=== PATIENT | female | born 1965 | race Caucasian/White ===

== ENCOUNTER → 2016-04-28 | Outpatient (CLI) | payer BC ==
[2015-07-21 08:40] VITALS: BP 159/71
[~2016-04-28] MED LIST: ALBU2.5V5 NEB; AMLO10TA2 PO; FLEC100T PO; FLUT1DIS5 IH; FURO80TA3 PO; GABA-586 PO; HYDR-2680 PO; HYDR50TA6 PO; LOVA20TA2 PO; METF500T9 PO; METO50TA4 PO; PANT40TA5 PO; POTA20TA12 PO; RIVA10TA PO
--- NOTE | 2016-04-28 13:35 | CARD ---
APPROVED REPORT EXAM: Two-dimensional and M-mode echocardiogram with Doppler and color Doppler. Other Information Quality : Technically Limited Rhythm : NSRTechnically limited study due to body habitus. INDICATION Arrhythmia 2D DIMENSIONS RVDd2.9 (2.9-3.5cm)Left Atrium(2D)3.5 (1.6-4.0cm) IVSd1.1 (0.7-1.1cm)Aortic Root(2D)2.6 (2.0-3.7cm) LVDd5.1 (3.9-5.9cm)LVOT Diameter2.3 (1.8-2.4cm) PWd1.1 (0.7-1.1cm)LVDs3.1 (2.5-4.0cm) FS (%) 28.9 %SV86.7 ml LVEF(%)58.9 (>50%) Aortic Valve AoV Peak Gianni.137.9cm/sAoV VTI33.9cm AO Peak GR.7.6mmHgLVOT Peak Gianni.117.9cm/s AO Mean GR.5mmHgAVA (VMAX)3.44cm2 ORLIN (VTI)3.70cm2 Mitral Valve MV E Vlhrcjfu83.7cm/sMV E Peak Gr.4mmHg MV DECEL [id number] A Jldripor16.5cm/s MV E Mean Gr.2mmHgMV [id number] E/A Ratio1.0MV A [id number] MVA (PHT)4.03cm2 Pulmonary Vein S1 Viwawnie27.4cm/sD2 Hkyhmznh51.5cm/s PVa [id number] LEFT VENTRICLE The left ventricle is normal size. There is normal left ventricular wall thickness. Left ventricle sy stolic function is normal. The Ejection Fraction is 55-60%. There is normal LV segmental wall motion. The left ventricular diastolic function and filling is normal for age. RIGHT VENTRICLE The right ventricle is normal size. The right ventricular systolic function is normal. ATRIA The left atrium size is normal. The right atrium size is normal. The interatrial septum is intact wit h no evidence for an atrial septal defect or patent foramen ovale as noted on 2-D or Doppler imaging. AORTIC VALVE The aortic valve is not well visualized. Doppler and Color Flow revealed no significant aortic regurg itation. There is no significant aortic valvular stenosis. MITRAL VALVE Mitral annular calcification is mild. There is no mitral valve stenosis. Doppler and Color Flow revea led no mitral valve regurgitation noted. TRICUSPID VALVE The tricuspid valve is normal in structure and function. Doppler and Color Flow revealed no tricuspid valve regurgitation noted. Unable to estimate PA pressure. There is no tricuspid valve stenosis. PULMONIC VALVE The pulmonic valve is not well visualized. Doppler and Color Flow revealed no pulmonic valvular regur gitation. There is no pulmonic valvular stenosis. GREAT VESSELS The aortic root is normal in size. Normal pulmonary venous flow (Doppler). The IVC is normal in size and collapses >50% with inspiration. PERICARDIAL EFFUSION There is no evidence of significant pericardial effusion. Critical Notification Critical Value: No <Conclusion> Technically very difficult study. Valves not well visualized. Left ventricle systolic function is normal. The Ejection Fraction is 55-60%. There is normal LV segmental wall motion. There is no evidence of significant pericardial effusion.
== END | disposition home or self-care (01) ==
LOC: ECHO 09:39
PROVIDERS: ATTEND Internal Medicine Cardiovascular Disease
DX: I47.2 Ventricular tachycardia (principal); I49.9 Cardiac arrhythmia, unspecified
CPT/HCPCS: 93306

== ENCOUNTER → 2016-10-07 | Outpatient (CLI) | payer BC ==
[2015-07-21 08:40] VITALS: BP 159/71
[~2016-10-07] MED LIST changes: +ASPI-482 PO; +CETI10TA22 PO; +IPRA4AER IH; +LISI-334 PO; +TRAM50TA PO
--- NOTE | 2016-10-07 22:41 | PAIN ---
DATE OF SERVICE: 10/07/2016 INITIAL CONSULTATION FOR PAIN CLINIC CHIEF COMPLAINT: Low back and left lower extremity pain. HISTORY OF PRESENT ILLNESS: This is a 51-year-old female who presents with history of pain in the low back and left leg for many years, approximately 12 years plus. The patient reports it is much worse over the past 6 months or so with pain in low back radiating to the left lower extremity, mostly in the posterior and lateral thigh, posterior calf, some in the lateral anterior calf as well. Occasionally, some pain on the right side, mostly on the left. The patient reports it is constant, sharp with tingling, numbness, burning and cramping. The patient reports it is not a result of any specific injury or action that she is aware of, but it was there present when she woke up from hysterectomy in 2004 and the pain has been there ever since. The patient reports she has tried epidural injections in 2004, which helped significantly. Also, has some chiropractic treatment, which is currently doing, which is helping only of small amounts. The patient reports it awakens her from sleep at least 4 times at night. She feels that it causes increased urinary frequency, but not affect her bowel control, but does affect her ability to walk significantly. She is using a walker and a cane to ambulate. The patient reports no loss of motor function with significant fatigability with activity, worse with standing, walking, changing positions, getting up and down from sitting to standing and vice versa. Once she is standing, walking is somewhat better, but she is having significant difficulty placing weight on her right leg and is using a walker most times and has one with her today. PAST MEDICAL HISTORY: Significant for type 2 diabetes, shortness of breath, obesity, COPD, using home oxygen 2 liters at night, history of hypertension, irregular heart rhythm with pacemaker placed, dizziness, arthritis. PREVIOUS SURGERIES: Include hysterectomy in 2004, pacemaker placement in 2015, strabismus correction at age 12, left hand finger surgery in 2013. CURRENT MEDICATIONS: Include albuterol inhaler, Xarelto, Advair inhaler, metformin, potassium, pantoprazole, lovastatin, daily baby aspirin, tramadol, lisinopril, Zyrtec, metoprolol, furosemide, gabapentin, lisinopril. ALLERGIES: THE PATIENT IS ALLERGIC TO BACTRIM AND IODINE. FAMILY HISTORY: Significant for no major medical problems or conditions that she is aware of. SOCIAL HISTORY: The patient does not smoke, does not drink alcohol, is , lives with her spouse and lives locally in [place]. REVIEW OF SYSTEMS: The patient's review of systems is positive for those items mentioned in history of present illness. All systems reviewed and otherwise negative and is complete, full and well documented on the patient's chart. PHYSICAL EXAMINATION: VITAL SIGNS: The patient's blood pressure is 186/104, pulse 65, respirations 26, temperature is 98.3 degrees Fahrenheit, height is 5 feet inches, weighs 434 pounds. GENERAL: The patient is awake, alert, oriented, appropriate, very pleasant demeanor. HEENT: Shows normocephalic, atraumatic. Extraocular movements are intact and symmetrical. Oral cavity shows mucous membranes are moist and pink. Dentition is intact. NECK: Shows anterior throat supple without palpable lymphadenopathy noted. CHEST: Shows normal with inspection. Breath sounds clear to auscultation bilaterally but distant. The patient is mildly tachypneic with respiratory rate of 24-26. ABDOMEN: The patient's abdomen is obese, soft, nontender, nondistended. No palpable organomegaly, no rebound or guarding demonstrated. BACK: The patient's back shows spine grossly midline. Slight exaggeration of thoracic kyphosis and mild flattening of lumbar lordotic curvature. The patient's lumbar paraspinous muscle shows symmetrical with tenderness with palpation bilaterally diffusely without specific trigger points or radiation, but shows good rotation motion both laterally as well as extension and flexion without significant pain reported. No tenderness over the sacrum or sacroiliac regions. Lower extremities showed deep tendon reflexes at 1+ in the patellar and tendo calcaneus tendons are equal. Motor exam is approximately 4 on scale of 5 and equal and symmetrical with dorsiflexion, extension, quadriceps and hamstring flexion bilaterally. Peripheral pulses are 1+ posterior tibial and dorsalis pedis pulses. No peripheral edema is noted. The patient is able to stand with difficulty, needs help of her walker to get up out of her chair, has a shuffling gait, does not appear to favor the right or left lower extremity significantly, but is shuffling and very slow deliberate gait, again using a walker to ambulate. IMPRESSION: 1. This is a 51-year-old female with long history of low back and right lower extremity pain approximately 12 years or so, worse over the past few months. 2. Morbid obesity. 3. Arthritis. 4. Hypertension. 5. Type 2 diabetes. 6. Pacemaker. PLAN: Options were discussed with the patient including conservative medical management, physical therapy, interventional techniques. She would like to pursue interventional techniques. She good luck with these in 2004. We discussed getting half of Xarelto first, however, we will contact her contracts intern to get clearance for this. If this is deemed safe and appropriate, to clear this, we will have her hold the Xarelto for 3 days prior to returning and plan on lumbar epidural steroid injection at that time. Also discussed her blood pressure, pressure reports is not usually as high as was today, but I encouraged her strongly to follow up with her primary care physician regarding this as well. The patient will return to clinic and will plan on lumbar epidural steroid injection if cleared for holding her Xarelto by her contracts intern as mentioned. MARI JORDAN MD DR: NATALIE/jolene JOB#: [id number] / [id number]
== END | disposition home or self-care (01) ==
LOC: PNCL 08:25
PROVIDERS: ATTEND Anesthesiology
DX: M79.661 Pain in right lower leg (principal); I10 Essential (primary) hypertension; E11.9 Type 2 diabetes mellitus without complications; E66.01 Morbid (severe) obesity due to excess calories; M13.88 Other specified arthritis, other site
CPT/HCPCS: 99214

== ENCOUNTER → 2016-10-14 | Outpatient (CLI) | payer BC ==
[2015-07-21 08:40] VITALS: BP 159/71
[~2016-10-14] MED LIST changes: +IOHEXOL 180 MG/ML 10 ML VIAL. ONE; +methylPREDNISolone ACETATE 40 MG/ML VIAL. ONE; +methylPREDNISolone ACETATE 80 MG/ML VIAL. ONE
--- NOTE | 2016-10-14 17:52 | PAIN ---
DATE OF SERVICE: 10/14/2016 PROGRESS NOTE FOR PAIN CLINIC DIAGNOSES: Lumbar radiculopathy with lumbar degenerative disk disease. HISTORY OF PRESENT ILLNESS: The patient is a 51-year-old female who returns for followup status post previous initial evaluation and clearance from her adult parole officer to hold her Xarelto. She has been off of this for 4 days now, after clearance was obtained, reports still significant pain in the low back and left lower extremity greater than right, but present bilaterally with numbness and weakness in the left lower extremity as well. The patient reports is having some difficulty is standing on her walking and she is having some difficulty with balance in this region as well. She is also using a walker to ambulate. The patient reports the pain is sharp, tingling, burning, constant and severe, rates at 10 on a scale of 10 at least and it is worse. The patient reports it awakens her from sleep frequently. She is now sleeping 1-2 hours at times the most as it is becoming more and more painful and noticeable. The patient reports no new motor or sensory deficits; however, no new bowel or bladder incontinence, would like to proceed today. PHYSICAL EXAMINATION: VITAL SIGNS: Shows blood pressure 143/93, pulse 78, respirations are 24, temperature is 97.8 degrees Fahrenheit., weight is 431 pounds. GENERAL: The patient is awake, alert, oriented, appropriate, very pleasant demeanor. HEENT: Head is normocephalic, atraumatic. Extraocular movements are intact and symmetrical. Oral cavity shows mucous membranes moist and pink. Dentition is intact. NECK: Shows anterior throat supple without palpable lymphadenopathy noted. Swallow reflex is symmetrical. CHEST: Shows normal on inspection. Breath sounds are distant, but clear to auscultation bilaterally. BACK: The patient's back shows spine grossly in midline. Moderate tenderness with palpation throughout the lumbar paraspinous musculature superiorly, medially and inferiorly without radiation. EXTREMITIES: Lower extremities showed deep tendon reflexes 1+ in the patellar tendons. Motor exam is approximately 4 on a scale of 5, but equal, shows good dorsiflexion and extension bilaterally. Options were discussed with the patient. At this time, the patient's old chart was reviewed as her current medication regimen updated. Current review of systems updated today as well. We will proceed with a lumbar epidural steroid injection. She has been off her Xarelto now for 4 days. Risks were discussed including but not limited to bleeding, infection, possibility of epidural hematoma, subsequent neurological compromise, dural puncture, headaches, spinal cord and/or nerve damage, side effects of steroid medications and poor results regarding pain. She pain control. The patient understands and wishes to proceed. The patient will return to clinic in approximately 2 weeks for follow up. She was counseled as on return appointment, activity level and side effects to be aware of. DIAGNOSIS: Lumbar radiculopathy with lumbar degenerative disk disease. PROCEDURE: Lumbar epidural steroid injection in translaminar approach at the L4-L5 level using C-arm fluoroscopic guidance under sterile prep and drape using local anesthetic. MEDICATION INJECTED: A total 120 mg Depo-Medrol plus 10 mL of preservative-free normal saline and 2 mL Isovue contrast. CONDITION AT DISCHARGE: Stable. The patient tolerated procedure well, had no complications. MARI JORDAN MD DR: NATALIE/jolene JOB#: [id number] / [id number]
== END | disposition home or self-care (01) ==
LOC: PNCL 11:13
PROVIDERS: ATTEND Anesthesiology
DX: M51.16 Intervertebral disc disorders with radiculopathy, lumbar region (principal); E78.00 Pure hypercholesterolemia, unspecified; I48.91 Unspecified atrial fibrillation; I10 Essential (primary) hypertension; J44.9 Chronic obstructive pulmonary disease, unspecified; E11.9 Type 2 diabetes mellitus without complications; Z90.710 Acquired absence of both cervix and uterus; Z86.39 Personal history of other endocrine, nutritional and metabolic disease; Z88.2 Allergy status to sulfonamides; Z88.8 Allergy status to other drugs, medicaments and biological substances
CPT/HCPCS: 62323; J1030; J1040

== ENCOUNTER → 2016-10-25 | Outpatient (CLI) | payer BC ==
[2015-07-21 08:40] VITALS: BP 159/71
[~2016-10-25] MED LIST changes: -IOHEXOL 180 MG/ML 10 ML VIAL. ONE; -methylPREDNISolone ACETATE 40 MG/ML VIAL. ONE; -methylPREDNISolone ACETATE 80 MG/ML VIAL. ONE
--- NOTE | 2016-10-25 09:52 | RAD ---
Exam performed: CT maxillofacial. Indication: Chronic sinus disease. Date of service: 10/25/16,Comparison: CT head without contrast from 01/27/15 Technique: Contiguous acquisitions are obtained through the maxillofacial structures without IV contrast. Coronal reformatted images are obtained and reviewed. Findings: There is mucoperiosteal thickening/mucous retention cyst in the right maxillary sinus. There is normal aeration of both frontal, ethmoid, left maxillary and sphenoid sinuses. No air-fluid level, mucoperiosteal thickening or mucus retention cyst is identified. The bony orbital margins and the intraocular contents are bilaterally symmetric and unremarkable. Both ostiomeatal complexes are preserved. The visualized portion of the brain is normal. Impression: 1. Chronic right maxillary sinus disease noted. PQRS Compliance Statement: One or more of the following individualized dose reduction techniques were utilized for this examination: 1. Automated exposure control 2. Adjustment of the mA and/or kV according to patient size 3. Use of iterative reconstruction technique
== END | disposition home or self-care (01) ==
LOC: CT 09:13
PROVIDERS: ATTEND Otolaryngology Otolaryngology/Facial Plastic Surgery
DX: J32.0 Chronic maxillary sinusitis (principal); J34.1 Cyst and mucocele of nose and nasal sinus
CPT/HCPCS: 70486

== ENCOUNTER → 2016-11-04 | Outpatient (CLI) | payer BC ==
[2015-07-21 08:40] VITALS: BP 159/71
[~2016-11-04] MED LIST changes: +IOHEXOL 180 MG/ML 10 ML VIAL. ONE; +methylPREDNISolone ACETATE 40 MG/ML VIAL. ONE; +methylPREDNISolone ACETATE 80 MG/ML VIAL. ONE
--- NOTE | 2016-11-04 10:59 | PN ---
DATE: 11/04/2016 PROGRESS NOTE FOR PAIN CLINIC DIAGNOSIS: Lumbar radiculopathy with lumbar degenerative disk disease. HISTORY OF PRESENT ILLNESS: The patient is a 51-year-old female who returns for followup, status post lumbar epidural steroid injection x 1. The patient reports about 60% improvement overall, but the pain is returning now in the low back, right lower extremity as it was previously. The patient reports it returned fairly quickly as a 9 on a scale of 10 at its worst and at its least. The patient reports no new motor or sensory deficits, still significant pain, tingling, cramping, burning and becoming unbearable in the low back, across the low back, mostly in the right side, posterior gluteus, posterior thigh, lateral thigh, anterior thigh, medial lower leg to the mid thigh, and ankle on the right side. The patient reports no new motor or sensory deficits, no bowel or bladder incontinence. It wakes her from sleep sporadically, but not every night. PHYSICAL EXAMINATION: VITAL SIGNS: The patient's blood pressure 178/89, pulse is 80, respirations 20, temperature 97.6 degrees Fahrenheit, height is 5 feet 8 inches, weight is 440 pounds. GENERAL: The patient is awake, alert, oriented, appropriate, very pleasant demeanor. HEENT: Shows normocephalic, atraumatic. Extraocular movements are intact and symmetrical. Oral cavity, mucous membranes are moist and pink. Dentition is intact. NECK: Shows anterior throat supple without palpable lymphadenopathy noted. Swallow reflex is symmetrical. CHEST: Shows normal on inspection. Breath sounds clear to auscultation bilaterally. HEART: Shows S1 and S2 clear. ABDOMEN: Obese, soft, nontender, nondistended. BACK: Shows spine grossly midline. Lumbar paraspinous muscle shows symmetrical on inspection with palpation and shows some moderate tenderness bilaterally, but without significant radiation. EXTREMITIES: The patient's lower extremities show deep tendon reflexes 1+ in the patellar tendons. Motor exam is strong with approximately 4 on a scale of 5 with dorsiflexion, extension, quadriceps and hamstrings, but equal and symmetrical. Options were discussed with the patient. The patient's old chart was reviewed as her current medication regimen updated. Current review of systems updated today as well. We will proceed with a second in the series of lumbar epidural steroid injection with fluoroscopic guidance. Risks were again discussed including, but not limited to bleeding, infection, possibility of epidural hematoma, subsequent neurologic compromise, dural puncture, headaches, spinal cord and/or nerve damage, side effects of steroid medication and poor results regarding pain control. The patient understands and wishes to proceed. The patient will return to clinic in approximately 2 weeks for followup, was counseled on return appointment, activity level and side effects to be aware of. DIAGNOSIS: Lumbar radiculopathy with lumbar degenerative disk disease. PROCEDURE: Lumbar epidural steroid injection in translaminar approach at the L4-L5 level using C-arm fluoroscopic guidance under sterile prep and drape using local anesthetic. Medication injected a total of 120 mg of Depo-Medrol plus 10 mL of preservative-free normal saline and 2 mL of Isovue for contrast. CONDITION AT DISCHARGE: Stable. The patient tolerated procedure well, had no complications. MARI JORDAN MD DR: NATALIE/jolene JOB#: [id number] / [id number]
== END | disposition home or self-care (01) ==
LOC: PNCL 09:04
PROVIDERS: ATTEND Anesthesiology
DX: M51.16 Intervertebral disc disorders with radiculopathy, lumbar region (principal); E78.00 Pure hypercholesterolemia, unspecified; I48.91 Unspecified atrial fibrillation; I10 Essential (primary) hypertension; J44.9 Chronic obstructive pulmonary disease, unspecified; E11.9 Type 2 diabetes mellitus without complications; Z90.710 Acquired absence of both cervix and uterus; Z86.39 Personal history of other endocrine, nutritional and metabolic disease; Z91.041 Radiographic dye allergy status; Z88.2 Allergy status to sulfonamides
CPT/HCPCS: 62323; J1030; J1040

== ENCOUNTER 2016-11-16 09:11 | Emergency (ER) | payer BC ==
[~2016-11-16] VITALS: Ht 172.7 cm; Wt 196.4 kg
[~2016-11-16 09:11] MED LIST changes: -IOHEXOL 180 MG/ML 10 ML VIAL. ONE; -methylPREDNISolone ACETATE 40 MG/ML VIAL. ONE; -methylPREDNISolone ACETATE 80 MG/ML VIAL. ONE
[2016-11-16] MEDS ORDERED: KETOROLAC 60 MG/2 ML INJ. IM ONE (09:30)
[2016-11-16] MEDS ORDERED: diazePAM 5 MG TABLET PO ONE (09:30)
[2016-11-16] MEDS ORDERED: MORPHINE SULFATE 10 MG/ML VIAL. IM ONE (09:30)
--- NOTE | 2016-11-16 09:33 | PHYS DOC ---
Past Medical History Past Medical History: A-Fib, COPD, Diabetes-Type II, Hypertension Past Surgical History: Hysterectomy, Pacemaker, Other Additional Past Surgical Histo: HAND SURG,SHOULDER, EYE SURG Alcohol Use: None Drug Use: None Adult General Chief Complaint Chief Complaint: LOWER EXT PAIN [facility] HPI Patient is a 51 year old female with history of COPD, smoking, hypertension, diabetes type 2, overweight, sciatic pain, who presents today with moderate left low back pain radiating to the left lower extremity that has been going on for 6 weeks. Patient denies any trauma. Patient states she has been following up with the pain clinic and has been receiving steroid injections to her lumbar spine. She states she called the pain clinic today and they requested her to come to the ED. Patient denies any trauma. Denies any loss of bowel/bladder function. Denies any numbness or tingling to bilateral lower extremities. Review of Systems Review of Systems Constitutional: Denies fever or chills [] Respiratory: Denies cough or shortness of breath [] Cardiovascular: No additional information not addressed in HPI [] GI: Denies abdominal pain, nausea, vomiting, bloody stools or diarrhea [] : Denies dysuria or hematuria [] Musculoskeletal: Left low back pain radiating to the left lower extremity Integument: Denies rash or skin lesions [] Neurologic: Denies headache, focal weakness or sensory changes [] Current Medications Current Medications Current Medications Medications (Trade) Dose Ordered Sig/[facility] Start Time Stop Time Status Last Admin Dose Admin Diazepam (Valium) 5 mg 1X ONCE 11/16/16 09:30 11/16/16 09:33 DC 11/16/16 09:44 5 MG Ketorolac Tromethamine (Toradol Im) 60 mg 1X ONCE 11/16/16 09:30 11/16/16 09:33 DC 11/16/16 09:44 60 MG Morphine Sulfate 5 mg 1X ONCE 11/16/16 09:30 11/16/16 09:33 DC 11/16/16 09:45 5 MG Allergies Allergies Allergies Coded Allergies Type Severity Reaction Last Updated Verified sulfamethoxazole Allergy Intermediate 10/07/16 Yes trimethoprim Allergy Intermediate 10/07/16 Yes iodine Adverse Reaction Unknown 10/07/16 Yes Physical Exam Physical Exam Constitutional: Well developed, well nourished, no acute distress, non-toxic appearance. [] HENT: Normocephalic, atraumatic, bilateral external ears normal, oropharynx moist, no oral exudates, nose normal. [] Neck: Normal range of motion, no tenderness, supple, no stridor. [] Cardiovascular:Heart rate regular rhythm, no murmur [] Lungs & Thorax: Bilateral breath sounds clear to auscultation, oxygen on, patient uses it at home. Abdomen: Bowel sounds normal, soft, no tenderness, no masses, no pulsatile masses. [] Skin: Warm, dry, no erythema, no rash. [] Back: Overweight patient. Moderate tenderness on the left SI joint, midline lumbar spine not accessible for exam due to patient's weight, no CVA tenderness. Positive left leg straight raises Extremities: No tenderness, no cyanosis, no clubbing, ROM intact, no edema. [] Neurologic: Alert and oriented X 3, normal motor function, normal sensory function, no focal deficits noted. [] Psychologic: Affect normal, judgement normal, mood normal. [] Current Patient Data Vital Signs Vital Signs Date Time Temp Pulse Resp B/P (MAP) Pulse Ox O2 Delivery O2 Flow Rate FiO2 11/16/16 10:14 20 98 Nasal Cannula 2.0 11/16/16 09:53 74 150/71 (97) 11/16/16 09:32 97.7 97.7 EKG EKG [] Radiology/Procedures Radiology/Procedures [] Course & Med Decision Making Course & Med Decision Making Pertinent Labs and Imaging studies reviewed. (See chart for details) This is a 51-year-old female patient with history of sciatic pain who presents today with left low back pain radiating to the left lower extremity for 6 weeks. Patient denies any trauma. Denies any cauda equina syndrome symptoms. Patient's symptoms are consistent with sciatic pain. She was given pain medicine in the ED with very good relief. She was discharged with cyclobenzaprine and [place] 10 tablets. She was instructed to follow-up with the pain clinic doctor in the next 7 days. She was provided return precautions and discharged in stable condition. Dragon Disclaimer Dragon Disclaimer This electronic medical record was generated, in whole or in part, using a voice recognition dictation system. Departure Departure Impression: Primary Impression: Left sciatic nerve pain Disposition: HOME, SELF-CARE Condition: STABLE Referrals: VIJAY PAIZ (PCP) Follow-up with your doctor as well as the pain clinic doctor in the next 7 days Patient Instructions: Sciatica, [id number] Additional Instructions: You were seen with left sciatic pain. Please apply heat to the lower lumbar spine, please follow-up with the pain clinic doctor or your primary care doctor as soon as possible. Please return to the emergency room at any point symptoms worsen. Scripts Hydrocodone/Apap 5-325 (NORCO 5-325 TABLET) 1 Each Tablet 1-2 TAB PO Q4-6HRS, #10 TAB Prov: DELMY SAEED APRN 11/16/16 Cyclobenzaprine Hcl (CYCLOBENZAPRINE HCL) 10 Mg Tablet 1 TAB PO TID, #30 TAB Prov: DELMY SAEED APRN 11/16/16 DELMY SAEED APRN Nov 16, 2016 09:33
[2016-11-16 09:53] VITALS: BP 150/71
[2016-11-16] MEDS ORDERED: CYCL10TA2 PO (10:26)
[2016-11-16] MEDS ORDERED: HYDR-971 PO (10:26)
== END 2016-11-16 10:38 | disposition home or self-care (01) ==
LOC: ER 09:11
DX: M54.42 Lumbago with sciatica, left side (principal); I48.91 Unspecified atrial fibrillation; J44.9 Chronic obstructive pulmonary disease, unspecified; E11.9 Type 2 diabetes mellitus without complications; I10 Essential (primary) hypertension; F17.200 Nicotine dependence, unspecified, uncomplicated; Z95.0 Presence of cardiac pacemaker; Z90.710 Acquired absence of both cervix and uterus; Z88.2 Allergy status to sulfonamides; Z88.1 Allergy status to other antibiotic agents; Z88.8 Allergy status to other drugs, medicaments and biological substances
CPT/HCPCS: 96372; 99284; J1885; J2270

== ENCOUNTER 2016-11-17 20:44 | Inpatient (IN) | payer BC ==
[~2016-11-17] VITALS: Ht 172.7 cm; Wt 200.1 kg
[~2016-11-17 20:44] MED LIST changes: +CYCL10TA2 PO; +HYDR-971 PO
[2016-11-17 21:54] LABS: BILIRUBIN,URINE NEGATIVE (NEG); GLUCOSE,URINE NEGATIVE (NEG); NITRITE,URINE POSITIVE (NEG); PH,URINE 5.5; PROTEIN,URINE 30 mg/dL (NEG-TRACE); UROBILINOGEN,URINE 0.2 mg/dL (0.2 mg/dL)
[2016-11-17 22:00] LABS: BACTERIA,URINE MANY /HPF (0-FEW); SQUAMOUS EPITHELIAL CELL,UR FEW /LPF
[2016-11-17 22:13] LABS: BASO # 0.1 x10^3/uL (0.0-0.2); BASO % 1 % (0-3); EOS % 1 % (0-3); HEMATOCRIT 42.6 % (36.0-47.0); HEMOGLOBIN 13.5 g/dL (12.0-15.5); LYMPH # 2.4 x10^3/uL (1.0-4.8); LYMPH % 23 % (24-48); MEAN CORPUSCULAR HEMOGLOBIN 25 pg (25-35); MEAN CORPUSCULAR HGB CONC 32 g/dL (31-37); MEAN CORPUSCULAR VOLUME 79 fL (79-100); MONO % 4 % (0-9); NEUT % 71 % (31-73); PLATELET COUNT 310 x10^3/uL (140-400); RED BLOOD COUNT 5.41 x10^6/uL (3.50-5.40); RED CELL DISTRIBUTION WIDTH 19.3 % (11.5-14.5); WHITE BLOOD COUNT 10.4 x10^3/uL (4.0-11.0)
[2016-11-17] MEDS ORDERED: ONDANSETRON PF 4 MG/2 ML VIAL. IV ONE (22:15)
[2016-11-17] MEDS ORDERED: IV NORMAL SALINE 1000ML BAG 1,000 ML IV SCH (22:15)
[2016-11-17] MEDS: HYDROmorphone 2 MG/ML VIAL IV/SQ PRN (22:18)
[2016-11-17 22:24] LABS: CALCIUM 9.5 mg/dL (8.5-10.1); CREATININE 0.8 mg/dL (0.6-1.0); GFR 75.9; POTASSIUM 4.4 mmol/L (3.5-5.1)
[2016-11-17 22:32] LABS: ALBUMIN 3.3 g/dL (3.4-5.0); ALBUMIN/GLOBULIN RATIO 0.8 (1.0-1.7); TOTAL BILIRUBIN 0.6 mg/dL (0.2-1.0); TOTAL PROTEIN 7.5 g/dL (6.4-8.2)
--- NOTE | 2016-11-17 23:09 | RAD ---
CT Abdomen and Pelvis without contrast History: Severe hip and leg pain, back pain, urinary tract infection Technique: Noncontrast CT imaging was performed of the abdomen and pelvis. Multiplanar images are reviewed. Exposure: One or more of the following individualized dose reduction techniques were utilized for this examination: 1. Automated exposure control 2. Adjustment of the mA and/or kV according to patient size 3. Use of iterative reconstruction technique. Comparison: None Findings: Exam is limited due to beam attenuation by the soft tissues.Accurate evaluation of abdominal visceral organs is limited without intravenous contrast. There is no obvious focal abnormality of the pancreas or liver. There are splenic granulomas. Gallbladder is present without obvious intraluminal abnormality by CT. There is no significant adrenal nodularity. There is no significant abnormality of the limited visualized lung bases. No renal or ureteral calculi are identified. There is no significant hydronephrosis of either kidney. Accurate evaluation of bowel is limited without oral contrast. There is no significant bowel dilatation, free air, free fluid. Impression: 1. Exam is limited due to beam attenuation by the soft tissues. There is no significant hydronephrosis, no convincing urolithiasis identified. Electronically signed by: Stuart Lawler MD (11/17/2016 11:05 PM) [facility]
[2016-11-17] MEDS ORDERED: DEXTROSE 50% 25 GM / 50ML DISP.SYRIN. IV PRN (23:30)
[2016-11-17] MEDS ORDERED: ACETAMINOPHEN 325 MG TABLET. PO PRN (23:30)
[2016-11-18] MEDS: HYDROmorphone 2 MG/ML VIAL IV/SQ PRN (00:09)
[2016-11-18 01:30] VITALS: BP 176/64
[2016-11-18] MEDS: ONDANSETRON PF 4 MG/2 ML VIAL. IV PRN ×2 (01:50→10:51)
[2016-11-18] MEDS: MORPHINE SULFATE 4 MG/ML DISP.SYRIN. IV PRN ×7 (01:51→21:13)
--- NOTE | 2016-11-18 02:27 | ED.ADGEN ---
Past Medical History Past Medical History: A-Fib, Arthritis, COPD, Diabetes-Type II, Hypertension Past Surgical History: Hysterectomy, Pacemaker, Other Additional Past Surgical Histo: HAND SURG,SHOULDER, EYE SURG Alcohol Use: None Drug Use: None Adult General Chief Complaint Chief Complaint: LOWER BACK PAIN OR INJURY HPI HPI Patient is a 51 year old woman, history of atrial fibrillation, hypertension, morbid obesity, type 2 diabetes mellitus, chronic back pain for which she follows with the pain management clinic, who presents to the emergency department with a complaint of pain in her lower back radiating down her left leg. Patient states that symptoms are similar to previous episodes of severe sciatica, states that she last had an epidural injection about a week and a half ago but it was unsuccessful. She she woke today with pain, denies any discrete injuries. Does complain of some urinary frequency, no urgency or dysuria. No hematuria. No discharge or drainage from the vagina. No abdominal pain. No fevers or chills, describes the pain as Ksenia, sharp and shooting, radiating from the lower back down the left leg in an electric fashion, worse with any motion, states she cannot bear weight on the left side secondary to pain. Denies any moises weakness. No change in bowel or bladder habits. Patient was seen in the emergency department this morning for the same complaint, that time she received analgesic, was feeling better 1 home. States that she when she awoke from taking a nap she was feeling worse again. Review of Systems Review of Systems Constitutional: Denies fever or chills. [] Eyes: Denies change in visual acuity. [] HENT: Denies nasal congestion or sore throat. [] Respiratory: Denies cough or shortness of breath. [] Cardiovascular: Denies chest pain or edema. [] GI: Denies abdominal pain, nausea, vomiting, bloody stools or diarrhea. [] : Denies dysuria. [] Musculoskeletal: Denies joint pain. [Complaining of low back pain, radiating into the left lower extremity.] Integument: Denies rash. [] Neurologic: Denies headache, focal weakness or sensory changes. [] Endocrine: Denies polyuria or polydipsia. [] Lymphatic: Denies swollen glands. [] Psychiatric: Denies depression or anxiety. [] Current Medications Current Medications Current Medications Medications (Trade) Dose Ordered Sig/Misty Start Time Stop Time Status Last Admin Dose Admin Hydromorphone HCl (Dilaudid) 0.5 mg PRN Q15MIN PRN 11/17/16 22:15 11/18/16 22:14 11/18/16 00:09 0.5 MG Ondansetron HCl (Zofran) 4 mg 1X ONCE 11/17/16 22:15 11/17/16 22:16 DC 11/17/16 22:18 4 MG Sodium Chloride 1,000 ml @ 1,000 mls/hr Q1H 11/17/16 22:15 11/17/16 23:14 DC 11/17/16 22:17 1,000 MLS/HR Allergies Allergies Allergies Coded Allergies Type Severity Reaction Last Updated Verified sulfamethoxazole Allergy Intermediate 10/07/16 Yes trimethoprim Allergy Intermediate 10/07/16 Yes iodine Adverse Reaction Unknown 10/07/16 Yes Physical Exam Physical Exam Constitutional: Well developed, morbidly obese, no acute distress, non-toxic appearance. [Patient with nasal cannula in place which she wears chronically.] HENT: Normocephalic, atraumatic, bilateral external ears normal, oropharynx moist, no oral exudates, nose normal. [] Eyes: PERRLA, EOMI, conjunctiva normal, no discharge. [] Neck: Normal range of motion, no tenderness, supple, no stridor. [] Cardiovascular:Heart rate regular rhythm, no murmur, S1, S2, rubs or gallops [] Lungs & Thorax: Bilateral breath sounds clear to auscultation, no wheezing, rhonchi, rales. [] Abdomen: Bowel sounds normal, soft, obese, no rebound, rigidity, no guarding, no tenderness, no masses, no pulsatile masses. [] Skin: Warm, dry, no erythema, no rash. [] Back: Patient with tenderness palpation midline and left-sided paraspinal lumbar spine, no step-offs or deformities, tenderness in the piriformis region with spasm. Extremities: No tenderness, no cyanosis, no clubbing, ROM intact, no edema. [] Neurologic: Alert and oriented X 3, normal motor function, normal sensory function, no focal deficits noted. [] Psychologic: Affect normal, judgement normal, mood normal. [] Current Patient Data Vital Signs Vital Signs Date Time Temp Pulse Resp B/P (MAP) Pulse Ox O2 Delivery O2 Flow Rate FiO2 11/17/16 22:32 76 18 160/71 (100) 96 Nasal Cannula 2.0 11/17/16 21:05 98.2 98.2 Lab Values Laboratory Tests Test 11/17/16 21:10 11/17/16 21:46 White Blood Count 10.4 x10^3/uL (4.0-11.0) Red Blood Count 5.41 x10^6/uL (3.50-5.40) H Hemoglobin 13.5 g/dL (12.0-15.5) Hematocrit 42.6 % (36.0-47.0) Mean Corpuscular Volume 79 fL (79-100) Mean Corpuscular Hemoglobin 25 pg (25-35) Mean Corpuscular Hemoglobin Concent 32 g/dL (31-37) Red Cell Distribution Width 19.3 % (11.5-14.5) H Platelet Count 310 x10^3/uL (140-400) Neutrophils (%) (Auto) 71 % (31-73) Lymphocytes (%) (Auto) 23 % (24-48) L Monocytes (%) (Auto) 4 % (0-9) Eosinophils (%) (Auto) 1 % (0-3) Basophils (%) (Auto) 1 % (0-3) Neutrophils # (Auto) 7.4 x10^3uL (1.8-7.7) Lymphocytes # (Auto) 2.4 x10^3/uL (1.0-4.8) Monocytes # (Auto) 0.4 x10^3/uL (0.0-1.1) Eosinophils # (Auto) 0.1 x10^3/uL (0.0-0.7) Basophils # (Auto) 0.1 x10^3/uL (0.0-0.2) Sodium Level 141 mmol/L (136-145) Potassium Level 4.4 mmol/L (3.5-5.1) Chloride Level 102 mmol/L (98-107) Carbon Dioxide Level 32 mmol/L (21-32) Anion Gap 7 (6-14) Blood Urea Nitrogen 19 mg/dL (7-20) Creatinine 0.8 mg/dL (0.6-1.0) Estimated GFR (Cockcroft-Gault) 75.9 BUN/Creatinine Ratio 24 (6-20) H Glucose Level 119 mg/dL (70-99) H Calcium Level 9.5 mg/dL (8.5-10.1) Total Bilirubin 0.6 mg/dL (0.2-1.0) Aspartate Amino Transferase (AST) 29 U/L (15-37) Alanine Aminotransferase (ALT) 20 U/L (14-59) Alkaline Phosphatase 104 U/L (46-116) Total Protein 7.5 g/dL (6.4-8.2) Albumin 3.3 g/dL (3.4-5.0) L Albumin/Globulin Ratio 0.8 (1.0-1.7) L Urine Collection Type U cath Urine Color Chiara Urine Clarity Turbid Urine pH 5.5 Urine Specific [place] 1.025 Urine Protein 30 mg/dL (NEG-TRACE) Urine Glucose (UA) Negative mg/dL (NEG) Urine Ketones (Stick) Negative mg/dL (NEG) Urine Blood Large (NEG) Urine Nitrite Positive (NEG) Urine Bilirubin Negative (NEG) Urine Urobilinogen Dipstick 0.2 mg/dL (0.2 mg/dL) Urine Leukocyte Esterase Large (NEG) Urine RBC 6-10 /HPF (0-2) Urine WBC 11-20 /HPF (0-4) Urine Squamous Epithelial Cells Few /LPF Urine Bacteria Many /HPF (0-FEW) Urine Mucus Mod /LPF Laboratory Tests 11/17/16 21:10 Laboratory Tests 11/17/16 21:10 EKG EKG Not indicated.[] Radiology/Procedures Radiology/Procedures [][facility] [address] [place], [place] [id number] IMAGING REPORT Signed PATIENT: VIJAY SYKES ACCOUNT: [id number] : 1965 LOCATION: ER AGE: 51 SEX: F EXAM STATUS: REG ER ORD. PHYSICIAN: TIMMY VILLAREAL DO REASON: back pain/UTI PROCEDURE: CT ABDOMEN PELVIS WO CONTRAST CT Abdomen and Pelvis without contrast History: Severe hip and leg pain, back pain, urinary tract infection Technique: Noncontrast CT imaging was performed of the abdomen and pelvis. Multiplanar images are reviewed. Exposure: One or more of the following individualized dose reduction techniques were utilized for this examination: 1. Automated exposure control 2. Adjustment of the mA and/or kV according to patient size 3. Use of iterative reconstruction technique. Comparison: None Findings: Exam is limited due to beam attenuation by the soft tissues.Accurate evaluation of abdominal visceral organs is limited without intravenous contrast. There is no obvious focal abnormality of the pancreas or liver. There are splenic granulomas. Gallbladder is present without obvious intraluminal abnormality by CT. There is no significant adrenal nodularity. There is no significant abnormality of the limited visualized lung bases. No renal or ureteral calculi are identified. There is no significant hydronephrosis of either kidney. Accurate evaluation of bowel is limited without oral contrast. There is no significant bowel dilatation, free air, free fluid. Impression: 1. Exam is limited due to beam attenuation by the soft tissues. There is no significant hydronephrosis, no convincing urolithiasis identified. Electronically signed by: Nadia Terry MD (11/17/2016 11:05 PM) [facility] DICTATED and SIGNED BY: NADIA TERRY MD DATE: 11/17/16 2259 CC: VIJAY PAIZ; TIMMY VILLAREAL DO ~ Course & Med Decision Making Course & Med Decision Making Pertinent Labs and Imaging studies reviewed. (See chart for details) Patient with a normal neurologic examination, complaining of severe pain consistent with sciatica. Also noted to have a nitrate positive urinary tract infection, along with some flank tenderness, therefore CT of abdomen and pelvis ordered to assess for potential renal calculi as exacerbating factor, and to evaluate for possible pyelonephritis. Patient's laboratory studies were otherwise unremarkable, patient received fentanyl, Valium in the ED, with some improvement of her symptoms. She is still unable to weight-bear safely, therefore will admit to the hospital for pain and symptom management, along with treatment of urinary tract infection, patient is agreeable this plan. Findings as above were discussed with Dr. Devine of internal medicine, patient accepted to his service as a full admission to the medical telemetry floor for monitoring, due to patient's oxygen requirements, obesity, and medication administration for symptom management, consultation placed for pain management. Dragon Disclaimer Dragon Disclaimer This electronic medical record was generated, in whole or in part, using a voice recognition dictation system. Departure Impression: Primary Impression: Left sciatic nerve pain Additional Impressions: Urinary tract infection Intractable pain Disposition: 09 ADMITTED INPATIENT Admitting Physician: Patricia Devine Condition: IMPROVED Problem Qualifiers TIMMY VILLARELA DO Nov 18, 2016 02:27
[2016-11-18] MEDS ORDERED: INFLUENZA VAX SCREEN BY RX. MC ONE (02:30)
[2016-11-18] MEDS ORDERED: ALBUTEROL SULFATE 2.5 MG/3 ML NEBU. NEB PRN (03:00)
[2016-11-18] MEDS ORDERED: traMADol 50 MG TABLET PO PRN (03:00)
[2016-11-18] MEDS: HYDROcodone/APAP 5/325MG 1 TAB TABLET PO PRN ×5 (03:45→22:35)
[2016-11-18 06:02] LABS: CALCIUM 8.8 mg/dL (8.5-10.1); CREATININE 0.8 mg/dL (0.6-1.0); GFR 75.9; POTASSIUM 3.6 mmol/L (3.5-5.1)
[2016-11-18 07:00] VITALS: BP 154/72
[2016-11-18] MEDS: BUDESONIDE 0.5 MG/2 ML NEBU. NEB SCH ×2 (07:47→19:53)
[2016-11-18] MEDS: IPRATRPIUM/ALBUTEROL 0.5/2.5MG 3 ML NEBU. NEB SCH ×4 (07:47→19:53)
[2016-11-18] MEDS: INSULIN ASPART 300 UNITS/3 ML INSULN.PEN SQ SCH ×3 (07:53→17:00)
[2016-11-18] MEDS: PANTOPRAZOLE 40 MG TABLET.DR. PO SCH (07:59)
[2016-11-18] MEDS: metFORMIN XR 500 MG TAB.ER.24H PO SCH (07:59)
[2016-11-18] MEDS ORDERED: CYCLOBENZAPRINE 10 MG TABLET. PO SCH (09:00)
[2016-11-18] MEDS ORDERED: NON FORMULARY ITEM (Ipratropium/Albuterol Sulfate (Combivent Respimat Inhal) 2 INH) IH SCH (09:00)
[2016-11-18] MEDS ORDERED: FLU VACC QS2017-18 (36MOS+)/PF 0.5 ML SYRINGE. VAX IM ONE (09:00)
[2016-11-18] MEDS ORDERED: NON FORMULARY ITEM (Fluticasone/Salmeterol (Advair 500-50 Diskus) 1 INH) IH SCH (09:00)
--- NOTE | 2016-11-18 09:27 | PDOC1 ---
History and Physical Date of Admission Date of Admission DATE: 11/18/16 TIME: 09:20 Source Source: Chart review, Patient History of Present Illness History of Present Illness Ms. Duenas is a 51 year old woman, acute worsening of back pain for the past few days. blood pressure was up a few days ago when she had f/u with Dr. 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, and has been active previously until recent back pain Past Medical History Past Medical History history of atrial fibrillation, hypertension, morbid obesity, type 2 diabetes mellitus, chronic back pain Cardiovascular: AFIB, HTN, Syncope, Hyperlipidemia Pulmonary: COPD GI: No pertinent hx Musculoskeletal: Osteoarthritis Endocrine: Diabetes Past Surgical History Past Surgical History: Hysterectomy, Other Family History Family History: No Significant, Family History Unknown Social History Smoke: No ALCOHOL: none Drugs: None Current Problem List Problem List Problems Medical Problems: (1) Intractable pain Status: Acute (2) Left sciatic nerve pain Status: Acute (3) Urinary tract infection Status: Acute Problems: Current Medications Current Medications Current Medications Hydromorphone HCl (Dilaudid) 0.5 mg PRN Q15MIN PRN IV/SQ PAIN GREATER THAN 3/ 10 Last administered on 11/18/16 00:09; Start 11/17/16 at 22:15; Stop 11/18/16 at 22:14 Sodium Chloride 1,000 ml @ 1,000 mls/hr Q1H IV Last administered on 11/17/16 22:17; Start 11/17/16 at 22:15; Stop 11/17/16 at 23:14; Status DC Ondansetron HCl (Zofran) 4 mg 1X ONCE IV Last administered on 11/17/16 22:18 ; Start 11/17/16 at 22:15; Stop 11/17/16 at 22:16; Status DC Ceftriaxone Sodium 1 gm/ Sodium Chloride 50 ml @ 100 mls/hr Q24H IV Last administered on 11/17/16 23:30; Start 11/17/16 at 23:30 Ondansetron HCl (Zofran) 4 mg PRN Q8HRS PRN IV NAUSEA/VOMITING Last administered on 11/18/16 01:50; Start 11/17/16 at 23:30; Stop 11/18/16 at 23:29 Morphine Sulfate 4 mg PRN Q2HR PRN IV PAIN Last administered on 11/18/16 07:58 ; Start 11/17/16 at 23:30; Stop 11/18/16 at 23:29 Acetaminophen (Tylenol) 650 mg PRN Q4HRS PRN PO FEVER Last administered on 11/18 01:53; Start 11/17/16 at 23:30; Stop 11/18/16 at 23:29 Insulin Aspart (NovoLOG) 0-5 UNITS TIDWMEALS SQ ; Start 11/18/16 at 08:00 Dextrose (Dextrose 50%-Water Syringe) 12.5 gm PRN Q15MIN PRN IV SEE COMMENTS; Start 11/17/16 at 23:30 Diazepam (Valium) 5 mg 1X ONCE IV Last administered on 11/18/16 00:08; Start 11/18/16 at 00:00; Stop 11/18/16 at 00:01; Status DC Ceftriaxone Sodium 50 ml @ As Directed STK-MED ONCE IV ; Start 11/18/16 at 00:06 ; Stop 11/18/16 at 00:07; Status DC Info (Do NOT chart on this placeholder) 1 each 1X ONCE MC ; Start 11/18/16 at 02:30; Stop 11/18/16 at 02:31; Status UNV Albuterol Sulfate (Ventolin Neb Soln) 2.5 mg PRN Q2HRS PRN NEB SHORTNESS OF BREATH; Start 11/18/16 at 03:00 Aspirin (Ecotrin) 81 mg DAILY PO ; Start 11/18/16 at 09:00 Cetirizine HCl (ZyrTEC) 10 mg DAILY PO ; Start 11/18/16 at 09:00 Cyclobenzaprine HCl (Flexeril) 10 mg TID PO ; Start 11/18/16 at 09:00 Furosemide (Lasix) 80 mg DAILY PO ; Start 11/18/16 at 09:00 Lisinopril (Prinivil) 20 mg DAILY PO ; Start 11/18/16 at 09:00 Metformin HCl (Glucophage Xr) 500 mg DAILYWBKFT PO Last administered on 07:59; Start 11/18/16 at 08:00 Metoprolol Succinate (Toprol Xl) 50 mg QHS PO ; Start 11/18/16 at 21:00 Pantoprazole Sodium (Protonix) 40 mg DAILYAC PO Last administered on 11/18/16 07:59; Start 11/18/16 at 07:30 Potassium Chloride (Klor-Con) 20 meq DAILY PO ; Start 11/18/16 at 09:00 Rivaroxaban (Xarelto) 20 mg QHS PO ; Start 11/18/16 at 21:00 Tramadol HCl (Ultram) 50 mg PRN Q6HRS PRN PO PAIN; Start 11/18/16 at 03:00 Non-Formulary Medication 1 inh BID IH ; Start 11/18/16 at 09:00; Status UNV Gabapentin (Neurontin) 300 mg BID PO ; Start 11/18/16 at 09:00 Non-Formulary Medication 2 inh QID IH ; Start 11/18/16 at 09:00; Status UNV Atorvastatin Calcium (Lipitor) 5 mg QHS PO ; Start 11/18/16 at 21:00 Acetaminophen/ Hydrocodone Bitart (Lortab 5/325) 1-2 tabs PRN Q4HRS PRN PO PAIN Last administered on 11/18/16 07:59; Start 11/18/16 at 03:00 Influenza Virus Vaccine Quadrival (Fluarix Quad 2457-0982 Syringe) 0.5 ml ONCE ONCE VAX IM Last administered on 11/18/16 03:49; Start 11/18/16 at 09:00; Stop 11/18/16 at 09:01; Status DC Albuterol/ Ipratropium (Duoneb) 3 ml RTQID NEB Last administered on 11/18/16 07:47; Start 11/18/16 at 08:00 Budesonide (Pulmicort) 0.5 mg RTBID NEB Last administered on 11/18/16 07:47; Start 11/18/16 at 08:00 Active Scripts Active [place] 5-325 Tablet (Acetaminophen/Hydrocodone Bitart) 1 Each Tablet 1-2 Tab PO Q4-6HRS Cyclobenzaprine Hcl 10 Mg Tablet 1 Tab PO TID Reported Combivent Respimat Inhal (Ipratropium/Albuterol Sulfate) 4 Gm Aer.w.adap 2 Inh IH QID Zyrtec (Cetirizine Hcl) 10 Mg Tablet 1 Tab PO DAILY Lisinopril 20 Mg Tablet 1 Tab PO DAILY Tramadol Hcl 50 Mg Tablet 50 Mg PO Q6H PRN Aspir 81 (Aspirin) 81 Mg Tablet.dr 1 Tab PO DAILY Albuterol Sulfate Neb Soln (Albuterol Sulfate) 2.5 Mg/3 Ml Vial.neb 2.5 Mg NEB PRN Q2HRS PRN Xarelto (Rivaroxaban) 10 Mg Tablet 20 Mg PO QHS Advair 500-50 Diskus (Fluticasone/Salmeterol) 1 Each Disk.w.dev 1 Inh IH BID Metformin Hcl Er (Metformin Hcl) 500 Mg Tab.er.24h 500 Mg PO DAILYWBKFT Potassium Chloride 20 Meq Tab.er.prt 20 Meq PO DAILY Lovastatin 20 Mg Tablet 20 PO QHS Pantoprazole Sodium 40 Mg Tablet.dr 40 Mg PO DAILYAC Toprol Xl (Metoprolol Succinate) 50 Mg Tab.er.24h 50 Mg PO QHS Gabapentin 300 Mg Capsule 300 Mg PO BID Furosemide 80 Mg Tablet 80 Mg PO DAILY Allergies Allergies: Coded Allergies: sulfamethoxazole (Verified Allergy, Intermediate, 10/07/16) trimethoprim (Verified Allergy, Intermediate, 10/07/16) iodine (Verified Adverse Reaction, Unknown, 10/07/16) ROS General: No: Chills, Night Sweats, Fatigue, Malaise, Appetite, Other PSYCHOLOGICAL ROS: YES: Sleep disturbances, No: Anxiety, Behavioral Disorder, Concentration difficultie, Decreased libido , Depression, Disorientation, Hallucinations, Hostility, Irritablity, Memory difficulties, Mood Swings, Obsessive thoughts, Other Eyes: No Blurry vision, No Decreased vision, No Double vision, No Dry eyes, No Excessive tearing, No Eye Pain, No Itchy Eyes, No Loss of vision, No Photophobia , No Scotomata, No Uses contacts, No Uses glasses, No Other HEENT: No: Heacaches, Visual Changes, Hearing change, Nasal congestion, Nasal discharge, Oral lesions, Sinus pain, Sore Throat, Epistaxis, Sneezing, Snoring, Tinnitus, Vertigo, Vocal changes, Other Respiratory: No: Cough, Hemoptysis, Orthopnea, Pleuritic Pain, Shortness of breath, SOB with excertion, Sputum Changes, Stridor, Tachypnea, Wheezing, Other Cardiovascular: No Chest Pain, No Palpitations, No Orthopnea, No Paroxysmal Noc. Dyspnea, No Edema, No Lt Headedness, No Other Gastrointestinal: No Nausea, No Vomiting, No Abdominal Pain, No Diarrhea, No Constipation, No Melena, No Hematochezia, No Other Genitourinary: No Dysuria, No Frequency, No Incontinence, No Hematuria, No Retention, No Discharge, No Urgency, No Pain, No Flank Pain, No Other, No , No , No , No , No , No , No Musculoskeletal: Yes Gait Disturbance, Yes Joint Pain, Yes Joint Stiffness, Yes Pain In:, No Joint Swelling, No Muscular Weakness, No Other Neurological: Yes Gait Disturbance, No Behavorial Changes, No Bowel/Bladder ControlChng, No Confusion, No Dizziness, No Headaches, No Impaired Coord/balance, No Memory Loss, No Numbness/ Tingling, No Seizures, No Speech Problems, No Tremors, No Visual Changes, No Weakness, No Other Skin: No Dry Skin, No Eczema, No Hair Changes, No Lumps, No Mole Changes, No Mottling, No Nail Changes, No Pruritus, No Rash, No Skin Lesion Changes, No Other, No Acne Physical Exam General: Alert, Cooperative, No acute distress HEENT: EOMI, Mucous membr. moist/pink Lungs: Normal air movement Heart: no murmurs Abdomen: Normal bowel sounds, Soft (very obese) Rectal Exam: not examined Extremities: No clubbing, No cyanosis, No edema Skin: No significant lesion Neuro: Normal speech, Normal tone, Sensation intact Psych/Mental Status: Mood NL Vitals Vitals Vital Signs Date Time Temp Pulse Resp B/P (MAP) Pulse Ox O2 Delivery O2 Flow Rate FiO2 11/18/16 07:59 Nasal Cannula 4.0 11/18/16 07:55 100 11/18/16 04:58 20 11/18/16 01:30 97.9 72 176/64 (101) 97.9 Labs Labs Laboratory Tests Test 11/17/16 21:10 11/17/16 21:46 11/18/16 04:35 11/18/16 07:48 White Blood Count 10.4 x10^3/uL (4.0-11.0) Red Blood Count 5.41 x10^6/uL (3.50-5.40) Hemoglobin 13.5 g/dL (12.0-15.5) Hematocrit 42.6 % (36.0-47.0) Mean Corpuscular Volume 79 fL (79-100) Mean Corpuscular Hemoglobin 25 pg (25-35) Mean Corpuscular Hemoglobin Concent 32 g/dL (31-37) Red Cell Distribution Width 19.3 % (11.5-14.5) Platelet Count 310 x10^3/uL (140-400) Neutrophils (%) (Auto) 71 % (31-73) Lymphocytes (%) (Auto) 23 % (24-48) Monocytes (%) (Auto) 4 % (0-9) Eosinophils (%) (Auto) 1 % (0-3) Basophils (%) (Auto) 1 % (0-3) Neutrophils # (Auto) 7.4 x10^3uL (1.8-7.7) Lymphocytes # (Auto) 2.4 x10^3/uL (1.0-4.8) Monocytes # (Auto) 0.4 x10^3/uL (0.0-1.1) Eosinophils # (Auto) 0.1 x10^3/uL (0.0-0.7) Basophils # (Auto) 0.1 x10^3/uL (0.0-0.2) Sodium Level 141 mmol/L (136-145) 144 mmol/L (136-145) Potassium Level 4.4 mmol/L (3.5-5.1) 3.6 mmol/L (3.5-5.1) Chloride Level 102 mmol/L (98-107) 105 mmol/L (98-107) Carbon Dioxide Level 32 mmol/L (21-32) 33 mmol/L (21-32) Anion Gap 7 (6-14) 6 (6-14) Blood Urea Nitrogen 19 mg/dL (7-20) 16 mg/dL (7-20) Creatinine 0.8 mg/dL (0.6-1.0) 0.8 mg/dL (0.6-1.0) Estimated GFR (Cockcroft-Gault) 75.9 75.9 BUN/Creatinine Ratio 24 (6-20) Glucose Level 119 mg/dL (70-99) 102 mg/dL (70-99) Calcium Level 9.5 mg/dL (8.5-10.1) 8.8 mg/dL (8.5-10.1) Total Bilirubin 0.6 mg/dL (0.2-1.0) Aspartate Amino Transf (AST/SGOT) 29 U/L (15-37) Alanine Aminotransferase (ALT/SGPT) 20 U/L (14-59) Alkaline Phosphatase 104 U/L (46-116) Total Protein 7.5 g/dL (6.4-8.2) Albumin 3.3 g/dL (3.4-5.0) Albumin/Globulin Ratio 0.8 (1.0-1.7) Urine Collection Type U cath Urine Color [place] Urine Clarity Turbid Urine pH 5.5 Urine Specific [place] 1.025 Urine Protein 30 mg/dL (NEG-TRACE) Urine Glucose (UA) Negative mg/dL (NEG) Urine Ketones (Stick) Negative mg/dL (NEG) Urine Blood Large (NEG) Urine Nitrite Positive (NEG) Urine Bilirubin Negative (NEG) Urine Urobilinogen Dipstick 0.2 mg/dL (0.2 mg/dL) Urine Leukocyte Esterase Large (NEG) Urine RBC 6-10 /HPF (0-2) Urine WBC 11-20 /HPF (0-4) Urine Squamous Epithelial Cells Few /LPF Urine Bacteria Many /HPF (0-FEW) Urine Mucus Mod /LPF Glucose (Fingerstick) 93 mg/dL (70-99) Laboratory Tests Test 11/17/16 21:10 11/17/16 21:46 11/18/16 04:35 11/18/16 07:48 White Blood Count 10.4 x10^3/uL (4.0-11.0) Red Blood Count 5.41 x10^6/uL (3.50-5.40) Hemoglobin 13.5 g/dL (12.0-15.5) Hematocrit 42.6 % (36.0-47.0) Mean Corpuscular Volume 79 fL (79-100) Mean Corpuscular Hemoglobin 25 pg (25-35) Mean Corpuscular Hemoglobin Concent 32 g/dL (31-37) Red Cell Distribution Width 19.3 % (11.5-14.5) Platelet Count 310 x10^3/uL (140-400) Neutrophils (%) (Auto) 71 % (31-73) Lymphocytes (%) (Auto) 23 % (24-48) Monocytes (%) (Auto) 4 % (0-9) Eosinophils (%) (Auto) 1 % (0-3) Basophils (%) (Auto) 1 % (0-3) Neutrophils # (Auto) 7.4 x10^3uL (1.8-7.7) Lymphocytes # (Auto) 2.4 x10^3/uL (1.0-4.8) Monocytes # (Auto) 0.4 x10^3/uL (0.0-1.1) Eosinophils # (Auto) 0.1 x10^3/uL (0.0-0.7) Basophils # (Auto) 0.1 x10^3/uL (0.0-0.2) Sodium Level 141 mmol/L (136-145) 144 mmol/L (136-145) Potassium Level 4.4 mmol/L (3.5-5.1) 3.6 mmol/L (3.5-5.1) Chloride Level 102 mmol/L (98-107) 105 mmol/L (98-107) Carbon Dioxide Level 32 mmol/L (21-32) 33 mmol/L (21-32) Anion Gap 7 (6-14) 6 (6-14) Blood Urea Nitrogen 19 mg/dL (7-20) 16 mg/dL (7-20) Creatinine 0.8 mg/dL (0.6-1.0) 0.8 mg/dL (0.6-1.0) Estimated GFR (Cockcroft-Gault) 75.9 75.9 BUN/Creatinine Ratio 24 (6-20) Glucose Level 119 mg/dL (70-99) 102 mg/dL (70-99) Calcium Level 9.5 mg/dL (8.5-10.1) 8.8 mg/dL (8.5-10.1) Total Bilirubin 0.6 mg/dL (0.2-1.0) Aspartate Amino Transf (AST/SGOT) 29 U/L (15-37) Alanine Aminotransferase (ALT/SGPT) 20 U/L (14-59) Alkaline Phosphatase 104 U/L (46-116) Total Protein 7.5 g/dL (6.4-8.2) Albumin 3.3 g/dL (3.4-5.0) Albumin/Globulin Ratio 0.8 (1.0-1.7) Urine Collection Type U cath Urine Color [place] Urine Clarity Turbid Urine pH 5.5 Urine Specific [place] 1.025 Urine Protein 30 mg/dL (NEG-TRACE) Urine Glucose (UA) Negative mg/dL (NEG) Urine Ketones (Stick) Negative mg/dL (NEG) Urine Blood Large (NEG) Urine Nitrite Positive (NEG) Urine Bilirubin Negative (NEG) Urine Urobilinogen Dipstick 0.2 mg/dL (0.2 mg/dL) Urine Leukocyte Esterase Large (NEG) Urine RBC 6-10 /HPF (0-2) Urine WBC 11-20 /HPF (0-4) Urine Squamous Epithelial Cells Few /LPF Urine Bacteria Many /HPF (0-FEW) Urine Mucus Mod /LPF Glucose (Fingerstick) 93 mg/dL (70-99) VTE Prophylaxis Ordered VTE Prophylaxis Devices: Yes VTE Pharmacological Prophylaxi: No Assessment/Plan Assessment/Plan back pain, acute on chronic with sciatica and radicular symptoms, consult physiatry, Pain management clinic, s/p prior epidurals, she reports prior benefit to systemic stress-dose steroids morbid obesity, BMI 56 Dm2, htn, COPD, atrial fib admit, unable to walk, pain > 10 if trying to stand DERIK BRAVO MD Nov 18, 2016 09:27
[2016-11-18] MEDS ORDERED: methylPREDNISolone 4 MG TABLET. PO SCH (10:00)
[2016-11-18] MEDS ORDERED: BUPIVACAINE MPF 0.25% 10 ML VIAL. IJ ONE (10:15)
[2016-11-18] MEDS ORDERED: methylPREDNISolone ACETATE 40 MG/ML VIAL. IM ONE ×2 (10:15)
[2016-11-18] MEDS: methylPREDNISolone 4 MG TABLET. PO SCH ×4 (10:49→22:05)
[2016-11-18] MEDS: LIDOCAINE (700MG/PATCH) PATCH. TD SCH (10:49)
[2016-11-18] MEDS: GABAPENTIN 300 MG CAPSULE. PO SCH ×2 (10:54→22:06)
[2016-11-18] MEDS: POTASSIUM CHLORIDE 20 MEQ TABLET.ER. PO SCH (10:55)
[2016-11-18] MEDS: LISINOPRIL 20 MG TABLET PO SCH (10:55)
[2016-11-18] MEDS: CETIRIZINE HCL 10 MG TABLET. PO SCH (10:55)
[2016-11-18] MEDS: CYCLOBENZAPRINE 10 MG TABLET. PO PRN ×2 (10:55→22:05)
[2016-11-18] MEDS: FUROSEMIDE 80 MG TABLET. PO SCH (10:55)
[2016-11-18] MEDS: ASPIRIN ENTERIC COATED 81 MG TABLET.DR. PO SCH (10:56)
[2016-11-18 11:00] VITALS: BP 134/62
--- NOTE | 2016-11-18 12:21 | PDOC ---
CARDIO Progress Notes Date and Time Date of Service 11/18/2016 Time of Evaluation 1200 Subjective Subjective: No Chest Pain, No shortness of breath, No Palpitations, No Dizziness, Other (still has low back pain) Vitals Vitals Vital Signs Date Time Temp Pulse Resp B/P (MAP) Pulse Ox O2 Delivery O2 Flow Rate FiO2 11/18/16 11:35 96 Nasal Cannula 2.0 11/18/16 10:55 76 154/72 11/18/16 07:00 97.6 18 97.6 Weight Weight [ ] Laboratory Labs Laboratory Tests Test 11/17/16 21:10 11/17/16 21:46 11/18/16 04:35 11/18/16 07:48 White Blood Count 10.4 x10^3/uL (4.0-11.0) Red Blood Count 5.41 x10^6/uL (3.50-5.40) Hemoglobin 13.5 g/dL (12.0-15.5) Hematocrit 42.6 % (36.0-47.0) Mean Corpuscular Volume 79 fL (79-100) Mean Corpuscular Hemoglobin 25 pg (25-35) Mean Corpuscular Hemoglobin Concent 32 g/dL (31-37) Red Cell Distribution Width 19.3 % (11.5-14.5) Platelet Count 310 x10^3/uL (140-400) Neutrophils (%) (Auto) 71 % (31-73) Lymphocytes (%) (Auto) 23 % (24-48) Monocytes (%) (Auto) 4 % (0-9) Eosinophils (%) (Auto) 1 % (0-3) Basophils (%) (Auto) 1 % (0-3) Neutrophils # (Auto) 7.4 x10^3uL (1.8-7.7) Lymphocytes # (Auto) 2.4 x10^3/uL (1.0-4.8) Monocytes # (Auto) 0.4 x10^3/uL (0.0-1.1) Eosinophils # (Auto) 0.1 x10^3/uL (0.0-0.7) Basophils # (Auto) 0.1 x10^3/uL (0.0-0.2) Sodium Level 141 mmol/L (136-145) 144 mmol/L (136-145) Potassium Level 4.4 mmol/L (3.5-5.1) 3.6 mmol/L (3.5-5.1) Chloride Level 102 mmol/L (98-107) 105 mmol/L (98-107) Carbon Dioxide Level 32 mmol/L (21-32) 33 mmol/L (21-32) Anion Gap 7 (6-14) 6 (6-14) Blood Urea Nitrogen 19 mg/dL (7-20) 16 mg/dL (7-20) Creatinine 0.8 mg/dL (0.6-1.0) 0.8 mg/dL (0.6-1.0) Estimated GFR (Cockcroft-Gault) 75.9 75.9 BUN/Creatinine Ratio 24 (6-20) Glucose Level 119 mg/dL (70-99) 102 mg/dL (70-99) Calcium Level 9.5 mg/dL (8.5-10.1) 8.8 mg/dL (8.5-10.1) Total Bilirubin 0.6 mg/dL (0.2-1.0) Aspartate Amino Transf (AST/SGOT) 29 U/L (15-37) Alanine Aminotransferase (ALT/SGPT) 20 U/L (14-59) Alkaline Phosphatase 104 U/L (46-116) Total Protein 7.5 g/dL (6.4-8.2) Albumin 3.3 g/dL (3.4-5.0) Albumin/Globulin Ratio 0.8 (1.0-1.7) Urine Collection Type U cath Urine Color Chiara Urine Clarity Turbid Urine pH 5.5 Urine Specific [place] 1.025 Urine Protein 30 mg/dL (NEG-TRACE) Urine Glucose (UA) Negative mg/dL (NEG) Urine Ketones (Stick) Negative mg/dL (NEG) Urine Blood Large (NEG) Urine Nitrite Positive (NEG) Urine Bilirubin Negative (NEG) Urine Urobilinogen Dipstick 0.2 mg/dL (0.2 mg/dL) Urine Leukocyte Esterase Large (NEG) Urine RBC 6-10 /HPF (0-2) Urine WBC 11-20 /HPF (0-4) Urine Squamous Epithelial Cells Few /LPF Urine Bacteria Many /HPF (0-FEW) Urine Mucus Mod /LPF Glucose (Fingerstick) 93 mg/dL (70-99) Physical Exam HEENT: Neck Supple W Full Motion Chest: Symmetric LUNGS: Clear to Auscultation Heart: S1S2, RRR (SR), no murmurs Abdomen: Soft N/T, Other (obese) Extremities: No Calf Tenderness Neurology: alert, oriented, follow commands Assessment Assessment Reason for cardiology consult: HTN, AFIB Requesting MD: N[place] HPI: This is a pleasant 51 yo female admitted for complains of lower back pain. She has had epidural shot recently in the pain clinic but this has not gotten better and has been radiating to her left leg which is worse with weight bearing and positional changes. This has been intermittent and has not any significant relief. Upon admission she was noted with high BP but at the same time she was also having back pain. She is known for PAFIB with tachy-raiza syndrome prompting past placement of PPM. Her recent TTE was normal as noted below. She was recently seen in our office on 11/15/2016 in which, cardiac ball, she is doing well, and again it is her lower back that has been bothering her. He is CP free, no SOA, no palpitations. She has been compliant with her cardiac meds. Pls see the cardiology office note in chart for further details. <Conclusion>TTE Technically very difficult study. Valves not well visualized. Left ventricle systolic function is normal. The Ejection Fraction is 55-60%. There is normal LV segmental wall motion. There is no evidence of significant pericardial effusion. DATE: 04/28/16 1335 Assessments 1. Lumbar stenosis/radiculopathy/intractable pain 2. PAFIB: Presently SR 3. Hx of SSS/tachy-raiza syndrome: S/P PPM in situ (Biotronik). Recently checked with normal functioning device with 7% AFIB burden 4. Morbid obesity: BMI 56 5. DM2/HLP 6. KYRA/mild pulmonary HTN: with CPAP use 7. Accelerated HTN: mainly due to back pain 8. UTI: No uretero-renal calculi noted. Per PCP Recommendations 1. May hold xarelto if there is any possible plans of surgery or lumbar injections and resume once OK with consultants. Continue daily ASA otherwise. 2. Continue with secondary prevention. Toprol/lisinopril/statin.. EKG. 3. Supportive care at this time. Continue pain management and neurosurgery eval. SOULEYMANE LEES APRN Nov 18, 2016 12:21
[2016-11-18] MEDS: NYSTATIN TOPICAL POWDER 15GM BOTTLE. TP SCH ×2 (12:32→22:39)
--- NOTE | 2016-11-18 14:02 | EKG ---
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
[2016-11-18] MEDS ORDERED: HYDROcodone/APAP 5/325MG 1 TAB TABLET PO PRN (14:45)
[2016-11-18 15:00] VITALS: BP 137/56
[2016-11-18 19:00] VITALS: BP 139/61
[2016-11-18] MEDS ORDERED: RIVAROXABAN 10 MG TABLET. PO SCH (21:00)
[2016-11-18] MEDS: ATORVASTATIN CALCIUM 10 MG TABLET. PO SCH (22:06)
[2016-11-18] MEDS: METOPROLOL SUCC 24HR ER 50 MG TAB.ER.24H. PO SCH (22:06)
[2016-11-18 23:00] VITALS: BP 143/59
--- NOTE | 2016-11-19 | CONS ---
DATE OF CONSULTATION: 11/18/2016 I saw her at the request of Dr. Devine on 11/18/2016. LOCATION: She is in room 528. ATTENDING PHYSICIAN: Dr. Devine. HISTORY OF PRESENT ILLNESS: This is a 51-year-old female with severe back pain for the last few days with mobility and self-care limitations. The patient had 2 lumbar epidural steroid injections without any lasting help. The patient denies any specific new injury. She admits for the last 2-3 days she is having some urinary incontinence and increased back pain with radiation to his left lower extremity with associated numbness. The patient with known atrial fibrillation, hypertension, morbid obesity, type 2 diabetes mellitus, chronic back pain, atrial fibrillation, hypertension, syncope and hyperlipidemia, chronic obstructive pulmonary disease, osteoarthritis, status post hysterectomy. She lives with her family. PHYSICAL EXAMINATION: Today revealed a middle-aged female. She is in significant pain with any movement of her lower back. She had tenderness to palpation over lumbar paraspinal muscles extending over to sacroiliac joint area and trochanteric bursa mainly on the left side. Straight leg raising test is negative bilaterally. She had 4+/5 grade muscle strength overall with relatively increased weakness in left foot dorsiflexor muscles. She had decreased touch and pinprick sensation over left L5 and to some extent over left S1 dermatome area. Deep tendon reflexes are 2+ at the knees, absent at both ankles and she had significant pain on movement of her lower back. She had pain free range of motion of her hip and knee joints. I have not tested her transfers or ambulation skills at this time. ASSESSMENT: A middle-aged female with chronic lower back pain with recent exacerbation and left L5 radiculopathy and urinary incontinence and stool incontinence for the last 2-3 days. The patient had gone through the epidural steroid injections in the past without much help in the last few weeks, also with known atrial fibrillation, hypertension, obesity, diabetes mellitus with peripheral neuropathy, chronic obstructive pulmonary disease and degenerative joint disease of her knees. RECOMMENDATIONS: To start her on Medrol Dosepak, to ask neurosurgical consult and also ask Dr. Zavala to see her for consideration of lumbar epidural steroid injections. If she does not plan to do any injections, I am planning to proceed with injecting her left trochanteric bursa and left sacroiliac joint area to help ease her pain tomorrow or the next few days. Dr. Devine, I appreciate asking me to participate in the care of this interesting patient. I will be glad to follow her with you as needed for her rehabilitation. BUSHRA DALLAS MD DR: ALEXANDRA/jolene JOB#: [id number] / [id number]
[2016-11-19 03:00] VITALS: BP 147/76
[2016-11-19] MEDS: MORPHINE SULFATE 4 MG/ML DISP.SYRIN. IV PRN ×3 (04:14→08:41)
[2016-11-19] MEDS: HYDROcodone/APAP 5/325MG 1 TAB TABLET PO PRN ×3 (06:07→20:56)
[2016-11-19 07:00] VITALS: BP 108/55
[2016-11-19] MEDS: BUDESONIDE 0.5 MG/2 ML NEBU. NEB SCH ×2 (07:21→18:17)
[2016-11-19] MEDS: IPRATRPIUM/ALBUTEROL 0.5/2.5MG 3 ML NEBU. NEB SCH ×4 (07:21→18:17)
[2016-11-19] MEDS: INSULIN ASPART 300 UNITS/3 ML INSULN.PEN SQ SCH ×3 (08:00→16:59)
[2016-11-19] MEDS: PANTOPRAZOLE 40 MG TABLET.DR. PO SCH (08:38)
[2016-11-19] MEDS: CETIRIZINE HCL 10 MG TABLET. PO SCH (08:38)
[2016-11-19] MEDS: GABAPENTIN 300 MG CAPSULE. PO SCH ×2 (08:38→20:55)
[2016-11-19] MEDS: ASPIRIN ENTERIC COATED 81 MG TABLET.DR. PO SCH (08:38)
[2016-11-19] MEDS: metFORMIN XR 500 MG TAB.ER.24H PO SCH (08:38)
[2016-11-19] MEDS: methylPREDNISolone 4 MG TABLET. PO SCH ×3 (08:38→17:00)
[2016-11-19] MEDS: POTASSIUM CHLORIDE 20 MEQ TABLET.ER. PO SCH (08:38)
[2016-11-19] MEDS: LISINOPRIL 20 MG TABLET PO SCH (08:39)
[2016-11-19] MEDS: LIDOCAINE (700MG/PATCH) PATCH. TD SCH (08:41)
[2016-11-19] MEDS: ONDANSETRON PF 4 MG/2 ML VIAL. IV PRN ×2 (08:57→17:14)
[2016-11-19] MEDS: FUROSEMIDE 80 MG TABLET. PO SCH (09:47)
[2016-11-19] MEDS: NYSTATIN TOPICAL POWDER 15GM BOTTLE. TP SCH ×2 (09:49→20:54)
[2016-11-19 10:50] VITALS: BP 104/72
--- NOTE | 2016-11-19 12:07 | PDOC ---
Provider Note Provider Note Patient seen and examined back pain, left lumbar radiculopathy morbid obesity, afib,COPD, DM,HTN reposts incontinence because she is unable to reach BR in time strength normal in BLE no imaging scheduled for I Monday Will order lumbar CT to gain some insight Poor surgical candidate full consult to follow MAU LOVE MD Nov 19, 2016 12:06
[2016-11-19] MEDS ORDERED: POLYETHYLENE GLYCOL 3350 17 GM PACKET. PO ONE (12:15)
[2016-11-19] MEDS ORDERED: ZOLPIDEM 5 MG TABLET. PO PRN (12:15)
--- NOTE | 2016-11-19 12:16 | PDOC ---
PROGRESS NOTES Chief Complaint Chief Complaint back pain, acute on chronic with sciatica and radicular symptoms, being seen by physiatry, Neuro surg, Pain management clinic s/p prior epidurals, she reports prior benefit to systemic stress-dose steroids morbid obesity, BMI 56 Dm2, htn, COPD, atrial fib History of Present Illness History of Present Illness discussed with Dr. Rowe, pain would prob benefit from surg, but her size limits his ability to intervene. BMI 67, Dr. Avelar reviewed with me, he will try to inject today, cont PRN pain meds and steroids pt as able Vitals Vitals Vital Signs Date Time Temp Pulse Resp B/P (MAP) Pulse Ox O2 Delivery O2 Flow Rate FiO2 11/19/16 11:25 Nasal Cannula 2.0 11/19/16 10:50 97.9 61 18 104/72 (83) 94 97.9 Physical Exam General: Alert, Cooperative, No acute distress Lungs: Clear Abdomen: Normal bowel sounds, Soft (very obese) Extremities: No clubbing, No cyanosis, No edema Skin: No significant lesion Labs LABS Laboratory Tests Test 11/18/16 16:35 11/18/16 21:26 11/19/16 07:47 11/19/16 11:18 Glucose (Fingerstick) 136 mg/dL (70-99) 149 mg/dL (70-99) 106 mg/dL (70-99) 140 mg/dL (70-99) Assessment and Plan Assessmemt and Plan Problems Medical Problems: (1) Intractable pain Status: Acute (2) Left sciatic nerve pain Status: Acute (3) Urinary tract infection Status: Acute Problems: Comment Review of Relevant I have reviewed the following items shakir (where applicable) has been applied. Labs Laboratory Tests Test 11/17/16 21:10 11/17/16 21:46 11/18/16 04:35 11/18/16 07:48 White Blood Count 10.4 x10^3/uL (4.0-11.0) Red Blood Count 5.41 x10^6/uL (3.50-5.40) Hemoglobin 13.5 g/dL (12.0-15.5) Hematocrit 42.6 % (36.0-47.0) Mean Corpuscular Volume 79 fL (79-100) Mean Corpuscular Hemoglobin 25 pg (25-35) Mean Corpuscular Hemoglobin Concent 32 g/dL (31-37) Red Cell Distribution Width 19.3 % (11.5-14.5) Platelet Count 310 x10^3/uL (140-400) Neutrophils (%) (Auto) 71 % (31-73) Lymphocytes (%) (Auto) 23 % (24-48) Monocytes (%) (Auto) 4 % (0-9) Eosinophils (%) (Auto) 1 % (0-3) Basophils (%) (Auto) 1 % (0-3) Neutrophils # (Auto) 7.4 x10^3uL (1.8-7.7) Lymphocytes # (Auto) 2.4 x10^3/uL (1.0-4.8) Monocytes # (Auto) 0.4 x10^3/uL (0.0-1.1) Eosinophils # (Auto) 0.1 x10^3/uL (0.0-0.7) Basophils # (Auto) 0.1 x10^3/uL (0.0-0.2) Sodium Level 141 mmol/L (136-145) 144 mmol/L (136-145) Potassium Level 4.4 mmol/L (3.5-5.1) 3.6 mmol/L (3.5-5.1) Chloride Level 102 mmol/L (98-107) 105 mmol/L (98-107) Carbon Dioxide Level 32 mmol/L (21-32) 33 mmol/L (21-32) Anion Gap 7 (6-14) 6 (6-14) Blood Urea Nitrogen 19 mg/dL (7-20) 16 mg/dL (7-20) Creatinine 0.8 mg/dL (0.6-1.0) 0.8 mg/dL (0.6-1.0) Estimated GFR (Cockcroft-Gault) 75.9 75.9 BUN/Creatinine Ratio 24 (6-20) Glucose Level 119 mg/dL (70-99) 102 mg/dL (70-99) Calcium Level 9.5 mg/dL (8.5-10.1) 8.8 mg/dL (8.5-10.1) Total Bilirubin 0.6 mg/dL (0.2-1.0) Aspartate Amino Transf (AST/SGOT) 29 U/L (15-37) Alanine Aminotransferase (ALT/SGPT) 20 U/L (14-59) Alkaline Phosphatase 104 U/L (46-116) Total Protein 7.5 g/dL (6.4-8.2) Albumin 3.3 g/dL (3.4-5.0) Albumin/Globulin Ratio 0.8 (1.0-1.7) Urine Collection Type U cath Urine Color Chiara Urine Clarity Turbid Urine pH 5.5 Urine Specific [place] 1.025 Urine Protein 30 mg/dL (NEG-TRACE) Urine Glucose (UA) Negative mg/dL (NEG) Urine Ketones (Stick) Negative mg/dL (NEG) Urine Blood Large (NEG) Urine Nitrite Positive (NEG) Urine Bilirubin Negative (NEG) Urine Urobilinogen Dipstick 0.2 mg/dL (0.2 mg/dL) Urine Leukocyte Esterase Large (NEG) Urine RBC 6-10 /HPF (0-2) Urine WBC 11-20 /HPF (0-4) Urine Squamous Epithelial Cells Few /LPF Urine Bacteria Many /HPF (0-FEW) Urine Mucus Mod /LPF Glucose (Fingerstick) 93 mg/dL (70-99) Test 11/18/16 11:55 11/18/16 16:35 11/18/16 21:26 11/19/16 07:47 Glucose (Fingerstick) 97 mg/dL (70-99) 136 mg/dL (70-99) 149 mg/dL (70-99) 106 mg/dL (70-99) Test 11/19/16 11:18 Glucose (Fingerstick) 140 mg/dL (70-99) Laboratory Tests Test 11/18/16 16:35 11/18/16 21:26 11/19/16 07:47 11/19/16 11:18 Glucose (Fingerstick) 136 mg/dL (70-99) 149 mg/dL (70-99) 106 mg/dL (70-99) 140 mg/dL (70-99) Medications Current Medications Hydromorphone HCl (Dilaudid) 0.5 mg PRN Q15MIN PRN IV/SQ PAIN GREATER THAN 3/ 10 Last administered on 11/18/16t 00:09; Start 11/17/16 at 22:15; Stop 11/18/16 at 22:14; Status DC Sodium Chloride 1,000 ml @ 1,000 mls/hr Q1H IV Last administered on 11/17/16 22:17; Start 11/17/16 at 22:15; Stop 11/17/16 at 23:14; Status DC Ondansetron HCl (Zofran) 4 mg 1X ONCE IV Last administered on 11/17/16 22:18 ; Start 11/17/16 at 22:15; Stop 11/17/16 at 22:16; Status DC Ceftriaxone Sodium 1 gm/ Sodium Chloride 50 ml @ 100 mls/hr Q24H IV Last administered on 11/18/16 22:37; Start 11/17/16 at 23:30 Ondansetron HCl (Zofran) 4 mg PRN Q8HRS PRN IV NAUSEA/VOMITING Last administered on 11/18/16 10:51; Start 11/17/16 at 23:30; Stop 11/18/16 at 23:29 ; Status DC Morphine Sulfate 4 mg PRN Q2HR PRN IV PAIN Last administered on 11/19/16 08:41 ; Start 11/17/16 at 23:30; Stop 11/19/16 at 23:30 Acetaminophen (Tylenol) 650 mg PRN Q4HRS PRN PO FEVER Last administered on 11/18 01:53; Start 11/17/16 at 23:30; Stop 11/18/16 at 23:29; Status DC Insulin Aspart (NovoLOG) 0-5 UNITS TIDWMEALS SQ ; Start 11/18/16 at 08:00 Dextrose (Dextrose 50%-Water Syringe) 12.5 gm PRN Q15MIN PRN IV SEE COMMENTS; Start 11/17/16 at 23:30 Diazepam (Valium) 5 mg 1X ONCE IV Last administered on 11/18/16 00:08; Start 11/18/16 at 00:00; Stop 11/18/16 at 00:01; Status DC Ceftriaxone Sodium 50 ml @ As Directed STK-MED ONCE IV ; Start 11/18/16 at 00:06 ; Stop 11/18/16 at 00:07; Status DC Info (Do NOT chart on this placeholder) 1 each 1X ONCE MC ; Start 11/18/16 at 02:30; Stop 11/18/16 at 02:31; Status UNV Albuterol Sulfate (Ventolin Neb Soln) 2.5 mg PRN Q2HRS PRN NEB SHORTNESS OF BREATH; Start 11/18/16 at 03:00 Aspirin (Ecotrin) 81 mg DAILY PO Last administered on 11/19/16 08:38; Start at 09:00 Cetirizine HCl (ZyrTEC) 10 mg DAILY PO Last administered on 11/19/16 08:38; Start 11/18/16 at 09:00 Cyclobenzaprine HCl (Flexeril) 10 mg TID PO ; Start 11/18/16 at 09:00; Stop at 09:38; Status DC Furosemide (Lasix) 80 mg DAILY PO Last administered on 11/19/16 09:47; Start 11/18/16 at 09:00 Lisinopril (Prinivil) 20 mg DAILY PO Last administered on 11/19/16 08:39; Start 11/18/16 at 09:00 Metformin HCl (Glucophage Xr) 500 mg DAILYWBKFT PO Last administered on 08:38; Start 11/18/16 at 08:00 Metoprolol Succinate (Toprol Xl) 50 mg QHS PO Last administered on 11/18/16 22 :06; Start 11/18/16 at 21:00 Pantoprazole Sodium (Protonix) 40 mg DAILYAC PO Last administered on 11/19/16 08:38; Start 11/18/16 at 07:30 Potassium Chloride (Klor-Con) 20 meq DAILY PO Last administered on 11/19/16 08 :38; Start 11/18/16 at 09:00 Rivaroxaban (Xarelto) 20 mg QHS PO ; Start 11/18/16 at 21:00; Stop 11/18/16 at 21:00; Status DC Tramadol HCl (Ultram) 50 mg PRN Q6HRS PRN PO PAIN; Start 11/18/16 at 03:00; Status Cancel Non-Formulary Medication 1 inh BID IH ; Start 11/18/16 at 09:00; Status UNV Gabapentin (Neurontin) 300 mg BID PO Last administered on 11/19/16 08:38; Start 11/18/16 at 09:00 Non-Formulary Medication 2 inh QID IH ; Start 11/18/16 at 09:00; Status UNV Atorvastatin Calcium (Lipitor) 5 mg QHS PO Last administered on 11/18/16 22:06 ; Start 11/18/16 at 21:00 Acetaminophen/ Hydrocodone Bitart (Lortab 5/325) 1-2 tabs PRN Q4HRS PRN PO PAIN Last administered on 11/18/16 12:32; Start 11/18/16 at 03:00; Stop at 14:43; Status DC Influenza Virus Vaccine Quadrival (Fluarix Quad [id number] Syringe) 0.5 ml ONCE ONCE VAX IM Last administered on 11/18/16 03:49; Start 11/18/16 at 09:00; Stop 11/18/16 at 09:01; Status DC Albuterol/ Ipratropium (Duoneb) 3 ml RTQID NEB Last administered on 11/19/16 11:24; Start 11/18/16 at 08:00 Budesonide (Pulmicort) 0.5 mg RTBID NEB Last administered on 11/19/16 07:21; Start 11/18/16 at 08:00 Cyclobenzaprine HCl (Flexeril) 10 mg PRN Q6HRS PRN PO MUSCLE SPASMS Last administered on 11/18/16 22:05; Start 11/18/16 at 09:30 Methylprednisolone (Medrol) 4 mg BID PO ; Start 11/18/16 at 10:00; Status Cancel Lidocaine (Lidoderm) 2 patch DAILY TD Last administered on 11/19/16 08:41; Start 11/18/16 at 11:00 Methylprednisolone Acetate (DEPO-Medrol 40MG VIAL) 40 mg 1X ONCE IM ; Start at 10:15; Stop 11/18/16 at 10:19; Status DC Methylprednisolone Acetate (DEPO-Medrol 40MG VIAL) 40 mg 1X ONCE IM ; Start at 10:15; Stop 11/18/16 at 10:19; Status DC Bupivacaine HCl (Sensorcaine-Mpf 0.25%) 10 ml 1X ONCE IJ ; Start 11/18/16 at 10 :15; Stop 11/18/16 at 10:19; Status DC Methylprednisolone (Medrol) 8 mg BID PO Last administered on 11/18/16 22:05; Start 11/18/16 at 11:00; Stop 11/18/16 at 21:01; Status DC Methylprednisolone (Medrol) 4 mg BIDPCLD PO Last administered on 11/18/16 17: 14; Start 11/18/16 at 12:30; Stop 11/18/16 at 17:31; Status DC Methylprednisolone (Medrol) 4 mg TIDPC PO Last administered on 11/19/16 08:38 ; Start 11/19/16 at 08:30; Stop 11/19/16 at 17:31 Methylprednisolone (Medrol) 8 mg QHS PO ; Start 11/19/16 at 21:00; Stop at 21:01 Methylprednisolone (Medrol) 4 mg QIDAFTMEAL PO ; Start 11/20/16 at 09:00; Stop 11/20/16 at 21:01 Methylprednisolone (Medrol) 4 mg TID PO ; Start 11/21/16 at 09:00; Stop at 21:01 Methylprednisolone (Medrol) 4 mg BID PO ; Start 11/22/16 at 09:00; Stop at 21:01 Methylprednisolone (Medrol) 4 mg DAILY PO ; Start 11/23/16 at 09:00; Stop at 09:01 Nystatin (Nystop) 1 molly BID TP Last administered on 11/19/16 09:49; Start at 11:30 Rivaroxaban (Xarelto) 20 mg QHS PO ; Start 11/21/16 at 21:00; Stop 11/21/16 at 21:00; Status DC Acetaminophen/ Hydrocodone Bitart (Lortab 5/325) 1 tab PRN Q4HRS PRN PO PAIN; Start 11/18/16 at 14:45 Acetaminophen/ Hydrocodone Bitart (Lortab 5/325) 2 tab PRN Q4HRS PRN PO PAIN Last administered on 11/19/16 06:07; Start 11/18/16 at 14:43 Ondansetron HCl (Zofran) 4 mg PRN Q6HRS PRN IV NAUSEA/VOMITING Last administered on 11/19/16 08:57; Start 11/19/16 at 08:45 Fentanyl Citrate (Fentanyl 2ml Vial) 75 mcg PRN Q4HRS PRN IV pain; Start at 09:15 Docusate Sodium (Colace) 100 mg DAILY PO ; Start 11/19/16 at 12:15 Polyethylene Glycol (miraLAX PACKET) 17 gm 1X ONCE PO ; Start 11/19/16 at 12:15 ; Stop 11/19/16 at 12:16 Zolpidem Tartrate (Ambien) 5 mg PRN QHS PRN PO INSOMNIA; Start 11/19/16 at 12: 15 Active Scripts Active [place] 5-325 Tablet (Acetaminophen/Hydrocodone Bitart) 1 Each Tablet 1-2 Tab PO Q4-6HRS Cyclobenzaprine Hcl 10 Mg Tablet 1 Tab PO TID Reported Combivent Respimat Inhal (Ipratropium/Albuterol Sulfate) 4 Gm Aer.w.adap 2 Inh IH QID Zyrtec (Cetirizine Hcl) 10 Mg Tablet 1 Tab PO DAILY Lisinopril 20 Mg Tablet 1 Tab PO DAILY Tramadol Hcl 50 Mg Tablet 50 Mg PO Q6H PRN Aspir 81 (Aspirin) 81 Mg Tablet.dr 1 Tab PO DAILY Albuterol Sulfate Neb Soln (Albuterol Sulfate) 2.5 Mg/3 Ml Vial.neb 2.5 Mg NEB PRN Q2HRS PRN Xarelto (Rivaroxaban) 10 Mg Tablet 20 Mg PO QHS Advair 500-50 Diskus (Fluticasone/Salmeterol) 1 Each Disk.w.dev 1 Inh IH BID Metformin Hcl Er (Metformin Hcl) 500 Mg Tab.er.24h 500 Mg PO DAILYWBKFT Potassium Chloride 20 Meq Tab.er.prt 20 Meq PO DAILY Lovastatin 20 Mg Tablet 20 PO QHS Pantoprazole Sodium 40 Mg Tablet.dr 40 Mg PO DAILYAC Toprol Xl (Metoprolol Succinate) 50 Mg Tab.er.24h 50 Mg PO QHS Gabapentin 300 Mg Capsule 300 Mg PO BID Furosemide 80 Mg Tablet 80 Mg PO DAILY Vitals/I & O Vital Sign - Last 24 Hours 11/18/16 11/18/16 11/18/16 11/18/16 12:32 13:38 13:38 15:00 Temp 97.7 97.7 Pulse 66 Resp 16 B/P (MAP) 137/56 (83) Pulse Ox 96 O2 Delivery Nasal Cannula Nasal Cannula Nasal Cannula Nasal Cannula O2 Flow Rate 2.0 2.0 2.0 3.0 11/18/16 11/18/16 11/18/16 11/18/16 15:48 18:43 18:43 18:46 Pulse Ox 96 O2 Delivery Nasal Cannula Nasal Cannula Nasal Cannula O2 Flow Rate 2.0 2.0 2.0 11/18/16 11/18/16 11/18/16 11/18/16 19:00 19:54 19:55 20:00 Temp 98.5 98.5 Pulse 71 Resp 20 B/P (MAP) 139/61 (87) Pulse Ox 94 94 94 O2 Delivery Nasal Cannula Nasal Cannula Nasal Cannula Nasal Cannula O2 Flow Rate 3.0 2.0 2.0 2.0 11/18/16 11/18/16 11/18/16 11/18/16 21:13 22:06 22:35 23:00 Temp 97.7 97.7 Pulse 71 81 Resp 22 22 20 B/P (MAP) 139/61 143/59 (87) Pulse Ox 95 O2 Delivery Nasal Cannula Nasal Cannula Nasal Cannula O2 Flow Rate 2.0 2.0 3.0 11/18/16 11/19/16 11/19/16 11/19/16 23:56 01:49 03:00 04:14 Temp 97.7 97.7 Pulse 67 Resp 20 18 B/P (MAP) 147/76 (99) Pulse Ox 93 O2 Delivery BiPAP/CPAP BiPAP/CPAP Nasal Cannula BiPAP/CPAP O2 Flow Rate 3.0 11/19/16 11/19/16 11/19/16 11/19/16 06:06 06:07 07:00 07:07 Temp 98.0 98.0 Pulse 95 Resp 22 22 18 22 B/P (MAP) 108/55 (72) Pulse Ox 96 O2 Delivery Nasal Cannula Nasal Cannula Nasal Cannula Nasal Cannula O2 Flow Rate 2.0 2.0 3.0 2.0 11/19/16 11/19/16 11/19/16 11/19/16 07:21 08:00 08:39 08:41 Pulse 95 Resp 18 B/P (MAP) 108/55 Pulse Ox 96 O2 Delivery Nasal Cannula Nasal Cannula Nasal Cannula O2 Flow Rate 2.0 2.0 2.0 11/19/16 11/19/16 11/19/16 09:48 10:50 11:25 Temp 97.9 97.9 Pulse 61 Resp 20 18 B/P (MAP) 104/72 (83) Pulse Ox 94 O2 Delivery Nasal Cannula Nasal Cannula Nasal Cannula O2 Flow Rate 2.0 3.0 2.0 DERIK BRAVO MD Nov 19, 2016 12:16
[2016-11-19] MEDS: DOCUSATE SODIUM 100 MG CAPSULE. PO SCH (12:19)
[2016-11-19] MEDS: fentaNYL PF VIAL 100 MCG/2 ML VIAL IV PRN ×2 (12:20→18:31)
--- NOTE | 2016-11-19 13:22 | PDOC ---
PROGRESS NOTES Subjective Subjective She admits continued low back pain and numbness left lower extremity. Objective Objective Vital Signs Date Time Temp Pulse Resp B/P (MAP) Pulse Ox O2 Delivery O2 Flow Rate FiO2 11/19/16 12:20 20 Nasal Cannula 2.0 11/19/16 10:50 97.9 61 104/72 (83) 94 97.9 Physical Exam Physical Exam She had tenderness to palpation over left lumbar paraspinal and gluteal muscles, sacroiliac joints and left trochanteric bursa and painfully limited ROM of lumbar spine. Assessment Assessment Problems Medical Problems: (1) Intractable pain Status: Acute (2) Left sciatic nerve pain Status: Acute (3) Urinary tract infection Status: Acute Plan Plan of Care I have tried to inject her left sacroiliac joint with spinal needle but not successful as I could not reach her sacroiliac joint area.To continue present medicines and await evaluation. Comment Review of Relevant I have reviewed the following items shakir (where applicable) has been applied. Labs Laboratory Tests Test 11/17/16 21:10 11/17/16 21:46 11/18/16 04:35 11/18/16 07:48 White Blood Count 10.4 x10^3/uL (4.0-11.0) Red Blood Count 5.41 x10^6/uL (3.50-5.40) Hemoglobin 13.5 g/dL (12.0-15.5) Hematocrit 42.6 % (36.0-47.0) Mean Corpuscular Volume 79 fL (79-100) Mean Corpuscular Hemoglobin 25 pg (25-35) Mean Corpuscular Hemoglobin Concent 32 g/dL (31-37) Red Cell Distribution Width 19.3 % (11.5-14.5) Platelet Count 310 x10^3/uL (140-400) Neutrophils (%) (Auto) 71 % (31-73) Lymphocytes (%) (Auto) 23 % (24-48) Monocytes (%) (Auto) 4 % (0-9) Eosinophils (%) (Auto) 1 % (0-3) Basophils (%) (Auto) 1 % (0-3) Neutrophils # (Auto) 7.4 x10^3uL (1.8-7.7) Lymphocytes # (Auto) 2.4 x10^3/uL (1.0-4.8) Monocytes # (Auto) 0.4 x10^3/uL (0.0-1.1) Eosinophils # (Auto) 0.1 x10^3/uL (0.0-0.7) Basophils # (Auto) 0.1 x10^3/uL (0.0-0.2) Sodium Level 141 mmol/L (136-145) 144 mmol/L (136-145) Potassium Level 4.4 mmol/L (3.5-5.1) 3.6 mmol/L (3.5-5.1) Chloride Level 102 mmol/L (98-107) 105 mmol/L (98-107) Carbon Dioxide Level 32 mmol/L (21-32) 33 mmol/L (21-32) Anion Gap 7 (6-14) 6 (6-14) Blood Urea Nitrogen 19 mg/dL (7-20) 16 mg/dL (7-20) Creatinine 0.8 mg/dL (0.6-1.0) 0.8 mg/dL (0.6-1.0) Estimated GFR (Cockcroft-Gault) 75.9 75.9 BUN/Creatinine Ratio 24 (6-20) Glucose Level 119 mg/dL (70-99) 102 mg/dL (70-99) Calcium Level 9.5 mg/dL (8.5-10.1) 8.8 mg/dL (8.5-10.1) Total Bilirubin 0.6 mg/dL (0.2-1.0) Aspartate Amino Transf (AST/SGOT) 29 U/L (15-37) Alanine Aminotransferase (ALT/SGPT) 20 U/L (14-59) Alkaline Phosphatase 104 U/L (46-116) Total Protein 7.5 g/dL (6.4-8.2) Albumin 3.3 g/dL (3.4-5.0) Albumin/Globulin Ratio 0.8 (1.0-1.7) Urine Collection Type U cath Urine Color [place] Urine Clarity Turbid Urine pH 5.5 Urine Specific [place] 1.025 Urine Protein 30 mg/dL (NEG-TRACE) Urine Glucose (UA) Negative mg/dL (NEG) Urine Ketones (Stick) Negative mg/dL (NEG) Urine Blood Large (NEG) Urine Nitrite Positive (NEG) Urine Bilirubin Negative (NEG) Urine Urobilinogen Dipstick 0.2 mg/dL (0.2 mg/dL) Urine Leukocyte Esterase Large (NEG) Urine RBC 6-10 /HPF (0-2) Urine WBC 11-20 /HPF (0-4) Urine Squamous Epithelial Cells Few /LPF Urine Bacteria Many /HPF (0-FEW) Urine Mucus Mod /LPF Glucose (Fingerstick) 93 mg/dL (70-99) Test 11/18/16 11:55 11/18/16 16:35 11/18/16 21:26 11/19/16 07:47 Glucose (Fingerstick) 97 mg/dL (70-99) 136 mg/dL (70-99) 149 mg/dL (70-99) 106 mg/dL (70-99) Test 11/19/16 11:18 Glucose (Fingerstick) 140 mg/dL (70-99) Laboratory Tests Test 11/18/16 16:35 11/18/16 21:26 11/19/16 07:47 11/19/16 11:18 Glucose (Fingerstick) 136 mg/dL (70-99) 149 mg/dL (70-99) 106 mg/dL (70-99) 140 mg/dL (70-99) Microbiology 11/17/16 Urine Culture - Preliminary, Resulted 11/17/16 Urine Culture Result 1 (ROBBY) - Preliminary, Resulted 11/17/16 Urine Culture Result 2 (ROBBY) - Preliminary, Resulted Medications Current Medications Hydromorphone HCl (Dilaudid) 0.5 mg PRN Q15MIN PRN IV/SQ PAIN GREATER THAN 3/ 10 Last administered on 11/18/16 00:09; Start 11/17/16 at 22:15; Stop 11/18/16 at 22:14; Status DC Sodium Chloride 1,000 ml @ 1,000 mls/hr Q1H IV Last administered on 11/17/16 22:17; Start 11/17/16 at 22:15; Stop 11/17/16 at 23:14; Status DC Ondansetron HCl (Zofran) 4 mg 1X ONCE IV Last administered on 11/17/16 22:18 ; Start 11/17/16 at 22:15; Stop 11/17/16 at 22:16; Status DC Ceftriaxone Sodium 1 gm/ Sodium Chloride 50 ml @ 100 mls/hr Q24H IV Last administered on 11/18/16 22:37; Start 11/17/16 at 23:30 Ondansetron HCl (Zofran) 4 mg PRN Q8HRS PRN IV NAUSEA/VOMITING Last administered on 11/18/16 10:51; Start 11/17/16 at 23:30; Stop 11/18/16 at 23:29 ; Status DC Morphine Sulfate 4 mg PRN Q2HR PRN IV PAIN Last administered on 11/19/16 08:41 ; Start 11/17/16 at 23:30; Stop 11/19/16 at 23:30 Acetaminophen (Tylenol) 650 mg PRN Q4HRS PRN PO FEVER Last administered on 11/18 01:53; Start 11/17/16 at 23:30; Stop 11/18/16 at 23:29; Status DC Insulin Aspart (NovoLOG) 0-5 UNITS TIDWMEALS SQ ; Start 11/18/16 at 08:00 Dextrose (Dextrose 50%-Water Syringe) 12.5 gm PRN Q15MIN PRN IV SEE COMMENTS; Start 11/17/16 at 23:30 Diazepam (Valium) 5 mg 1X ONCE IV Last administered on 11/18/16 00:08; Start 11/18/16 at 00:00; Stop 11/18/16 at 00:01; Status DC Ceftriaxone Sodium 50 ml @ As Directed STK-MED ONCE IV ; Start 11/18/16 at 00:06 ; Stop 11/18/16 at 00:07; Status DC Info (Do NOT chart on this placeholder) 1 each 1X ONCE MC ; Start 11/18/16 at 02:30; Stop 11/18/16 at 02:31; Status UNV Albuterol Sulfate (Ventolin Neb Soln) 2.5 mg PRN Q2HRS PRN NEB SHORTNESS OF BREATH; Start 11/18/16 at 03:00 Aspirin (Ecotrin) 81 mg DAILY PO Last administered on 11/19/16 08:38; Start at 09:00 Cetirizine HCl (ZyrTEC) 10 mg DAILY PO Last administered on 11/19/16 08:38; Start 11/18/16 at 09:00 Cyclobenzaprine HCl (Flexeril) 10 mg TID PO ; Start 11/18/16 at 09:00; Stop at 09:38; Status DC Furosemide (Lasix) 80 mg DAILY PO Last administered on 11/19/16 09:47; Start 11/18/16 at 09:00 Lisinopril (Prinivil) 20 mg DAILY PO Last administered on 11/19/16 08:39; Start 11/18/16 at 09:00 Metformin HCl (Glucophage Xr) 500 mg DAILYWBKFT PO Last administered on 08:38; Start 11/18/16 at 08:00 Metoprolol Succinate (Toprol Xl) 50 mg QHS PO Last administered on 11/18/16 22 :06; Start 11/18/16 at 21:00 Pantoprazole Sodium (Protonix) 40 mg DAILYAC PO Last administered on 11/19/16 08:38; Start 11/18/16 at 07:30 Potassium Chloride (Klor-Con) 20 meq DAILY PO Last administered on 11/19/16 08 :38; Start 11/18/16 at 09:00 Rivaroxaban (Xarelto) 20 mg QHS PO ; Start 11/18/16 at 21:00; Stop 11/18/16 at 21:00; Status DC Tramadol HCl (Ultram) 50 mg PRN Q6HRS PRN PO PAIN; Start 11/18/16 at 03:00; Status Cancel Non-Formulary Medication 1 inh BID IH ; Start 11/18/16 at 09:00; Status UNV Gabapentin (Neurontin) 300 mg BID PO Last administered on 11/19/16 08:38; Start 11/18/16 at 09:00 Non-Formulary Medication 2 inh QID IH ; Start 11/18/16 at 09:00; Status UNV Atorvastatin Calcium (Lipitor) 5 mg QHS PO Last administered on 11/18/16 22:06 ; Start 11/18/16 at 21:00 Acetaminophen/ Hydrocodone Bitart (Lortab 5/325) 1-2 tabs PRN Q4HRS PRN PO PAIN Last administered on 11/18/16 12:32; Start 11/18/16 at 03:00; Stop at 14:43; Status DC Influenza Virus Vaccine Quadrival (Fluarix Quad [id number] Syringe) 0.5 ml ONCE ONCE VAX IM Last administered on 11/18/16 03:49; Start 11/18/16 at 09:00; Stop 11/18/16 at 09:01; Status DC Albuterol/ Ipratropium (Duoneb) 3 ml RTQID NEB Last administered on 11/19/16 11:24; Start 11/18/16 at 08:00 Budesonide (Pulmicort) 0.5 mg RTBID NEB Last administered on 11/19/16 07:21; Start 11/18/16 at 08:00 Cyclobenzaprine HCl (Flexeril) 10 mg PRN Q6HRS PRN PO MUSCLE SPASMS Last administered on 11/18/16 22:05; Start 11/18/16 at 09:30 Methylprednisolone (Medrol) 4 mg BID PO ; Start 11/18/16 at 10:00; Status Cancel Lidocaine (Lidoderm) 2 patch DAILY TD Last administered on 11/19/16 08:41; Start 11/18/16 at 11:00 Methylprednisolone Acetate (DEPO-Medrol 40MG VIAL) 40 mg 1X ONCE IM ; Start at 10:15; Stop 11/18/16 at 10:19; Status DC Methylprednisolone Acetate (DEPO-Medrol 40MG VIAL) 40 mg 1X ONCE IM ; Start at 10:15; Stop 11/18/16 at 10:19; Status DC Bupivacaine HCl (Sensorcaine-Mpf 0.25%) 10 ml 1X ONCE IJ ; Start 11/18/16 at 10 :15; Stop 11/18/16 at 10:19; Status DC Methylprednisolone (Medrol) 8 mg BID PO Last administered on 11/18/16 22:05; Start 11/18/16 at 11:00; Stop 11/18/16 at 21:01; Status DC Methylprednisolone (Medrol) 4 mg BIDPCLD PO Last administered on 11/18/16 17: 14; Start 11/18/16 at 12:30; Stop 11/18/16 at 17:31; Status DC Methylprednisolone (Medrol) 4 mg TIDPC PO Last administered on 11/19/16 12:19 ; Start 11/19/16 at 08:30; Stop 11/19/16 at 17:31 Methylprednisolone (Medrol) 8 mg QHS PO ; Start 11/19/16 at 21:00; Stop at 21:01 Methylprednisolone (Medrol) 4 mg QIDAFTMEAL PO ; Start 11/20/16 at 09:00; Stop 11/20/16 at 21:01 Methylprednisolone (Medrol) 4 mg TID PO ; Start 11/21/16 at 09:00; Stop at 21:01 Methylprednisolone (Medrol) 4 mg BID PO ; Start 11/22/16 at 09:00; Stop at 21:01 Methylprednisolone (Medrol) 4 mg DAILY PO ; Start 11/23/16 at 09:00; Stop at 09:01 Nystatin (Nystop) 1 molly BID TP Last administered on 11/19/16 09:49; Start at 11:30 Rivaroxaban (Xarelto) 20 mg QHS PO ; Start 11/21/16 at 21:00; Stop 11/21/16 at 21:00; Status DC Acetaminophen/ Hydrocodone Bitart (Lortab 5/325) 1 tab PRN Q4HRS PRN PO PAIN; Start 11/18/16 at 14:45 Acetaminophen/ Hydrocodone Bitart (Lortab 5/325) 2 tab PRN Q4HRS PRN PO PAIN Last administered on 11/19/16 06:07; Start 11/18/16 at 14:43 Ondansetron HCl (Zofran) 4 mg PRN Q6HRS PRN IV NAUSEA/VOMITING Last administered on 11/19/16 08:57; Start 11/19/16 at 08:45 Fentanyl Citrate (Fentanyl 2ml Vial) 75 mcg PRN Q4HRS PRN IV pain Last administered on 11/19/16 12:20; Start 11/19/16 at 09:15 Docusate Sodium (Colace) 100 mg DAILY PO Last administered on 11/19/16 12:19; Start 11/19/16 at 12:15 Polyethylene Glycol (miraLAX PACKET) 17 gm 1X ONCE PO Last administered on 12:19; Start 11/19/16 at 12:15; Stop 11/19/16 at 12:16; Status DC Zolpidem Tartrate (Ambien) 5 mg PRN QHS PRN PO INSOMNIA; Start 11/19/16 at 12: 15 Active Scripts Active [place] 5-325 Tablet (Acetaminophen/Hydrocodone Bitart) 1 Each Tablet 1-2 Tab PO Q4-6HRS Cyclobenzaprine Hcl 10 Mg Tablet 1 Tab PO TID Reported Combivent Respimat Inhal (Ipratropium/Albuterol Sulfate) 4 Gm Aer.w.adap 2 Inh IH QID Zyrtec (Cetirizine Hcl) 10 Mg Tablet 1 Tab PO DAILY Lisinopril 20 Mg Tablet 1 Tab PO DAILY Tramadol Hcl 50 Mg Tablet 50 Mg PO Q6H PRN Aspir 81 (Aspirin) 81 Mg Tablet.dr 1 Tab PO DAILY Albuterol Sulfate Neb Soln (Albuterol Sulfate) 2.5 Mg/3 Ml Vial.neb 2.5 Mg NEB PRN Q2HRS PRN Xarelto (Rivaroxaban) 10 Mg Tablet 20 Mg PO QHS Advair 500-50 Diskus (Fluticasone/Salmeterol) 1 Each Disk.w.dev 1 Inh IH BID Metformin Hcl Er (Metformin Hcl) 500 Mg Tab.er.24h 500 Mg PO DAILYWBKFT Potassium Chloride 20 Meq Tab.er.prt 20 Meq PO DAILY Lovastatin 20 Mg Tablet 20 PO QHS Pantoprazole Sodium 40 Mg Tablet.dr 40 Mg PO DAILYAC Toprol Xl (Metoprolol Succinate) 50 Mg Tab.er.24h 50 Mg PO QHS Gabapentin 300 Mg Capsule 300 Mg PO BID Furosemide 80 Mg Tablet 80 Mg PO DAILY Vitals/I & O Vital Sign - Last 24 Hours 11/18/16 11/18/16 11/18/16 11/18/16 13:38 13:38 15:00 15:48 Temp 97.7 97.7 Pulse 66 Resp 16 B/P (MAP) 137/56 (83) Pulse Ox 96 O2 Delivery Nasal Cannula Nasal Cannula Nasal Cannula Nasal Cannula O2 Flow Rate 2.0 2.0 3.0 2.0 11/18/16 11/18/16 11/18/16 11/18/16 18:43 18:43 18:46 19:00 Temp 98.5 98.5 Pulse 71 Resp 20 B/P (MAP) 139/61 (87) Pulse Ox 96 94 O2 Delivery Nasal Cannula Nasal Cannula Nasal Cannula O2 Flow Rate 2.0 2.0 3.0 11/18/16 11/18/16 11/18/16 11/18/16 19:54 19:55 20:00 21:13 Resp 22 Pulse Ox 94 94 O2 Delivery Nasal Cannula Nasal Cannula Nasal Cannula Nasal Cannula O2 Flow Rate 2.0 2.0 2.0 2.0 11/18/16 11/18/16 11/18/16 11/18/16 22:06 22:35 23:00 23:56 Temp 97.7 97.7 Pulse 71 81 Resp 22 20 B/P (MAP) 139/61 143/59 (87) Pulse Ox 95 O2 Delivery Nasal Cannula Nasal Cannula BiPAP/CPAP O2 Flow Rate 2.0 3.0 11/19/16 11/19/16 11/19/16 11/19/16 01:49 03:00 04:14 06:06 Temp 97.7 97.7 Pulse 67 Resp 20 18 22 B/P (MAP) 147/76 (99) Pulse Ox 93 O2 Delivery BiPAP/CPAP Nasal Cannula BiPAP/CPAP Nasal Cannula O2 Flow Rate 3.0 2.0 11/19/16 11/19/16 11/19/16 11/19/16 06:07 07:00 07:07 07:21 Temp 98.0 98.0 Pulse 95 Resp 22 B/P (MAP) 108/55 (72) Pulse Ox 96 96 O2 Delivery Nasal Cannula Nasal Cannula Nasal Cannula Nasal Cannula O2 Flow Rate 2.0 3.0 2.0 2.0 11/19/16 11/19/16 11/19/16 11/19/16 08:00 08:39 08:41 09:48 Pulse 95 Resp 18 20 B/P (MAP) 108/55 O2 Delivery Nasal Cannula Nasal Cannula Nasal Cannula O2 Flow Rate 2.0 2.0 2.0 11/19/16 11/19/16 11/19/16 10:50 11:25 12:20 Temp 97.9 97.9 Pulse 61 Resp 18 20 B/P (MAP) 104/72 (83) Pulse Ox 94 O2 Delivery Nasal Cannula Nasal Cannula Nasal Cannula O2 Flow Rate 3.0 2.0 2.0 BUSHRA DALLAS MD Nov 19, 2016 13:22
[2016-11-19 15:00] VITALS: BP 115/58
--- NOTE | 2016-11-19 17:03 | CONS ---
DATE OF CONSULTATION: 11/19/2016 DATE OF SERVICE: 11/19/2016 CHIEF COMPLAINT: Back and left leg pain. HISTORY OF PRESENT ILLNESS: The patient is a pleasant 51-year-old woman who has a long history of problems with back pain. Recently she noted an exacerbation of her back pain along with pain which radiated into her left leg. She has received two lumbar epidural steroid injections without significant help. The pain became more severe and she also reported that she was having trouble reaching the bathroom in time to empty her bladder because of severe pain. Because of her increased pain, she was admitted for further evaluation and treatment. The pain, she says, radiates into her buttocks and posterior thigh. She notices numbness of the entire left foot. She says that she does not notice significant weakness in her left leg. She does have problems with atrial fibrillation, hypertension and morbid obesity. She also has type 2 diabetes mellitus as well as COPD. PAST MEDICAL HISTORY: As above. PAST SURGICAL HISTORY: Hysterectomy. PERSONAL HISTORY: She is . She does not smoke. She does not take alcohol. MEDICATIONS: Reviewed on the MRAD, she is on Xarelto. ALLERGIES: She reports ALLERGIES TO SULFAMETHOXAZOLE, TRIMETHOPRIM AND IODINE. REVIEW OF SYSTEMS: Twelve points was reviewed. The most pertinent finding is her BMI, which is 56. She reported to me that her weight was proximally 450 pounds. PHYSICAL EXAMINATION: GENERAL: She is supine in bed in mild distress because of back and left leg pain. She was alert and conversant. NEUROLOGIC: On motor examination, I felt that her strength was 5/5 in upper and lower extremities bilaterally. On sensory examination, there was decrease in light touch involving the plantar and dorsal surfaces of her left foot. She was areflexic. Straight leg raising on the right side was negative. Straight leg raise on the left side was associated with marked pain in her left buttock and posterior thigh, which was relieved by the Lasegue maneuver. Examination of lumbar spine, there is diffuse tenderness across the lower lumbar spine in the midline and adjacent paraspinal regions bilaterally. IMAGING: There were no films for review. ASSESSMENT AND PLAN: The patient has a left lumbar radiculopathy, which is significant. She has very significant medical problems, which make her a very poor surgical candidate. I did discuss all of this with her. She is scheduled to receive an epidural steroid injection on Monday. I have asked that a lumbar CT scan be performed to help us further evaluate her lumbar spine. Because of her pacemaker, she is unable to have an MRI scan. I appreciate you asking us to see her. MAU LOVE MD DR: APARNA/[email or web address] JOB#: [id number] / [id number] NANY
[2016-11-19 19:00] VITALS: BP 120/48
[2016-11-19] MEDS: METOPROLOL SUCC 24HR ER 50 MG TAB.ER.24H. PO SCH (20:55)
[2016-11-19] MEDS: ATORVASTATIN CALCIUM 10 MG TABLET. PO SCH (20:56)
[2016-11-19] MEDS ORDERED: methylPREDNISolone 4 MG TABLET. PO SCH (21:00)
[2016-11-19 23:00] VITALS: BP 122/56
[2016-11-20 03:00] VITALS: BP 129/62
[2016-11-20] MEDS: HYDROcodone/APAP 5/325MG 1 TAB TABLET PO PRN ×3 (03:38→20:48)
[2016-11-20] MEDS: CYCLOBENZAPRINE 10 MG TABLET. PO PRN ×3 (03:38→18:11)
[2016-11-20 07:00] VITALS: BP 139/73
[2016-11-20] MEDS: IPRATRPIUM/ALBUTEROL 0.5/2.5MG 3 ML NEBU. NEB SCH ×4 (07:24→19:47)
[2016-11-20] MEDS: BUDESONIDE 0.5 MG/2 ML NEBU. NEB SCH ×2 (07:24→19:47)
[2016-11-20] MEDS: INSULIN ASPART 300 UNITS/3 ML INSULN.PEN SQ SCH ×3 (08:00→17:00)
[2016-11-20] MEDS: POTASSIUM CHLORIDE 20 MEQ TABLET.ER. PO SCH (08:47)
[2016-11-20] MEDS: metFORMIN XR 500 MG TAB.ER.24H PO SCH (08:48)
[2016-11-20] MEDS: PANTOPRAZOLE 40 MG TABLET.DR. PO SCH (08:48)
[2016-11-20] MEDS: GABAPENTIN 300 MG CAPSULE. PO SCH ×2 (08:48→20:47)
[2016-11-20] MEDS: ASPIRIN ENTERIC COATED 81 MG TABLET.DR. PO SCH (08:48)
[2016-11-20] MEDS: DOCUSATE SODIUM 100 MG CAPSULE. PO SCH (08:48)
[2016-11-20] MEDS: CETIRIZINE HCL 10 MG TABLET. PO SCH (08:48)
[2016-11-20] MEDS: LISINOPRIL 20 MG TABLET PO SCH (08:48)
[2016-11-20] MEDS: FUROSEMIDE 80 MG TABLET. PO SCH (08:48)
[2016-11-20] MEDS: LIDOCAINE (700MG/PATCH) PATCH. TD SCH (08:49)
[2016-11-20] MEDS: methylPREDNISolone 4 MG TABLET. PO SCH ×4 (08:55→20:48)
[2016-11-20] MEDS: MORPHINE IR 15 MG TABLET PO PRN ×3 (08:55→18:11)
[2016-11-20] MEDS: NYSTATIN TOPICAL POWDER 15GM BOTTLE. TP SCH ×2 (09:00→20:50)
[2016-11-20 11:00] VITALS: BP 119/62
--- NOTE | 2016-11-20 11:13 | PDOC ---
PROGRESS NOTES Chief Complaint Chief Complaint back pain, acute on chronic with sciatica and radicular symptoms, being seen by physiatry, Neuro surg, Pain management clinic s/p prior epidurals, Dr. Zavala plans procedure in AM morbid obesity, BMI 56 Dm2, htn, COPD, atrial fib History of Present Illness History of Present Illness Dr. Avelar reviewed with me, he was unable to inject 11/19 pt req. to have IV morphine avail, cont PO as able, cont PRN pain meds and steroids she did sit with assist, severe pain , stabbing pain when sitting upright, better when tilted to the side Vitals Vitals Vital Signs Date Time Temp Pulse Resp B/P (MAP) Pulse Ox O2 Delivery O2 Flow Rate FiO2 11/20/16 08:55 22 Nasal Cannula 2.0 11/20/16 08:48 66 139/73 11/20/16 07:24 98 11/20/16 07:00 97.9 97.9 Physical Exam General: Alert, Cooperative, No acute distress Lungs: Clear Abdomen: Normal bowel sounds, Soft (very obese) Extremities: No clubbing, No cyanosis, No edema Skin: No significant lesion Labs LABS Laboratory Tests Test 11/19/16 11:18 11/19/16 16:18 11/19/16 20:22 11/20/16 07:28 Glucose (Fingerstick) 140 mg/dL (70-99) 123 mg/dL (70-99) 141 mg/dL (70-99) 123 mg/dL (70-99) Test 11/20/16 10:22 Glucose (Fingerstick) 148 mg/dL (70-99) Assessment and Plan Assessmemt and Plan Problems Medical Problems: (1) Intractable pain Status: Acute (2) Left sciatic nerve pain Status: Acute (3) Urinary tract infection Status: Acute Problems: Comment Review of Relevant I have reviewed the following items shakir (where applicable) has been applied. Labs Laboratory Tests Test 11/18/16 11:55 11/18/16 16:35 11/18/16 21:26 11/19/16 07:47 Glucose (Fingerstick) 97 mg/dL (70-99) 136 mg/dL (70-99) 149 mg/dL (70-99) 106 mg/dL (70-99) Test 11/19/16 11:18 11/19/16 16:18 11/19/16 20:22 11/20/16 07:28 Glucose (Fingerstick) 140 mg/dL (70-99) 123 mg/dL (70-99) 141 mg/dL (70-99) 123 mg/dL (70-99) Test 11/20/16 10:22 Glucose (Fingerstick) 148 mg/dL (70-99) Laboratory Tests Test 11/19/16 11:18 11/19/16 16:18 11/19/16 20:22 11/20/16 07:28 Glucose (Fingerstick) 140 mg/dL (70-99) 123 mg/dL (70-99) 141 mg/dL (70-99) 123 mg/dL (70-99) Test 11/20/16 10:22 Glucose (Fingerstick) 148 mg/dL (70-99) Microbiology 11/17/16 Urine Culture - Final, Complete 11/17/16 Urine Culture Result 1 (ROBBY) - Final, Complete 11/17/16 Urine Culture Result 2 (ROBBY) - Final, Complete 11/17/16 Antimicrobic Susceptibility - Final, Complete Medications Current Medications Hydromorphone HCl (Dilaudid) 0.5 mg PRN Q15MIN PRN IV/SQ PAIN GREATER THAN 3/ 10 Last administered on 11/18/16 00:09; Start 11/17/16 at 22:15; Stop 11/18/16 at 22:14; Status DC Sodium Chloride 1,000 ml @ 1,000 mls/hr Q1H IV Last administered on 11/17/16 22:17; Start 11/17/16 at 22:15; Stop 11/17/16 at 23:14; Status DC Ondansetron HCl (Zofran) 4 mg 1X ONCE IV Last administered on 11/17/16 22:18 ; Start 11/17/16 at 22:15; Stop 11/17/16 at 22:16; Status DC Ceftriaxone Sodium 1 gm/ Sodium Chloride 50 ml @ 100 mls/hr Q24H IV Last administered on 11/19/16 23:39; Start 11/17/16 at 23:30 Ondansetron HCl (Zofran) 4 mg PRN Q8HRS PRN IV NAUSEA/VOMITING Last administered on 9/22/17at 10:51; Start 11/17/16 at 23:30; Stop 11/18/16 at 23:29 ; Status DC Morphine Sulfate 4 mg PRN Q2HR PRN IV PAIN Last administered on 11/19/16 08:41 ; Start 11/17/16 at 23:30; Stop 11/19/16 at 23:30; Status DC Acetaminophen (Tylenol) 650 mg PRN Q4HRS PRN PO FEVER Last administered on 11/18 01:53; Start 11/17/16 at 23:30; Stop 11/18/16 at 23:29; Status DC Insulin Aspart (NovoLOG) 0-5 UNITS TIDWMEALS SQ ; Start 11/18/16 at 08:00 Dextrose (Dextrose 50%-Water Syringe) 12.5 gm PRN Q15MIN PRN IV SEE COMMENTS; Start 11/17/16 at 23:30 Diazepam (Valium) 5 mg 1X ONCE IV Last administered on 11/18/16 00:08; Start 11/18/16 at 00:00; Stop 11/18/16 at 00:01; Status DC Ceftriaxone Sodium 50 ml @ As Directed STK-MED ONCE IV ; Start 11/18/16 at 00:06 ; Stop 11/18/16 at 00:07; Status DC Info (Do NOT chart on this placeholder) 1 each 1X ONCE MC ; Start 11/18/16 at 02:30; Stop 11/18/16 at 02:31; Status UNV Albuterol Sulfate (Ventolin Neb Soln) 2.5 mg PRN Q2HRS PRN NEB SHORTNESS OF BREATH; Start 11/18/16 at 03:00 Aspirin (Ecotrin) 81 mg DAILY PO Last administered on 11/20/16 08:48; Start at 09:00 Cetirizine HCl (ZyrTEC) 10 mg DAILY PO Last administered on 11/20/16 08:48; Start 11/18/16 at 09:00 Cyclobenzaprine HCl (Flexeril) 10 mg TID PO ; Start 11/18/16 at 09:00; Stop at 09:38; Status DC Furosemide (Lasix) 80 mg DAILY PO Last administered on 11/20/16 08:48; Start 11/18/16 at 09:00 Lisinopril (Prinivil) 20 mg DAILY PO Last administered on 11/20/16 08:48; Start 11/18/16 at 09:00 Metformin HCl (Glucophage Xr) 500 mg DAILYWBKFT PO Last administered on 08:48; Start 11/18/16 at 08:00 Metoprolol Succinate (Toprol Xl) 50 mg QHS PO Last administered on 11/19/16 20 :55; Start 11/18/16 at 21:00 Pantoprazole Sodium (Protonix) 40 mg DAILYAC PO Last administered on 11/20/16 08:48; Start 11/18/16 at 07:30 Potassium Chloride (Klor-Con) 20 meq DAILY PO Last administered on 11/20/16 08 :47; Start 11/18/16 at 09:00 Rivaroxaban (Xarelto) 20 mg QHS PO ; Start 11/18/16 at 21:00; Stop 11/18/16 at 21:00; Status DC Tramadol HCl (Ultram) 50 mg PRN Q6HRS PRN PO PAIN; Start 11/18/16 at 03:00; Status Cancel Non-Formulary Medication 1 inh BID IH ; Start 11/18/16 at 09:00; Status UNV Gabapentin (Neurontin) 300 mg BID PO Last administered on 11/20/16 08:48; Start 11/18/16 at 09:00 Non-Formulary Medication 2 inh QID IH ; Start 11/18/16 at 09:00; Status UNV Atorvastatin Calcium (Lipitor) 5 mg QHS PO Last administered on 11/19/16 20:56 ; Start 11/18/16 at 21:00 Acetaminophen/ Hydrocodone Bitart (Lortab 5/325) 1-2 tabs PRN Q4HRS PRN PO PAIN Last administered on 11/18/16 12:32; Start 11/18/16 at 03:00; Stop at 14:43; Status DC Influenza Virus Vaccine Quadrival (Fluarix Quad 2523-9541 Syringe) 0.5 ml ONCE ONCE VAX IM Last administered on 11/18/16 03:49; Start 11/18/16 at 09:00; Stop 11/18/16 at 09:01; Status DC Albuterol/ Ipratropium (Duoneb) 3 ml RTQID NEB Last administered on 11/20/16 07:24; Start 11/18/16 at 08:00 Budesonide (Pulmicort) 0.5 mg RTBID NEB Last administered on 11/20/16 07:24; Start 11/18/16 at 08:00 Cyclobenzaprine HCl (Flexeril) 10 mg PRN Q6HRS PRN PO MUSCLE SPASMS Last administered on 11/20/16 03:38; Start 11/18/16 at 09:30 Methylprednisolone (Medrol) 4 mg BID PO ; Start 11/18/16 at 10:00; Status Cancel Lidocaine (Lidoderm) 2 patch DAILY TD Last administered on 11/20/16 08:49; Start 11/18/16 at 11:00 Methylprednisolone Acetate (DEPO-Medrol 40MG VIAL) 40 mg 1X ONCE IM ; Start at 10:15; Stop 11/18/16 at 10:19; Status DC Methylprednisolone Acetate (DEPO-Medrol 40MG VIAL) 40 mg 1X ONCE IM ; Start at 10:15; Stop 11/18/16 at 10:19; Status DC Bupivacaine HCl (Sensorcaine-Mpf 0.25%) 10 ml 1X ONCE IJ ; Start 11/18/16 at 10 :15; Stop 11/18/16 at 10:19; Status DC Methylprednisolone (Medrol) 8 mg BID PO Last administered on 11/18/16 22:05; Start 11/18/16 at 11:00; Stop 11/18/16 at 21:01; Status DC Methylprednisolone (Medrol) 4 mg BIDPCLD PO Last administered on 11/18/16 17: 14; Start 11/18/16 at 12:30; Stop 11/18/16 at 17:31; Status DC Methylprednisolone (Medrol) 4 mg TIDPC PO Last administered on 11/19/16 17:00 ; Start 11/19/16 at 08:30; Stop 11/19/16 at 17:31; Status DC Methylprednisolone (Medrol) 8 mg QHS PO Last administered on 11/19/16 20:55; Start 11/19/16 at 21:00; Stop 11/19/16 at 21:01; Status DC Methylprednisolone (Medrol) 4 mg QIDAFTMEAL PO Last administered on 11/20/16 08:55; Start 11/20/16 at 09:00; Stop 11/20/16 at 21:01 Methylprednisolone (Medrol) 4 mg TID PO ; Start 11/21/16 at 09:00; Stop at 21:01 Methylprednisolone (Medrol) 4 mg BID PO ; Start 11/22/16 at 09:00; Stop at 21:01 Methylprednisolone (Medrol) 4 mg DAILY PO ; Start 11/23/16 at 09:00; Stop at 09:01 Nystatin (Nystop) 1 molly BID TP Last administered on 11/19/16 20:54; Start at 11:30 Rivaroxaban (Xarelto) 20 mg QHS PO ; Start 11/21/16 at 21:00; Stop 11/21/16 at 21:00; Status DC Acetaminophen/ Hydrocodone Bitart (Lortab 5/325) 1 tab PRN Q4HRS PRN PO PAIN; Start 11/18/16 at 14:45 Acetaminophen/ Hydrocodone Bitart (Lortab 5/325) 2 tab PRN Q4HRS PRN PO PAIN Last administered on 11/20/16 08:47; Start 11/18/16 at 14:43 Ondansetron HCl (Zofran) 4 mg PRN Q6HRS PRN IV NAUSEA/VOMITING Last administered on 11/19/16 17:14; Start 11/19/16 at 08:45 Fentanyl Citrate (Fentanyl 2ml Vial) 75 mcg PRN Q4HRS PRN IV pain Last administered on 11/19/16 18:31; Start 11/19/16 at 09:15 Docusate Sodium (Colace) 100 mg DAILY PO Last administered on 11/20/16 08:48; Start 11/19/16 at 12:15 Polyethylene Glycol (miraLAX PACKET) 17 gm 1X ONCE PO Last administered on 12:19; Start 11/19/16 at 12:15; Stop 11/19/16 at 12:16; Status DC Zolpidem Tartrate (Ambien) 5 mg PRN QHS PRN PO INSOMNIA; Start 11/19/16 at 12: 15 Morphine Sulfate 4 mg PRN Q2HR PRN IV PAIN; Start 11/20/16 at 08:45 Morphine Sulfate (Morphine Ir) 15 mg PRN Q4HRS PRN PO PAIN Last administered on 11/20/16t 08:55; Start 11/20/16 at 08:45 Active Scripts Active [place] 5-325 Tablet (Acetaminophen/Hydrocodone Bitart) 1 Each Tablet 1-2 Tab PO Q4-6HRS Cyclobenzaprine Hcl 10 Mg Tablet 1 Tab PO TID Reported Combivent Respimat Inhal (Ipratropium/Albuterol Sulfate) 4 Gm Aer.w.adap 2 Inh IH QID Zyrtec (Cetirizine Hcl) 10 Mg Tablet 1 Tab PO DAILY Lisinopril 20 Mg Tablet 1 Tab PO DAILY Tramadol Hcl 50 Mg Tablet 50 Mg PO Q6H PRN Aspir 81 (Aspirin) 81 Mg Tablet.dr 1 Tab PO DAILY Albuterol Sulfate Neb Soln (Albuterol Sulfate) 2.5 Mg/3 Ml Vial.neb 2.5 Mg NEB PRN Q2HRS PRN Xarelto (Rivaroxaban) 10 Mg Tablet 20 Mg PO QHS Advair 500-50 Diskus (Fluticasone/Salmeterol) 1 Each Disk.w.dev 1 Inh IH BID Metformin Hcl Er (Metformin Hcl) 500 Mg Tab.er.24h 500 Mg PO DAILYWBKFT Potassium Chloride 20 Meq Tab.er.prt 20 Meq PO DAILY Lovastatin 20 Mg Tablet 20 PO QHS Pantoprazole Sodium 40 Mg Tablet.dr 40 Mg PO DAILYAC Toprol Xl (Metoprolol Succinate) 50 Mg Tab.er.24h 50 Mg PO QHS Gabapentin 300 Mg Capsule 300 Mg PO BID Furosemide 80 Mg Tablet 80 Mg PO DAILY Vitals/I & O Vital Sign - Last 24 Hours 11/19/16 11/19/16 11/19/16 11/19/16 11:25 12:20 15:00 15:09 Temp 97.6 97.6 Pulse 76 Resp 20 18 B/P (MAP) 115/58 (77) Pulse Ox 96 O2 Delivery Nasal Cannula Nasal Cannula Nasal Cannula Nasal Cannula O2 Flow Rate 2.0 2.0 3.0 2.0 11/19/16 11/19/16 11/19/16 11/19/16 17:00 18:17 18:31 19:00 Temp 97.8 97.8 Pulse 74 Resp 24 19 B/P (MAP) 120/48 (72) Pulse Ox 96 94 92 O2 Delivery Nasal Cannula Nasal Cannula Nasal Cannula Nasal Cannula O2 Flow Rate 2.0 2.0 2.0 3.0 11/19/16 11/19/16 11/19/16 11/19/16 19:01 20:11 20:55 20:56 Pulse 74 B/P (MAP) 120/48 Pulse Ox 94 94 O2 Delivery Nasal Cannula Nasal Cannula Nasal Cannula O2 Flow Rate 2.0 2.0 2.0 11/19/16 11/19/16 11/20/16 11/20/16 22:10 23:00 00:05 02:16 Temp 97.6 97.6 Pulse 68 Resp 20 B/P (MAP) 122/56 (78) Pulse Ox 94 O2 Delivery BiPAP/CPAP Nasal Cannula BiPAP/CPAP BiPAP/CPAP O2 Flow Rate 3.0 11/20/16 11/20/16 11/20/16 11/20/16 03:00 03:38 04:38 07:00 Temp 97.9 97.9 Pulse 59 66 Resp 21 20 B/P (MAP) 129/62 (84) 139/73 (95) Pulse Ox 93 94 94 98 O2 Delivery Nasal Cannula Nasal Cannula Nasal Cannula Nasal Cannula O2 Flow Rate 3.0 3.0 3.0 3.0 11/20/16 11/20/16 11/20/16 11/20/16 07:24 08:00 08:47 08:48 Pulse 66 Resp 22 B/P (MAP) 139/73 Pulse Ox 98 O2 Delivery Nasal Cannula Nasal Cannula Nasal Cannula O2 Flow Rate 2.0 2.0 2.0 11/20/16 08:55 Resp 22 O2 Delivery Nasal Cannula O2 Flow Rate 2.0 Intake and Output 11/20/16 11/20/16 11/21/16 15:00 23:00 07:00 Intake Total 300 ml Balance 300 ml DERIK BRAVO MD Nov 20, 2016 11:12
[2016-11-20] MEDS: MORPHINE SULFATE 4 MG/ML DISP.SYRIN. IV PRN ×2 (12:09→16:50)
[2016-11-20 15:03] VITALS: BP 119/68
[2016-11-20 19:00] VITALS: BP 118/68
[2016-11-20] MEDS: METOPROLOL SUCC 24HR ER 50 MG TAB.ER.24H. PO SCH (20:47)
[2016-11-20] MEDS: ATORVASTATIN CALCIUM 10 MG TABLET. PO SCH (20:48)
[2016-11-20 23:00] VITALS: BP 104/64
[2016-11-21] MEDS: MORPHINE IR 15 MG TABLET PO PRN ×2 (00:47→11:06)
[2016-11-21 03:00] VITALS: BP 121/55
[2016-11-21 07:00] VITALS: BP 126/69
[2016-11-21] MEDS: IPRATRPIUM/ALBUTEROL 0.5/2.5MG 3 ML NEBU. NEB SCH ×4 (07:26→20:14)
[2016-11-21] MEDS: BUDESONIDE 0.5 MG/2 ML NEBU. NEB SCH ×2 (07:26→20:14)
[2016-11-21] MEDS: INSULIN ASPART 300 UNITS/3 ML INSULN.PEN SQ SCH ×3 (08:00→16:59)
[2016-11-21] MEDS: GABAPENTIN 300 MG CAPSULE. PO SCH ×2 (08:28→20:43)
[2016-11-21] MEDS: CYCLOBENZAPRINE 10 MG TABLET. PO PRN ×3 (08:28→23:02)
[2016-11-21] MEDS: PANTOPRAZOLE 40 MG TABLET.DR. PO SCH (08:28)
[2016-11-21] MEDS: metFORMIN XR 500 MG TAB.ER.24H PO SCH (08:28)
[2016-11-21] MEDS: methylPREDNISolone 4 MG TABLET. PO SCH ×3 (08:28→20:43)
[2016-11-21] MEDS: POTASSIUM CHLORIDE 20 MEQ TABLET.ER. PO SCH (08:28)
[2016-11-21] MEDS: ASPIRIN ENTERIC COATED 81 MG TABLET.DR. PO SCH (08:29)
[2016-11-21] MEDS: DOCUSATE SODIUM 100 MG CAPSULE. PO SCH (08:29)
[2016-11-21] MEDS: CETIRIZINE HCL 10 MG TABLET. PO SCH (08:29)
[2016-11-21] MEDS: LISINOPRIL 20 MG TABLET PO SCH (08:30)
[2016-11-21] MEDS: FUROSEMIDE 80 MG TABLET. PO SCH (08:30)
[2016-11-21] MEDS: LIDOCAINE (700MG/PATCH) PATCH. TD SCH (08:31)
[2016-11-21] MEDS: MORPHINE SULFATE 4 MG/ML DISP.SYRIN. IV PRN (08:31)
[2016-11-21] MEDS: NYSTATIN TOPICAL POWDER 15GM BOTTLE. TP SCH ×2 (08:32→20:44)
--- NOTE | 2016-11-21 09:55 | PDOC ---
PROGRESS NOTES Subjective Subjective She continues with low back pain with radiation to left lower extremity and numbness left lower extremity. Objective Objective Vital Signs Date Time Temp Pulse Resp B/P (MAP) Pulse Ox O2 Delivery O2 Flow Rate FiO2 11/21/16 08:31 22 Nasal Cannula 2.0 11/21/16 08:30 80 129/69 11/21/16 07:27 99 11/21/16 07:00 98.0 98.0 Intake and Output 11/22/16 07:00 Intake Total 300 ml Balance 300 ml Intake Oral 300 ml Physical Exam Physical Exam She is alert and continues with painfully limited lumbar spine ROM with tenderness to palpation over lumbar paraspinal muscles,sacroiliac joints and trochanteric bursa and decreased sensory perception over left L5,S1 dermatomes. Assessment Assessment Problems Medical Problems: (1) Intractable pain Status: Acute (2) Left sciatic nerve pain Status: Acute (3) Urinary tract infection Status: Acute Plan Plan of Care Agree with plans for trial of lumbar ESIs and home with home health or short term in patient rehab when medically stable. Comment Review of Relevant I have reviewed the following items shakir (where applicable) has been applied. Labs Laboratory Tests Test 11/19/16 11:18 11/19/16 16:18 11/19/16 20:22 11/20/16 07:28 Glucose (Fingerstick) 140 mg/dL (70-99) 123 mg/dL (70-99) 141 mg/dL (70-99) 123 mg/dL (70-99) Test 11/20/16 10:22 11/20/16 16:43 11/20/16 21:11 11/21/16 07:07 Glucose (Fingerstick) 148 mg/dL (70-99) 107 mg/dL (70-99) 124 mg/dL (70-99) 118 mg/dL (70-99) Laboratory Tests Test 11/20/16 10:22 11/20/16 16:43 11/20/16 21:11 11/21/16 07:07 Glucose (Fingerstick) 148 mg/dL (70-99) 107 mg/dL (70-99) 124 mg/dL (70-99) 118 mg/dL (70-99) Microbiology 11/17/16 Urine Culture - Final, Complete 11/17/16 Urine Culture Result 1 (ROBBY) - Final, Complete 11/17/16 Urine Culture Result 2 (ROBBY) - Final, Complete 11/17/16 Antimicrobic Susceptibility - Final, Complete Medications Current Medications Hydromorphone HCl (Dilaudid) 0.5 mg PRN Q15MIN PRN IV/SQ PAIN GREATER THAN 3/ 10 Last administered on 11/18/16 00:09; Start 11/17/16 at 22:15; Stop 11/18/16 at 22:14; Status DC Sodium Chloride 1,000 ml @ 1,000 mls/hr Q1H IV Last administered on 11/17/16 22:17; Start 11/17/16 at 22:15; Stop 11/17/16 at 23:14; Status DC Ondansetron HCl (Zofran) 4 mg 1X ONCE IV Last administered on 11/17/16 22:18 ; Start 11/17/16 at 22:15; Stop 11/17/16 at 22:16; Status DC Ceftriaxone Sodium 1 gm/ Sodium Chloride 50 ml @ 100 mls/hr Q24H IV Last administered on 11/20/16 23:48; Start 11/17/16 at 23:30 Ondansetron HCl (Zofran) 4 mg PRN Q8HRS PRN IV NAUSEA/VOMITING Last administered on 11/18/16 10:51; Start 11/17/16 at 23:30; Stop 11/18/16 at 23:29 ; Status DC Morphine Sulfate 4 mg PRN Q2HR PRN IV PAIN Last administered on 11/19/16 08:41 ; Start 11/17/16 at 23:30; Stop 11/19/16 at 23:30; Status DC Acetaminophen (Tylenol) 650 mg PRN Q4HRS PRN PO FEVER Last administered on 11/18 01:53; Start 11/17/16 at 23:30; Stop 11/18/16 at 23:29; Status DC Insulin Aspart (NovoLOG) 0-5 UNITS TIDWMEALS SQ ; Start 11/18/16 at 08:00 Dextrose (Dextrose 50%-Water Syringe) 12.5 gm PRN Q15MIN PRN IV SEE COMMENTS; Start 11/17/16 at 23:30 Diazepam (Valium) 5 mg 1X ONCE IV Last administered on 11/18/16 00:08; Start 11/18/16 at 00:00; Stop 11/18/16 at 00:01; Status DC Ceftriaxone Sodium 50 ml @ As Directed STK-MED ONCE IV ; Start 11/18/16 at 00:06 ; Stop 11/18/16 at 00:07; Status DC Info (Do NOT chart on this placeholder) 1 each 1X ONCE MC ; Start 11/18/16 at 02:30; Stop 11/18/16 at 02:31; Status UNV Albuterol Sulfate (Ventolin Neb Soln) 2.5 mg PRN Q2HRS PRN NEB SHORTNESS OF BREATH; Start 11/18/16 at 03:00 Aspirin (Ecotrin) 81 mg DAILY PO Last administered on 11/21/16 08:29; Start at 09:00 Cetirizine HCl (ZyrTEC) 10 mg DAILY PO Last administered on 11/21/16 08:29; Start 11/18/16 at 09:00 Cyclobenzaprine HCl (Flexeril) 10 mg TID PO ; Start 11/18/16 at 09:00; Stop at 09:38; Status DC Furosemide (Lasix) 80 mg DAILY PO Last administered on 11/21/16 08:30; Start 11/18/16 at 09:00 Lisinopril (Prinivil) 20 mg DAILY PO Last administered on 11/21/16 08:30; Start 11/18/16 at 09:00 Metformin HCl (Glucophage Xr) 500 mg DAILYWBKFT PO Last administered on 08:28; Start 11/18/16 at 08:00 Metoprolol Succinate (Toprol Xl) 50 mg QHS PO Last administered on 11/20/16 20 :47; Start 11/18/16 at 21:00 Pantoprazole Sodium (Protonix) 40 mg DAILYAC PO Last administered on 11/21/16 08:28; Start 11/18/16 at 07:30 Potassium Chloride (Klor-Con) 20 meq DAILY PO Last administered on 11/21/16 08 :28; Start 11/18/16 at 09:00 Rivaroxaban (Xarelto) 20 mg QHS PO ; Start 11/18/16 at 21:00; Stop 11/18/16 at 21:00; Status DC Tramadol HCl (Ultram) 50 mg PRN Q6HRS PRN PO PAIN; Start 11/18/16 at 03:00; Status Cancel Non-Formulary Medication 1 inh BID IH ; Start 11/18/16 at 09:00; Status UNV Gabapentin (Neurontin) 300 mg BID PO Last administered on 11/21/16 08:28; Start 11/18/16 at 09:00 Non-Formulary Medication 2 inh QID IH ; Start 11/18/16 at 09:00; Status UNV Atorvastatin Calcium (Lipitor) 5 mg QHS PO Last administered on 11/20/16 20:48 ; Start 11/18/16 at 21:00 Acetaminophen/ Hydrocodone Bitart (Lortab 5/325) 1-2 tabs PRN Q4HRS PRN PO PAIN Last administered on 11/18/16 12:32; Start 11/18/16 at 03:00; Stop at 14:43; Status DC Influenza Virus Vaccine Quadrival (Fluarix Quad [id number] Syringe) 0.5 ml ONCE ONCE VAX IM Last administered on 11/18/16 03:49; Start 11/18/16 at 09:00; Stop 11/18/16 at 09:01; Status DC Albuterol/ Ipratropium (Duoneb) 3 ml RTQID NEB Last administered on 11/21/16 07:26; Start 11/18/16 at 08:00 Budesonide (Pulmicort) 0.5 mg RTBID NEB Last administered on 11/21/16 07:26; Start 11/18/16 at 08:00 Cyclobenzaprine HCl (Flexeril) 10 mg PRN Q6HRS PRN PO MUSCLE SPASMS Last administered on 11/21/16 08:28; Start 11/18/16 at 09:30 Methylprednisolone (Medrol) 4 mg BID PO ; Start 11/18/16 at 10:00; Status Cancel Lidocaine (Lidoderm) 2 patch DAILY TD Last administered on 11/21/16 08:31; Start 11/18/16 at 11:00 Methylprednisolone Acetate (DEPO-Medrol 40MG VIAL) 40 mg 1X ONCE IM ; Start at 10:15; Stop 11/18/16 at 10:19; Status DC Methylprednisolone Acetate (DEPO-Medrol 40MG VIAL) 40 mg 1X ONCE IM ; Start at 10:15; Stop 11/18/16 at 10:19; Status DC Bupivacaine HCl (Sensorcaine-Mpf 0.25%) 10 ml 1X ONCE IJ ; Start 11/18/16 at 10 :15; Stop 11/18/16 at 10:19; Status DC Methylprednisolone (Medrol) 8 mg BID PO Last administered on 11/18/16 22:05; Start 11/18/16 at 11:00; Stop 11/18/16 at 21:01; Status DC Methylprednisolone (Medrol) 4 mg BIDPCLD PO Last administered on 11/18/16 17: 14; Start 11/18/16 at 12:30; Stop 11/18/16 at 17:31; Status DC Methylprednisolone (Medrol) 4 mg TIDPC PO Last administered on 11/19/16 17:00 ; Start 11/19/16 at 08:30; Stop 11/19/16 at 17:31; Status DC Methylprednisolone (Medrol) 8 mg QHS PO Last administered on 11/19/16 20:55; Start 11/19/16 at 21:00; Stop 11/19/16 at 21:01; Status DC Methylprednisolone (Medrol) 4 mg QIDAFTMEAL PO Last administered on 11/20/16 20:48; Start 11/20/16 at 09:00; Stop 11/20/16 at 21:01; Status DC Methylprednisolone (Medrol) 4 mg TID PO Last administered on 11/21/16 08:28; Start 11/21/16 at 09:00; Stop 11/21/16 at 21:01 Methylprednisolone (Medrol) 4 mg BID PO ; Start 11/22/16 at 09:00; Stop at 21:01 Methylprednisolone (Medrol) 4 mg DAILY PO ; Start 11/23/16 at 09:00; Stop at 09:01 Nystatin (Nystop) 1 molly BID TP Last administered on 11/21/16 08:32; Start at 11:30 Rivaroxaban (Xarelto) 20 mg QHS PO ; Start 11/21/16 at 21:00; Stop 11/21/16 at 21:00; Status DC Acetaminophen/ Hydrocodone Bitart (Lortab 5/325) 1 tab PRN Q4HRS PRN PO PAIN; Start 11/18/16 at 14:45 Acetaminophen/ Hydrocodone Bitart (Lortab 5/325) 2 tab PRN Q4HRS PRN PO PAIN Last administered on 11/20/16 20:48; Start 11/18/16 at 14:43 Ondansetron HCl (Zofran) 4 mg PRN Q6HRS PRN IV NAUSEA/VOMITING Last administered on 11/19/16 17:14; Start 11/19/16 at 08:45 Fentanyl Citrate (Fentanyl 2ml Vial) 75 mcg PRN Q4HRS PRN IV pain Last administered on 11/19/16 18:31; Start 11/19/16 at 09:15 Docusate Sodium (Colace) 100 mg DAILY PO Last administered on 11/21/16 08:29; Start 11/19/16 at 12:15 Polyethylene Glycol (miraLAX PACKET) 17 gm 1X ONCE PO Last administered on 12:19; Start 11/19/16 at 12:15; Stop 11/19/16 at 12:16; Status DC Zolpidem Tartrate (Ambien) 5 mg PRN QHS PRN PO INSOMNIA; Start 11/19/16 at 12: 15 Morphine Sulfate 4 mg PRN Q2HR PRN IV PAIN Last administered on 11/21/16 08:31 ; Start 11/20/16 at 08:45 Morphine Sulfate (Morphine Ir) 15 mg PRN Q4HRS PRN PO PAIN Last administered on 11/21/16 00:47; Start 11/20/16 at 08:45 Active Scripts Active [place] 5-325 Tablet (Acetaminophen/Hydrocodone Bitart) 1 Each Tablet 1-2 Tab PO Q4-6HRS Cyclobenzaprine Hcl 10 Mg Tablet 1 Tab PO TID Reported Combivent Respimat Inhal (Ipratropium/Albuterol Sulfate) 4 Gm Aer.w.adap 2 Inh IH QID Zyrtec (Cetirizine Hcl) 10 Mg Tablet 1 Tab PO DAILY Lisinopril 20 Mg Tablet 1 Tab PO DAILY Tramadol Hcl 50 Mg Tablet 50 Mg PO Q6H PRN Aspir 81 (Aspirin) 81 Mg Tablet.dr 1 Tab PO DAILY Albuterol Sulfate Neb Soln (Albuterol Sulfate) 2.5 Mg/3 Ml Vial.neb 2.5 Mg NEB PRN Q2HRS PRN Xarelto (Rivaroxaban) 10 Mg Tablet 20 Mg PO QHS Advair 500-50 Diskus (Fluticasone/Salmeterol) 1 Each Disk.w.dev 1 Inh IH BID Metformin Hcl Er (Metformin Hcl) 500 Mg Tab.er.24h 500 Mg PO DAILYWBKFT Potassium Chloride 20 Meq Tab.er.prt 20 Meq PO DAILY Lovastatin 20 Mg Tablet 20 PO QHS Pantoprazole Sodium 40 Mg Tablet.dr 40 Mg PO DAILYAC Toprol Xl (Metoprolol Succinate) 50 Mg Tab.er.24h 50 Mg PO QHS Gabapentin 300 Mg Capsule 300 Mg PO BID Furosemide 80 Mg Tablet 80 Mg PO DAILY Vitals/I & O Vital Sign - Last 24 Hours 11/20/16 11/20/16 11/20/16 11/20/16 09:55 11:00 11:29 12:09 Temp 97.9 97.9 Pulse 81 Resp 24 B/P (MAP) 119/62 (81) Pulse Ox 96 O2 Delivery Nasal Cannula Nasal Cannula Nasal Cannula O2 Flow Rate 3.0 2.0 2.0 11/20/16 11/20/16 11/20/16 11/20/16 14:02 15:02 15:03 15:16 Temp 97.8 97.8 Pulse 80 Resp 20 B/P (MAP) 119/68 (85) Pulse Ox 95 O2 Delivery Nasal Cannula Nasal Cannula Nasal Cannula O2 Flow Rate 2.0 3.0 2.0 11/20/16 11/20/16 11/20/16 11/20/16 16:50 18:10 18:11 19:00 Temp 97.4 97.4 Pulse 79 Resp 19 B/P (MAP) 118/68 (85) Pulse Ox 94 O2 Delivery Nasal Cannula Nasal Cannula Nasal Cannula Nasal Cannula O2 Flow Rate 2.0 2.0 2.0 3.0 11/20/16 11/20/16 11/20/16 11/20/16 19:47 19:49 20:01 20:47 Pulse 80 B/P (MAP) 119/68 Pulse Ox 98 98 O2 Delivery Nasal Cannula Nasal Cannula Nasal Cannula O2 Flow Rate 2.0 2.0 2.0 11/20/16 11/20/16 11/20/16 11/20/16 20:48 21:48 22:22 23:00 Temp 97.9 97.9 Pulse 80 Resp 18 B/P (MAP) 104/64 (77) Pulse Ox 98 98 96 O2 Delivery Nasal Cannula Nasal Cannula BiPAP/CPAP Nasal Cannula O2 Flow Rate 2.0 2.0 3.0 11/21/16 11/21/16 11/21/16 11/21/16 00:10 00:47 01:47 03:00 Temp 97.8 97.8 Pulse 75 Resp 18 B/P (MAP) 121/55 (77) Pulse Ox 96 96 99 O2 Delivery BiPAP/CPAP Nasal Cannula Nasal Cannula Nasal Cannula O2 Flow Rate 3.0 3.0 3.0 11/21/16 11/21/16 11/21/16 11/21/16 03:35 04:55 07:00 07:27 Temp 98.0 98.0 Pulse 80 Resp 20 B/P (MAP) 126/69 (88) Pulse Ox 94 99 O2 Delivery BiPAP/CPAP BiPAP/CPAP Nasal Cannula Nasal Cannula O2 Flow Rate 3.0 2.0 11/21/16 11/21/16 08:30 08:31 Pulse 80 Resp 22 B/P (MAP) 129/69 O2 Delivery Nasal Cannula O2 Flow Rate 2.0 Intake and Output 11/21/16 11/21/16 11/22/16 15:00 23:00 07:00 Intake Total 300 ml Balance 300 ml BUSHRA DALLAS MD Nov 21, 2016 09:55
[2016-11-21] MEDS ORDERED: IOHEXOL 180 MG/ML 10 ML VIAL. ONE (09:56)
[2016-11-21] MEDS ORDERED: methylPREDNISolone ACETATE 40 MG/ML VIAL. ONE (09:56)
[2016-11-21] MEDS ORDERED: methylPREDNISolone ACETATE 80 MG/ML VIAL. ONE (09:56)
[2016-11-21 11:00] VITALS: BP 128/75
--- NOTE | 2016-11-21 11:53 | PDOC ---
PROGRESS NOTES Chief Complaint Chief Complaint back pain, acute on chronic with sciatica ASSESSMENT AND PLAN: 1. Lumbar radiculopathy: s/p steroid injection under fluoroscopy guidance this AM. not improved (yet). appreciate Dr Rowe's input: poor surg candidate. hx of prior injections in Pain Clinic. cont steroids, narcotics ( PO and IV available) 2. Morbid obesity: Nutrition consult 3. UTI: E.coli x2 sp; empiric ceftriax appropriate per sensitivity panel. has received 4 doses; stop. rpt UA in 1 week 4. DM2: well controlled don current regimen 5. HTN: well controlled on home regimen 6. Afib: currently NSR. 7. COPD: no acute issues. nebs PRN Vitals Vitals Vital Signs Date Time Temp Pulse Resp B/P (MAP) Pulse Ox O2 Delivery O2 Flow Rate FiO2 11/21/16 11:34 Nasal Cannula 2.0 11/21/16 11:06 24 11/21/16 11:00 98.0 79 128/75 (92) 95 98.0 Physical Exam General: Alert, Cooperative, No acute distress Heart: Regular rate Lungs: Clear Abdomen: Normal bowel sounds, Soft (very obese) Extremities: No clubbing, No cyanosis, No edema Skin: No significant lesion Labs LABS Laboratory Tests Test 11/20/16 16:43 11/20/16 21:11 11/21/16 07:07 11/21/16 10:53 Glucose (Fingerstick) 107 mg/dL (70-99) 124 mg/dL (70-99) 118 mg/dL (70-99) 118 mg/dL (70-99) JED SIFUENTES MD Nov 21, 2016 11:53
[2016-11-21] MEDS: HYDROcodone/APAP 5/325MG 1 TAB TABLET PO PRN ×3 (12:24→20:14)
[2016-11-21] MEDS: ONDANSETRON PF 4 MG/2 ML VIAL. IV PRN (12:24)
--- NOTE | 2016-11-21 13:39 | RAD ---
EXAM: CT lumbar spine without contrast. HISTORY: Lumbar radiculopathy. TECHNIQUE: CT of the lumbar spine was performed without intravenous contrast. COMPARISON: 11/17/2016. FINDINGS: There is gas within the epidural space extending anterior the right paraspinal soft tissues at L4 and L5. A small amount of contrast is also noted in the epidural space on the right. Correlate for recent injection. There are limitations in visualization from habitus. No fractures are identified in alignment is maintained. Degenerative disc disease is [id number] at L5-S1 and mild from L3 through L5. Sacroiliac osteoarthritis is mild. At L1-2, there is no clear stenosis. At L2-3, a small posterior disc bulge is suspected. There is at least mild facet and ligamentum flavum hypertrophy. Foraminal stenosis is mild right. At L3-4, facet and ligamentum flavum hypertrophy is moderate on the right greater than left. There is a small to moderate posterior disc-osteophyte complex. Foraminal stenosis is mild to moderate on the right. At L4-5, there is a small moderate posterior disc-osteophyte complex. Facet and ligamentum flavum hypertrophy is mild to moderate on the right greater than left. Foraminal stenosis is moderate on the right. At L5-S1, there is a moderate posterior disc-osteophyte complex. Foraminal stenosis is moderate to severe on the right and moderate on the left. IMPRESSION: 1. Limitations from habitus and technical factors lower sensitivity. 2. Changes consistent with recent epidural injection. Correlate with procedure history. 3. Foraminal stenosis is moderate to severe on the right and moderate on the left at L5-S1. It is mild to moderate more superiorly as detailed above. 4. Degenerative disc disease is moderate at L5-S1 and mild from L3 through L5. 5. MRI could more accurately characterize stenosis if there is persistent concern. One or more of the following individualized dose reduction techniques were utilized for this examination: 1. Automated exposure control. 2. Adjustment of the mA and/or kV according to patient size. 3. Use of iterative reconstruction technique.
--- NOTE | 2016-11-21 14:10 | PAIN ---
DATE OF SERVICE: 11/21/2016 DATE OF SERVICE: 11/21/2016 DIAGNOSES: Lumbar radiculopathy with lumbar degenerative disk disease. HISTORY OF PRESENT ILLNESS: The patient is a 51-year-old female who returns as in patient with significant pain in the low back and left lower extremity foot, where she cannot bear weight on her left leg almost whatsoever. The patient reports that became much worse on about 11/16 without any new injury or accident, but reports she cannot bear the pain, was sent to the Emergency Department, was initially admitted with a full workup as noted. The patient has been seen with Physical Medicine Rehabilitation as well as Neurosurgery and had significant pain ranging in the low back and left lower extremity in a radicular fashion as she had previously. The patient did well after last injection, which was 11/04/2016 with about 75% improvement, but the pain returned. The first injection with about 60% improvement, again with pain returning over several weeks following the injection. The patient reports no new motor or sensory deficits, but has had one incident of urinary incontinence and is now with a Aleman catheter secondary to that incident yesterday. The patient reports no other changes. She is rating her pain as a 10 on a scale of 10, low back, left lower extremity. It is stabbing, shooting, aching, burning, constant and severe pain. The patient reports it is a 10 on a scale of 10 at its worst and is a 5 at its least, is an average of about 8 on a scale of 10 since admission. PHYSICAL EXAMINATION: VITAL SIGNS: Today, the patient's blood pressure 124/74, pulse 73, respirations 18, temperature 97.4 degrees Fahrenheit, height is 5 feet 8 inches, weight is 440 pounds. GENERAL: The patient is awake, alert, oriented, appropriate, very pleasant demeanor. HEENT: Head shows normocephalic, atraumatic. Extraocular movements are intact and symmetrical. Oral cavity shows mucous membranes moist and pink. Dentition is intact. NECK: Shows anterior throat supple without palpable lymphadenopathy noted. Swallow reflex is symmetrical. CHEST: Shows normal on inspection. Breath sounds clear to auscultation bilaterally. HEART: Shows S1 and S2 clear. ABDOMEN: Obese, soft, nontender, nondistended. No palpable organomegaly is noted. Pannus is remarkable as well. BACK: Shows spine grossly midline, slight exaggeration of thoracic kyphosis and mild flattening of lumbar lordotic curvature. Lumbar paraspinous musculature shows symmetrical tenderness with palpation bilaterally in the middle and lower distribution of paraspinous muscles diffusely without radiation. EXTREMITIES: Lower extremities showed deep tendon reflexes 1+ in the patellar tendons. Motor exam is approximately 2-3 on a scale 5 on the left. Dorsiflexion, extension, quadriceps and hamstring flexion is 1-2 on a scale of 5, right side is 4/5. Options were discussed with the patient and the patient's old chart was reviewed as her current medication regimen updated. Current review of systems updated today as well. We will proceed with the third lumbar epidural steroid injection today with fluoroscopic guidance. Risks were again discussed including, but not limited to bleeding, infection, possibility of epidural hematoma, subsequent neurologic compromise, dural puncture, headaches, spinal cord and/or nerve damage, side effects of steroid medication and poor results regarding pain control. The patient understands and wishes to proceed. The patient will return to clinic in approximately 2 weeks or as necessary. Recommend significant physical therapy involving water and pool therapy only, as this may be the only modality that the patient will be able to perform any of the physical therapy activities, it is in the water secondary to her size and weight. The patient agrees with this, understands and would like to proceed with water therapy. Once the patient is discharged, highly recommend the water therapy be instituted as soon as possible. The patient will follow up with her PMR and Neurosurgery as directed. DIAGNOSIS: Lumbar radiculopathy with lumbar degenerative disease. PROCEDURES: Lumbar epidural steroid injection in translaminar approach L4-L5 level using C-arm fluoroscopic guidance under sterile prep and drape using local anesthetic. MEDICATION INJECTED: A total of 120 mg Depo-Medrol plus 10 mL preservative-free normal saline and 2 mL of Isovue for contrast. CONDITION AT DISCHARGE: Stable. The patient tolerated procedure well, had no complications. The patient was discharged back to her room #528 on, awaiting catheter removal and discharge. MARI JORDAN MD DR: NATALIE/jolene JOB#: [id number] / [id number]
[2016-11-21 14:48] VITALS: BP 126/72
[2016-11-21 19:00] VITALS: BP 120/57
[2016-11-21] MEDS: ATORVASTATIN CALCIUM 10 MG TABLET. PO SCH (20:43)
[2016-11-21] MEDS: METOPROLOL SUCC 24HR ER 50 MG TAB.ER.24H. PO SCH (20:44)
[2016-11-21] MEDS ORDERED: RIVAROXABAN 10 MG TABLET. PO SCH (21:00)
[2016-11-21 23:00] VITALS: BP 115/56
[2016-11-22 03:16] VITALS: BP 143/57
[2016-11-22 07:00] VITALS: BP 103/67
[2016-11-22] MEDS: BUDESONIDE 0.5 MG/2 ML NEBU. NEB SCH ×2 (07:45→19:59)
[2016-11-22] MEDS: IPRATRPIUM/ALBUTEROL 0.5/2.5MG 3 ML NEBU. NEB SCH ×4 (07:45→19:59)
[2016-11-22] MEDS: INSULIN ASPART 300 UNITS/3 ML INSULN.PEN SQ SCH ×3 (08:28→16:12)
[2016-11-22] MEDS: metFORMIN XR 500 MG TAB.ER.24H PO SCH (09:00)
[2016-11-22] MEDS: PANTOPRAZOLE 40 MG TABLET.DR. PO SCH (09:00)
[2016-11-22] MEDS: DOCUSATE SODIUM 100 MG CAPSULE. PO SCH (09:00)
[2016-11-22] MEDS: ASPIRIN ENTERIC COATED 81 MG TABLET.DR. PO SCH (09:01)
[2016-11-22] MEDS: POTASSIUM CHLORIDE 20 MEQ TABLET.ER. PO SCH (09:01)
[2016-11-22] MEDS: FUROSEMIDE 80 MG TABLET. PO SCH (09:01)
[2016-11-22] MEDS: LISINOPRIL 20 MG TABLET PO SCH (09:02)
[2016-11-22] MEDS: methylPREDNISolone 4 MG TABLET. PO SCH ×2 (09:02→20:31)
[2016-11-22] MEDS: CETIRIZINE HCL 10 MG TABLET. PO SCH (09:03)
[2016-11-22] MEDS: LIDOCAINE (700MG/PATCH) PATCH. TD SCH (09:04)
[2016-11-22] MEDS: NYSTATIN TOPICAL POWDER 15GM BOTTLE. TP SCH ×2 (09:04→20:37)
[2016-11-22] MEDS: CYCLOBENZAPRINE 10 MG TABLET. PO PRN ×2 (09:05→20:30)
[2016-11-22] MEDS: HYDROcodone/APAP 5/325MG 1 TAB TABLET PO PRN ×2 (09:06→13:30)
[2016-11-22] MEDS: MORPHINE SULFATE 4 MG/ML DISP.SYRIN. IV PRN ×4 (09:55→22:41)
[2016-11-22] MEDS: GABAPENTIN 300 MG CAPSULE. PO SCH ×2 (09:58→20:31)
[2016-11-22] MEDS: MORPHINE ER 30 MG TABLET.ER PO SCH ×2 (09:58→20:32)
[2016-11-22 11:00] VITALS: BP 103/49
[2016-11-22] MEDS ORDERED: MAGNESIUM CITRATE 296 ML SOLUTION. PO ONE (11:00)
[2016-11-22] MEDS ORDERED: BISACODYL 10 MG SUPP.RECT. PR PRN (14:00)
--- NOTE | 2016-11-22 14:03 | PDOC ---
PROGRESS NOTES Subjective Subjective She admits continued low back pain with left lower extremity numbness and constipation and not much help yet from lumbar KE. Objective Objective Vital Signs Date Time Temp Pulse Resp B/P (MAP) Pulse Ox O2 Delivery O2 Flow Rate FiO2 11/22/16 13:30 20 95 Nasal Cannula 2.0 11/22/16 11:00 97.7 69 103/49 (67) 97.7 Intake and Output 11/23/16 07:00 Intake Total 300 ml Balance 300 ml Intake Oral 300 ml Physical Exam Physical Exam She is in pain while on commode and continues with tenderness to palpation over lumbar area and decreased sensory perception over left L5,S1 dermatomes. Assessment Assessment Problems Medical Problems: (1) Intractable pain Status: Acute (2) Left sciatic nerve pain Status: Acute (3) Urinary tract infection Status: Acute Plan Plan of Care To try her with mscontin for better pain control and she prefers to go home rather than going to rehab unit. Comment Review of Relevant I have reviewed the following items shakir (where applicable) has been applied. Labs Laboratory Tests Test 11/20/16 16:43 11/20/16 21:11 11/21/16 07:07 11/21/16 10:53 Glucose (Fingerstick) 107 mg/dL (70-99) 124 mg/dL (70-99) 118 mg/dL (70-99) 118 mg/dL (70-99) Test 11/21/16 20:29 11/22/16 07:23 11/22/16 10:58 Glucose (Fingerstick) 153 mg/dL (70-99) 130 mg/dL (70-99) 145 mg/dL (70-99) Laboratory Tests Test 11/21/16 20:29 11/22/16 07:23 11/22/16 10:58 Glucose (Fingerstick) 153 mg/dL (70-99) 130 mg/dL (70-99) 145 mg/dL (70-99) Microbiology 11/17/16 Urine Culture - Final, Complete 11/17/16 Urine Culture Result 1 (ROBBY) - Final, Complete 11/17/16 Urine Culture Result 2 (ROBBY) - Final, Complete 11/17/16 Antimicrobic Susceptibility - Final, Complete Medications Current Medications Hydromorphone HCl (Dilaudid) 0.5 mg PRN Q15MIN PRN IV/SQ PAIN GREATER THAN 3/ 10 Last administered on 11/18/16 00:09; Start 11/17/16 at 22:15; Stop 11/18/16 at 22:14; Status DC Sodium Chloride 1,000 ml @ 1,000 mls/hr Q1H IV Last administered on 11/17/16 22:17; Start 11/17/16 at 22:15; Stop 11/17/16 at 23:14; Status DC Ondansetron HCl (Zofran) 4 mg 1X ONCE IV Last administered on 11/17/16 22:18 ; Start 11/17/16 at 22:15; Stop 11/17/16 at 22:16; Status DC Ceftriaxone Sodium 1 gm/ Sodium Chloride 50 ml @ 100 mls/hr Q24H IV Last administered on 11/20/16 23:48; Start 11/17/16 at 23:30; Stop 11/21/16 at 15:52 ; Status DC Ondansetron HCl (Zofran) 4 mg PRN Q8HRS PRN IV NAUSEA/VOMITING Last administered on 11/18/16 10:51; Start 11/17/16 at 23:30; Stop 11/18/16 at 23:29 ; Status DC Morphine Sulfate 4 mg PRN Q2HR PRN IV PAIN Last administered on 11/19/16 08:41 ; Start 11/17/16 at 23:30; Stop 11/19/16 at 23:30; Status DC Acetaminophen (Tylenol) 650 mg PRN Q4HRS PRN PO FEVER Last administered on 11/18 01:53; Start 11/17/16 at 23:30; Stop 11/18/16 at 23:29; Status DC Insulin Aspart (NovoLOG) 0-5 UNITS TIDWMEALS SQ ; Start 11/18/16 at 08:00 Dextrose (Dextrose 50%-Water Syringe) 12.5 gm PRN Q15MIN PRN IV SEE COMMENTS; Start 11/17/16 at 23:30 Diazepam (Valium) 5 mg 1X ONCE IV Last administered on 11/18/16 00:08; Start 11/18/16 at 00:00; Stop 11/18/16 at 00:01; Status DC Ceftriaxone Sodium 50 ml @ As Directed STK-MED ONCE IV ; Start 11/18/16 at 00:06 ; Stop 11/18/16 at 00:07; Status DC Info (Do NOT chart on this placeholder) 1 each 1X ONCE MC ; Start 11/18/16 at 02:30; Stop 11/18/16 at 02:31; Status UNV Albuterol Sulfate (Ventolin Neb Soln) 2.5 mg PRN Q2HRS PRN NEB SHORTNESS OF BREATH; Start 11/18/16 at 03:00 Aspirin (Ecotrin) 81 mg DAILY PO Last administered on 11/22/16 09:01; Start at 09:00 Cetirizine HCl (ZyrTEC) 10 mg DAILY PO Last administered on 11/22/16 09:03; Start 11/18/16 at 09:00 Cyclobenzaprine HCl (Flexeril) 10 mg TID PO ; Start 11/18/16 at 09:00; Stop at 09:38; Status DC Furosemide (Lasix) 80 mg DAILY PO Last administered on 11/22/16 09:01; Start 11/18/16 at 09:00 Lisinopril (Prinivil) 20 mg DAILY PO Last administered on 11/22/16 09:02; Start 11/18/16 at 09:00 Metformin HCl (Glucophage Xr) 500 mg DAILYWBKFT PO Last administered on 09:00; Start 11/18/16 at 08:00 Metoprolol Succinate (Toprol Xl) 50 mg QHS PO Last administered on 11/21/16 20 :44; Start 11/18/16 at 21:00 Pantoprazole Sodium (Protonix) 40 mg DAILYAC PO Last administered on 11/22/16 09:00; Start 11/18/16 at 07:30 Potassium Chloride (Klor-Con) 20 meq DAILY PO Last administered on 11/22/16 09 :01; Start 11/18/16 at 09:00 Rivaroxaban (Xarelto) 20 mg QHS PO ; Start 11/18/16 at 21:00; Stop 11/18/16 at 21:00; Status DC Tramadol HCl (Ultram) 50 mg PRN Q6HRS PRN PO PAIN; Start 11/18/16 at 03:00; Status Cancel Non-Formulary Medication 1 inh BID IH ; Start 11/18/16 at 09:00; Status UNV Gabapentin (Neurontin) 300 mg BID PO Last administered on 11/22/16 09:58; Start 11/18/16 at 09:00 Non-Formulary Medication 2 inh QID IH ; Start 11/18/16 at 09:00; Status UNV Atorvastatin Calcium (Lipitor) 5 mg QHS PO Last administered on 11/21/16 20:43 ; Start 11/18/16 at 21:00 Acetaminophen/ Hydrocodone Bitart (Lortab 5/325) 1-2 tabs PRN Q4HRS PRN PO PAIN Last administered on 11/18/16 12:32; Start 11/18/16 at 03:00; Stop at 14:43; Status DC Influenza Virus Vaccine Quadrival (Fluarix Quad 6076-2604 Syringe) 0.5 ml ONCE ONCE VAX IM Last administered on 11/18/16 03:49; Start 11/18/16 at 09:00; Stop 11/18/16 at 09:01; Status DC Albuterol/ Ipratropium (Duoneb) 3 ml RTQID NEB Last administered on 11/22/16 11:14; Start 11/18/16 at 08:00 Budesonide (Pulmicort) 0.5 mg RTBID NEB Last administered on 11/22/16 07:45; Start 11/18/16 at 08:00 Cyclobenzaprine HCl (Flexeril) 10 mg PRN Q6HRS PRN PO MUSCLE SPASMS Last administered on 11/22/16 09:05; Start 11/18/16 at 09:30 Methylprednisolone (Medrol) 4 mg BID PO ; Start 11/18/16 at 10:00; Status Cancel Lidocaine (Lidoderm) 2 patch DAILY TD Last administered on 11/22/16 09:04; Start 11/18/16 at 11:00 Methylprednisolone Acetate (DEPO-Medrol 40MG VIAL) 40 mg 1X ONCE IM ; Start at 10:15; Stop 11/18/16 at 10:19; Status DC Methylprednisolone Acetate (DEPO-Medrol 40MG VIAL) 40 mg 1X ONCE IM ; Start at 10:15; Stop 11/18/16 at 10:19; Status DC Bupivacaine HCl (Sensorcaine-Mpf 0.25%) 10 ml 1X ONCE IJ ; Start 11/18/16 at 10 :15; Stop 11/18/16 at 10:19; Status DC Methylprednisolone (Medrol) 8 mg BID PO Last administered on 11/18/16 22:05; Start 11/18/16 at 11:00; Stop 11/18/16 at 21:01; Status DC Methylprednisolone (Medrol) 4 mg BIDPCLD PO Last administered on 11/18/16 17: 14; Start 11/18/16 at 12:30; Stop 11/18/16 at 17:31; Status DC Methylprednisolone (Medrol) 4 mg TIDPC PO Last administered on 11/19/16 17:00 ; Start 11/19/16 at 08:30; Stop 11/19/16 at 17:31; Status DC Methylprednisolone (Medrol) 8 mg QHS PO Last administered on 11/19/16 20:55; Start 11/19/16 at 21:00; Stop 11/19/16 at 21:01; Status DC Methylprednisolone (Medrol) 4 mg QIDAFTMEAL PO Last administered on 11/20/16 20:48; Start 11/20/16 at 09:00; Stop 11/20/16 at 21:01; Status DC Methylprednisolone (Medrol) 4 mg TID PO Last administered on 11/21/16 20:43; Start 11/21/16 at 09:00; Stop 11/21/16 at 21:01; Status DC Methylprednisolone (Medrol) 4 mg BID PO Last administered on 11/22/16 09:02; Start 11/22/16 at 09:00; Stop 11/22/16 at 21:01 Methylprednisolone (Medrol) 4 mg DAILY PO ; Start 11/23/16 at 09:00; Stop at 09:01 Nystatin (Nystop) 1 molly BID TP Last administered on 11/22/16 09:04; Start at 11:30 Rivaroxaban (Xarelto) 20 mg QHS PO ; Start 11/21/16 at 21:00; Stop 11/21/16 at 21:00; Status DC Acetaminophen/ Hydrocodone Bitart (Lortab 5/325) 1 tab PRN Q4HRS PRN PO PAIN; Start 11/18/16 at 14:45 Acetaminophen/ Hydrocodone Bitart (Lortab 5/325) 2 tab PRN Q4HRS PRN PO PAIN Last administered on 11/22/16 13:30; Start 11/18/16 at 14:43 Ondansetron HCl (Zofran) 4 mg PRN Q6HRS PRN IV NAUSEA/VOMITING Last administered on 11/21/16 12:24; Start 11/19/16 at 08:45 Fentanyl Citrate (Fentanyl 2ml Vial) 75 mcg PRN Q4HRS PRN IV pain Last administered on 11/19/16 18:31; Start 11/19/16 at 09:15 Docusate Sodium (Colace) 100 mg DAILY PO Last administered on 11/22/16 09:00; Start 11/19/16 at 12:15 Polyethylene Glycol (miraLAX PACKET) 17 gm 1X ONCE PO Last administered on 12:19; Start 11/19/16 at 12:15; Stop 11/19/16 at 12:16; Status DC Zolpidem Tartrate (Ambien) 5 mg PRN QHS PRN PO INSOMNIA; Start 11/19/16 at 12: 15 Morphine Sulfate 4 mg PRN Q2HR PRN IV PAIN Last administered on 11/22/16 12:30 ; Start 11/20/16 at 08:45 Morphine Sulfate (Morphine Ir) 15 mg PRN Q4HRS PRN PO PAIN Last administered on 11/21/16 11:06; Start 11/20/16 at 08:45 Methylprednisolone Acetate (DEPO-Medrol 40MG VIAL) 40 mg STK-MED ONCE .ROUTE ; Start 11/21/16 at 09:56; Stop 11/21/16 at 09:57; Status DC Methylprednisolone Acetate (DEPO-Medrol 80MG VIAL) 80 mg STK-MED ONCE .ROUTE ; Start 11/21/16 at 09:56; Stop 11/21/16 at 09:57; Status DC Iohexol (Omnipaque 180 Mg/ml) 10 ml STK-MED ONCE .ROUTE ; Start 11/21/16 at 09: 56; Stop 11/21/16 at 09:57; Status DC Morphine Sulfate (Ms Contin) 30 mg BID PO Last administered on 11/22/16 09:58 ; Start 11/22/16 at 09:45 Magnesium Citrate (Citroma) 296 ml 1X ONCE PO Last administered on 11/22/16 10:51; Start 11/22/16 at 11:00; Stop 11/22/16 at 11:01; Status DC Bisacodyl (Dulcolax Tab) 10 mg DAILY PO ; Start 11/22/16 at 14:30 Bisacodyl (Dulcolax Supp) 10 mg PRN DAILY PRN NM CONSTIPATION; Start 11/22/16 at 14:00 Active Scripts Active [place] 5-325 Tablet (Acetaminophen/Hydrocodone Bitart) 1 Each Tablet 1-2 Tab PO Q4-6HRS Cyclobenzaprine Hcl 10 Mg Tablet 1 Tab PO TID Reported Combivent Respimat Inhal (Ipratropium/Albuterol Sulfate) 4 Gm Aer.w.adap 2 Inh IH QID Zyrtec (Cetirizine Hcl) 10 Mg Tablet 1 Tab PO DAILY Lisinopril 20 Mg Tablet 1 Tab PO DAILY Tramadol Hcl 50 Mg Tablet 50 Mg PO Q6H PRN Aspir 81 (Aspirin) 81 Mg Tablet.dr 1 Tab PO DAILY Albuterol Sulfate Neb Soln (Albuterol Sulfate) 2.5 Mg/3 Ml Vial.neb 2.5 Mg NEB PRN Q2HRS PRN Xarelto (Rivaroxaban) 10 Mg Tablet 20 Mg PO QHS Advair 500-50 Diskus (Fluticasone/Salmeterol) 1 Each Disk.w.dev 1 Inh IH BID Metformin Hcl Er (Metformin Hcl) 500 Mg Tab.er.24h 500 Mg PO DAILYWBKFT Potassium Chloride 20 Meq Tab.er.prt 20 Meq PO DAILY Lovastatin 20 Mg Tablet 20 PO QHS Pantoprazole Sodium 40 Mg Tablet. 40 Mg PO DAILYAC Toprol Xl (Metoprolol Succinate) 50 Mg Tab.er.24h 50 Mg PO QHS Gabapentin 300 Mg Capsule 300 Mg PO BID Furosemide 80 Mg Tablet 80 Mg PO DAILY Vitals/I & O Vital Sign - Last 24 Hours 11/21/16 11/21/16 11/21/16 11/21/16 14:48 15:32 16:26 19:00 Temp 97.9 97.4 97.9 97.4 Pulse 80 77 Resp 20 22 20 B/P (MAP) 126/72 (90) 120/57 (78) Pulse Ox 95 96 O2 Delivery Nasal Cannula Nasal Cannula Nasal Cannula Nasal Cannula O2 Flow Rate 3.0 2.0 2.0 11/21/16 11/21/16 11/21/16 11/21/16 19:29 20:14 20:16 20:19 Resp 18 Pulse Ox 96 97 97 O2 Delivery Nasal Cannula Nasal Cannula Nasal Cannula Nasal Cannula O2 Flow Rate 2.0 2.0 2.0 2.0 11/21/16 11/21/16 11/21/16 11/21/16 20:44 21:14 22:40 23:00 Temp 98.2 98.2 Pulse 77 68 Resp 18 20 B/P (MAP) 120/57 115/56 (75) Pulse Ox 98 O2 Delivery BiPAP/CPAP BiPAP/CPAP 11/22/16 11/22/16 11/22/16 11/22/16 00:15 03:07 03:16 07:00 Temp 99.2 97.6 99.2 97.6 Pulse 79 80 Resp 20 20 B/P (MAP) 143/57 (85) 103/67 (79) Pulse Ox 92 96 O2 Delivery BiPAP/CPAP BiPAP/CPAP BiPAP/CPAP BiPAP/CPAP 11/22/16 11/22/16 11/22/16 11/22/16 07:47 09:02 09:06 09:55 Pulse 80 Resp 20 20 B/P (MAP) 103/67 Pulse Ox 94 94 94 O2 Delivery Nasal Cannula Nasal Cannula Nasal Cannula O2 Flow Rate 2.0 2.0 2.0 11/22/16 11/22/16 11/22/16 11/22/16 09:58 10:06 11:00 11:16 Temp 97.7 97.7 Pulse 69 Resp 20 18 B/P (MAP) 103/49 (67) Pulse Ox 94 94 95 O2 Delivery Nasal Cannula Nasal Cannula BiPAP/CPAP Nasal Cannula O2 Flow Rate 2.0 2.0 2.0 11/22/16 11/22/16 11/22/16 12:30 13:00 13:30 Resp 20 20 20 Pulse Ox 95 95 95 O2 Delivery Nasal Cannula Nasal Cannula Nasal Cannula O2 Flow Rate 2.0 2.0 2.0 Intake and Output 11/22/16 11/22/16 11/23/16 15:00 23:00 07:00 Intake Total 300 ml Balance 300 ml BUSHRA DALLAS MD Nov 22, 2016 14:03
[2016-11-22 15:00] VITALS: BP 128/62
--- NOTE | 2016-11-22 16:16 | PDOC ---
PROGRESS NOTES Chief Complaint Chief Complaint back pain, acute on chronic with sciatica ASSESSMENT AND PLAN: 1. Lumbar radiculopathy: s/p steroid injection under fluoroscopy guidance . not improved (yet). poor surg candidate for discectomy. hx of prior injections in Pain Clinic. cont steroids, narcotics. d/w pt goal of pain control; titrate meds as needed 2. Morbid obesity: Nutrition consult 3. UTI: E.coli x2 sp; empiric ceftriax appropriate per sensitivity panel. has received 4 doses; stop. rpt UA in 1 week. D/C Aleman in AM 4. DM2: well controlled on current regimen 5. HTN: well controlled on home regimen 6. Afib: currently NSR. 7. COPD: no acute issues. nebs PRN 8. Dispo: to acute rehab with water therapy if pt agreeable History of Present Illness History of Present Illness pain worse thia AM compared to yesterday. not able to ambulate Vitals Vitals Vital Signs Date Time Temp Pulse Resp B/P (MAP) Pulse Ox O2 Delivery O2 Flow Rate FiO2 11/22/16 15:47 Nasal Cannula 2.0 11/22/16 14:30 20 95 11/22/16 11:00 97.7 69 103/49 (67) 97.7 Physical Exam General: Alert, Cooperative, No acute distress Heart: Regular rate Lungs: Clear Abdomen: Normal bowel sounds, Soft (very obese) Extremities: No clubbing, No cyanosis, No edema Skin: No significant lesion Labs LABS Laboratory Tests Test 11/21/16 20:29 11/22/16 07:23 11/22/16 10:58 11/22/16 16:02 Glucose (Fingerstick) 153 mg/dL (70-99) 130 mg/dL (70-99) 145 mg/dL (70-99) 149 mg/dL (70-99) JED SIFUENTES MD Nov 22, 2016 16:16
[2016-11-22] MEDS: ONDANSETRON PF 4 MG/2 ML VIAL. IV PRN (17:18)
[2016-11-22] MEDS: BISACODYL 5 MG TABLET.DR. PO SCH (17:21)
[2016-11-22 19:00] VITALS: BP 140/51
[2016-11-22] MEDS: ATORVASTATIN CALCIUM 10 MG TABLET. PO SCH (20:31)
[2016-11-22] MEDS: METOPROLOL SUCC 24HR ER 50 MG TAB.ER.24H. PO SCH (20:31)
[2016-11-22 23:00] VITALS: BP 110/47
[2016-11-23 03:00] VITALS: BP 134/60
[2016-11-23] MEDS: CYCLOBENZAPRINE 10 MG TABLET. PO PRN (03:13)
[2016-11-23] MEDS: HYDROcodone/APAP 5/325MG 1 TAB TABLET PO PRN ×2 (03:14→17:01)
[2016-11-23] MEDS: MORPHINE SULFATE 4 MG/ML DISP.SYRIN. IV PRN ×3 (05:20→16:58)
[2016-11-23 07:00] VITALS: BP 115/54
[2016-11-23] MEDS: BUDESONIDE 0.5 MG/2 ML NEBU. NEB SCH ×2 (07:05→19:11)
[2016-11-23] MEDS: IPRATRPIUM/ALBUTEROL 0.5/2.5MG 3 ML NEBU. NEB SCH ×4 (07:06→19:11)
[2016-11-23] MEDS: PANTOPRAZOLE 40 MG TABLET.DR. PO SCH (07:30)
[2016-11-23] MEDS: INSULIN ASPART 300 UNITS/3 ML INSULN.PEN SQ SCH ×3 (07:56→17:00)
[2016-11-23] MEDS: ONDANSETRON PF 4 MG/2 ML VIAL. IV PRN (08:16)
[2016-11-23] MEDS: ASPIRIN ENTERIC COATED 81 MG TABLET.DR. PO SCH (08:16)
[2016-11-23] MEDS: metFORMIN XR 500 MG TAB.ER.24H PO SCH (08:19)
[2016-11-23] MEDS: GABAPENTIN 300 MG CAPSULE. PO SCH ×2 (08:19→21:09)
[2016-11-23] MEDS: LISINOPRIL 20 MG TABLET PO SCH (08:20)
[2016-11-23] MEDS: FUROSEMIDE 80 MG TABLET. PO SCH (08:20)
[2016-11-23] MEDS: CETIRIZINE HCL 10 MG TABLET. PO SCH (08:20)
[2016-11-23] MEDS: MORPHINE ER 30 MG TABLET.ER PO SCH ×2 (08:21→21:09)
[2016-11-23] MEDS: POTASSIUM CHLORIDE 20 MEQ TABLET.ER. PO SCH (08:21)
[2016-11-23] MEDS: DOCUSATE SODIUM 100 MG CAPSULE. PO SCH (08:21)
[2016-11-23] MEDS: BISACODYL 5 MG TABLET.DR. PO SCH (08:24)
[2016-11-23] MEDS: NYSTATIN TOPICAL POWDER 15GM BOTTLE. TP SCH ×2 (08:28→21:21)
[2016-11-23] MEDS: LIDOCAINE (700MG/PATCH) PATCH. TD SCH (09:00)
[2016-11-23] MEDS ORDERED: methylPREDNISolone 4 MG TABLET. PO SCH (09:00)
[2016-11-23 11:00] VITALS: BP 143/68
--- NOTE | 2016-11-23 12:36 | PDOC ---
PROGRESS NOTES Chief Complaint Chief Complaint back pain, acute on chronic with sciatica 1. Lumbar radiculopathy: s/p steroid injection under fluoroscopy guidance . not improved (yet). poor surg candidate for discectomy. hx of prior injections in [facility]. cont steroids, narcotics. d/w pt goal of pain control; titrate meds as needed 2. Morbid obesity: BMI 67 3. UTI: E.coli x2 sp; empiric ceftriax 4. DM2: well controlled on current regimen 5. HTN: well controlled on home regimen 6. Afib: currently NSR. 7. COPD: no acute issues. nebs PRN 8. Dispo: to acute rehab with water therapy if pt agreeable History of Present Illness History of Present Illness 3 person assist to chair would benefit from acute rehab, she would prefer not per SW, [facility] rehab would be good she would like another surgical opinion Dr. Avelar, she asked for a back brace. Vitals Vitals Vital Signs Date Time Temp Pulse Resp B/P (MAP) Pulse Ox O2 Delivery O2 Flow Rate FiO2 11/23/16 11:44 97 Nasal Cannula 2.0 11/23/16 08:20 71 115/54 11/23/16 07:00 97.5 19 97.5 Physical Exam General: Alert, Oriented X3, Cooperative, No acute distress Heart: Regular rate Lungs: Clear Abdomen: Normal bowel sounds, Soft (very obese) Extremities: No clubbing, No cyanosis, No edema Skin: No significant lesion Labs LABS Laboratory Tests Test 11/22/16 16:02 11/22/16 21:15 11/23/16 07:40 11/23/16 11:36 Glucose (Fingerstick) 149 mg/dL (70-99) 133 mg/dL (70-99) 121 mg/dL (70-99) 153 mg/dL (70-99) Review of Systems Review of Systems no n.v.d Assessment and Plan Assessmemt and Plan Problems Medical Problems: (1) Intractable pain Status: Acute (2) Left sciatic nerve pain Status: Acute (3) Urinary tract infection Status: Acute Problems: Comment Review of Relevant I have reviewed the following items shakir (where applicable) has been applied. Labs Laboratory Tests Test 11/21/16 20:29 11/22/16 07:23 11/22/16 10:58 11/22/16 16:02 Glucose (Fingerstick) 153 mg/dL (70-99) 130 mg/dL (70-99) 145 mg/dL (70-99) 149 mg/dL (70-99) Test 11/22/16 21:15 11/23/16 07:40 11/23/16 11:36 Glucose (Fingerstick) 133 mg/dL (70-99) 121 mg/dL (70-99) 153 mg/dL (70-99) Laboratory Tests Test 11/22/16 16:02 11/22/16 21:15 11/23/16 07:40 11/23/16 11:36 Glucose (Fingerstick) 149 mg/dL (70-99) 133 mg/dL (70-99) 121 mg/dL (70-99) 153 mg/dL (70-99) Microbiology 11/17/16 Urine Culture - Final, Complete 11/17/16 Urine Culture Result 1 (ROBBY) - Final, Complete 11/17/16 Urine Culture Result 2 (ROBBY) - Final, Complete 11/17/16 Antimicrobic Susceptibility - Final, Complete Medications Current Medications Hydromorphone HCl (Dilaudid) 0.5 mg PRN Q15MIN PRN IV/SQ PAIN GREATER THAN 3/ 10 Last administered on 11/18/16 00:09; Start 11/17/16 at 22:15; Stop 11/18/16 at 22:14; Status DC Sodium Chloride 1,000 ml @ 1,000 mls/hr Q1H IV Last administered on 11/17/16 22:17; Start 11/17/16 at 22:15; Stop 11/17/16 at 23:14; Status DC Ondansetron HCl (Zofran) 4 mg 1X ONCE IV Last administered on 11/17/16 22:18 ; Start 11/17/16 at 22:15; Stop 11/17/16 at 22:16; Status DC Ceftriaxone Sodium 1 gm/ Sodium Chloride 50 ml @ 100 mls/hr Q24H IV Last administered on 11/20/16 23:48; Start 11/17/16 at 23:30; Stop 11/21/16 at 15:52 ; Status DC Ondansetron HCl (Zofran) 4 mg PRN Q8HRS PRN IV NAUSEA/VOMITING Last administered on 11/18/16 10:51; Start 11/17/16 at 23:30; Stop 11/18/16 at 23:29 ; Status DC Morphine Sulfate 4 mg PRN Q2HR PRN IV PAIN Last administered on 11/19/16 08:41 ; Start 11/17/16 at 23:30; Stop 11/19/16 at 23:30; Status DC Acetaminophen (Tylenol) 650 mg PRN Q4HRS PRN PO FEVER Last administered on 11/18 01:53; Start 11/17/16 at 23:30; Stop 11/18/16 at 23:29; Status DC Insulin Aspart (NovoLOG) 0-5 UNITS TIDWMEALS SQ ; Start 11/18/16 at 08:00 Dextrose (Dextrose 50%-Water Syringe) 12.5 gm PRN Q15MIN PRN IV SEE COMMENTS; Start 11/17/16 at 23:30 Diazepam (Valium) 5 mg 1X ONCE IV Last administered on 11/18/16 00:08; Start 11/18/16 at 00:00; Stop 11/18/16 at 00:01; Status DC Ceftriaxone Sodium 50 ml @ As Directed STK-MED ONCE IV ; Start 11/18/16 at 00:06 ; Stop 11/18/16 at 00:07; Status DC Info (Do NOT chart on this placeholder) 1 each 1X ONCE MC ; Start 11/18/16 at 02:30; Stop 11/18/16 at 02:31; Status UNV Albuterol Sulfate (Ventolin Neb Soln) 2.5 mg PRN Q2HRS PRN NEB SHORTNESS OF BREATH; Start 11/18/16 at 03:00 Aspirin (Ecotrin) 81 mg DAILY PO Last administered on 11/23/16 08:16; Start at 09:00 Cetirizine HCl (ZyrTEC) 10 mg DAILY PO Last administered on 11/23/16 08:20; Start 11/18/16 at 09:00 Cyclobenzaprine HCl (Flexeril) 10 mg TID PO ; Start 11/18/16 at 09:00; Stop at 09:38; Status DC Furosemide (Lasix) 80 mg DAILY PO Last administered on 11/23/16 08:20; Start 11/18/16 at 09:00 Lisinopril (Prinivil) 20 mg DAILY PO Last administered on 11/23/16 08:20; Start 11/18/16 at 09:00 Metformin HCl (Glucophage Xr) 500 mg DAILYWBKFT PO Last administered on 08:19; Start 11/18/16 at 08:00 Metoprolol Succinate (Toprol Xl) 50 mg QHS PO Last administered on 11/22/16 20 :31; Start 11/18/16 at 21:00 Pantoprazole Sodium (Protonix) 40 mg DAILYAC PO Last administered on 11/23/16 07:30; Start 11/18/16 at 07:30 Potassium Chloride (Klor-Con) 20 meq DAILY PO Last administered on 11/23/16 08 :21; Start 11/18/16 at 09:00 Rivaroxaban (Xarelto) 20 mg QHS PO ; Start 11/18/16 at 21:00; Stop 11/18/16 at 21:00; Status DC Tramadol HCl (Ultram) 50 mg PRN Q6HRS PRN PO PAIN; Start 11/18/16 at 03:00; Status Cancel Non-Formulary Medication 1 inh BID IH ; Start 11/18/16 at 09:00; Status UNV Gabapentin (Neurontin) 300 mg BID PO Last administered on 11/23/16 08:19; Start 11/18/16 at 09:00 Non-Formulary Medication 2 inh QID IH ; Start 11/18/16 at 09:00; Status UNV Atorvastatin Calcium (Lipitor) 5 mg QHS PO Last administered on 11/22/16 20:31 ; Start 11/18/16 at 21:00 Acetaminophen/ Hydrocodone Bitart (Lortab 5/325) 1-2 tabs PRN Q4HRS PRN PO PAIN Last administered on 11/18/16 12:32; Start 11/18/16 at 03:00; Stop at 14:43; Status DC Influenza Virus Vaccine Quadrival (Fluarix Quad [id number] Syringe) 0.5 ml ONCE ONCE VAX IM Last administered on 11/18/16 03:49; Start 11/18/16 at 09:00; Stop 11/18/16 at 09:01; Status DC Albuterol/ Ipratropium (Duoneb) 3 ml RTQID NEB Last administered on 11/23/16 11:33; Start 11/18/16 at 08:00 Budesonide (Pulmicort) 0.5 mg RTBID NEB Last administered on 11/23/16 07:05; Start 11/18/16 at 08:00 Cyclobenzaprine HCl (Flexeril) 10 mg PRN Q6HRS PRN PO MUSCLE SPASMS Last administered on 11/23/16 03:13; Start 11/18/16 at 09:30 Methylprednisolone (Medrol) 4 mg BID PO ; Start 11/18/16 at 10:00; Status Cancel Lidocaine (Lidoderm) 2 patch DAILY TD Last administered on 11/23/16 09:00; Start 11/18/16 at 11:00 Methylprednisolone Acetate (DEPO-Medrol 40MG VIAL) 40 mg 1X ONCE IM ; Start at 10:15; Stop 11/18/16 at 10:19; Status DC Methylprednisolone Acetate (DEPO-Medrol 40MG VIAL) 40 mg 1X ONCE IM ; Start at 10:15; Stop 11/18/16 at 10:19; Status DC Bupivacaine HCl (Sensorcaine-Mpf 0.25%) 10 ml 1X ONCE IJ ; Start 11/18/16 at 10 :15; Stop 11/18/16 at 10:19; Status DC Methylprednisolone (Medrol) 8 mg BID PO Last administered on 11/18/16 22:05; Start 11/18/16 at 11:00; Stop 11/18/16 at 21:01; Status DC Methylprednisolone (Medrol) 4 mg BIDPCLD PO Last administered on 11/18/16 17: 14; Start 11/18/16 at 12:30; Stop 11/18/16 at 17:31; Status DC Methylprednisolone (Medrol) 4 mg TIDPC PO Last administered on 11/19/16 17:00 ; Start 11/19/16 at 08:30; Stop 11/19/16 at 17:31; Status DC Methylprednisolone (Medrol) 8 mg QHS PO Last administered on 11/19/16 20:55; Start 11/19/16 at 21:00; Stop 11/19/16 at 21:01; Status DC Methylprednisolone (Medrol) 4 mg QIDAFTMEAL PO Last administered on 11/20/16 20:48; Start 11/20/16 at 09:00; Stop 11/20/16 at 21:01; Status DC Methylprednisolone (Medrol) 4 mg TID PO Last administered on 11/21/16 20:43; Start 11/21/16 at 09:00; Stop 11/21/16 at 21:01; Status DC Methylprednisolone (Medrol) 4 mg BID PO Last administered on 11/22/16 20:31; Start 11/22/16 at 09:00; Stop 11/22/16 at 21:01; Status DC Methylprednisolone (Medrol) 4 mg DAILY PO Last administered on 11/23/16 08:19 ; Start 11/23/16 at 09:00; Stop 11/23/16 at 09:01; Status DC Nystatin (Nystop) 1 molly BID TP Last administered on 11/23/16 08:28; Start at 11:30 Rivaroxaban (Xarelto) 20 mg QHS PO ; Start 11/21/16 at 21:00; Stop 11/21/16 at 21:00; Status DC Acetaminophen/ Hydrocodone Bitart (Lortab 5/325) 1 tab PRN Q4HRS PRN PO PAIN; Start 11/18/16 at 14:45 Acetaminophen/ Hydrocodone Bitart (Lortab 5/325) 2 tab PRN Q4HRS PRN PO PAIN Last administered on 11/23/16 03:14; Start 11/18/16 at 14:43 Ondansetron HCl (Zofran) 4 mg PRN Q6HRS PRN IV NAUSEA/VOMITING Last administered on 11/23/16 08:16; Start 11/19/16 at 08:45 Fentanyl Citrate (Fentanyl 2ml Vial) 75 mcg PRN Q4HRS PRN IV pain Last administered on 11/19/16 18:31; Start 11/19/16 at 09:15 Docusate Sodium (Colace) 100 mg DAILY PO Last administered on 11/23/16 08:21; Start 11/19/16 at 12:15 Polyethylene Glycol (miraLAX PACKET) 17 gm 1X ONCE PO Last administered on 12:19; Start 11/19/16 at 12:15; Stop 11/19/16 at 12:16; Status DC Zolpidem Tartrate (Ambien) 5 mg PRN QHS PRN PO INSOMNIA; Start 11/19/16 at 12: 15 Morphine Sulfate 4 mg PRN Q2HR PRN IV PAIN Last administered on 11/23/16 11:14 ; Start 11/20/16 at 08:45 Morphine Sulfate (Morphine Ir) 15 mg PRN Q4HRS PRN PO PAIN Last administered on 11/21/16 11:06; Start 11/20/16 at 08:45 Methylprednisolone Acetate (DEPO-Medrol 40MG VIAL) 40 mg STK-MED ONCE .ROUTE ; Start 11/21/16 at 09:56; Stop 11/21/16 at 09:57; Status DC Methylprednisolone Acetate (DEPO-Medrol 80MG VIAL) 80 mg STK-MED ONCE .ROUTE ; Start 11/21/16 at 09:56; Stop 11/21/16 at 09:57; Status DC Iohexol (Omnipaque 180 Mg/ml) 10 ml STK-MED ONCE .ROUTE ; Start 11/21/16 at 09: 56; Stop 11/21/16 at 09:57; Status DC Morphine Sulfate (Ms Contin) 30 mg BID PO Last administered on 11/23/16 08:21 ; Start 11/22/16 at 09:45 Magnesium Citrate (Citroma) 296 ml 1X ONCE PO Last administered on 11/22/16 10:51; Start 11/22/16 at 11:00; Stop 11/22/16 at 11:01; Status DC Bisacodyl (Dulcolax Tab) 10 mg DAILY PO Last administered on 11/23/16 08:24; Start 11/22/16 at 14:30 Bisacodyl (Dulcolax Supp) 10 mg PRN DAILY PRN NE CONSTIPATION; Start 11/22/16 at 14:00 Active Scripts Active [place] 5-325 Tablet (Acetaminophen/Hydrocodone Bitart) 1 Each Tablet 1-2 Tab PO Q4-6HRS Cyclobenzaprine Hcl 10 Mg Tablet 1 Tab PO TID Reported Combivent Respimat Inhal (Ipratropium/Albuterol Sulfate) 4 Gm Aer.w.adap 2 Inh IH QID Zyrtec (Cetirizine Hcl) 10 Mg Tablet 1 Tab PO DAILY Lisinopril 20 Mg Tablet 1 Tab PO DAILY Tramadol Hcl 50 Mg Tablet 50 Mg PO Q6H PRN Aspir 81 (Aspirin) 81 Mg Tablet.dr 1 Tab PO DAILY Albuterol Sulfate Neb Soln (Albuterol Sulfate) 2.5 Mg/3 Ml Vial.neb 2.5 Mg NEB PRN Q2HRS PRN Xarelto (Rivaroxaban) 10 Mg Tablet 20 Mg PO QHS Advair 500-50 Diskus (Fluticasone/Salmeterol) 1 Each Disk.w.dev 1 Inh IH BID Metformin Hcl Er (Metformin Hcl) 500 Mg Tab.er.24h 500 Mg PO DAILYWBKFT Potassium Chloride 20 Meq Tab.er.prt 20 Meq PO DAILY Lovastatin 20 Mg Tablet 20 PO QHS Pantoprazole Sodium 40 Mg Tablet.dr 40 Mg PO DAILYAC Toprol Xl (Metoprolol Succinate) 50 Mg Tab.er.24h 50 Mg PO QHS Gabapentin 300 Mg Capsule 300 Mg PO BID Furosemide 80 Mg Tablet 80 Mg PO DAILY Vitals/I & O Vital Sign - Last 24 Hours 11/22/16 11/22/16 11/22/16 11/22/16 13:30 13:58 14:30 15:00 Temp 97.7 97.7 Pulse 67 Resp 20 20 20 18 B/P (MAP) 128/62 (84) Pulse Ox 95 95 95 95 O2 Delivery Nasal Cannula Nasal Cannula Nasal Cannula BiPAP/CPAP O2 Flow Rate 2.0 2.0 2.0 11/22/16 11/22/16 11/22/16 11/22/16 15:47 17:34 18:04 19:00 Temp 96.4 96.4 Pulse 79 Resp 20 20 16 B/P (MAP) 140/51 (80) Pulse Ox 95 96 O2 Delivery Nasal Cannula Nasal Cannula Room Air O2 Flow Rate 2.0 2.0 3.0 11/22/16 11/22/16 11/22/16 11/22/16 20:01 20:04 20:30 20:31 Pulse 79 B/P (MAP) 140/51 Pulse Ox 96 96 O2 Delivery Nasal Cannula Nasal Cannula Nasal Cannula O2 Flow Rate 2.0 2.0 2.0 11/22/16 11/22/16 11/22/16 11/22/16 20:32 22:41 23:00 23:45 Temp 97.1 97.1 Pulse 77 Resp 20 17 16 B/P (MAP) 110/47 (68) Pulse Ox 96 86 O2 Delivery Nasal Cannula Nasal Cannula Nasal Cannula BiPAP/CPAP O2 Flow Rate 1.0 1.0 3.0 11/23/16 11/23/16 11/23/16 11/23/16 02:11 03:00 03:14 05:20 Temp 97.6 97.6 Pulse 71 Resp 16 20 18 B/P (MAP) 134/60 (84) Pulse Ox 100 O2 Delivery BiPAP/CPAP Nasal Cannula Room Air Nasal Cannula O2 Flow Rate 3.0 2.0 11/23/16 11/23/16 11/23/16 11/23/16 07:00 07:06 08:20 08:21 Temp 97.5 97.5 Pulse 71 71 Resp 19 B/P (MAP) 115/54 (74) 115/54 Pulse Ox 95 99 O2 Delivery Nasal Cannula Nasal Cannula Nasal Cannula O2 Flow Rate 2.0 3.0 11/23/16 11/23/16 11/23/16 11:14 11:33 11:44 Pulse Ox 97 97 O2 Delivery Nasal Cannula Nasal Cannula Nasal Cannula O2 Flow Rate 2.0 2.0 DERIK BRAVO MD Nov 23, 2016 12:36
--- NOTE | 2016-11-23 13:39 | PDOC ---
PROGRESS NOTES Subjective Subjective She admits continued low back pain and numbness left lower extremity and she had a good bowel movement yesterday. Objective Objective Vital Signs Date Time Temp Pulse Resp B/P (MAP) Pulse Ox O2 Delivery O2 Flow Rate FiO2 11/23/16 11:44 97 Nasal Cannula 2.0 11/23/16 11:00 97.9 76 19 143/68 (93) 97.9 Physical Exam Physical Exam She is supine in bed and is in no acute distress but continues with tenderness to palpation over sacroiliac joints,trochanteric bursa,left >right and decreased sensory perception over left L5,S1 dermatomes.She continues to require supervision to physical assistance for bed mobility and transfers. Assessment Assessment Problems Medical Problems: (1) Intractable pain Status: Acute (2) Left sciatic nerve pain Status: Acute (3) Urinary tract infection Status: Acute Plan Plan of Care To get her up as tolerated and hopefully home when she can get around better in the next few days. Comment Review of Relevant I have reviewed the following items shakir (where applicable) has been applied. Labs Laboratory Tests Test 11/21/16 20:29 11/22/16 07:23 11/22/16 10:58 11/22/16 16:02 Glucose (Fingerstick) 153 mg/dL (70-99) 130 mg/dL (70-99) 145 mg/dL (70-99) 149 mg/dL (70-99) Test 11/22/16 21:15 11/23/16 07:40 11/23/16 11:36 Glucose (Fingerstick) 133 mg/dL (70-99) 121 mg/dL (70-99) 153 mg/dL (70-99) Laboratory Tests Test 11/22/16 16:02 11/22/16 21:15 11/23/16 07:40 11/23/16 11:36 Glucose (Fingerstick) 149 mg/dL (70-99) 133 mg/dL (70-99) 121 mg/dL (70-99) 153 mg/dL (70-99) Microbiology 11/17/16 Urine Culture - Final, Complete 11/17/16 Urine Culture Result 1 (ROBBY) - Final, Complete 11/17/16 Urine Culture Result 2 (ROBBY) - Final, Complete 11/17/16 Antimicrobic Susceptibility - Final, Complete Medications Current Medications Hydromorphone HCl (Dilaudid) 0.5 mg PRN Q15MIN PRN IV/SQ PAIN GREATER THAN 3/ 10 Last administered on 11/18/16 00:09; Start 11/17/16 at 22:15; Stop 11/18/16 at 22:14; Status DC Sodium Chloride 1,000 ml @ 1,000 mls/hr Q1H IV Last administered on 11/17/16 22:17; Start 11/17/16 at 22:15; Stop 11/17/16 at 23:14; Status DC Ondansetron HCl (Zofran) 4 mg 1X ONCE IV Last administered on 11/17/16 22:18 ; Start 11/17/16 at 22:15; Stop 11/17/16 at 22:16; Status DC Ceftriaxone Sodium 1 gm/ Sodium Chloride 50 ml @ 100 mls/hr Q24H IV Last administered on 11/20/16 23:48; Start 11/17/16 at 23:30; Stop 11/21/16 at 15:52 ; Status DC Ondansetron HCl (Zofran) 4 mg PRN Q8HRS PRN IV NAUSEA/VOMITING Last administered on 11/18/16 10:51; Start 11/17/16 at 23:30; Stop 11/18/16 at 23:29 ; Status DC Morphine Sulfate 4 mg PRN Q2HR PRN IV PAIN Last administered on 11/19/16 08:41 ; Start 11/17/16 at 23:30; Stop 11/19/16 at 23:30; Status DC Acetaminophen (Tylenol) 650 mg PRN Q4HRS PRN PO FEVER Last administered on 11/18 01:53; Start 11/17/16 at 23:30; Stop 11/18/16 at 23:29; Status DC Insulin Aspart (NovoLOG) 0-5 UNITS TIDWMEALS SQ ; Start 11/18/16 at 08:00 Dextrose (Dextrose 50%-Water Syringe) 12.5 gm PRN Q15MIN PRN IV SEE COMMENTS; Start 11/17/16 at 23:30 Diazepam (Valium) 5 mg 1X ONCE IV Last administered on 11/18/16 00:08; Start 11/18/16 at 00:00; Stop 11/18/16 at 00:01; Status DC Ceftriaxone Sodium 50 ml @ As Directed STK-MED ONCE IV ; Start 11/18/16 at 00:06 ; Stop 11/18/16 at 00:07; Status DC Info (Do NOT chart on this placeholder) 1 each 1X ONCE MC ; Start 11/18/16 at 02:30; Stop 11/18/16 at 02:31; Status UNV Albuterol Sulfate (Ventolin Neb Soln) 2.5 mg PRN Q2HRS PRN NEB SHORTNESS OF BREATH; Start 11/18/16 at 03:00 Aspirin (Ecotrin) 81 mg DAILY PO Last administered on 11/23/16 08:16; Start at 09:00 Cetirizine HCl (ZyrTEC) 10 mg DAILY PO Last administered on 11/23/16 08:20; Start 11/18/16 at 09:00 Cyclobenzaprine HCl (Flexeril) 10 mg TID PO ; Start 11/18/16 at 09:00; Stop at 09:38; Status DC Furosemide (Lasix) 80 mg DAILY PO Last administered on 11/23/16 08:20; Start 11/18/16 at 09:00 Lisinopril (Prinivil) 20 mg DAILY PO Last administered on 11/23/16 08:20; Start 11/18/16 at 09:00 Metformin HCl (Glucophage Xr) 500 mg DAILYWBKFT PO Last administered on 08:19; Start 11/18/16 at 08:00 Metoprolol Succinate (Toprol Xl) 50 mg QHS PO Last administered on 11/22/16 20 :31; Start 11/18/16 at 21:00 Pantoprazole Sodium (Protonix) 40 mg DAILYAC PO Last administered on 11/23/16 07:30; Start 11/18/16 at 07:30 Potassium Chloride (Klor-Con) 20 meq DAILY PO Last administered on 11/23/16 08 :21; Start 11/18/16 at 09:00 Rivaroxaban (Xarelto) 20 mg QHS PO ; Start 11/18/16 at 21:00; Stop 11/18/16 at 21:00; Status DC Tramadol HCl (Ultram) 50 mg PRN Q6HRS PRN PO PAIN; Start 11/18/16 at 03:00; Status Cancel Non-Formulary Medication 1 inh BID IH ; Start 11/18/16 at 09:00; Status UNV Gabapentin (Neurontin) 300 mg BID PO Last administered on 11/23/16 08:19; Start 11/18/16 at 09:00 Non-Formulary Medication 2 inh QID IH ; Start 11/18/16 at 09:00; Status UNV Atorvastatin Calcium (Lipitor) 5 mg QHS PO Last administered on 11/22/16 20:31 ; Start 11/18/16 at 21:00 Acetaminophen/ Hydrocodone Bitart (Lortab 5/325) 1-2 tabs PRN Q4HRS PRN PO PAIN Last administered on 11/18/16 12:32; Start 11/18/16 at 03:00; Stop at 14:43; Status DC Influenza Virus Vaccine Quadrival (Fluarix Quad 3558-3370 Syringe) 0.5 ml ONCE ONCE VAX IM Last administered on 11/18/16 03:49; Start 11/18/16 at 09:00; Stop 11/18/16 at 09:01; Status DC Albuterol/ Ipratropium (Duoneb) 3 ml RTQID NEB Last administered on 11/23/16 11:33; Start 11/18/16 at 08:00 Budesonide (Pulmicort) 0.5 mg RTBID NEB Last administered on 11/23/16 07:05; Start 11/18/16 at 08:00 Cyclobenzaprine HCl (Flexeril) 10 mg PRN Q6HRS PRN PO MUSCLE SPASMS Last administered on 11/23/16 03:13; Start 11/18/16 at 09:30 Methylprednisolone (Medrol) 4 mg BID PO ; Start 11/18/16 at 10:00; Status Cancel Lidocaine (Lidoderm) 2 patch DAILY TD Last administered on 11/23/16 09:00; Start 11/18/16 at 11:00 Methylprednisolone Acetate (DEPO-Medrol 40MG VIAL) 40 mg 1X ONCE IM ; Start at 10:15; Stop 11/18/16 at 10:19; Status DC Methylprednisolone Acetate (DEPO-Medrol 40MG VIAL) 40 mg 1X ONCE IM ; Start at 10:15; Stop 11/18/16 at 10:19; Status DC Bupivacaine HCl (Sensorcaine-Mpf 0.25%) 10 ml 1X ONCE IJ ; Start 11/18/16 at 10 :15; Stop 11/18/16 at 10:19; Status DC Methylprednisolone (Medrol) 8 mg BID PO Last administered on 11/18/16 22:05; Start 11/18/16 at 11:00; Stop 11/18/16 at 21:01; Status DC Methylprednisolone (Medrol) 4 mg BIDPCLD PO Last administered on 11/18/16 17: 14; Start 11/18/16 at 12:30; Stop 11/18/16 at 17:31; Status DC Methylprednisolone (Medrol) 4 mg TIDPC PO Last administered on 11/19/16 17:00 ; Start 11/19/16 at 08:30; Stop 11/19/16 at 17:31; Status DC Methylprednisolone (Medrol) 8 mg QHS PO Last administered on 11/19/16 20:55; Start 11/19/16 at 21:00; Stop 11/19/16 at 21:01; Status DC Methylprednisolone (Medrol) 4 mg QIDAFTMEAL PO Last administered on 11/20/16 20:48; Start 11/20/16 at 09:00; Stop 11/20/16 at 21:01; Status DC Methylprednisolone (Medrol) 4 mg TID PO Last administered on 11/21/16 20:43; Start 11/21/16 at 09:00; Stop 11/21/16 at 21:01; Status DC Methylprednisolone (Medrol) 4 mg BID PO Last administered on 11/22/16 20:31; Start 11/22/16 at 09:00; Stop 11/22/16 at 21:01; Status DC Methylprednisolone (Medrol) 4 mg DAILY PO Last administered on 11/23/16 08:19 ; Start 11/23/16 at 09:00; Stop 11/23/16 at 09:01; Status DC Nystatin (Nystop) 1 molly BID TP Last administered on 11/23/16 08:28; Start at 11:30 Rivaroxaban (Xarelto) 20 mg QHS PO ; Start 11/21/16 at 21:00; Stop 11/21/16 at 21:00; Status DC Acetaminophen/ Hydrocodone Bitart (Lortab 5/325) 1 tab PRN Q4HRS PRN PO PAIN; Start 11/18/16 at 14:45 Acetaminophen/ Hydrocodone Bitart (Lortab 5/325) 2 tab PRN Q4HRS PRN PO PAIN Last administered on 11/23/16 03:14; Start 11/18/16 at 14:43 Ondansetron HCl (Zofran) 4 mg PRN Q6HRS PRN IV NAUSEA/VOMITING Last administered on 11/23/16 08:16; Start 11/19/16 at 08:45 Fentanyl Citrate (Fentanyl 2ml Vial) 75 mcg PRN Q4HRS PRN IV pain Last administered on 11/19/16 18:31; Start 11/19/16 at 09:15 Docusate Sodium (Colace) 100 mg DAILY PO Last administered on 11/23/16 08:21; Start 11/19/16 at 12:15 Polyethylene Glycol (miraLAX PACKET) 17 gm 1X ONCE PO Last administered on 12:19; Start 11/19/16 at 12:15; Stop 11/19/16 at 12:16; Status DC Zolpidem Tartrate (Ambien) 5 mg PRN QHS PRN PO INSOMNIA; Start 11/19/16 at 12: 15 Morphine Sulfate 4 mg PRN Q2HR PRN IV PAIN Last administered on 11/23/16 11:14 ; Start 11/20/16 at 08:45 Morphine Sulfate (Morphine Ir) 15 mg PRN Q4HRS PRN PO PAIN Last administered on 11/21/16 11:06; Start 11/20/16 at 08:45 Methylprednisolone Acetate (DEPO-Medrol 40MG VIAL) 40 mg STK-MED ONCE .ROUTE ; Start 11/21/16 at 09:56; Stop 11/21/16 at 09:57; Status DC Methylprednisolone Acetate (DEPO-Medrol 80MG VIAL) 80 mg STK-MED ONCE .ROUTE ; Start 11/21/16 at 09:56; Stop 11/21/16 at 09:57; Status DC Iohexol (Omnipaque 180 Mg/ml) 10 ml STK-MED ONCE .ROUTE ; Start 11/21/16 at 09: 56; Stop 11/21/16 at 09:57; Status DC Morphine Sulfate (Ms Contin) 30 mg BID PO Last administered on 11/23/16 08:21 ; Start 11/22/16 at 09:45 Magnesium Citrate (Citroma) 296 ml 1X ONCE PO Last administered on 11/22/16 10:51; Start 11/22/16 at 11:00; Stop 11/22/16 at 11:01; Status DC Bisacodyl (Dulcolax Tab) 10 mg DAILY PO Last administered on 11/23/16 08:24; Start 11/22/16 at 14:30 Bisacodyl (Dulcolax Supp) 10 mg PRN DAILY PRN [place] CONSTIPATION; Start 11/22/16 at 14:00 Active Scripts Active [place] 5-325 Tablet (Acetaminophen/Hydrocodone Bitart) 1 Each Tablet 1-2 Tab PO Q4-6HRS Cyclobenzaprine Hcl 10 Mg Tablet 1 Tab PO TID Reported Combivent Respimat Inhal (Ipratropium/Albuterol Sulfate) 4 Gm Aer.w.adap 2 Inh IH QID Zyrtec (Cetirizine Hcl) 10 Mg Tablet 1 Tab PO DAILY Lisinopril 20 Mg Tablet 1 Tab PO DAILY Tramadol Hcl 50 Mg Tablet 50 Mg PO Q6H PRN Aspir 81 (Aspirin) 81 Mg Tablet. 1 Tab PO DAILY Albuterol Sulfate Neb Soln (Albuterol Sulfate) 2.5 Mg/3 Ml Vial.neb 2.5 Mg NEB PRN Q2HRS PRN Xarelto (Rivaroxaban) 10 Mg Tablet 20 Mg PO QHS Advair 500-50 Diskus (Fluticasone/Salmeterol) 1 Each Disk.w.dev 1 Inh IH BID Metformin Hcl Er (Metformin Hcl) 500 Mg Tab.er.24h 500 Mg PO DAILYWBKFT Potassium Chloride 20 Meq Tab.er.prt 20 Meq PO DAILY Lovastatin 20 Mg Tablet 20 PO QHS Pantoprazole Sodium 40 Mg Tablet.dr 40 Mg PO DAILYAC Toprol Xl (Metoprolol Succinate) 50 Mg Tab.er.24h 50 Mg PO QHS Gabapentin 300 Mg Capsule 300 Mg PO BID Furosemide 80 Mg Tablet 80 Mg PO DAILY Vitals/I & O Vital Sign - Last 24 Hours 11/22/16 11/22/16 11/22/16 9/26/17 13:58 14:30 15:00 15:47 Temp 97.7 97.7 Pulse 67 Resp 20 20 18 B/P (MAP) 128/62 (84) Pulse Ox 95 95 95 O2 Delivery Nasal Cannula Nasal Cannula BiPAP/CPAP Nasal Cannula O2 Flow Rate 2.0 2.0 2.0 11/22/16 11/22/16 11/22/16 11/22/16 17:34 18:04 19:00 20:01 Temp 96.4 96.4 Pulse 79 Resp 20 20 16 B/P (MAP) 140/51 (80) Pulse Ox 95 96 96 O2 Delivery Nasal Cannula Room Air Nasal Cannula O2 Flow Rate 2.0 3.0 2.0 11/22/16 11/22/16 11/22/16 11/22/16 20:04 20:30 20:31 20:32 Pulse 79 Resp 20 B/P (MAP) 140/51 Pulse Ox 96 O2 Delivery Nasal Cannula Nasal Cannula Nasal Cannula O2 Flow Rate 2.0 2.0 1.0 11/22/16 11/22/16 11/22/16 11/23/16 22:41 23:00 23:45 02:11 Temp 97.1 97.1 Pulse 77 Resp 17 16 B/P (MAP) 110/47 (68) Pulse Ox 96 86 O2 Delivery Nasal Cannula Nasal Cannula BiPAP/CPAP BiPAP/CPAP O2 Flow Rate 1.0 3.0 11/23/16 11/23/16 11/23/16 11/23/16 03:00 03:14 05:20 07:00 Temp 97.6 97.5 97.6 97.5 Pulse 71 71 Resp 16 20 18 19 B/P (MAP) 134/60 (84) 115/54 (74) Pulse Ox 100 95 O2 Delivery Nasal Cannula Room Air Nasal Cannula Nasal Cannula O2 Flow Rate 3.0 2.0 11/23/16 11/23/16 11/23/16 11/23/16 07:06 08:20 08:21 11:00 Temp 97.9 97.9 Pulse 71 76 Resp 19 B/P (MAP) 115/54 143/68 (93) Pulse Ox 99 97 O2 Delivery Nasal Cannula Nasal Cannula Room Air O2 Flow Rate 2.0 3.0 11/23/16 11/23/16 11/23/16 11:14 11:33 11:44 Pulse Ox 97 97 O2 Delivery Nasal Cannula Nasal Cannula Nasal Cannula O2 Flow Rate 2.0 2.0 BUSHRA DALLAS MD Nov 23, 2016 13:39
[2016-11-23 15:00] VITALS: BP 104/48
[2016-11-23 19:00] VITALS: BP 124/41
[2016-11-23] MEDS: MORPHINE IR 15 MG TABLET PO PRN (19:57)
[2016-11-23] MEDS: ATORVASTATIN CALCIUM 10 MG TABLET. PO SCH (21:09)
[2016-11-23] MEDS: METOPROLOL SUCC 24HR ER 50 MG TAB.ER.24H. PO SCH (21:13)
[2016-11-23 23:00] VITALS: BP 112/49
[2016-11-24] MEDS: MORPHINE SULFATE 4 MG/ML DISP.SYRIN. IV PRN ×2 (00:57→20:45)
[2016-11-24 03:00] VITALS: BP 109/50
[2016-11-24] MEDS: BUDESONIDE 0.5 MG/2 ML NEBU. NEB SCH ×2 (07:18→19:24)
[2016-11-24] MEDS: IPRATRPIUM/ALBUTEROL 0.5/2.5MG 3 ML NEBU. NEB SCH ×4 (07:18→19:24)
[2016-11-24 07:30] VITALS: BP 129/51
[2016-11-24] MEDS: INSULIN ASPART 300 UNITS/3 ML INSULN.PEN SQ SCH ×3 (08:00→16:57)
[2016-11-24] MEDS: MORPHINE IR 15 MG TABLET PO PRN ×2 (08:11→17:33)
[2016-11-24] MEDS: MORPHINE ER 30 MG TABLET.ER PO SCH ×2 (08:11→17:18)
[2016-11-24] MEDS: GABAPENTIN 300 MG CAPSULE. PO SCH ×2 (08:12→20:56)
[2016-11-24] MEDS: POTASSIUM CHLORIDE 20 MEQ TABLET.ER. PO SCH (08:12)
[2016-11-24] MEDS: metFORMIN XR 500 MG TAB.ER.24H PO SCH (08:13)
[2016-11-24] MEDS: BISACODYL 5 MG TABLET.DR. PO SCH (08:13)
[2016-11-24] MEDS: DOCUSATE SODIUM 100 MG CAPSULE. PO SCH (08:13)
[2016-11-24] MEDS: LISINOPRIL 20 MG TABLET PO SCH (08:13)
[2016-11-24] MEDS: FUROSEMIDE 80 MG TABLET. PO SCH (08:13)
[2016-11-24] MEDS: CETIRIZINE HCL 10 MG TABLET. PO SCH (08:14)
[2016-11-24] MEDS: PANTOPRAZOLE 40 MG TABLET.DR. PO SCH (08:14)
[2016-11-24] MEDS: ASPIRIN ENTERIC COATED 81 MG TABLET.DR. PO SCH (08:14)
[2016-11-24] MEDS: NYSTATIN TOPICAL POWDER 15GM BOTTLE. TP SCH ×2 (08:16→20:55)
[2016-11-24] MEDS: LIDOCAINE (700MG/PATCH) PATCH. TD SCH (08:16)
--- NOTE | 2016-11-24 09:12 | PDOC ---
PROGRESS NOTES Subjective Subjective He admits continued wiley in her low back amd left hip area and numbness in her left foot. Objective Objective Vital Signs Date Time Temp Pulse Resp B/P (MAP) Pulse Ox O2 Delivery O2 Flow Rate FiO2 11/24/16 08:13 66 129/51 11/24/16 08:11 Nasal Cannula 2.0 11/24/16 07:30 97.6 16 100 97.6 Physical Exam Physical Exam She is alert,supine in bed and does not seem to be in any acute distress but continues with painfully limited lumbar spine ROM and tenderness to palpation over lumbar paraspinal muscles,sacroiliac joints,trochanteric bursa and decreased sensory perception over left L5,S1 dermatomes. Assessment Assessment Problems Medical Problems: (1) Intractable pain Status: Acute (2) Left sciatic nerve pain Status: Acute (3) Urinary tract infection Status: Acute Plan Plan of [place] with home health follow up when she can get up and walk to bathroom with roller walker and pain is under better control. Comment Review of Relevant I have reviewed the following items shakir (where applicable) has been applied. Labs Laboratory Tests Test 11/22/16 10:58 11/22/16 16:02 11/22/16 21:15 11/23/16 07:40 Glucose (Fingerstick) 145 mg/dL (70-99) 149 mg/dL (70-99) 133 mg/dL (70-99) 121 mg/dL (70-99) Test 11/23/16 11:36 11/23/16 17:29 11/23/16 21:08 11/24/16 07:40 Glucose (Fingerstick) 153 mg/dL (70-99) 108 mg/dL (70-99) 148 mg/dL (70-99) 101 mg/dL (70-99) Laboratory Tests Test 11/23/16 11:36 11/23/16 17:29 11/23/16 21:08 11/24/16 07:40 Glucose (Fingerstick) 153 mg/dL (70-99) 108 mg/dL (70-99) 148 mg/dL (70-99) 101 mg/dL (70-99) Microbiology 11/17/16 Urine Culture - Final, Complete 11/17/16 Urine Culture Result 1 (ROBBY) - Final, Complete 11/17/16 Urine Culture Result 2 (ROBBY) - Final, Complete 11/17/16 Antimicrobic Susceptibility - Final, Complete Medications Current Medications Hydromorphone HCl (Dilaudid) 0.5 mg PRN Q15MIN PRN IV/SQ PAIN GREATER THAN 3/ 10 Last administered on 11/18/16 00:09; Start 11/17/16 at 22:15; Stop 11/18/16 at 22:14; Status DC Sodium Chloride 1,000 ml @ 1,000 mls/hr Q1H IV Last administered on 11/17/16 22:17; Start 11/17/16 at 22:15; Stop 11/17/16 at 23:14; Status DC Ondansetron HCl (Zofran) 4 mg 1X ONCE IV Last administered on 11/17/16 22:18 ; Start 11/17/16 at 22:15; Stop 11/17/16 at 22:16; Status DC Ceftriaxone Sodium 1 gm/ Sodium Chloride 50 ml @ 100 mls/hr Q24H IV Last administered on 11/20/16 23:48; Start 11/17/16 at 23:30; Stop 11/21/16 at 15:52 ; Status DC Ondansetron HCl (Zofran) 4 mg PRN Q8HRS PRN IV NAUSEA/VOMITING Last administered on 11/18/16 10:51; Start 11/17/16 at 23:30; Stop 11/18/16 at 23:29 ; Status DC Morphine Sulfate 4 mg PRN Q2HR PRN IV PAIN Last administered on 11/19/16 08:41 ; Start 11/17/16 at 23:30; Stop 11/19/16 at 23:30; Status DC Acetaminophen (Tylenol) 650 mg PRN Q4HRS PRN PO FEVER Last administered on 11/18 01:53; Start 11/17/16 at 23:30; Stop 11/18/16 at 23:29; Status DC Insulin Aspart (NovoLOG) 0-5 UNITS TIDWMEALS SQ ; Start 11/18/16 at 08:00 Dextrose (Dextrose 50%-Water Syringe) 12.5 gm PRN Q15MIN PRN IV SEE COMMENTS; Start 11/17/16 at 23:30 Diazepam (Valium) 5 mg 1X ONCE IV Last administered on 9/22/17at 00:08; Start 11/18/16 at 00:00; Stop 11/18/16 at 00:01; Status DC Ceftriaxone Sodium 50 ml @ As Directed STK-MED ONCE IV ; Start 11/18/16 at 00:06 ; Stop 11/18/16 at 00:07; Status DC Info (Do NOT chart on this placeholder) 1 each 1X ONCE MC ; Start 11/18/16 at 02:30; Stop 11/18/16 at 02:31; Status UNV Albuterol Sulfate (Ventolin Neb Soln) 2.5 mg PRN Q2HRS PRN NEB SHORTNESS OF BREATH; Start 11/18/16 at 03:00 Aspirin (Ecotrin) 81 mg DAILY PO Last administered on 11/24/16 08:14; Start at 09:00 Cetirizine HCl (ZyrTEC) 10 mg DAILY PO Last administered on 11/24/16 08:14; Start 11/18/16 at 09:00 Cyclobenzaprine HCl (Flexeril) 10 mg TID PO ; Start 11/18/16 at 09:00; Stop at 09:38; Status DC Furosemide (Lasix) 80 mg DAILY PO Last administered on 11/24/16 08:13; Start 11/18/16 at 09:00 Lisinopril (Prinivil) 20 mg DAILY PO Last administered on 11/24/16 08:13; Start 11/18/16 at 09:00 Metformin HCl (Glucophage Xr) 500 mg DAILYWBKFT PO Last administered on 08:13; Start 11/18/16 at 08:00 Metoprolol Succinate (Toprol Xl) 50 mg QHS PO Last administered on 11/23/16 21 :13; Start 11/18/16 at 21:00 Pantoprazole Sodium (Protonix) 40 mg DAILYAC PO Last administered on 11/24/16 08:14; Start 11/18/16 at 07:30 Potassium Chloride (Klor-Con) 20 meq DAILY PO Last administered on 11/24/16 08 :12; Start 11/18/16 at 09:00 Rivaroxaban (Xarelto) 20 mg QHS PO ; Start 11/18/16 at 21:00; Stop 11/18/16 at 21:00; Status DC Tramadol HCl (Ultram) 50 mg PRN Q6HRS PRN PO PAIN; Start 11/18/16 at 03:00; Status Cancel Non-Formulary Medication 1 inh BID IH ; Start 11/18/16 at 09:00; Status UNV Gabapentin (Neurontin) 300 mg BID PO Last administered on 11/24/16 08:12; Start 11/18/16 at 09:00 Non-Formulary Medication 2 inh QID IH ; Start 11/18/16 at 09:00; Status UNV Atorvastatin Calcium (Lipitor) 5 mg QHS PO Last administered on 11/23/16 21:09 ; Start 11/18/16 at 21:00 Acetaminophen/ Hydrocodone Bitart (Lortab 5/325) 1-2 tabs PRN Q4HRS PRN PO PAIN Last administered on 11/18/16 12:32; Start 11/18/16 at 03:00; Stop at 14:43; Status DC Influenza Virus Vaccine Quadrival (Fluarix Quad 0384-0448 Syringe) 0.5 ml ONCE ONCE VAX IM Last administered on 11/18/16 03:49; Start 11/18/16 at 09:00; Stop 11/18/16 at 09:01; Status DC Albuterol/ Ipratropium (Duoneb) 3 ml RTQID NEB Last administered on 11/24/16 07:18; Start 11/18/16 at 08:00 Budesonide (Pulmicort) 0.5 mg RTBID NEB Last administered on 11/24/16 07:18; Start 11/18/16 at 08:00 Cyclobenzaprine HCl (Flexeril) 10 mg PRN Q6HRS PRN PO MUSCLE SPASMS Last administered on 11/23/16 03:13; Start 11/18/16 at 09:30 Methylprednisolone (Medrol) 4 mg BID PO ; Start 11/18/16 at 10:00; Status Cancel Lidocaine (Lidoderm) 2 patch DAILY TD Last administered on 11/24/16 08:16; Start 11/18/16 at 11:00 Methylprednisolone Acetate (DEPO-Medrol 40MG VIAL) 40 mg 1X ONCE IM ; Start at 10:15; Stop 11/18/16 at 10:19; Status DC Methylprednisolone Acetate (DEPO-Medrol 40MG VIAL) 40 mg 1X ONCE IM ; Start at 10:15; Stop 11/18/16 at 10:19; Status DC Bupivacaine HCl (Sensorcaine-Mpf 0.25%) 10 ml 1X ONCE IJ ; Start 11/18/16 at 10 :15; Stop 11/18/16 at 10:19; Status DC Methylprednisolone (Medrol) 8 mg BID PO Last administered on 11/18/16 22:05; Start 11/18/16 at 11:00; Stop 11/18/16 at 21:01; Status DC Methylprednisolone (Medrol) 4 mg BIDPCLD PO Last administered on 11/18/16 17: 14; Start 11/18/16 at 12:30; Stop 11/18/16 at 17:31; Status DC Methylprednisolone (Medrol) 4 mg TIDPC PO Last administered on 11/19/16 17:00 ; Start 11/19/16 at 08:30; Stop 11/19/16 at 17:31; Status DC Methylprednisolone (Medrol) 8 mg QHS PO Last administered on 11/19/16 20:55; Start 11/19/16 at 21:00; Stop 11/19/16 at 21:01; Status DC Methylprednisolone (Medrol) 4 mg QIDAFTMEAL PO Last administered on 11/20/16 20:48; Start 11/20/16 at 09:00; Stop 11/20/16 at 21:01; Status DC Methylprednisolone (Medrol) 4 mg TID PO Last administered on 11/21/16 20:43; Start 11/21/16 at 09:00; Stop 11/21/16 at 21:01; Status DC Methylprednisolone (Medrol) 4 mg BID PO Last administered on 11/22/16 20:31; Start 11/22/16 at 09:00; Stop 11/22/16 at 21:01; Status DC Methylprednisolone (Medrol) 4 mg DAILY PO Last administered on 11/23/16 08:19 ; Start 11/23/16 at 09:00; Stop 11/23/16 at 09:01; Status DC Nystatin (Nystop) 1 molly BID TP Last administered on 11/24/16 08:16; Start at 11:30 Rivaroxaban (Xarelto) 20 mg QHS PO ; Start 11/21/16 at 21:00; Stop 11/21/16 at 21:00; Status DC Acetaminophen/ Hydrocodone Bitart (Lortab 5/325) 1 tab PRN Q4HRS PRN PO PAIN; Start 11/18/16 at 14:45 Acetaminophen/ Hydrocodone Bitart (Lortab 5/325) 2 tab PRN Q4HRS PRN PO PAIN Last administered on 11/23/16 17:01; Start 11/18/16 at 14:43 Ondansetron HCl (Zofran) 4 mg PRN Q6HRS PRN IV NAUSEA/VOMITING Last administered on 11/23/16 08:16; Start 11/19/16 at 08:45 Fentanyl Citrate (Fentanyl 2ml Vial) 75 mcg PRN Q4HRS PRN IV pain Last administered on 11/19/16 18:31; Start 11/19/16 at 09:15 Docusate Sodium (Colace) 100 mg DAILY PO Last administered on 11/24/16 08:13; Start 11/19/16 at 12:15 Polyethylene Glycol (miraLAX PACKET) 17 gm 1X ONCE PO Last administered on 12:19; Start 11/19/16 at 12:15; Stop 11/19/16 at 12:16; Status DC Zolpidem Tartrate (Ambien) 5 mg PRN QHS PRN PO INSOMNIA; Start 11/19/16 at 12: 15 Morphine Sulfate 4 mg PRN Q2HR PRN IV PAIN Last administered on 11/24/16 00:57 ; Start 11/20/16 at 08:45 Morphine Sulfate (Morphine Ir) 15 mg PRN Q4HRS PRN PO PAIN Last administered on 11/24/16 08:11; Start 11/20/16 at 08:45 Methylprednisolone Acetate (DEPO-Medrol 40MG VIAL) 40 mg STK-MED ONCE .ROUTE ; Start 11/21/16 at 09:56; Stop 11/21/16 at 09:57; Status DC Methylprednisolone Acetate (DEPO-Medrol 80MG VIAL) 80 mg STK-MED ONCE .ROUTE ; Start 11/21/16 at 09:56; Stop 11/21/16 at 09:57; Status DC Iohexol (Omnipaque 180 Mg/ml) 10 ml STK-MED ONCE .ROUTE ; Start 11/21/16 at 09: 56; Stop 11/21/16 at 09:57; Status DC Morphine Sulfate (Ms Contin) 30 mg BID PO Last administered on 11/24/16 08:11 ; Start 11/22/16 at 09:45 Magnesium Citrate (Citroma) 296 ml 1X ONCE PO Last administered on 11/22/16 10:51; Start 11/22/16 at 11:00; Stop 11/22/16 at 11:01; Status DC Bisacodyl (Dulcolax Tab) 10 mg DAILY PO Last administered on 11/24/16 08:13; Start 11/22/16 at 14:30 Bisacodyl (Dulcolax Supp) 10 mg PRN DAILY PRN [place] CONSTIPATION; Start 11/22/16 at 14:00 Active Scripts Active [place] 5-325 Tablet (Acetaminophen/Hydrocodone Bitart) 1 Each Tablet 1-2 Tab PO Q4-6HRS Cyclobenzaprine Hcl 10 Mg Tablet 1 Tab PO TID Reported Combivent Respimat Inhal (Ipratropium/Albuterol Sulfate) 4 Gm Aer.w.adap 2 Inh IH QID Zyrtec (Cetirizine Hcl) 10 Mg Tablet 1 Tab PO DAILY Lisinopril 20 Mg Tablet 1 Tab PO DAILY Tramadol Hcl 50 Mg Tablet 50 Mg PO Q6H PRN Aspir 81 (Aspirin) 81 Mg Tablet.dr 1 Tab PO DAILY Albuterol Sulfate Neb Soln (Albuterol Sulfate) 2.5 Mg/3 Ml Vial.neb 2.5 Mg NEB PRN Q2HRS PRN Xarelto (Rivaroxaban) 10 Mg Tablet 20 Mg PO QHS Advair 500-50 Diskus (Fluticasone/Salmeterol) 1 Each Disk.w.dev 1 Inh IH BID Metformin Hcl Er (Metformin Hcl) 500 Mg Tab.er.24h 500 Mg PO DAILYWBKFT Potassium Chloride 20 Meq Tab.er.prt 20 Meq PO DAILY Lovastatin 20 Mg Tablet 20 PO QHS Pantoprazole Sodium 40 Mg Tablet.dr 40 Mg PO DAILYAC Toprol Xl (Metoprolol Succinate) 50 Mg Tab.er.24h 50 Mg PO QHS Gabapentin 300 Mg Capsule 300 Mg PO BID Furosemide 80 Mg Tablet 80 Mg PO DAILY Vitals/I & O Vital Sign - Last 24 Hours 11/23/16 11/23/16 11/23/16 11/23/16 11:00 11:14 11:33 15:00 Temp 97.9 97.7 97.9 97.7 Pulse 76 73 Resp 19 19 B/P (MAP) 143/68 (93) 104/48 (66) Pulse Ox 97 97 96 O2 Delivery Room Air Nasal Cannula Nasal Cannula Room Air O2 Flow Rate 2.0 11/23/16 11/23/16 11/23/16 11/23/16 15:24 16:58 17:01 18:01 Pulse Ox 96 96 O2 Delivery Nasal Cannula Nasal Cannula Nasal Cannula Nasal Cannula O2 Flow Rate 2.0 2.0 2.0 2.0 11/23/16 11/23/16 11/23/16 11/23/16 19:00 19:14 19:57 20:00 Temp 96.6 96.6 Pulse 65 Resp 24 20 B/P (MAP) 124/41 (68) Pulse Ox 99 96 O2 Delivery Room Air Nasal Cannula Nasal Cannula Nasal Cannula O2 Flow Rate 2.0 2.0 2.0 11/23/16 11/23/16 11/23/16 11/23/16 20:57 21:09 21:13 22:39 Pulse 74 Resp 18 20 B/P (MAP) 167/55 Pulse Ox 96 96 O2 Delivery Nasal Cannula Nasal Cannula BiPAP/CPAP O2 Flow Rate 2.0 2.0 11/23/16 11/24/16 11/24/16 11/24/16 23:00 00:19 00:57 01:09 Temp 97.5 97.5 Pulse 80 Resp 24 18 20 B/P (MAP) 112/49 (70) Pulse Ox 96 96 96 O2 Delivery Room Air BiPAP/CPAP BiPAP/CPAP BiPAP/CPAP O2 Flow Rate 2.0 2.0 11/24/16 11/24/16 11/24/16 11/24/16 01:27 03:00 03:15 05:10 Temp 96.5 96.5 Pulse 72 Resp 24 B/P (MAP) 109/50 (69) Pulse Ox 96 97 O2 Delivery Nasal Cannula Room Air BiPAP/CPAP BiPAP/CPAP O2 Flow Rate 2.0 11/24/16 11/24/16 11/24/1611/24/17 07:18 07:30 08:11 08:11 Temp 97.6 97.6 Pulse 66 Resp 16 B/P (MAP) 129/51 (77) Pulse Ox 100 O2 Delivery BiPAP/CPAP BiPAP/CPAP Nasal Cannula Nasal Cannula O2 Flow Rate 2.0 2.0 11/24/16 08:13 Pulse 66 B/P (MAP) 129/51 BUSHRA DALLAS MD Nov 24, 2016 09:12
[2016-11-24] MEDS: HYDROcodone/APAP 5/325MG 1 TAB TABLET PO PRN (10:25)
[2016-11-24 10:30] VITALS: BP 98/59
--- NOTE | 2016-11-24 11:29 | PDOC ---
PROGRESS NOTES Chief Complaint Chief Complaint back pain, acute on chronic with sciatica ASSESSMENT AND PLAN: 1. Lumbar radiculopathy: s/p steroid injection under fluoroscopy guidance . slowly improving. poor surg candidate for discectomy; pt wishes 2nd opinion; Dr Campuzano consulted. cont steroids, narcotics. d/w pt goal of pain control; titrate meds as needed 2. Morbid obesity: BMI 67 3. UTI: E.coli x2 sp; empiric ceftriax completed. d/c Aleman 4. DM2: well controlled on current regimen 5. HTN: well controlled on home regimen 6. Afib: currently NSR. 7. COPD: no acute issues. nebs PRN 8. Dispo: to be determined History of Present Illness History of Present Illness reports working with PT, walking about 20 steps. sever pain in early AM hours Vitals Vitals Vital Signs Date Time Temp Pulse Resp B/P (MAP) Pulse Ox O2 Delivery O2 Flow Rate FiO2 11/24/16 10:30 98.0 74 18 98/59 (72) 98 Nasal Cannula 3.0 98.0 Physical Exam General: Alert, Oriented X3, Cooperative, No acute distress Heart: Regular rate Lungs: Clear Abdomen: Normal bowel sounds, Soft (very obese) Extremities: No clubbing, No cyanosis, No edema Skin: No significant lesion Labs LABS Laboratory Tests Test 11/23/16 11:36 11/23/16 17:29 11/23/16 21:08 11/24/16 07:40 Glucose (Fingerstick) 153 mg/dL (70-99) 108 mg/dL (70-99) 148 mg/dL (70-99) 101 mg/dL (70-99) JED SIFUENTES MD Nov 24, 2016 11:29
[2016-11-24 14:30] VITALS: BP_SYST 90; BP_SYST 93; BP_DIAS 40; BP_DIAS 46
[2016-11-24] MEDS: RIVAROXABAN 10 MG TABLET. PO SCH (17:18)
[2016-11-24 19:00] VITALS: BP 111/47
[2016-11-24] MEDS: ATORVASTATIN CALCIUM 10 MG TABLET. PO SCH (20:57)
[2016-11-24] MEDS: METOPROLOL SUCC 24HR ER 50 MG TAB.ER.24H. PO SCH (20:57)
[2016-11-24 23:00] VITALS: BP 136/49
[2016-11-25 03:00] VITALS: BP 96/51
[2016-11-25] MEDS: PANTOPRAZOLE 40 MG TABLET.DR. PO SCH (05:50)
[2016-11-25] MEDS: MORPHINE ER 30 MG TABLET.ER PO SCH ×2 (05:51→16:57)
[2016-11-25 07:00] VITALS: BP 102/55
[2016-11-25] MEDS: LIDOCAINE (700MG/PATCH) PATCH. TD SCH (07:42)
[2016-11-25] MEDS: INSULIN ASPART 300 UNITS/3 ML INSULN.PEN SQ SCH ×3 (07:49→16:53)
[2016-11-25] MEDS: IPRATRPIUM/ALBUTEROL 0.5/2.5MG 3 ML NEBU. NEB SCH ×4 (07:59→20:20)
[2016-11-25] MEDS: BUDESONIDE 0.5 MG/2 ML NEBU. NEB SCH ×2 (07:59→20:20)
[2016-11-25] MEDS: ASPIRIN ENTERIC COATED 81 MG TABLET.DR. PO SCH (08:42)
[2016-11-25] MEDS: metFORMIN XR 500 MG TAB.ER.24H PO SCH (08:42)
[2016-11-25] MEDS: POTASSIUM CHLORIDE 20 MEQ TABLET.ER. PO SCH (08:42)
[2016-11-25] MEDS: BISACODYL 5 MG TABLET.DR. PO SCH (08:42)
[2016-11-25] MEDS: NYSTATIN TOPICAL POWDER 15GM BOTTLE. TP SCH ×2 (08:43→21:50)
[2016-11-25] MEDS: DOCUSATE SODIUM 100 MG CAPSULE. PO SCH (08:43)
[2016-11-25] MEDS: GABAPENTIN 300 MG CAPSULE. PO SCH ×2 (08:43→21:50)
[2016-11-25] MEDS: CETIRIZINE HCL 10 MG TABLET. PO SCH (08:43)
[2016-11-25] MEDS: FUROSEMIDE 80 MG TABLET. PO SCH (08:43)
[2016-11-25] MEDS: LISINOPRIL 20 MG TABLET PO SCH (08:46)
--- NOTE | 2016-11-25 09:34 | PDOC ---
PROGRESS NOTES Subjective Subjective She admits continued pain with movement but she seems to be getting somewhat better and wants to hold off longer acting morphine in early AM. Objective Objective Vital Signs Date Time Temp Pulse Resp B/P (MAP) Pulse Ox O2 Delivery O2 Flow Rate FiO2 11/25/16 08:46 76 102/55 11/25/16 08:02 90 Nasal Cannula 2.0 11/25/16 07:00 97.4 18 97.4 Physical Exam Physical Exam She is supine in bed and does not seem to be in any acute distress but continues with painfully limited lumbar spine ROM and tenderness to palpation over lumbar spine area,trochanteric bursa and decreased sensory perception over left L5,S1 dermatomes.She did get up by herself and walked for 10' with physical therapy yesterday. Assessment Assessment Problems Medical Problems: (1) Intractable pain Status: Acute (2) Left sciatic nerve pain Status: Acute (3) Urinary tract infection Status: Acute Plan Plan of Care To continue present physical therapy and hopefully home when she can walk to bathroom with walker. Comment Review of Relevant I have reviewed the following items shkair (where applicable) has been applied. Labs Laboratory Tests Test 11/23/16 11:36 11/23/16 17:29 11/23/16 21:08 11/24/16 07:40 Glucose (Fingerstick) 153 mg/dL (70-99) 108 mg/dL (70-99) 148 mg/dL (70-99) 101 mg/dL (70-99) Test 11/24/16 11:29 11/24/16 16:32 11/24/16 21:13 11/25/16 07:35 Glucose (Fingerstick) 100 mg/dL (70-99) 112 mg/dL (70-99) 99 mg/dL (70-99) 92 mg/dL (70-99) Laboratory Tests Test 11/24/16 11:29 11/24/16 16:32 11/24/16 21:13 11/25/16 07:35 Glucose (Fingerstick) 100 mg/dL (70-99) 112 mg/dL (70-99) 99 mg/dL (70-99) 92 mg/dL (70-99) Microbiology 11/17/16 Urine Culture - Final, Complete 11/17/16 Urine Culture Result 1 (ROBBY) - Final, Complete 11/17/16 Urine Culture Result 2 (ROBBY) - Final, Complete 11/17/16 Antimicrobic Susceptibility - Final, Complete Medications Current Medications Hydromorphone HCl (Dilaudid) 0.5 mg PRN Q15MIN PRN IV/SQ PAIN GREATER THAN 3/ 10 Last administered on 11/18/16 00:09; Start 11/17/16 at 22:15; Stop 11/18/16 at 22:14; Status DC Sodium Chloride 1,000 ml @ 1,000 mls/hr Q1H IV Last administered on 11/17/16 22:17; Start 11/17/16 at 22:15; Stop 11/17/16 at 23:14; Status DC Ondansetron HCl (Zofran) 4 mg 1X ONCE IV Last administered on 11/17/16 22:18 ; Start 11/17/16 at 22:15; Stop 11/17/16 at 22:16; Status DC Ceftriaxone Sodium 1 gm/ Sodium Chloride 50 ml @ 100 mls/hr Q24H IV Last administered on 11/20/16 23:48; Start 11/17/16 at 23:30; Stop 11/21/16 at 15:52 ; Status DC Ondansetron HCl (Zofran) 4 mg PRN Q8HRS PRN IV NAUSEA/VOMITING Last administered on 11/18/16 10:51; Start 11/17/16 at 23:30; Stop 11/18/16 at 23:29 ; Status DC Morphine Sulfate 4 mg PRN Q2HR PRN IV PAIN Last administered on 11/19/16 08:41 ; Start 11/17/16 at 23:30; Stop 11/19/16 at 23:30; Status DC Acetaminophen (Tylenol) 650 mg PRN Q4HRS PRN PO FEVER Last administered on 11/18 01:53; Start 11/17/16 at 23:30; Stop 11/18/16 at 23:29; Status DC Insulin Aspart (NovoLOG) 0-5 UNITS TIDWMEALS SQ ; Start 11/18/16 at 08:00 Dextrose (Dextrose 50%-Water Syringe) 12.5 gm PRN Q15MIN PRN IV SEE COMMENTS; Start 11/17/16 at 23:30 Diazepam (Valium) 5 mg 1X ONCE IV Last administered on 11/18/16 00:08; Start 11/18/16 at 00:00; Stop 11/18/16 at 00:01; Status DC Ceftriaxone Sodium 50 ml @ As Directed STK-MED ONCE IV ; Start 11/18/16 at 00:06 ; Stop 11/18/16 at 00:07; Status DC Info (Do NOT chart on this placeholder) 1 each 1X ONCE MC ; Start 11/18/16 at 02:30; Stop 11/18/16 at 02:31; Status UNV Albuterol Sulfate (Ventolin Neb Soln) 2.5 mg PRN Q2HRS PRN NEB SHORTNESS OF BREATH; Start 11/18/16 at 03:00 Aspirin (Ecotrin) 81 mg DAILY PO Last administered on 11/25/16 08:42; Start at 09:00 Cetirizine HCl (ZyrTEC) 10 mg DAILY PO Last administered on 11/25/16 08:43; Start 11/18/16 at 09:00 Cyclobenzaprine HCl (Flexeril) 10 mg TID PO ; Start 11/18/16 at 09:00; Stop at 09:38; Status DC Furosemide (Lasix) 80 mg DAILY PO Last administered on 11/25/16 08:43; Start 11/18/16 at 09:00 Lisinopril (Prinivil) 20 mg DAILY PO Last administered on 11/24/16 08:13; Start 11/18/16 at 09:00 Metformin HCl (Glucophage Xr) 500 mg DAILYWBKFT PO Last administered on 08:42; Start 11/18/16 at 08:00 Metoprolol Succinate (Toprol Xl) 50 mg QHS PO Last administered on 11/24/16 20 :57; Start 11/18/16 at 21:00 Pantoprazole Sodium (Protonix) 40 mg DAILYAC PO Last administered on 11/25/16 05:50; Start 11/18/16 at 07:30 Potassium Chloride (Klor-Con) 20 meq DAILY PO Last administered on 11/25/16 08 :42; Start 11/18/16 at 09:00 Rivaroxaban (Xarelto) 20 mg QHS PO ; Start 11/18/16 at 21:00; Stop 11/18/16 at 21:00; Status DC Tramadol HCl (Ultram) 50 mg PRN Q6HRS PRN PO PAIN; Start 11/18/16 at 03:00; Status Cancel Non-Formulary Medication 1 inh BID IH ; Start 11/18/16 at 09:00; Status UNV Gabapentin (Neurontin) 300 mg BID PO Last administered on 11/25/16 08:43; Start 11/18/16 at 09:00 Non-Formulary Medication 2 inh QID IH ; Start 11/18/16 at 09:00; Status UNV Atorvastatin Calcium (Lipitor) 5 mg QHS PO Last administered on 11/24/16 20:57 ; Start 11/18/16 at 21:00 Acetaminophen/ Hydrocodone Bitart (Lortab 5/325) 1-2 tabs PRN Q4HRS PRN PO PAIN Last administered on 11/18/16 12:32; Start 11/18/16 at 03:00; Stop at 14:43; Status DC Influenza Virus Vaccine Quadrival (Fluarix Quad 4543-2126 Syringe) 0.5 ml ONCE ONCE VAX IM Last administered on 11/18/16 03:49; Start 11/18/16 at 09:00; Stop 11/18/16 at 09:01; Status DC Albuterol/ Ipratropium (Duoneb) 3 ml RTQID NEB Last administered on 11/25/16 07:59; Start 11/18/16 at 08:00 Budesonide (Pulmicort) 0.5 mg RTBID NEB Last administered on 11/25/16 07:59; Start 11/18/16 at 08:00 Cyclobenzaprine HCl (Flexeril) 10 mg PRN Q6HRS PRN PO MUSCLE SPASMS Last administered on 11/23/16 03:13; Start 11/18/16 at 09:30 Methylprednisolone (Medrol) 4 mg BID PO ; Start 11/18/16 at 10:00; Status Cancel Lidocaine (Lidoderm) 2 patch DAILY TD Last administered on 11/25/16 07:42; Start 11/18/16 at 11:00 Methylprednisolone Acetate (DEPO-Medrol 40MG VIAL) 40 mg 1X ONCE IM ; Start at 10:15; Stop 11/18/16 at 10:19; Status DC Methylprednisolone Acetate (DEPO-Medrol 40MG VIAL) 40 mg 1X ONCE IM ; Start at 10:15; Stop 11/18/16 at 10:19; Status DC Bupivacaine HCl (Sensorcaine-Mpf 0.25%) 10 ml 1X ONCE IJ ; Start 11/18/16 at 10 :15; Stop 11/18/16 at 10:19; Status DC Methylprednisolone (Medrol) 8 mg BID PO Last administered on 11/18/16 22:05; Start 11/18/16 at 11:00; Stop 11/18/16 at 21:01; Status DC Methylprednisolone (Medrol) 4 mg BIDPCLD PO Last administered on 11/18/16 17: 14; Start 11/18/16 at 12:30; Stop 11/18/16 at 17:31; Status DC Methylprednisolone (Medrol) 4 mg TIDPC PO Last administered on 11/19/16 17:00 ; Start 11/19/16 at 08:30; Stop 11/19/16 at 17:31; Status DC Methylprednisolone (Medrol) 8 mg QHS PO Last administered on 11/19/16 20:55; Start 11/19/16 at 21:00; Stop 11/19/16 at 21:01; Status DC Methylprednisolone (Medrol) 4 mg QIDAFTMEAL PO Last administered on 11/20/16 20:48; Start 11/20/16 at 09:00; Stop 11/20/16 at 21:01; Status DC Methylprednisolone (Medrol) 4 mg TID PO Last administered on 11/21/16 20:43; Start 11/21/16 at 09:00; Stop 11/21/16 at 21:01; Status DC Methylprednisolone (Medrol) 4 mg BID PO Last administered on 11/22/16 20:31; Start 11/22/16 at 09:00; Stop 11/22/16 at 21:01; Status DC Methylprednisolone (Medrol) 4 mg DAILY PO Last administered on 11/23/16 08:19 ; Start 11/23/16 at 09:00; Stop 11/23/16 at 09:01; Status DC Nystatin (Nystop) 1 molly BID TP Last administered on 11/25/16 08:43; Start at 11:30 Rivaroxaban (Xarelto) 20 mg QHS PO ; Start 11/21/16 at 21:00; Stop 11/21/16 at 21:00; Status DC Acetaminophen/ Hydrocodone Bitart (Lortab 5/325) 1 tab PRN Q4HRS PRN PO PAIN; Start 11/18/16 at 14:45; Stop 11/24/16 at 11:27; Status DC Acetaminophen/ Hydrocodone Bitart (Lortab 5/325) 2 tab PRN Q4HRS PRN PO PAIN Last administered on 11/24/16 10:25; Start 11/18/16 at 14:43; Stop 11/24/16 at 11:27; Status DC Ondansetron HCl (Zofran) 4 mg PRN Q6HRS PRN IV NAUSEA/VOMITING Last administered on 11/23/16 08:16; Start 11/19/16 at 08:45 Fentanyl Citrate (Fentanyl 2ml Vial) 75 mcg PRN Q4HRS PRN IV pain Last administered on 11/19/16 18:31; Start 11/19/16 at 09:15 Docusate Sodium (Colace) 100 mg DAILY PO Last administered on 11/25/16 08:43; Start 11/19/16 at 12:15 Polyethylene Glycol (miraLAX PACKET) 17 gm 1X ONCE PO Last administered on 12:19; Start 11/19/16 at 12:15; Stop 11/19/16 at 12:16; Status DC Zolpidem Tartrate (Ambien) 5 mg PRN QHS PRN PO INSOMNIA; Start 11/19/16 at 12: 15 Morphine Sulfate 4 mg PRN Q2HR PRN IV PAIN Last administered on 11/24/16 20:45 ; Start 11/20/16 at 08:45 Morphine Sulfate (Morphine Ir) 15 mg PRN Q4HRS PRN PO PAIN Last administered on 11/24/16 17:33; Start 11/20/16 at 08:45 Methylprednisolone Acetate (DEPO-Medrol 40MG VIAL) 40 mg STK-MED ONCE .ROUTE ; Start 11/21/16 at 09:56; Stop 11/21/16 at 09:57; Status DC Methylprednisolone Acetate (DEPO-Medrol 80MG VIAL) 80 mg STK-MED ONCE .ROUTE ; Start 11/21/16 at 09:56; Stop 11/21/16 at 09:57; Status DC Iohexol (Omnipaque 180 Mg/ml) 10 ml STK-MED ONCE .ROUTE ; Start 11/21/16 at 09: 56; Stop 11/21/16 at 09:57; Status DC Morphine Sulfate (Ms Contin) 30 mg BID PO Last administered on 11/24/16 08:11 ; Start 11/22/16 at 09:45; Stop 11/24/16 at 11:28; Status DC Magnesium Citrate (Citroma) 296 ml 1X ONCE PO Last administered on 11/22/16 10:51; Start 11/22/16 at 11:00; Stop 11/22/16 at 11:01; Status DC Bisacodyl (Dulcolax Tab) 10 mg DAILY PO Last administered on 11/25/16 08:42; Start 11/22/16 at 14:30 Bisacodyl (Dulcolax Supp) 10 mg PRN DAILY PRN [place] CONSTIPATION; Start 11/22/16 at 14:00 Morphine Sulfate (Ms Contin) 30 mg DAILY06 PO Last administered on 11/25/16 05 :51; Start 11/25/16 at 06:00 Morphine Sulfate (Ms Contin) 60 mg QPM PO Last administered on 11/24/16 17:18 ; Start 11/24/16 at 18:00 Rivaroxaban (Xarelto) 20 mg DAILYWSUP PO Last administered on 11/24/16 17:18; Start 11/24/16 at 17:00 Active Scripts Active Alexander 5-325 Tablet (Acetaminophen/Hydrocodone Bitart) 1 Each Tablet 1-2 Tab PO Q4-6HRS Cyclobenzaprine Hcl 10 Mg Tablet 1 Tab PO TID Reported Combivent Respimat Inhal (Ipratropium/Albuterol Sulfate) 4 Gm Aer.w.adap 2 Inh IH QID Zyrtec (Cetirizine Hcl) 10 Mg Tablet 1 Tab PO DAILY Lisinopril 20 Mg Tablet 1 Tab PO DAILY Tramadol Hcl 50 Mg Tablet 50 Mg PO Q6H PRN Aspir 81 (Aspirin) 81 Mg Tablet.dr 1 Tab PO DAILY Albuterol Sulfate Neb Soln (Albuterol Sulfate) 2.5 Mg/3 Ml Vial.neb 2.5 Mg NEB PRN Q2HRS PRN Xarelto (Rivaroxaban) 10 Mg Tablet 20 Mg PO QHS Advair 500-50 Diskus (Fluticasone/Salmeterol) 1 Each Disk.w.dev 1 Inh IH BID Metformin Hcl Er (Metformin Hcl) 500 Mg Tab.er.24h 500 Mg PO DAILYWBKFT Potassium Chloride 20 Meq Tab.er.prt 20 Meq PO DAILY Lovastatin 20 Mg Tablet 20 PO QHS Pantoprazole Sodium 40 Mg Tablet.dr 40 Mg PO DAILYAC Toprol Xl (Metoprolol Succinate) 50 Mg Tab.er.24h 50 Mg PO QHS Gabapentin 300 Mg Capsule 300 Mg PO BID Furosemide 80 Mg Tablet 80 Mg PO DAILY Vitals/I & O Vital Sign - Last 24 Hours 11/24/16 11/24/16 11/24/16 11/24/16 10:25 10:30 11:18 14:30 Temp 98.0 97.7 98.0 97.7 Pulse 74 67 Resp 18 18 B/P (MAP) 98/59 (72) 93/40 (57) Pulse Ox 98 96 97 O2 Delivery Nasal Cannula Nasal Cannula Nasal Cannula Nasal Cannula O2 Flow Rate 2.0 3.0 2.0 2.0 11/24/16 11/24/16 11/24/16 11/24/16 14:30 15:19 17:18 17:33 Pulse 69 B/P (MAP) 90/46 (61) Pulse Ox 97 O2 Delivery Nasal Cannula Nasal Cannula Room Air O2 Flow Rate 2.0 2.0 11/24/16 11/24/16 11/24/16 11/24/16 19:00 19:25 20:00 20:45 Temp 97.7 97.7 Pulse 67 Resp 18 20 B/P (MAP) 111/47 (68) Pulse Ox 100 97 O2 Delivery Nasal Cannula Nasal Cannula Nasal Cannula Nasal Cannula O2 Flow Rate 2.0 2.0 2.0 2.0 11/24/16 11/24/16 11/24/16 11/24/16 20:57 21:15 21:15 23:00 Temp 96.1 96.1 Pulse 76 86 Resp 18 18 18 B/P (MAP) 123/45 136/49 (78) Pulse Ox 98 98 98 O2 Delivery Nasal Cannula Nasal Cannula Nasal Cannula O2 Flow Rate 2.0 2.0 2.0 11/24/16 11/24/16 11/25/16 11/25/16 23:01 23:53 01:21 03:00 Temp 96.1 96.1 Pulse 72 Resp 18 B/P (MAP) 96/51 (66) Pulse Ox 97 O2 Delivery BiPAP/CPAP BiPAP/CPAP BiPAP/CPAP Nasal Cannula O2 Flow Rate 2.0 11/25/16 11/25/16 11/25/16 11/25/16 03:05 05:51 07:00 08:01 Temp 97.4 97.4 Pulse 76 Resp 20 18 B/P (MAP) 102/55 (71) Pulse Ox 97 92 90 O2 Delivery BiPAP/CPAP Nasal Cannula Nasal Cannula Nasal Cannula O2 Flow Rate 2.0 3.0 2.0 11/25/16 11/25/16 08:02 08:46 Pulse 76 B/P (MAP) 102/55 Pulse Ox 90 O2 Delivery Nasal Cannula O2 Flow Rate 2.0 BUSHRA DALLAS MD Nov 25, 2016 09:34
--- NOTE | 2016-11-25 10:21 | PDOC ---
PROGRESS NOTES Chief Complaint Chief Complaint back pain, acute on chronic with sciatica ASSESSMENT AND PLAN: 1. Lumbar radiculopathy: s/p steroid injection under fluoroscopy guidance . slowly improving. poor surg candidate for discectomy; pt wishes 2nd opinion; Dr Campuzano consulted. cont steroids, narcotics. d/w pt goal of pain control; titrate meds as needed 2. Morbid obesity: BMI 67 3. UTI: E.coli x2 sp; empiric ceftriax completed. d/c Aleman 4. DM2: well controlled on current regimen 5. HTN: well controlled on home regimen 6. Afib: currently NSR. 7. COPD: no acute issues. nebs PRN 8. Dispo: to be determined History of Present Illness History of Present Illness sever pain in early AM hours States medicine made her feel funny Vitals Vitals Vital Signs Date Time Temp Pulse Resp B/P (MAP) Pulse Ox O2 Delivery O2 Flow Rate FiO2 11/25/16 08:46 76 102/55 11/25/16 08:02 90 Nasal Cannula 2.0 11/25/16 07:00 97.4 18 97.4 Physical Exam General: Alert, Oriented X3, Cooperative, No acute distress Heart: Regular rate Lungs: Clear Abdomen: Normal bowel sounds, Soft (very obese) Extremities: No clubbing, No cyanosis, No edema Skin: No significant lesion Labs LABS Laboratory Tests Test 11/24/16 11:29 11/24/16 16:32 11/24/16 21:13 11/25/16 07:35 Glucose (Fingerstick) 100 mg/dL (70-99) 112 mg/dL (70-99) 99 mg/dL (70-99) 92 mg/dL (70-99) Review of Systems Review of Systems co pain co weakness co hunger Assessment and Plan Assessmemt and Plan Problems Medical Problems: (1) Intractable pain Status: Acute (2) Left sciatic nerve pain Status: Acute (3) Urinary tract infection Status: Acute back pain, acute on chronic with sciatica ASSESSMENT AND PLAN: 1. Lumbar radiculopathy: s/p steroid injection under fluoroscopy guidance . slowly improving. poor surg candidate for discectomy; pt wishes 2nd opinion; Dr Campuzano consulted. cont steroids, narcotics. d/w pt goal of pain control; titrate meds as needed 2. Morbid obesity: BMI 67 3. UTI: E.coli x2 sp; empiric ceftriax completed. d/c Aleman 4. DM2: well controlled on current regimen 5. HTN: well controlled on home regimen 6. Afib: currently NSR. 7. COPD: no acute issues. nebs PRN 8. Dispo: to be determined Problems: Comment Review of Relevant I have reviewed the following items shakir (where applicable) has been applied. Labs Laboratory Tests Test 11/23/16 11:36 11/23/16 17:29 11/23/16 21:08 11/24/16 07:40 Glucose (Fingerstick) 153 mg/dL (70-99) 108 mg/dL (70-99) 148 mg/dL (70-99) 101 mg/dL (70-99) Test 11/24/16 11:29 11/24/16 16:32 11/24/16 21:13 11/25/16 07:35 Glucose (Fingerstick) 100 mg/dL (70-99) 112 mg/dL (70-99) 99 mg/dL (70-99) 92 mg/dL (70-99) Laboratory Tests Test 11/24/16 11:29 11/24/16 16:32 11/24/16 21:13 11/25/16 07:35 Glucose (Fingerstick) 100 mg/dL (70-99) 112 mg/dL (70-99) 99 mg/dL (70-99) 92 mg/dL (70-99) Microbiology 11/17/16 Urine Culture - Final, Complete 11/17/16 Urine Culture Result 1 (ROBBY) - Final, Complete 11/17/16 Urine Culture Result 2 (ROBBY) - Final, Complete 11/17/16 Antimicrobic Susceptibility - Final, Complete Medications Current Medications Hydromorphone HCl (Dilaudid) 0.5 mg PRN Q15MIN PRN IV/SQ PAIN GREATER THAN 3/ 10 Last administered on 11/18/16 00:09; Start 11/17/16 at 22:15; Stop 11/18/16 at 22:14; Status DC Sodium Chloride 1,000 ml @ 1,000 mls/hr Q1H IV Last administered on 11/17/16t 22:17; Start 11/17/16 at 22:15; Stop 11/17/16 at 23:14; Status DC Ondansetron HCl (Zofran) 4 mg 1X ONCE IV Last administered on 11/17/16 22:18 ; Start 11/17/16 at 22:15; Stop 11/17/16 at 22:16; Status DC Ceftriaxone Sodium 1 gm/ Sodium Chloride 50 ml @ 100 mls/hr Q24H IV Last administered on 11/20/16 23:48; Start 11/17/16 at 23:30; Stop 11/21/16 at 15:52 ; Status DC Ondansetron HCl (Zofran) 4 mg PRN Q8HRS PRN IV NAUSEA/VOMITING Last administered on 11/18/16 10:51; Start 11/17/16 at 23:30; Stop 11/18/16 at 23:29 ; Status DC Morphine Sulfate 4 mg PRN Q2HR PRN IV PAIN Last administered on 11/19/16 08:41 ; Start 11/17/16 at 23:30; Stop 11/19/16 at 23:30; Status DC Acetaminophen (Tylenol) 650 mg PRN Q4HRS PRN PO FEVER Last administered on 11/18 01:53; Start 11/17/16 at 23:30; Stop 11/18/16 at 23:29; Status DC Insulin Aspart (NovoLOG) 0-5 UNITS TIDWMEALS SQ ; Start 11/18/16 at 08:00 Dextrose (Dextrose 50%-Water Syringe) 12.5 gm PRN Q15MIN PRN IV SEE COMMENTS; Start 11/17/16 at 23:30 Diazepam (Valium) 5 mg 1X ONCE IV Last administered on 11/18/16 00:08; Start 11/18/16 at 00:00; Stop 11/18/16 at 00:01; Status DC Ceftriaxone Sodium 50 ml @ As Directed STK-MED ONCE IV ; Start 11/18/16 at 00:06 ; Stop 11/18/16 at 00:07; Status DC Info (Do NOT chart on this placeholder) 1 each 1X ONCE MC ; Start 11/18/16 at 02:30; Stop 11/18/16 at 02:31; Status UNV Albuterol Sulfate (Ventolin Neb Soln) 2.5 mg PRN Q2HRS PRN NEB SHORTNESS OF BREATH; Start 11/18/16 at 03:00 Aspirin (Ecotrin) 81 mg DAILY PO Last administered on 11/25/16 08:42; Start at 09:00 Cetirizine HCl (ZyrTEC) 10 mg DAILY PO Last administered on 11/25/16 08:43; Start 11/18/16 at 09:00 Cyclobenzaprine HCl (Flexeril) 10 mg TID PO ; Start 11/18/16 at 09:00; Stop at 09:38; Status DC Furosemide (Lasix) 80 mg DAILY PO Last administered on 11/25/16 08:43; Start 11/18/16 at 09:00 Lisinopril (Prinivil) 20 mg DAILY PO Last administered on 11/24/16 08:13; Start 11/18/16 at 09:00 Metformin HCl (Glucophage Xr) 500 mg DAILYWBKFT PO Last administered on 08:42; Start 11/18/16 at 08:00 Metoprolol Succinate (Toprol Xl) 50 mg QHS PO Last administered on 11/24/16 20 :57; Start 11/18/16 at 21:00 Pantoprazole Sodium (Protonix) 40 mg DAILYAC PO Last administered on 11/25/16 05:50; Start 11/18/16 at 07:30 Potassium Chloride (Klor-Con) 20 meq DAILY PO Last administered on 11/25/16 08 :42; Start 11/18/16 at 09:00 Rivaroxaban (Xarelto) 20 mg QHS PO ; Start 11/18/16 at 21:00; Stop 11/18/16 at 21:00; Status DC Tramadol HCl (Ultram) 50 mg PRN Q6HRS PRN PO PAIN; Start 11/18/16 at 03:00; Status Cancel Non-Formulary Medication 1 inh BID IH ; Start 11/18/16 at 09:00; Status UNV Gabapentin (Neurontin) 300 mg BID PO Last administered on 11/25/16 08:43; Start 11/18/16 at 09:00 Non-Formulary Medication 2 inh QID IH ; Start 11/18/16 at 09:00; Status UNV Atorvastatin Calcium (Lipitor) 5 mg QHS PO Last administered on 11/24/16 20:57 ; Start 11/18/16 at 21:00 Acetaminophen/ Hydrocodone Bitart (Lortab 5/325) 1-2 tabs PRN Q4HRS PRN PO PAIN Last administered on 11/18/16 12:32; Start 11/18/16 at 03:00; Stop at 14:43; Status DC Influenza Virus Vaccine Quadrival (Fluarix Quad 4842-3044 Syringe) 0.5 ml ONCE ONCE VAX IM Last administered on 11/18/16 03:49; Start 11/18/16 at 09:00; Stop 11/18/16 at 09:01; Status DC Albuterol/ Ipratropium (Duoneb) 3 ml RTQID NEB Last administered on 11/25/16 07:59; Start 11/18/16 at 08:00 Budesonide (Pulmicort) 0.5 mg RTBID NEB Last administered on 11/25/16 07:59; Start 11/18/16 at 08:00 Cyclobenzaprine HCl (Flexeril) 10 mg PRN Q6HRS PRN PO MUSCLE SPASMS Last administered on 11/23/16 03:13; Start 11/18/16 at 09:30 Methylprednisolone (Medrol) 4 mg BID PO ; Start 11/18/16 at 10:00; Status Cancel Lidocaine (Lidoderm) 2 patch DAILY TD Last administered on 11/25/16 07:42; Start 11/18/16 at 11:00 Methylprednisolone Acetate (DEPO-Medrol 40MG VIAL) 40 mg 1X ONCE IM ; Start at 10:15; Stop 11/18/16 at 10:19; Status DC Methylprednisolone Acetate (DEPO-Medrol 40MG VIAL) 40 mg 1X ONCE IM ; Start at 10:15; Stop 11/18/16 at 10:19; Status DC Bupivacaine HCl (Sensorcaine-Mpf 0.25%) 10 ml 1X ONCE IJ ; Start 11/18/16 at 10 :15; Stop 11/18/16 at 10:19; Status DC Methylprednisolone (Medrol) 8 mg BID PO Last administered on 11/18/16 22:05; Start 11/18/16 at 11:00; Stop 11/18/16 at 21:01; Status DC Methylprednisolone (Medrol) 4 mg BIDPCLD PO Last administered on 11/18/16 17: 14; Start 11/18/16 at 12:30; Stop 11/18/16 at 17:31; Status DC Methylprednisolone (Medrol) 4 mg TIDPC PO Last administered on 11/19/16 17:00 ; Start 11/19/16 at 08:30; Stop 11/19/16 at 17:31; Status DC Methylprednisolone (Medrol) 8 mg QHS PO Last administered on 11/19/16 20:55; Start 11/19/16 at 21:00; Stop 11/19/16 at 21:01; Status DC Methylprednisolone (Medrol) 4 mg QIDAFTMEAL PO Last administered on 11/20/16 20:48; Start 11/20/16 at 09:00; Stop 11/20/16 at 21:01; Status DC Methylprednisolone (Medrol) 4 mg TID PO Last administered on 11/21/16 20:43; Start 11/21/16 at 09:00; Stop 11/21/16 at 21:01; Status DC Methylprednisolone (Medrol) 4 mg BID PO Last administered on 11/22/16 20:31; Start 11/22/16 at 09:00; Stop 11/22/16 at 21:01; Status DC Methylprednisolone (Medrol) 4 mg DAILY PO Last administered on 11/23/16 08:19 ; Start 11/23/16 at 09:00; Stop 11/23/16 at 09:01; Status DC Nystatin (Nystop) 1 molly BID TP Last administered on 11/25/16 08:43; Start at 11:30 Rivaroxaban (Xarelto) 20 mg QHS PO ; Start 11/21/16 at 21:00; Stop 11/21/16 at 21:00; Status DC Acetaminophen/ Hydrocodone Bitart (Lortab 5/325) 1 tab PRN Q4HRS PRN PO PAIN; Start 11/18/16 at 14:45; Stop 11/24/16 at 11:27; Status DC Acetaminophen/ Hydrocodone Bitart (Lortab 5/325) 2 tab PRN Q4HRS PRN PO PAIN Last administered on 11/24/16 10:25; Start 11/18/16 at 14:43; Stop 11/24/16 at 11:27; Status DC Ondansetron HCl (Zofran) 4 mg PRN Q6HRS PRN IV NAUSEA/VOMITING Last administered on 11/23/16 08:16; Start 11/19/16 at 08:45 Fentanyl Citrate (Fentanyl 2ml Vial) 75 mcg PRN Q4HRS PRN IV pain Last administered on 11/19/16 18:31; Start 11/19/16 at 09:15 Docusate Sodium (Colace) 100 mg DAILY PO Last administered on 11/25/16 08:43; Start 11/19/16 at 12:15 Polyethylene Glycol (miraLAX PACKET) 17 gm 1X ONCE PO Last administered on 12:19; Start 11/19/16 at 12:15; Stop 11/19/16 at 12:16; Status DC Zolpidem Tartrate (Ambien) 5 mg PRN QHS PRN PO INSOMNIA; Start 11/19/16 at 12: 15 Morphine Sulfate 4 mg PRN Q2HR PRN IV PAIN Last administered on 11/24/16 20:45 ; Start 11/20/16 at 08:45 Morphine Sulfate (Morphine Ir) 15 mg PRN Q4HRS PRN PO PAIN Last administered on 11/24/16 17:33; Start 11/20/16 at 08:45 Methylprednisolone Acetate (DEPO-Medrol 40MG VIAL) 40 mg STK-MED ONCE .ROUTE ; Start 11/21/16 at 09:56; Stop 11/21/16 at 09:57; Status DC Methylprednisolone Acetate (DEPO-Medrol 80MG VIAL) 80 mg STK-MED ONCE .ROUTE ; Start 11/21/16 at 09:56; Stop 11/21/16 at 09:57; Status DC Iohexol (Omnipaque 180 Mg/ml) 10 ml STK-MED ONCE .ROUTE ; Start 11/21/16 at 09: 56; Stop 11/21/16 at 09:57; Status DC Morphine Sulfate (Ms Contin) 30 mg BID PO Last administered on 11/24/16 08:11 ; Start 11/22/16 at 09:45; Stop 11/24/16 at 11:28; Status DC Magnesium Citrate (Citroma) 296 ml 1X ONCE PO Last administered on 11/22/16 10:51; Start 11/22/16 at 11:00; Stop 11/22/16 at 11:01; Status DC Bisacodyl (Dulcolax Tab) 10 mg DAILY PO Last administered on 11/25/16 08:42; Start 11/22/16 at 14:30 Bisacodyl (Dulcolax Supp) 10 mg PRN DAILY PRN MS CONSTIPATION; Start 11/22/16 at 14:00 Morphine Sulfate (Ms Contin) 30 mg DAILY06 PO Last administered on 11/25/16 05 :51; Start 11/25/16 at 06:00 Morphine Sulfate (Ms Contin) 60 mg QPM PO Last administered on 11/24/16 17:18 ; Start 11/24/16 at 18:00 Rivaroxaban (Xarelto) 20 mg DAILYWSUP PO Last administered on 11/24/16 17:18; Start 11/24/16 at 17:00 Active Scripts Active Darling 5-325 Tablet (Acetaminophen/Hydrocodone Bitart) 1 Each Tablet 1-2 Tab PO Q4-6HRS Cyclobenzaprine Hcl 10 Mg Tablet 1 Tab PO TID Reported Combivent Respimat Inhal (Ipratropium/Albuterol Sulfate) 4 Gm Aer.w.adap 2 Inh IH QID Zyrtec (Cetirizine Hcl) 10 Mg Tablet 1 Tab PO DAILY Lisinopril 20 Mg Tablet 1 Tab PO DAILY Tramadol Hcl 50 Mg Tablet 50 Mg PO Q6H PRN Aspir 81 (Aspirin) 81 Mg Tablet.dr 1 Tab PO DAILY Albuterol Sulfate Neb Soln (Albuterol Sulfate) 2.5 Mg/3 Ml Vial.neb 2.5 Mg NEB PRN Q2HRS PRN Xarelto (Rivaroxaban) 10 Mg Tablet 20 Mg PO QHS Advair 500-50 Diskus (Fluticasone/Salmeterol) 1 Each Disk.w.dev 1 Inh IH BID Metformin Hcl Er (Metformin Hcl) 500 Mg Tab.er.24h 500 Mg PO DAILYWBKFT Potassium Chloride 20 Meq Tab.er.prt 20 Meq PO DAILY Lovastatin 20 Mg Tablet 20 PO QHS Pantoprazole Sodium 40 Mg Tablet.dr 40 Mg PO DAILYAC Toprol Xl (Metoprolol Succinate) 50 Mg Tab.er.24h 50 Mg PO QHS Gabapentin 300 Mg Capsule 300 Mg PO BID Furosemide 80 Mg Tablet 80 Mg PO DAILY Vitals/I & O Vital Sign - Last 24 Hours 11/24/16 11/24/16 11/24/16 11/24/16 10:25 10:30 11:18 14:30 Temp 98.0 97.7 98.0 97.7 Pulse 74 67 Resp 18 18 B/P (MAP) 98/59 (72) 93/40 (57) Pulse Ox 98 96 97 O2 Delivery Nasal Cannula Nasal Cannula Nasal Cannula Nasal Cannula O2 Flow Rate 2.0 3.0 2.0 2.0 11/24/16 11/24/16 11/24/16 11/24/16 14:30 15:19 17:18 17:33 Pulse 69 B/P (MAP) 90/46 (61) Pulse Ox 97 O2 Delivery Nasal Cannula Nasal Cannula Room Air O2 Flow Rate 2.0 2.0 11/24/16 11/24/16 11/24/16 11/24/16 19:00 19:25 20:00 20:45 Temp 97.7 97.7 Pulse 67 Resp 18 20 B/P (MAP) 111/47 (68) Pulse Ox 100 97 O2 Delivery Nasal Cannula Nasal Cannula Nasal Cannula Nasal Cannula O2 Flow Rate 2.0 2.0 2.0 2.0 11/24/16 11/24/16 11/24/16 11/24/16 20:57 21:15 21:15 23:00 Temp 96.1 96.1 Pulse 76 86 Resp 18 18 18 B/P (MAP) 123/45 136/49 (78) Pulse Ox 98 98 98 O2 Delivery Nasal Cannula Nasal Cannula Nasal Cannula O2 Flow Rate 2.0 2.0 2.0 11/24/16 11/24/16 11/25/16 11/25/16 23:01 23:53 01:21 03:00 Temp 96.1 96.1 Pulse 72 Resp 18 B/P (MAP) 96/51 (66) Pulse Ox 97 O2 Delivery BiPAP/CPAP BiPAP/CPAP BiPAP/CPAP Nasal Cannula O2 Flow Rate 2.0 11/25/16 11/25/16 11/25/16 11/25/16 03:05 05:51 07:00 08:00 Temp 97.4 97.4 Pulse 76 Resp 20 18 B/P (MAP) 102/55 (71) Pulse Ox 97 92 O2 Delivery BiPAP/CPAP Nasal Cannula Nasal Cannula Nasal Cannula O2 Flow Rate 2.0 3.0 2.0 11/25/16 11/25/16 11/25/16 08:01 08:02 08:46 Pulse 76 B/P (MAP) 102/55 Pulse Ox 90 90 O2 Delivery Nasal Cannula Nasal Cannula O2 Flow Rate 2.0 2.0 Intake and Output 11/25/16 11/25/16 11/26/16 15:00 23:00 07:00 Intake Total 240 ml Balance 240 ml ELHAM LUI III DO Nov 25, 2016 10:21
[2016-11-25 11:00] VITALS: BP 110/57
[2016-11-25 16:00] VITALS: BP 96/57
[2016-11-25] MEDS: RIVAROXABAN 10 MG TABLET. PO SCH (16:57)
[2016-11-25 19:00] VITALS: BP 124/65
[2016-11-25] MEDS: CYCLOBENZAPRINE 10 MG TABLET. PO PRN (19:36)
[2016-11-25] MEDS: MORPHINE IR 15 MG TABLET PO PRN (19:37)
[2016-11-25] MEDS: ATORVASTATIN CALCIUM 10 MG TABLET. PO SCH (21:50)
[2016-11-25] MEDS: METOPROLOL SUCC 24HR ER 50 MG TAB.ER.24H. PO SCH (21:51)
[2016-11-25 23:00] VITALS: BP 111/57
[2016-11-26] MEDS: MORPHINE IR 15 MG TABLET PO PRN (01:05)
[2016-11-26 03:00] VITALS: BP 154/98
[2016-11-26] MEDS: PANTOPRAZOLE 40 MG TABLET.DR. PO SCH (06:04)
[2016-11-26] MEDS: MORPHINE ER 30 MG TABLET.ER PO SCH (06:06)
[2016-11-26 07:00] VITALS: BP 120/51
[2016-11-26] MEDS: IPRATRPIUM/ALBUTEROL 0.5/2.5MG 3 ML NEBU. NEB SCH (07:55)
[2016-11-26] MEDS: BUDESONIDE 0.5 MG/2 ML NEBU. NEB SCH (07:56)
[2016-11-26] MEDS: POTASSIUM CHLORIDE 20 MEQ TABLET.ER. PO SCH (09:05)
[2016-11-26] MEDS: NYSTATIN TOPICAL POWDER 15GM BOTTLE. TP SCH (09:05)
[2016-11-26] MEDS: GABAPENTIN 300 MG CAPSULE. PO SCH (09:05)
[2016-11-26] MEDS: DOCUSATE SODIUM 100 MG CAPSULE. PO SCH (09:05)
[2016-11-26] MEDS: FUROSEMIDE 80 MG TABLET. PO SCH (09:06)
[2016-11-26] MEDS: metFORMIN XR 500 MG TAB.ER.24H PO SCH (09:06)
[2016-11-26] MEDS: BISACODYL 5 MG TABLET.DR. PO SCH (09:06)
[2016-11-26] MEDS: ASPIRIN ENTERIC COATED 81 MG TABLET.DR. PO SCH (09:09)
[2016-11-26] MEDS: CETIRIZINE HCL 10 MG TABLET. PO SCH (09:09)
[2016-11-26] MEDS: LIDOCAINE (700MG/PATCH) PATCH. TD SCH (09:10)
[2016-11-26 09:20] VITALS: BP 103/66
[2016-11-26] MEDS: LISINOPRIL 20 MG TABLET PO SCH (09:20)
== END 2016-11-26 10:20 | DRG 552 ==
LOC: ER 20:44 → 5 NORTH 23:14
PROVIDERS: ADMIT Internal Medicine; ATTEND Internal Medicine
PROC: 3E0R33Z Introduction of Anti-inflammatory into Spinal Canal, Percutaneous Approach (ICD-10-PCS; principal; 2016-11-18)
DX: M54.16 Radiculopathy, lumbar region (principal); I27.2 Other secondary pulmonary hypertension; Z68.44 Body mass index [BMI] 60.0-69.9, adult; E66.01 Morbid (severe) obesity due to excess calories; I48.0 Paroxysmal atrial fibrillation; N39.0 Urinary tract infection, site not specified; B96.20 Unspecified Escherichia coli [E. coli] as the cause of diseases classified elsewhere; I10 Essential (primary) hypertension; E11.9 Type 2 diabetes mellitus without complications; E78.5 Hyperlipidemia, unspecified; G47.33 Obstructive sleep apnea (adult) (pediatric); G89.29 Other chronic pain; J44.9 Chronic obstructive pulmonary disease, unspecified; K59.00 Constipation, unspecified; M48.06 Spinal stenosis, lumbar region; M54.32 Sciatica, left side; Z90.710 Acquired absence of both cervix and uterus; Z95.0 Presence of cardiac pacemaker; M19.90 Unspecified osteoarthritis, unspecified site; Z88.2 Allergy status to sulfonamides; Z88.8 Allergy status to other drugs, medicaments and biological substances
CPT/HCPCS: 36415; 51701; 62323; 72131; 74176; 80048; 80053; 81001; 82962; 85025; 87086; 87186; 90686; 93005; 94250; 94640; 94660; 94760; 96361; 96374; J0696; J1030; J1040; J1170; J1815; J2270; J2405; J3010; J3360; J7030; J7509; J7620; J7626; 97116; 97530; 97535; 99285-25

== ENCOUNTER 2016-11-27 12:48 | Inpatient (IN) | payer BC ==
[~2016-11-27] VITALS: Ht 172.7 cm; Wt 190.5 kg
--- NOTE | 2016-11-27 13:16 | PHYS DOC ---
Past Medical History Past Medical History: A-Fib, Anxiety, Arthritis, COPD, Diabetes-Type II, Hypertension, Other Additional Past Medical Histor: back pain Past Surgical History: Hysterectomy, Pacemaker, Other Additional Past Surgical Histo: HAND SURG,SHOULDER, EYE SURG Alcohol Use: None Drug Use: None Adult General Chief Complaint Chief Complaint: SHORTNESS OF BREATH HPI HPI Patient is a 51 year old female presenting [facility] for evaluation of abnormal labs and increased confusion. Patient has been released from the hospital yesterday after being in the hospital for approximately 9-10 days. She had abnormal labs drawn this morning where as yesterday her labs were normal per report. Her BUNs was in the 90s with a potassium of 6.4 and creatinine of 2.8. Last labs drawn on November 18 were normal on her chemistry. Patient says that she feels odd but doesn't have any specific complaints of confusion although she says that her primary doctor here is a male but it appears she was admitted by the hospitalist and then sent to [facility] under the care of Dr. Jiménez. It sounds as if they wanted to treat her with IV fluids and bicarbonate at [facility] but they could not get an IV so they sent her here for further evaluation. Review of Systems Review of Systems Constitutional: Denies fever or chills [] Eyes: Denies change in visual acuity, redness, or eye pain [] HENT: Denies nasal congestion or sore throat [] Respiratory: Denies cough or shortness of breath [] Cardiovascular: + CP GI: Denies abdominal pain. + nausea, vomiting. No diarrhea [] : Denies dysuria or hematuria [] Musculoskeletal: + back pain. No joint pain [] Integument: Denies rash or skin lesions [] Neurologic: Denies headache, focal weakness or sensory changes [] Current Medications Current Medications Current Medications Medications (Trade) Dose Ordered Sig/Misty Start Time Stop Time Status Last Admin Dose Admin Acetaminophen/ Hydrocodone Bitart (Lortab 5/325) 1 tab PRN Q6HRS PRN 11/27/16 14:00 Dextrose (Dextrose 50%-Water Syringe) 12.5 gm PRN Q15MIN PRN 11/27/16 14:00 Ondansetron HCl (Zofran) 4 mg PRN Q8HRS PRN 11/27/16 14:00 102/17 13:59 Sodium Bicarbonate 50 meq 1X ONCE 11/27/16 13:45 11/27/16 14:00 DC 11/27/16 13:53 50 MEQ Sodium Chloride 1,000 ml @ 1,000 mls/hr 1X ONCE 11/27/16 13:30 11/27/16 14:29 11/27/16 13:32 1,000 MLS/HR Allergies Allergies Allergies Coded Allergies Type Severity Reaction Last Updated Verified sulfamethoxazole Allergy Intermediate 10/07/16 Yes trimethoprim Allergy Intermediate 10/07/16 Yes iodine Adverse Reaction Severe 11/24/16 Yes Physical Exam Physical Exam Constitutional: non-toxic appearance, obese, chronically ill appearing. [] HENT: Normocephalic, atraumatic, bilateral external ears normal, oropharynx moist, no oral exudates, nose normal. [] Eyes: PERRLA, EOMI, conjunctiva normal, no discharge. [] Neck: Normal range of motion, no tenderness, supple, no stridor. [] Cardiovascular:Heart rate regular rhythm, no murmur [] Lungs & Thorax: Bilateral breath sounds clear to auscultation [] Abdomen: Bowel sounds normal, soft, no tenderness, no masses, no pulsatile masses. [] Skin: Warm, dry, no erythema, no rash. [] Back: No tenderness, no CVA tenderness. [] Extremities: No tenderness, no cyanosis, no clubbing, ROM intact, no edema. [] Neurologic: Alert and oriented X 3, normal motor function, normal sensory function, no focal deficits noted. [] Current Patient Data Vital Signs Vital Signs Date Time Temp Pulse Resp B/P (MAP) Pulse Ox O2 Delivery O2 Flow Rate FiO2 11/27/16 12:53 98.4 83 26 112/53 (72) 94 Nasal Cannula 4.0 98.4 Lab Values Laboratory Tests Test 11/27/16 13:15 11/27/16 13:38 White Blood Count 16.1 x10^3/uL (4.0-11.0) H Red Blood Count 4.87 x10^6/uL (3.50-5.40) Hemoglobin 12.0 g/dL (12.0-15.5) Hematocrit 38.5 % (36.0-47.0) Mean Corpuscular Volume 79 fL (79-100) Mean Corpuscular Hemoglobin 25 pg (25-35) Mean Corpuscular Hemoglobin Concent 31 g/dL (31-37) Red Cell Distribution Width 19.1 % (11.5-14.5) H Platelet Count 276 x10^3/uL (140-400) Neutrophils (%) (Auto) 82 % (31-73) H Lymphocytes (%) (Auto) 12 % (24-48) L Monocytes (%) (Auto) 6 % (0-9) Eosinophils (%) (Auto) 1 % (0-3) Basophils (%) (Auto) 0 % (0-3) Neutrophils # (Auto) 13.2 x10^3uL (1.8-7.7) H Lymphocytes # (Auto) 1.8 x10^3/uL (1.0-4.8) Monocytes # (Auto) 0.9 x10^3/uL (0.0-1.1) Eosinophils # (Auto) 0.1 x10^3/uL (0.0-0.7) Basophils # (Auto) 0.1 x10^3/uL (0.0-0.2) Platelet Estimate Pending Prothrombin Time 15.7 SEC (11.7-14.0) H Prothrombin Time INR 1.3 (0.8-1.1) H PTT 39 SEC (24-38) H Sodium Level 132 mmol/L (136-145) L Potassium Level 5.4 mmol/L (3.5-5.1) H Chloride Level 90 mmol/L (98-107) L Carbon Dioxide Level 37 mmol/L (21-32) H Anion Gap 5 (6-14) L Blood Urea Nitrogen 97 mg/dL (7-20) H Creatinine 2.7 mg/dL (0.6-1.0) H Estimated GFR (Cockcroft-Gault) 18.7 BUN/Creatinine Ratio 36 (6-20) H Glucose Level 110 mg/dL (70-99) H Calcium Level 9.8 mg/dL (8.5-10.1) Magnesium Level 3.2 mg/dL (1.8-2.4) H Total Bilirubin 0.7 mg/dL (0.2-1.0) Aspartate Amino Transferase (AST) 14 U/L (15-37) L Alanine Aminotransferase (ALT) 23 U/L (14-59) Alkaline Phosphatase 72 U/L (46-116) Creatine Kinase 51 U/L (26-192) Troponin I Quantitative < 0.017 ng/mL (0.000-0.055) XJ-Ton-C-Type Natriuretic Peptide 47 pg/mL (0-124) Total Protein 7.1 g/dL (6.4-8.2) Albumin 3.6 g/dL (3.4-5.0) Albumin/Globulin Ratio 1.0 (1.0-1.7) Lipase 208 U/L (73-393) Urine Collection Type U cath Urine Color Yellow Urine Clarity Clear Urine pH 5.0 Urine Specific [place] 1.015 Urine Protein Negative mg/dL (NEG-TRACE) Urine Glucose (UA) Negative mg/dL (NEG) Urine Ketones (Stick) Negative mg/dL (NEG) Urine Blood Negative (NEG) Urine Nitrite Negative (NEG) Urine Bilirubin Negative (NEG) Urine Urobilinogen Dipstick 0.2 mg/dL (0.2 mg/dL) Urine Leukocyte Esterase Negative (NEG) Urine RBC 0 /HPF (0-2) Urine WBC Occ /HPF (0-4) Urine Squamous Epithelial Cells Few /LPF Urine Amorphous Sediment Present /HPF Urine Bacteria Few /HPF (0-FEW) Urine Hyaline Casts Many /HPF Urine Mucus Marked /LPF Laboratory Tests 11/27/16 13:15 Laboratory Tests 11/27/16 13:15 EKG EKG Sinus rhythm at 77 bpm with normal axis no obvious ST elevation or depression and normal T waves. Radiology/Procedures Radiology/Procedures AP portable chest. History: Short of air, history of back surgery, back pain AP view was taken of the chest. Lungs are clear. Heart is normal in size. Left pacemaker is unchanged. There is a granuloma on the left. There is no effusion. Impression: 1. No acute chest disease. DICTATED and SIGNED BY: SCOTT CONNER MD DATE: 11/27/161132 Course & Med Decision Making Course & Med Decision Making Patient with confusion and multiple complaints including chest pain shortness of breath nausea vomiting and back pain. Labs abnormal at outside facility but EKG is normal here. Will repeat labs give fluids bicarbonate and reassess. Labs are consistent with what was done at the [facility]. Etiology is unclear as it could be obstructive versus medication etiology. We'll order a renal ultrasound hold her lisinopril gabapentin Lasix potassium and metformin. I spoke to Dr. Jiménez and he agreed with admission with repeat labs in the morning along with PT OT and nephrology consultation. Patient's vital signs are normal here and she is nontoxic so she'll be admitted in stable condition to [facility] telemetry. Of note patient did get steroid injection in her back last week so will not treat with empiric and about at this time as there is no obvious infectious source. Dragon Disclaimer Dragon Disclaimer This electronic medical record was generated, in whole or in part, using a voice recognition dictation system. Departure Departure Impression: Primary Impression: SELVIN (acute kidney injury) Additional Impressions: Uremia Hyperkalemia Leukocytosis Disposition: ADMITTED INPATIENT Admitting Physician: Humberto Jiménez Condition: STABLE Referrals: VIJAY PAIZ (PCP) Problem Qualifiers CHARLA RIVERA DO Nov 27, 2016 13:16
[2016-11-27 13:28] LABS: BASO # 0.1 x10^3/uL (0.0-0.2); BASO % 0 % (0-3); EOS % 1 % (0-3); HEMATOCRIT 38.5 % (36.0-47.0); LYMPH # 1.8 x10^3/uL (1.0-4.8); LYMPH % 12 % (24-48); MEAN CORPUSCULAR HEMOGLOBIN 25 pg (25-35); MEAN CORPUSCULAR HGB CONC 31 g/dL (31-37); MEAN CORPUSCULAR VOLUME 79 fL (79-100); MONO % 6 % (0-9); NEUT % 82 % (31-73); PLATELET COUNT 276 x10^3/uL (140-400); RED BLOOD COUNT 4.87 x10^6/uL (3.50-5.40); RED CELL DISTRIBUTION WIDTH 19.1 % (11.5-14.5); WHITE BLOOD COUNT 16.1 x10^3/uL (4.0-11.0)
[2016-11-27] MEDS ORDERED: IV NORMAL SALINE 1000ML BAG 1,000 ML IV ONE (13:30)
[2016-11-27] MEDS ORDERED: ONDANSETRON PF 4 MG/2 ML VIAL. IV ONE (13:30)
--- NOTE | 2016-11-27 13:36 | RAD ---
AP portable chest. History: Short of air, history of back surgery, back pain AP view was taken of the chest. Lungs are clear. Heart is normal in size. Left pacemaker is unchanged. There is a granuloma on the left. There is no effusion. Impression: 1. No acute chest disease.
[2016-11-27 13:37] LABS: INR 1.3 (0.8-1.1); PROTHROMBIN TIME PATIENT 15.7 SEC (11.7-14.0)
[2016-11-27 13:38] LABS: CALCIUM 9.8 mg/dL (8.5-10.1); CREATININE 2.7 mg/dL (0.6-1.0); GFR 18.7; POTASSIUM 5.4 mmol/L (3.5-5.1)
[2016-11-27 13:44] LABS: ALBUMIN 3.6 g/dL (3.4-5.0); MAGNESIUM 3.2 mg/dL (1.8-2.4); TOTAL BILIRUBIN 0.7 mg/dL (0.2-1.0); TOTAL PROTEIN 7.1 g/dL (6.4-8.2)
[2016-11-27] MEDS ORDERED: SODIUM BICARB ADULT 8.4% 50 MEQ/50 ML DISP.SYRIN. IV ONE (13:45)
[2016-11-27 13:52] LABS: BILIRUBIN,URINE NEGATIVE (NEG); GLUCOSE,URINE NEGATIVE (NEG); NITRITE,URINE NEGATIVE (NEG); PROTEIN,URINE NEGATIVE (NEG-TRACE); UROBILINOGEN,URINE 0.2 mg/dL (0.2 mg/dL)
[2016-11-27] MEDS ORDERED: DEXTROSE 50% 25 GM / 50ML DISP.SYRIN. IV PRN (14:00)
[2016-11-27] MEDS ORDERED: ONDANSETRON PF 4 MG/2 ML VIAL. IV PRN (14:00)
[2016-11-27 14:03] LABS: BACTERIA,URINE FEW /HPF (0-FEW); RBC,URINE 0 /HPF (0-2); SQUAMOUS EPITHELIAL CELL,UR FEW /LPF; WBC,URINE OCC /HPF (0-4)
[2016-11-27 14:32] LABS: ANISOCYTOSIS SLIGHT; HYPOCHROMIA SLIGHT; MICROCYTOSIS SLIGHT; PLT ESTIMATE ADEQUATE (ADEQUATE)
--- NOTE | 2016-11-27 14:50 | RAD ---
Renal ultrasound complete. History: Acute kidney injury, SELVIN Ultrasound was used to evaluate the kidneys and bladder. Kidneys are poorly evaluated. Right kidney is approximately 12 cm in length. There is no gross hydronephrosis and the right kidney but the right kidney is poorly seen. Left kidney is 12.3 cm in length. There is no left hydronephrosis. Bladder is distended Impression: 1. Limited study. 2. No hydronephrosis. 3. Distended bladder.
[2016-11-27] MEDS: IV NORMAL SALINE 1000ML BAG 1,000 ML IV SCH (15:13)
[2016-11-27] MEDS ORDERED: ALBUTEROL SULFATE 2.5 MG/3 ML NEBU. NEB PRN (16:15)
[2016-11-27 16:29] LABS: HCO3 ABG 36 mmol/L (21-28); PH ABG 7.34 (7.35-7.45); PO2 ABG 95 mmHg (75-108); SAT O2 ABG 97 % (92-99)
[2016-11-27 16:35] VITALS: BP 112/61
[2016-11-27] MEDS ORDERED: RIVAROXABAN 10 MG TABLET. PO SCH (17:00)
[2016-11-27] MEDS ORDERED: INSULIN ASPART 300 UNITS/3 ML INSULN.PEN SQ SCH (17:00)
[2016-11-27 17:11] LABS: PCO2 ABG 68 mmHg (35-46)
[2016-11-27 17:12] LABS: FIO2 ABG 36
--- NOTE | 2016-11-27 17:17 | EKG ---
[facility] [address] [place] [address] Test Date: 2016-11-27 Test Time: 12:59:47 Pat Name: VIJAY SYKES Department: Room: Gender: F Core Shaper: : 1965 Requested By: CHARLA RIVERA Order Number: [id number] Reading MD: Measurements Intervals [place] Rate: 77 P: 0 KS: 186 QRS: 41 QRSD: 96 T: 10 QT: 336 QTc: 382 Interpretive Statements SINUS RHYTHM RI6.01 Unconfirmed report No previous ECG available for comparison
--- NOTE | 2016-11-27 18:39 | RAD ---
CT Head W/O Contrast: History: CONFUSION. PREVIOUS 01/27/2015. Comparison: January 27, 2015 Axial images were obtained without contrast. The ruiz and white matter appears normal and symmetrical for the patients age. There is no mass effect, extraaxial fluid collections or hydrocephalus. There is no gross bleed. There is no focal loss of ruiz-white matter distinction to suggest acute ischemia, i.e. stroke. There is a small focus of air within the anterior horn of the right lateral ventricle. Impression: Small focus of air within the right lateral ventricles is of uncertain significance. Otherwise no acute findings. RS Compliance Statement: One or more of the following individualized dose reduction techniques were utilized for this examination: 1. Automated exposure control 2. Adjustment of the mA and/or kV according to patient size 3. Use of iterative reconstruction technique Electronically signed by: Bry Reynoso III, MD (11/27/2016 6:36 PM) [facility]
[2016-11-27 19:44] VITALS: BP 114/49
[2016-11-27] MEDS ORDERED: RIVAROXABAN 15 MG TABLET. PO SCH (19:45)
[2016-11-27] MEDS: ALBUTEROL SULFATE 2.5 MG/3 ML NEBU. NEB SCH (20:13)
[2016-11-27] MEDS: BUDESONIDE 0.5 MG/2 ML NEBU. NEB SCH (20:13)
[2016-11-27] MEDS ORDERED: NON FORMULARY ITEM (Fluticasone/Salmeterol (Advair 500-50 Diskus) 1 INH) IH SCH (21:00)
[2016-11-27] MEDS ORDERED: oxyCODONE ER 10 MG TAB.ER.12H PO SCH (21:00)
[2016-11-27] MEDS: ATORVASTATIN CALCIUM 10 MG TABLET. PO SCH (21:24)
[2016-11-27 22:27] VITALS: BP 106/46
[2016-11-28] MEDS: IV NORMAL SALINE 1000ML BAG 1,000 ML IV SCH ×3 (01:07→14:41)
[2016-11-28 02:50] VITALS: BP 101/40
[2016-11-28 05:13] LABS: BASO % 0 % (0-3); EOS % 1 % (0-3); HEMATOCRIT 35.6 % (36.0-47.0); HEMOGLOBIN 11.3 g/dL (12.0-15.5); LYMPH # 1.4 x10^3/uL (1.0-4.8); LYMPH % 17 % (24-48); MEAN CORPUSCULAR HEMOGLOBIN 25 pg (25-35); MEAN CORPUSCULAR HGB CONC 32 g/dL (31-37); MEAN CORPUSCULAR VOLUME 79 fL (79-100); MONO % 6 % (0-9); NEUT % 76 % (31-73); PLATELET COUNT 221 x10^3/uL (140-400); RED BLOOD COUNT 4.48 x10^6/uL (3.50-5.40); RED CELL DISTRIBUTION WIDTH 19.4 % (11.5-14.5); WHITE BLOOD COUNT 8.6 x10^3/uL (4.0-11.0)
[2016-11-28 06:09] LABS: ALBUMIN 3.1 g/dL (3.4-5.0); ALBUMIN/GLOBULIN RATIO 0.8 (1.0-1.7); CALCIUM 9.1 mg/dL (8.5-10.1); CREATININE 1.8 mg/dL (0.6-1.0); GFR 29.8; POTASSIUM 5.3 mmol/L (3.5-5.1); TOTAL BILIRUBIN 0.6 mg/dL (0.2-1.0); TOTAL PROTEIN 6.8 g/dL (6.4-8.2)
[2016-11-28 07:00] VITALS: BP 106/56
[2016-11-28] MEDS: ANTI-COAG MONITOR BY PHARMACY. MC PRN (08:35)
--- NOTE | 2016-11-28 08:46 | PDOC ---
Provider Note Provider Note history and physical dictated # [id number] SUJIT SAUNDERS MD Nov 28, 2016 08:46
[2016-11-28] MEDS: ALBUTEROL SULFATE 2.5 MG/3 ML NEBU. NEB SCH ×4 (08:53→19:25)
[2016-11-28] MEDS: BUDESONIDE 0.5 MG/2 ML NEBU. NEB SCH ×2 (08:53→19:25)
[2016-11-28] MEDS ORDERED: SODIUM POLYSTYRENE SULFONATE 15 GM/60 ML ORAL.SUSP. PO ONE (09:00)
[2016-11-28] MEDS: SENNOSIDES/DOCUSATE 8.6/50MG TABLET. PO SCH (09:00)
[2016-11-28 09:16] LABS: HCO3 ABG 37 mmol/L (21-28); PH ABG 7.37 (7.35-7.45); PO2 ABG 78 mmHg (75-108); SAT O2 ABG 95 % (92-99)
[2016-11-28 09:20] LABS: FIO2 ABG 30; PCO2 ABG 66 mmHg (35-46)
--- NOTE | 2016-11-28 09:57 | HP ---
ADMIT DATE: 11/27/2016 DATE OF SERVICE: 11/27/2016 PATIENT LOCATION: Room #204 HISTORY OF PRESENT ILLNESS: The patient is a 51-year-old white female with super morbid obesity with BMI of 67, who has paroxysmal atrial fibrillation treated with Xarelto, diabetes mellitus type 2, hypertension, hyperlipidemia, chronic obstructive pulmonary disease, on nocturnal oxygen at home 2 liters per nasal cannula, has a history of chronic low back pain, but notes increasing low back pain for the last 9 months, received lumbar epidural steroid injection 9 weeks ago and 3 weeks ago and about less than a week ago. She was admitted to [facility] on 11/17/2016 with intractable low back pain, left-sided lumbar radiculopathy and a CAT scan of the lumbar spine showed that she had an L4-L5 herniated disk and the neurosurgeon recommended surgery, but she was not a good surgical candidate due to her morbid obesity and she was treated medically and was admitted to [facility] on 11/26/2016 for comprehensive therapy and water therapy. The patient's labs returned and her BUN was 98 with a creatinine of 2.86, sodium 129, potassium, I believe, of around 6.4. She was sent to the [facility] Emergency Room where once again she was noted to be in acute kidney injury with hyponatremia and hyperkalemia. She did receive Kayexalate while she was at [facility]. Her laboratory test yesterday at [facility] showed a serum sodium of 132, potassium 5.4, chloride 90, total CO2 of 37, BUN 97, creatinine 2.7. She did have a bladder scan done and a Aleman catheter was placed and she had 1.4 liters of urine drained from her bladder. Aleman catheter was maintained. She was admitted to the hospital for acute kidney injury and started on IV normal saline at 125 mL an hour. Renal ultrasound showed no evidence of hydronephrosis. She did have some leukocytosis, presumably secondary to a recent lumbar epidural steroid injection and white count this morning is normal. Chest x-ray was unremarkable. She did have a metabolic encephalopathy and had a CAT scan of the head done, which showed no bleed or acute abnormality. She did have a small amount of air noted in the right lateral ventricle of uncertain etiology. The patient was noted to have acute hypoxic and hypercapnic respiratory failure with hypoxia and slightly low pH and elevated pCO2 and required BiPAP. Arterial blood gases yesterday showed a pH of 7.34, pCO2 of 68, pO2 of 95 on Fio2 of 36%. She currently is on BiPAP. She was on MS Contin and intermediate acting morphine before she came to [facility] and that was changed to OxyContin and p.r.n. hydrocodone. Since she has been at this facility, the OxyContin was discontinued because of her acute kidney injury. It should be noted that she was on furosemide 80 mg p.o. daily and lisinopril 20 mg every day, which she apparently was taking prior to her hospital admissions. Those were discontinued. Also, she was taking metformin for diabetes mellitus and due to acute kidney injury that was discontinued as well as her gabapentin, which was at 300 mg b.i.d. Potassium chloride was at 20 mEq every day and that was discontinued due to hyperkalemia and acute kidney injury. Her Xarelto was decreased from 20 mg every day to 15 mg every day because of her acute kidney injury. The patient is admitted to the hospital as mentioned for the acute kidney injury, hyperkalemia, metabolic encephalopathy and acute hypoxic and hypercapnic respiratory failure. She has had a paced rhythm since she has been here. ALLERGIES AND INTOLERANCES: INCLUDE IODINE, SULFA AND TRIMETHOPRIM. MEDICATIONS: Prior to admission include DuoNeb nebulized treatments q.i.d., aspirin 81 mg everyday, atorvastatin 5 mg at bedtime, Dulcolax 10 mg everyday, budesonide nebulizer treatments b.i.d., Colace 100 mg every day, furosemide 80 mg every day, gabapentin 300 mg b.i.d., NovoLog insulin sliding scale before meals t.i.d.. I guess the lisinopril actually was 20 mg not 40 mg, 20 mg daily, Claritin 10 mg at bedtime, OxyContin 10 mg every 12 hours, Protonix 40 mg every day, potassium chloride 20 mEq every day, Xarelto 20 mg every day, [place] 10/325 one every 4 hours p.r.n. and Flexeril 10 mg every 8 hours p.r.n. PAST MEDICAL AND SURGICAL HISTORY: Significant for permanent pacemaker and hysterectomy. She has a history of paroxysmal atrial fibrillation treated with Xarelto. She had 3 lumbar epidural steroid injections in the last 9 months, last one being within the last week without benefit. She has a history of diabetes mellitus type 2, hypertension, hyperlipidemia, chronic obstructive pulmonary disease, uses oxygen 2 liters per nasal cannula at bedtime at home. She has a lumbar herniated disk with lumbar degenerative disk disease and intractable low back pain and has super morbid obesity with BMI of 67. SOCIAL HISTORY: She does not drink alcohol nor does she smoke cigarettes. She is . Uses a rolling walker at home. Has a cane also at home. FAMILY HISTORY: Noncontributory. REVIEW OF SYSTEMS: Quite difficult to obtain as she is quite sleepy and wearing a BiPAP at this time. PHYSICAL EXAMINATION: VITAL SIGNS: Temperature is 98.6 degrees, apical pulse 65 and regular rhythm, respiratory rate 20, blood pressure 101/40, oxygen saturation 94% on BiPAP. HEENT: Eyes are closed and then she opened them and she answers a few questions and then closed them again. Face is symmetrical. HEART: Reveals an S1, S2. There is no S3 or murmur. LUNGS: Clear anteriorly. She does have decreased breath sounds anteriorly. She had a pacemaker noted below the left clavicle. ABDOMEN: Obese and soft, nontender. GENITOURINARY: She had a Aleman catheter with yellow urine in the bag. EXTREMITIES: Lower extremities with trace edema. SKIN: No rashes. NEUROLOGIC: Quite sleepy, but arousable, answers a few questions. She is able to move her legs and able to dorsi and plantarflex and bend her knees and move her arms. SKIN: No rashes. LABORATORY DATA: White count was 16.1 yesterday, 8.6 today. It was 11.3 today with a platelet count 221,000, 76 polys and 17 lymphocytes. Arterial blood gases as stated above. INR was 1.3 with a PTT of 39. Yesterday, serum sodium was 132, potassium 5.4, chloride 90, total CO2 of 37, BUN 97, creatinine 2.7, blood sugar 110, magnesium was 3.2, calcium 9.8. Liver function tests were normal. Albumin 3.6, lipase was normal at 208. Her troponin level is negative x 1. ProBNP was 47. TSH level was normal. Today, the sodium is 134, potassium 4.3, chloride 97, total CO2 is 31, BUN 71, creatinine 1.8. Blood sugar 108 by fingerstick last night and today, the blood sugar is 97. Liver function tests were normal. Albumin 3.1. Urinalysis showed occasional white cells, no red blood cells. She did have a CAT scan of her head yesterday, which, as mentioned, showed a small focus of air in the right lateral ventricle of uncertain significance, otherwise unremarkable. She had limited ultrasound, which showed no hydronephrosis, but did show a distended bladder and then had a Aleman catheter placed. IMAGING: Chest x-ray showed no acute abnormality. Lungs were clear. She had an electrocardiogram done and the result, EKG showed a paced rhythm. ASSESSMENT: 1. Acute kidney injury. This could be secondary from her furosemide and also could be postrenal in addition to post-renal from urine retention. There was no hydronephrosis, however. Lisinopril also has been discontinued. 2. Hyperkalemia secondary to acute kidney injury. 3. Hyponatremia, which has improved. 4. Urine retention with Aleman catheter in place. 5. Metabolic encephalopathy. 6. Possible toxic encephalopathy from previous narcotics. 7. Diabetes mellitus type 2. 8. Chronic obstructive pulmonary disease. 9. Acute hypoxic and hypercapnic respiratory failure. 10. Paroxysmal atrial fibrillation. 11. Hyperlipidemia. 12. Super morbid obesity with a BMI of 67. 13. Lumbar herniated disk L4-L5 with left-sided radiculopathy and lumbar degenerative disk disease. PLAN: At this time is to consult Dr. Pandey for nephrology, consult Dr. Avelar for physical rehabilitation. We will consult Dr. Robles for Pulmonary. We will try to wean her off the BiPAP. We will decrease IV normal saline to 100 mL an hour. We will check a CBC and BMP tomorrow. Xarelto has been decreased to 15 mg every day and we will also order some physical and occupational therapy. We will continue with her albuterol nebulizer treatments and budesonide treatment. We will continue with a NovoLog insulin sliding scale. Hydrocodone has been decreased to 5 mg every 6 hours p.r.n. as her only analgesic. Also, continue with her Protonix. For her bowels, we will give her MiraLax and Senokot-S. The pharmacist will be adjusting the Xarelto. Apparently, the dose has been changed to 20 mg daily. SUJIT SAUNDERS MD DR: Ryan JOB#: [id number] / [id number]
--- NOTE | 2016-11-28 10:36 | PDOC2 ---
CONSULT Date of Consult Date of Consult DATE: 11/28/16 TIME: 10:30 Reason for Consult Reason for Consult: SELVIN Referring Physician Referring Physician: NICKY Identification/Chief Complaint Chief Complaint ABNORMAL LABS Problems: Source Source: Chart review, Patient History of Present Illness Reason for Visit: THIS IS A 51 YR OLD WITH ABNORMAL RENAL LABS. WAS HERE WITH BACK PROBLEMS DUE TO L 4 TO 5 DISC HERNIATION. WAS DEEMED TO NOT BE A SURGICAL CANDIDATE. SHE WAS THEN SENT TO [facility] FOR THERAPY. SHE STATES THAT SHE HAS NOT BEEN EATING ANYTHING FOR ABOUT 4 DAYS. ALSO STATED THAT HER UO HAS BEEN POOR. A BARNEY PLACED YIELDED ABOUT 1.4 LITERS OF URINE. SONO WAS NEG FOR HYDRONEPHROSIS. CR IS 2.7 WITH A NA OF 132 AND K OF 5.4. UA IS NEG. 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 TO 5 DISC HERNIATION) Endocrine: Diabetes Past Surgical History Past Surgical History: Hysterectomy, Other Family History Family History: No Significant, Family History Unknown Social History ALCOHOL: none Drugs: None Lives: with Family Current Problem List Problem List Problems Medical Problems: (1) SELVIN (acute kidney injury) Status: Acute (2) Hyperkalemia Status: Acute (3) Leukocytosis Status: Acute (4) Uremia Status: Acute Current Medications Current Medications Current Medications Sodium Chloride 1,000 ml @ 1,000 mls/hr 1X ONCE IV Last administered on 13:32; Start 11/27/16 at 13:30; Stop 11/27/16 at 14:29; Status DC Ondansetron HCl (Zofran) 8 mg 1X ONCE IV Last administered on 11/27/16 13:33 ; Start 11/27/16 at 13:30; Stop 11/27/16 at 13:31; Status DC Sodium Bicarbonate 50 meq 1X ONCE IV Last administered on 11/27/16 13:53; Start 11/27/16 at 13:45; Stop 11/27/16 at 14:00; Status DC Ondansetron HCl (Zofran) 4 mg PRN Q8HRS PRN IV NAUSEA/VOMITING; Start 11/27/16 at 14:00; Stop 11/28/16 at 13:59 Sodium Chloride 1,000 ml @ 125 mls/hr Q8H IV Last administered on 11/28/16 01 :07; Start 11/27/16 at 14:30; Stop 11/28/16 at 08:29; Status DC Rivaroxaban (Xarelto) 20 mg DAILYWSUP PO ; Start 11/27/16 at 17:00; Stop at 19:31; Status DC Oxycodone HCl (OxyCONTIN) 10 mg Q12HR PO ; Start 11/27/16 at 21:00; Stop at 21:00; Status DC Acetaminophen/ Hydrocodone Bitart (Lortab 5/325) 1 tab PRN Q6HRS PRN PO PAIN; Start 11/27/16 at 14:00 Insulin Aspart (NovoLOG) 0-9 UNITS TIDWMEALS SQ ; Start 11/27/16 at 17:00; Stop 11/28/16 at 08:26; Status DC Dextrose (Dextrose 50%-Water Syringe) 12.5 gm PRN Q15MIN PRN IV SEE COMMENTS; Start 11/27/16 at 14:00 Albuterol Sulfate (Ventolin Neb Soln) 2.5 mg PRN Q4HRS PRN NEB SHORTNESS OF BREATH; Start 11/27/16 at 16:15 Aspirin (Ecotrin) 81 mg DAILY PO ; Start 11/28/16 at 09:00 Cetirizine HCl (ZyrTEC) 10 mg DAILY PO ; Start 11/28/16 at 09:00 Pantoprazole Sodium (Protonix) 40 mg DAILYAC PO ; Start 11/28/16 at 07:30 Non-Formulary Medication 1 inh BID IH ; Start 11/27/16 at 21:00; Status UNV Budesonide (Pulmicort) 0.5 mg RTBID NEB Last administered on 11/28/16 08:53; Start 11/27/16 at 20:00 Albuterol Sulfate (Ventolin Neb Soln) 2.5 mg RTQID NEB Last administered on 08:53; Start 11/27/16 at 20:00 Atorvastatin Calcium (Lipitor) 10 mg QHS PO Last administered on 11/27/16 21: 24; Start 11/27/16 at 21:00 Cyclobenzaprine HCl (Flexeril) 10 mg PRN Q8HRS PRN PO MUSCLE SPASMS; Start 11/27/16 at 16:30 Info (Anti-Coagulation Monitoring By Pharmacy) 1 each PRN DAILY PRN MC SEE COMMENTS Last administered on 11/28/16 08:35; Start 11/27/16 at 19:30 Rivaroxaban (Xarelto) 15 mg DAILYWSUP PO Last administered on 11/27/16 21:24; Start 11/27/16 at 19:45; Stop 11/28/16 at 08:34; Status DC Insulin Aspart (NovoLOG) 0-9 UNITS TIDWMEALS SQ ; Start 11/28/16 at 12:00 Acetaminophen (Tylenol) 325 mg PRN Q6HRS PRN PO MILD PAIN / TEMP; Start at 08:30 Sodium Chloride 1,000 ml @ 100 mls/hr Q10H IV ; Start 11/28/16 at 09:00 Senna/Docusate Sodium (Senna Plus) 2 tab DAILY PO ; Start 11/28/16 at 09:00 Polyethylene Glycol (miraLAX PACKET) 17 gm DAILY PO ; Start 11/28/16 at 09:00 Sodium Polystyrene Sulfonate (Kayexalate) 15 gm 1X ONCE PO ; Start 11/28/16 at 09:00; Stop 11/28/16 at 09:01; Status DC Rivaroxaban (Xarelto) 20 mg DAILYWSUP PO ; Start 11/28/16 at 17:00 Active Scripts Active Briscoe 5-325 Tablet (Acetaminophen/Hydrocodone Bitart) 1 Each Tablet 1-2 Tab PO Q4-6HRS Cyclobenzaprine Hcl 10 Mg Tablet 1 Tab PO TID Reported Combivent Respimat Inhal (Ipratropium/Albuterol Sulfate) 4 Gm Aer.w.adap 2 Inh IH QID Zyrtec (Cetirizine Hcl) 10 Mg Tablet 1 Tab PO DAILY Lisinopril 20 Mg Tablet 1 Tab PO DAILY Tramadol Hcl 50 Mg Tablet 50 Mg PO Q6H PRN Aspir 81 (Aspirin) 81 Mg Tablet.dr 1 Tab PO DAILY Albuterol Sulfate Neb Soln (Albuterol Sulfate) 2.5 Mg/3 Ml Vial.neb 2.5 Mg NEB Q4HRS PRN Xarelto (Rivaroxaban) 10 Mg Tablet 20 Mg PO QHS Advair 500-50 Diskus (Fluticasone/Salmeterol) 1 Each Disk.w.dev 1 Inh IH BID Metformin Hcl Er (Metformin Hcl) 500 Mg Tab.er.24h 500 Mg PO DAILYWBKFT Potassium Chloride 20 Meq Tab.er.prt 20 Meq PO DAILY Lovastatin 20 Mg Tablet 20 PO QHS Pantoprazole Sodium 40 Mg Tablet.dr 40 Mg PO DAILYAC Toprol Xl (Metoprolol Succinate) 50 Mg Tab.er.24h 50 Mg PO QHS Gabapentin 300 Mg Capsule 300 Mg PO BID Furosemide 80 Mg Tablet 80 Mg PO DAILY Allergies Allergies: Coded Allergies: sulfamethoxazole (Verified Allergy, Intermediate, 10/07/16) trimethoprim (Verified Allergy, Intermediate, 10/07/16) iodine (Verified Adverse Reaction, Severe, 11/24/16) ROS General: YES: Fatigue, Appetite PSYCHOLOGICAL ROS: YES: Anxiety Eyes: Yes Decreased vision HEENT: YES: Heacaches Respiratory: YES: Cough, Shortness of breath Cardiovascular: yes Edema Gastrointestinal: Yes Constipation Genitourinary: YES Incontinence, YES Retention Musculoskeletal: Yes Muscular Weakness Neurological: Yes Weakness Skin: Yes Dry Skin Physical Exam General: Alert, Oriented X3, Cooperative, No acute distress HEENT: Atraumatic, PERRLA Lungs: Other (FEW WHEEZES AND DECREASED AT BASES) Heart: Regular rate Abdomen: Normal bowel sounds, Soft Extremities: No clubbing Skin: No rashes Neuro: Normal speech, Cranial nerves 3-12 NL Psych/Mental Status: Mood NL MUSCULOSKELETAL: No deformity, No swelling Vitals VITALS Vital Signs Date Time Temp Pulse Resp B/P (MAP) Pulse Ox O2 Delivery O2 Flow Rate FiO2 11/28/16 08:54 94 BiPAP/CPAP 11/28/16 07:00 97.8 64 23 106/56 (73) 97.8 11/27/16 16:53 3.0 Labs Labs Laboratory Tests Test 11/27/16 13:15 11/27/16 13:38 11/27/16 16:07 11/27/16 21:04 White Blood Count 16.1 x10^3/uL (4.0-11.0) Red Blood Count 4.87 x10^6/uL (3.50-5.40) Hemoglobin 12.0 g/dL (12.0-15.5) Hematocrit 38.5 % (36.0-47.0) Mean Corpuscular Volume 79 fL (79-100) Mean Corpuscular Hemoglobin 25 pg (25-35) Mean Corpuscular Hemoglobin Concent 31 g/dL (31-37) Red Cell Distribution Width 19.1 % (11.5-14.5) Platelet Count 276 x10^3/uL (140-400) Neutrophils (%) (Auto) 82 % (31-73) Lymphocytes (%) (Auto) 12 % (24-48) Monocytes (%) (Auto) 6 % (0-9) Eosinophils (%) (Auto) 1 % (0-3) Basophils (%) (Auto) 0 % (0-3) Neutrophils # (Auto) 13.2 x10^3uL (1.8-7.7) Lymphocytes # (Auto) 1.8 x10^3/uL (1.0-4.8) Monocytes # (Auto) 0.9 x10^3/uL (0.0-1.1) Eosinophils # (Auto) 0.1 x10^3/uL (0.0-0.7) Basophils # (Auto) 0.1 x10^3/uL (0.0-0.2) Segmented Neutrophils % 84 % (35-66) Band Neutrophils % 4 % (0-9) Lymphocytes % 8 % (24-48) Monocytes % 4 % (0-10) Platelet Estimate Adequate (ADEQUATE) Hypochromasia Slight Anisocytosis Slight Microcytosis Slight Prothrombin Time 15.7 SEC (11.7-14.0) Prothromb Time International Ratio 1.3 (0.8-1.1) Activated Partial Thromboplast Time 39 SEC (24-38) Sodium Level 132 mmol/L (136-145) Potassium Level 5.4 mmol/L (3.5-5.1) Chloride Level 90 mmol/L (98-107) Carbon Dioxide Level 37 mmol/L (21-32) Anion Gap 5 (6-14) Blood Urea Nitrogen 97 mg/dL (7-20) Creatinine 2.7 mg/dL (0.6-1.0) Estimated GFR (Cockcroft-Gault) 18.7 BUN/Creatinine Ratio 36 (6-20) Glucose Level 110 mg/dL (70-99) Calcium Level 9.8 mg/dL (8.5-10.1) Magnesium Level 3.2 mg/dL (1.8-2.4) Total Bilirubin 0.7 mg/dL (0.2-1.0) Aspartate Amino Transf (AST/SGOT) 14 U/L (15-37) Alanine Aminotransferase (ALT/SGPT) 23 U/L (14-59) Alkaline Phosphatase 72 U/L (46-116) Creatine Kinase 51 U/L (26-192) Troponin I Quantitative < 0.017 ng/mL (0.000-0.055) SP-Iuq-D-Type Natriuretic Peptide 47 pg/mL (0-124) Total Protein 7.1 g/dL (6.4-8.2) Albumin 3.6 g/dL (3.4-5.0) Albumin/Globulin Ratio 1.0 (1.0-1.7) Lipase 208 U/L (73-393) Thyroid Stimulating Hormone (TSH) 1.242 uIU/mL (0.358-3.74) Urine Collection Type U cath Urine Color Yellow Urine Clarity Clear Urine pH 5.0 Urine Specific [place] 1.015 Urine Protein Negative mg/dL (NEG-TRACE) Urine Glucose (UA) Negative mg/dL (NEG) Urine Ketones (Stick) Negative mg/dL (NEG) Urine Blood Negative (NEG) Urine Nitrite Negative (NEG) Urine Bilirubin Negative (NEG) Urine Urobilinogen Dipstick 0.2 mg/dL (0.2 mg/dL) Urine Leukocyte Esterase Negative (NEG) Urine RBC 0 /HPF (0-2) Urine WBC Occ /HPF (0-4) Urine Squamous Epithelial Cells Few /LPF Urine Amorphous Sediment Present /HPF Urine Bacteria Few /HPF (0-FEW) Urine Hyaline Casts Many /HPF Urine Mucus Marked /LPF O2 Saturation 97 % (92-99) Arterial Blood pH 7.34 (7.35-7.45) Arterial Blood pCO2 at Patient Temp 68 mmHg (35-46) Arterial Blood pO2 at Patient Temp 95 mmHg (75-108) Arterial Blood HCO3 36 mmol/L (21-28) Arterial Blood Base Excess 8 mmol/L (-3-3) FiO2 36 Glucose (Fingerstick) 108 mg/dL (70-99) Test 11/28/16 04:50 11/28/16 08:48 White Blood Count 8.6 x10^3/uL (4.0-11.0) Red Blood Count 4.48 x10^6/uL (3.50-5.40) Hemoglobin 11.3 g/dL (12.0-15.5) Hematocrit 35.6 % (36.0-47.0) Mean Corpuscular Volume 79 fL (79-100) Mean Corpuscular Hemoglobin 25 pg (25-35) Mean Corpuscular Hemoglobin Concent 32 g/dL (31-37) Red Cell Distribution Width 19.4 % (11.5-14.5) Platelet Count 221 x10^3/uL (140-400) Neutrophils (%) (Auto) 76 % (31-73) Lymphocytes (%) (Auto) 17 % (24-48) Monocytes (%) (Auto) 6 % (0-9) Eosinophils (%) (Auto) 1 % (0-3) Basophils (%) (Auto) 0 % (0-3) Neutrophils # (Auto) 6.5 x10^3uL (1.8-7.7) Lymphocytes # (Auto) 1.4 x10^3/uL (1.0-4.8) Monocytes # (Auto) 0.5 x10^3/uL (0.0-1.1) Eosinophils # (Auto) 0.1 x10^3/uL (0.0-0.7) Basophils # (Auto) 0.0 x10^3/uL (0.0-0.2) Sodium Level 134 mmol/L (136-145) Potassium Level 5.3 mmol/L (3.5-5.1) Chloride Level 97 mmol/L (98-107) Carbon Dioxide Level 31 mmol/L (21-32) Anion Gap 6 (6-14) Blood Urea Nitrogen 71 mg/dL (7-20) Creatinine 1.8 mg/dL (0.6-1.0) Estimated GFR (Cockcroft-Gault) 29.8 BUN/Creatinine Ratio 39 (6-20) Glucose Level 97 mg/dL (70-99) Calcium Level 9.1 mg/dL (8.5-10.1) Total Bilirubin 0.6 mg/dL (0.2-1.0) Aspartate Amino Transf (AST/SGOT) 19 U/L (15-37) Alanine Aminotransferase (ALT/SGPT) 17 U/L (14-59) Alkaline Phosphatase 64 U/L (46-116) Total Protein 6.8 g/dL (6.4-8.2) Albumin 3.1 g/dL (3.4-5.0) Albumin/Globulin Ratio 0.8 (1.0-1.7) O2 Saturation 95 % (92-99) Arterial Blood pH 7.37 (7.35-7.45) Arterial Blood pCO2 at Patient Temp 66 mmHg (35-46) Arterial Blood pO2 at Patient Temp 78 mmHg (75-108) Arterial Blood HCO3 37 mmol/L (21-28) Arterial Blood Base Excess 10 mmol/L (-3-3) FiO2 30 Laboratory Tests Test 11/27/16 13:15 11/27/16 13:38 11/27/16 16:07 11/27/16 21:04 White Blood Count 16.1 x10^3/uL (4.0-11.0) Red Blood Count 4.87 x10^6/uL (3.50-5.40) Hemoglobin 12.0 g/dL (12.0-15.5) Hematocrit 38.5 % (36.0-47.0) Mean Corpuscular Volume 79 fL (79-100) Mean Corpuscular Hemoglobin 25 pg (25-35) Mean Corpuscular Hemoglobin Concent 31 g/dL (31-37) Red Cell Distribution Width 19.1 % (11.5-14.5) Platelet Count 276 x10^3/uL (140-400) Neutrophils (%) (Auto) 82 % (31-73) Lymphocytes (%) (Auto) 12 % (24-48) Monocytes (%) (Auto) 6 % (0-9) Eosinophils (%) (Auto) 1 % (0-3) Basophils (%) (Auto) 0 % (0-3) Neutrophils # (Auto) 13.2 x10^3uL (1.8-7.7) Lymphocytes # (Auto) 1.8 x10^3/uL (1.0-4.8) Monocytes # (Auto) 0.9 x10^3/uL (0.0-1.1) Eosinophils # (Auto) 0.1 x10^3/uL (0.0-0.7) Basophils # (Auto) 0.1 x10^3/uL (0.0-0.2) Segmented Neutrophils % 84 % (35-66) Band Neutrophils % 4 % (0-9) Lymphocytes % 8 % (24-48) Monocytes % 4 % (0-10) Platelet Estimate Adequate (ADEQUATE) Hypochromasia Slight Anisocytosis Slight Microcytosis Slight Prothrombin Time 15.7 SEC (11.7-14.0) Prothromb Time International Ratio 1.3 (0.8-1.1) Activated Partial Thromboplast Time 39 SEC (24-38) Sodium Level 132 mmol/L (136-145) Potassium Level 5.4 mmol/L (3.5-5.1) Chloride Level 90 mmol/L (98-107) Carbon Dioxide Level 37 mmol/L (21-32) Anion Gap 5 (6-14) Blood Urea Nitrogen 97 mg/dL (7-20) Creatinine 2.7 mg/dL (0.6-1.0) Estimated GFR (Cockcroft-Gault) 18.7 BUN/Creatinine Ratio 36 (6-20) Glucose Level 110 mg/dL (70-99) Calcium Level 9.8 mg/dL (8.5-10.1) Magnesium Level 3.2 mg/dL (1.8-2.4) Total Bilirubin 0.7 mg/dL (0.2-1.0) Aspartate Amino Transf (AST/SGOT) 14 U/L (15-37) Alanine Aminotransferase (ALT/SGPT) 23 U/L (14-59) Alkaline Phosphatase 72 U/L (46-116) Creatine Kinase 51 U/L (26-192) Troponin I Quantitative < 0.017 ng/mL (0.000-0.055) EN-Yfp-K-Type Natriuretic Peptide 47 pg/mL (0-124) Total Protein 7.1 g/dL (6.4-8.2) Albumin 3.6 g/dL (3.4-5.0) Albumin/Globulin Ratio 1.0 (1.0-1.7) Lipase 208 U/L (73-393) Thyroid Stimulating Hormone (TSH) 1.242 uIU/mL (0.358-3.74) Urine Collection Type U cath Urine Color Yellow Urine Clarity Clear Urine pH 5.0 Urine Specific [place] 1.015 Urine Protein Negative mg/dL (NEG-TRACE) Urine Glucose (UA) Negative mg/dL (NEG) Urine Ketones (Stick) Negative mg/dL (NEG) Urine Blood Negative (NEG) Urine Nitrite Negative (NEG) Urine Bilirubin Negative (NEG) Urine Urobilinogen Dipstick 0.2 mg/dL (0.2 mg/dL) Urine Leukocyte Esterase Negative (NEG) Urine RBC 0 /HPF (0-2) Urine WBC Occ /HPF (0-4) Urine Squamous Epithelial Cells Few /LPF Urine Amorphous Sediment Present /HPF Urine Bacteria Few /HPF (0-FEW) Urine Hyaline Casts Many /HPF Urine Mucus Marked /LPF O2 Saturation 97 % (92-99) Arterial Blood pH 7.34 (7.35-7.45) Arterial Blood pCO2 at Patient Temp 68 mmHg (35-46) Arterial Blood pO2 at Patient Temp 95 mmHg (75-108) Arterial Blood HCO3 36 mmol/L (21-28) Arterial Blood Base Excess 8 mmol/L (-3-3) FiO2 36 Glucose (Fingerstick) 108 mg/dL (70-99) Test 11/28/16 04:50 11/28/16 08:48 White Blood Count 8.6 x10^3/uL (4.0-11.0) Red Blood Count 4.48 x10^6/uL (3.50-5.40) Hemoglobin 11.3 g/dL (12.0-15.5) Hematocrit 35.6 % (36.0-47.0) Mean Corpuscular Volume 79 fL (79-100) Mean Corpuscular Hemoglobin 25 pg (25-35) Mean Corpuscular Hemoglobin Concent 32 g/dL (31-37) Red Cell Distribution Width 19.4 % (11.5-14.5) Platelet Count 221 x10^3/uL (140-400) Neutrophils (%) (Auto) 76 % (31-73) Lymphocytes (%) (Auto) 17 % (24-48) Monocytes (%) (Auto) 6 % (0-9) Eosinophils (%) (Auto) 1 % (0-3) Basophils (%) (Auto) 0 % (0-3) Neutrophils # (Auto) 6.5 x10^3uL (1.8-7.7) Lymphocytes # (Auto) 1.4 x10^3/uL (1.0-4.8) Monocytes # (Auto) 0.5 x10^3/uL (0.0-1.1) Eosinophils # (Auto) 0.1 x10^3/uL (0.0-0.7) Basophils # (Auto) 0.0 x10^3/uL (0.0-0.2) Sodium Level 134 mmol/L (136-145) Potassium Level 5.3 mmol/L (3.5-5.1) Chloride Level 97 mmol/L (98-107) Carbon Dioxide Level 31 mmol/L (21-32) Anion Gap 6 (6-14) Blood Urea Nitrogen 71 mg/dL (7-20) Creatinine 1.8 mg/dL (0.6-1.0) Estimated GFR (Cockcroft-Gault) 29.8 BUN/Creatinine Ratio 39 (6-20) Glucose Level 97 mg/dL (70-99) Calcium Level 9.1 mg/dL (8.5-10.1) Total Bilirubin 0.6 mg/dL (0.2-1.0) Aspartate Amino Transf (AST/SGOT) 19 U/L (15-37) Alanine Aminotransferase (ALT/SGPT) 17 U/L (14-59) Alkaline Phosphatase 64 U/L (46-116) Total Protein 6.8 g/dL (6.4-8.2) Albumin 3.1 g/dL (3.4-5.0) Albumin/Globulin Ratio 0.8 (1.0-1.7) O2 Saturation 95 % (92-99) Arterial Blood pH 7.37 (7.35-7.45) Arterial Blood pCO2 at Patient Temp 66 mmHg (35-46) Arterial Blood pO2 at Patient Temp 78 mmHg (75-108) Arterial Blood HCO3 37 mmol/L (21-28) Arterial Blood Base Excess 10 mmol/L (-3-3) FiO2 30 Assessment/Plan Assessment/Plan IMP SELVIN WITH CR OF 2.7-NO CKD HYPERKALEMIA HYPONATREMIA MET ENCEPHALOPATHY URINARY RETENTION HYPERCARBIA MORBID OBESITY L 4-5 DISK HERNIATION P AFIB POOR PO INTAKE PLAN MAINTAIN BARNEY IVF'S EXPECT FULL RENAL RECOVERY PPN IF NOT ABLE TO EAT YONI CORDERO MD Nov 28, 2016 10:36
--- NOTE | 2016-11-28 10:43 | CONS ---
DATE OF CONSULTATION: 11/28/2016 ATTENDING PHYSICIAN: Dr. Jiménez. The patient was seen at the request of Dr. Jiménez. HISTORY OF PRESENT ILLNESS: This is a 51-year-old female known to me since her last hospitalization at [facility] on 11/17/2016. The patient with severe back pain with mobility and self-care limitation started about 2-3 days prior to the hospitalization. She had lumbar epidural steroid injection done in the past for chronic back pain without any lasting help. She denies any specific new injury, but 2-3 days prior to the hospitalization, she had some increased back pain with radiation to her left lower extremity with associated numbness and also urinary incontinence. The patient with known atrial fibrillation, hypertension, morbid obesity, type 2 diabetes mellitus, chronic lower back pain, syncopal episode, hyperlipidemia, chronic obstructive pulmonary disease, osteoarthritis, status post hysterectomy, lives with her family. The patient during that hospitalization had gone through physical therapy, occupational therapy, had a CT scan of the lumbar spine, which revealed degenerative disk disease and degenerative joint disease of lumbar vertebrae. The patient had gone through Medrol Dosepak. Also, multiple pain medications, lumbar corset, had lumbar epidural steroid injection done by Dr. Zavala without any lasting help. She continued to have mobility and self-care limitations. She had received MS Contin and fast-acting morphine sulfate. She started having some nausea and vomiting. I thought she was discharged to home on 11/26/2016, but later on I got a call from [facility] where she was admitted initially. During that hospitalization, she refused to go to any rehabilitation hospital. As she continued to have mobility and self-care limitations, she was transferred to [facility]. When I saw her on 11/26/2016 at [facility], she is having sickness in her stomach and nausea and vomiting. No significant change noted with her neurological examination. I have stopped MS Contin and started her on hydrocodone for breakthrough pain and OxyContin 10 mg twice daily for pain control. I asked Dr. Jiménez to see for her medical problems. Dr. Jiménez noted her on 11/27/2016 with lethargy and acute renal failure with her serum creatinine being up to 2.7 mg percent. It was down to 1.8 this morning and also her white cell count up to 16,100 on 11/27/2016. This morning it was back to 8600. Her hemoglobin this morning being 11.3, hematocrit 35.6. Potassium this morning being 5.3, sodium 134, chloride 97, BUN 71, BUN being 97 mg percent yesterday afternoon. PHYSICAL EXAMINATION: Today revealed a middle-aged female. The patient is alert, oriented to time, place, person and circumstance and follows commands appropriately, moves all 4 extremities voluntarily where she had 4+/5 grade muscle strength. Deep tendon reflexes are 2+ at her knees, absent at both ankles and she had decreased touch and pinprick sensation over left L5 dermatome and to some extent over left S1 dermatome too. She had tenderness to palpation over lumbar paraspinal muscles extending over to sacroiliac joint area and over trochanteric bursa, mainly on the left side. Straight leg raising test is causing back pain on the left side. She had crepitus on range of motion of both knee joints without any obvious knee joint effusion. She had pain on range of motion of her left hip joint. The patient is having significant pain with any movement of her lower back. ASSESSMENT: Mobility and self-care limitation in a patient with chronic lower back pain with recent exacerbation onset 11/15/2016 with herniated nucleus pulposus and left L5 radiculopathy and urinary and stool incontinence. The patient with lumbar epidural steroid injection without any significant help and also had gone through Medrol Dosepak, had some problems with nausea and vomiting while on morphine orally and also intravenously. The patient developed acute renal failure and leukocytosis after she was transferred to [facility] on 11/26/2016. After she was found with acute renal failure on 11/27/2016, she was transferred back to Acute Care Unit. The patient also with known atrial fibrillation, hypertension, obesity, diabetes mellitus with peripheral neuropathy, chronic obstructive pulmonary disease, degenerative joint disease of her knees and chronic lower back pain. RECOMMENDATIONS: Agree with plans per renal and pulmonary consultation to start her back on physical therapy and occupational therapy as she can tolerate. She does not want to go back to [facility] home when medically stable and she can get around with a roller walker. Dr. Jiménez, appreciate asking me to participate in the care of this interesting patient. I will be glad to follow her with you as needed for her rehabilitation. BUSHRA DALLAS MD DR: [email or web address]/[email or web address] JOB#: [id number] / [id number]
[2016-11-28 11:00] VITALS: BP 106/78
[2016-11-28] MEDS: INSULIN ASPART 300 UNITS/3 ML INSULN.PEN SQ SCH ×2 (12:00→17:00)
[2016-11-28] MEDS: PANTOPRAZOLE 40 MG TABLET.DR. PO SCH (14:39)
[2016-11-28] MEDS: POLYETHYLENE GLYCOL 3350 17 GM PACKET. PO SCH (14:40)
[2016-11-28] MEDS: ASPIRIN ENTERIC COATED 81 MG TABLET.DR. PO SCH (14:46)
[2016-11-28] MEDS: CETIRIZINE HCL 10 MG TABLET. PO SCH (14:48)
[2016-11-28 15:00] VITALS: BP 144/72
--- NOTE | 2016-11-28 16:23 | PDOC ---
PULMONARY PROGRESS NOTES Vitals Vital Signs Date Time Temp Pulse Resp B/P (MAP) Pulse Ox O2 Delivery O2 Flow Rate FiO2 11/28/16 13:53 96 Nasal Cannula 3.0 11/28/16 11:00 97.9 73 23 106/78 (87) 97.9 Lungs: Clear Labs Laboratory Tests Test 11/27/16 13:15 11/27/16 13:38 11/27/16 16:07 11/27/16 21:04 White Blood Count 16.1 x10^3/uL (4.0-11.0) Red Blood Count 4.87 x10^6/uL (3.50-5.40) Hemoglobin 12.0 g/dL (12.0-15.5) Hematocrit 38.5 % (36.0-47.0) Mean Corpuscular Volume 79 fL (79-100) Mean Corpuscular Hemoglobin 25 pg (25-35) Mean Corpuscular Hemoglobin Concent 31 g/dL (31-37) Red Cell Distribution Width 19.1 % (11.5-14.5) Platelet Count 276 x10^3/uL (140-400) Neutrophils (%) (Auto) 82 % (31-73) Lymphocytes (%) (Auto) 12 % (24-48) Monocytes (%) (Auto) 6 % (0-9) Eosinophils (%) (Auto) 1 % (0-3) Basophils (%) (Auto) 0 % (0-3) Neutrophils # (Auto) 13.2 x10^3uL (1.8-7.7) Lymphocytes # (Auto) 1.8 x10^3/uL (1.0-4.8) Monocytes # (Auto) 0.9 x10^3/uL (0.0-1.1) Eosinophils # (Auto) 0.1 x10^3/uL (0.0-0.7) Basophils # (Auto) 0.1 x10^3/uL (0.0-0.2) Segmented Neutrophils % 84 % (35-66) Band Neutrophils % 4 % (0-9) Lymphocytes % 8 % (24-48) Monocytes % 4 % (0-10) Platelet Estimate Adequate (ADEQUATE) Hypochromasia Slight Anisocytosis Slight Microcytosis Slight Prothrombin Time 15.7 SEC (11.7-14.0) Prothromb Time International Ratio 1.3 (0.8-1.1) Activated Partial Thromboplast Time 39 SEC (24-38) Sodium Level 132 mmol/L (136-145) Potassium Level 5.4 mmol/L (3.5-5.1) Chloride Level 90 mmol/L (98-107) Carbon Dioxide Level 37 mmol/L (21-32) Anion Gap 5 (6-14) Blood Urea Nitrogen 97 mg/dL (7-20) Creatinine 2.7 mg/dL (0.6-1.0) Estimated GFR (Cockcroft-Gault) 18.7 BUN/Creatinine Ratio 36 (6-20) Glucose Level 110 mg/dL (70-99) Calcium Level 9.8 mg/dL (8.5-10.1) Magnesium Level 3.2 mg/dL (1.8-2.4) Total Bilirubin 0.7 mg/dL (0.2-1.0) Aspartate Amino Transf (AST/SGOT) 14 U/L (15-37) Alanine Aminotransferase (ALT/SGPT) 23 U/L (14-59) Alkaline Phosphatase 72 U/L (46-116) Creatine Kinase 51 U/L (26-192) Troponin I Quantitative < 0.017 ng/mL (0.000-0.055) EG-Xop-S-Type Natriuretic Peptide 47 pg/mL (0-124) Total Protein 7.1 g/dL (6.4-8.2) Albumin 3.6 g/dL (3.4-5.0) Albumin/Globulin Ratio 1.0 (1.0-1.7) Lipase 208 U/L (73-393) Thyroid Stimulating Hormone (TSH) 1.242 uIU/mL (0.358-3.74) Urine Collection Type U cath Urine Color Yellow Urine Clarity Clear Urine pH 5.0 Urine Specific [place] 1.015 Urine Protein Negative mg/dL (NEG-TRACE) Urine Glucose (UA) Negative mg/dL (NEG) Urine Ketones (Stick) Negative mg/dL (NEG) Urine Blood Negative (NEG) Urine Nitrite Negative (NEG) Urine Bilirubin Negative (NEG) Urine Urobilinogen Dipstick 0.2 mg/dL (0.2 mg/dL) Urine Leukocyte Esterase Negative (NEG) Urine RBC 0 /HPF (0-2) Urine WBC Occ /HPF (0-4) Urine Squamous Epithelial Cells Few /LPF Urine Amorphous Sediment Present /HPF Urine Bacteria Few /HPF (0-FEW) Urine Hyaline Casts Many /HPF Urine Mucus Marked /LPF O2 Saturation 97 % (92-99) Arterial Blood pH 7.34 (7.35-7.45) Arterial Blood pCO2 at Patient Temp 68 mmHg (35-46) Arterial Blood pO2 at Patient Temp 95 mmHg (75-108) Arterial Blood HCO3 36 mmol/L (21-28) Arterial Blood Base Excess 8 mmol/L (-3-3) FiO2 36 Glucose (Fingerstick) 108 mg/dL (70-99) Test 11/28/16 04:50 11/28/16 08:48 11/28/16 11:55 White Blood Count 8.6 x10^3/uL (4.0-11.0) Red Blood Count 4.48 x10^6/uL (3.50-5.40) Hemoglobin 11.3 g/dL (12.0-15.5) Hematocrit 35.6 % (36.0-47.0) Mean Corpuscular Volume 79 fL (79-100) Mean Corpuscular Hemoglobin 25 pg (25-35) Mean Corpuscular Hemoglobin Concent 32 g/dL (31-37) Red Cell Distribution Width 19.4 % (11.5-14.5) Platelet Count 221 x10^3/uL (140-400) Neutrophils (%) (Auto) 76 % (31-73) Lymphocytes (%) (Auto) 17 % (24-48) Monocytes (%) (Auto) 6 % (0-9) Eosinophils (%) (Auto) 1 % (0-3) Basophils (%) (Auto) 0 % (0-3) Neutrophils # (Auto) 6.5 x10^3uL (1.8-7.7) Lymphocytes # (Auto) 1.4 x10^3/uL (1.0-4.8) Monocytes # (Auto) 0.5 x10^3/uL (0.0-1.1) Eosinophils # (Auto) 0.1 x10^3/uL (0.0-0.7) Basophils # (Auto) 0.0 x10^3/uL (0.0-0.2) Sodium Level 134 mmol/L (136-145) Potassium Level 5.3 mmol/L (3.5-5.1) Chloride Level 97 mmol/L (98-107) Carbon Dioxide Level 31 mmol/L (21-32) Anion Gap 6 (6-14) Blood Urea Nitrogen 71 mg/dL (7-20) Creatinine 1.8 mg/dL (0.6-1.0) Estimated GFR (Cockcroft-Gault) 29.8 BUN/Creatinine Ratio 39 (6-20) Glucose Level 97 mg/dL (70-99) Calcium Level 9.1 mg/dL (8.5-10.1) Total Bilirubin 0.6 mg/dL (0.2-1.0) Aspartate Amino Transf (AST/SGOT) 19 U/L (15-37) Alanine Aminotransferase (ALT/SGPT) 17 U/L (14-59) Alkaline Phosphatase 64 U/L (46-116) Total Protein 6.8 g/dL (6.4-8.2) Albumin 3.1 g/dL (3.4-5.0) Albumin/Globulin Ratio 0.8 (1.0-1.7) O2 Saturation 95 % (92-99) Arterial Blood pH 7.37 (7.35-7.45) Arterial Blood pCO2 at Patient Temp 66 mmHg (35-46) Arterial Blood pO2 at Patient Temp 78 mmHg (75-108) Arterial Blood HCO3 37 mmol/L (21-28) Arterial Blood Base Excess 10 mmol/L (-3-3) FiO2 30 Glucose (Fingerstick) 88 mg/dL (70-99) Laboratory Tests Test 11/27/16 21:04 11/28/16 04:50 11/28/16 08:48 11/28/16 11:55 Glucose (Fingerstick) 108 mg/dL (70-99) 88 mg/dL (70-99) White Blood Count 8.6 x10^3/uL (4.0-11.0) Red Blood Count 4.48 x10^6/uL (3.50-5.40) Hemoglobin 11.3 g/dL (12.0-15.5) Hematocrit 35.6 % (36.0-47.0) Mean Corpuscular Volume 79 fL (79-100) Mean Corpuscular Hemoglobin 25 pg (25-35) Mean Corpuscular Hemoglobin Concent 32 g/dL (31-37) Red Cell Distribution Width 19.4 % (11.5-14.5) Platelet Count 221 x10^3/uL (140-400) Neutrophils (%) (Auto) 76 % (31-73) Lymphocytes (%) (Auto) 17 % (24-48) Monocytes (%) (Auto) 6 % (0-9) Eosinophils (%) (Auto) 1 % (0-3) Basophils (%) (Auto) 0 % (0-3) Neutrophils # (Auto) 6.5 x10^3uL (1.8-7.7) Lymphocytes # (Auto) 1.4 x10^3/uL (1.0-4.8) Monocytes # (Auto) 0.5 x10^3/uL (0.0-1.1) Eosinophils # (Auto) 0.1 x10^3/uL (0.0-0.7) Basophils # (Auto) 0.0 x10^3/uL (0.0-0.2) Sodium Level 134 mmol/L (136-145) Potassium Level 5.3 mmol/L (3.5-5.1) Chloride Level 97 mmol/L (98-107) Carbon Dioxide Level 31 mmol/L (21-32) Anion Gap 6 (6-14) Blood Urea Nitrogen 71 mg/dL (7-20) Creatinine 1.8 mg/dL (0.6-1.0) Estimated GFR (Cockcroft-Gault) 29.8 BUN/Creatinine Ratio 39 (6-20) Glucose Level 97 mg/dL (70-99) Calcium Level 9.1 mg/dL (8.5-10.1) Total Bilirubin 0.6 mg/dL (0.2-1.0) Aspartate Amino Transf (AST/SGOT) 19 U/L (15-37) Alanine Aminotransferase (ALT/SGPT) 17 U/L (14-59) Alkaline Phosphatase 64 U/L (46-116) Total Protein 6.8 g/dL (6.4-8.2) Albumin 3.1 g/dL (3.4-5.0) Albumin/Globulin Ratio 0.8 (1.0-1.7) O2 Saturation 95 % (92-99) Arterial Blood pH 7.37 (7.35-7.45) Arterial Blood pCO2 at Patient Temp 66 mmHg (35-46) Arterial Blood pO2 at Patient Temp 78 mmHg (75-108) Arterial Blood HCO3 37 mmol/L (21-28) Arterial Blood Base Excess 10 mmol/L (-3-3) FiO2 30 Medications Active Scripts Medications Dose Route/Sig Max Daily Dose Days Date Category [place] 5-325 Tablet (Acetaminophen/Hydrocodone Bitart) 1 Each Tablet 1-2 Tab PO Q4-6HRS 11/16/16 Rx Cyclobenzaprine Hcl 10 Mg Tablet 1 Tab PO TID 11/16/16 Rx Combivent Respimat Inhal (Ipratropium/Albuterol Sulfate) 4 Gm Aer.w.adap 2 Inh IH QID 10/07/16 Reported Zyrtec (Cetirizine Hcl) 10 Mg Tablet 1 Tab PO DAILY 10/07/16 Reported Lisinopril 20 Mg Tablet 1 Tab PO DAILY 10/07/16 Reported Tramadol Hcl 50 Mg Tablet 50 Mg PO Q6H PRN 10/07/16 Reported Aspir 81 (Aspirin) 81 Mg Tablet.dr 1 Tab PO DAILY 10/07/16 Reported Albuterol Sulfate Neb Soln (Albuterol Sulfate) 2.5 Mg/3 Ml Vial.neb 2.5 Mg NEB Q4HRS PRN 01/26/15 Reported Xarelto (Rivaroxaban) 10 Mg Tablet 20 Mg PO QHS 01/26/15 Reported Advair 500-50 Diskus (Fluticasone/Salmeterol) 1 Each Disk.w.dev 1 Inh IH BID 01/26/15 Reported Metformin Hcl Er (Metformin Hcl) 500 Mg Tab.er.24h 500 Mg PO DAILYWBKFT 01/26/15 Reported Potassium Chloride 20 Meq Tab.er.prt 20 Meq PO DAILY 01/26/15 Reported Lovastatin 20 Mg Tablet 20 PO QHS 01/26/15 Reported Pantoprazole Sodium 40 Mg Tablet.dr 40 Mg PO DAILYAC 01/26/15 Reported Toprol Xl (Metoprolol Succinate) 50 Mg Tab.er.24h 50 Mg PO QHS 01/26/15 Reported Gabapentin 300 Mg Capsule 300 Mg PO BID 01/26/15 Reported Furosemide 80 Mg Tablet 80 Mg PO DAILY 01/26/15 Reported Impression . A/C HYPERCAPNIA RESP FAILURE M/O KYRA MET ENCE SELVIN PLAN DOING BETTER BIPAP QHS 02 AM THANKS RAMBO MARES MD Nov 28, 2016 16:23
[2016-11-28] MEDS: RIVAROXABAN 10 MG TABLET. PO SCH (17:40)
[2016-11-28 19:55] VITALS: BP 132/66
[2016-11-28] MEDS: ATORVASTATIN CALCIUM 10 MG TABLET. PO SCH (20:26)
[2016-11-28 22:30] VITALS: BP 137/73
--- NOTE | 2016-11-29 01:27 | CONS ---
DATE OF CONSULTATION: 11/28/2016 ATTENDING PHYSICIAN: Humberto Jiménez MD REASON FOR CONSULTATION: The patient seen in pulmonary consultation at the request of Dr. Jiménez for [id number] hypercapnic respiratory failure requiring BiPAP. HISTORY OF PRESENT ILLNESS: The patient is a 51-year-old that was at [facility], had some increasing confusion. She was transferred to [facility]. She was evaluated and found to have hypercapnic respiratory failure. She was admitted. The patient is currently off BiPAP. She has a history of asthma. She has never smoked. She is a morbid obese individual with a body mass index of 67, has paroxysmal AFib, treated with Xarelto; type 2 diabetes; hypertension; hyperlipidemia; on nocturnal oxygen supplementation. She has a prior history of chronic lower back pain. She was admitted to [facility] on 11/17 with intractable low back pain. She was not a good surgical candidate; as a consequence, she was transferred to [facility] on 11/26. She was found to have some increasing mental status changes; as a consequence, she was transferred back to [place]. She had an initial elevation of potassium. She was given some Kayexalate. The patient was also placed on BiPAP for [id number] hypercapnic respiratory failure. I was asked to see her in consultation. Apparently, she was also receiving some narcotics for her chronic pain. She currently denies fever, chills or night sweats. She is normally on CPAP at 14 cm of water pressure with 3 liters of oxygen supplementation. Throughout the day, she uses 2 liters for the past 2 years. PAST MEDICAL HISTORY: Chronic respiratory failure, obstructive sleep apnea, on CPAP at 14 cm of water pressure with 2 liters of oxygen supplementation throughout the day. Multiple other comorbidities including morbid obesity, type 2 diabetes, hypertension, chronic pain, acute renal failure with no history of chronic kidney disease ____. She is status post hysterectomy, pacemaker implantation. PAST SURGICAL HISTORY: As above. REVIEW OF SYSTEMS: As indicated above, otherwise a 10-point system was reviewed and negative. ALLERGIES: IODINE, SULFAMETHOXAZOLE, TRIMETHOPRIM. CURRENT MEDICATIONS: List was reviewed. PHYSICAL EXAMINATION: GENERAL: The patient was sitting up in a chair. VITAL SIGNS: She was off BiPAP on 2 L of oxygen supplementation, saturation greater than 92%. HEENT: Eyes: The sclerae were nonicteric. NECK: Jugular venous distention could not be assessed secondary to body habitus. LUNGS: Adequate airway flow with no wheezes. CARDIOVASCULAR: Regular rate and rhythm with S1, S2, no S3. ABDOMEN: Soft, obese. EXTREMITIES: Obesity. NEUROLOGIC: The patient was awake, alert, following commands. A detailed neuro exam was not performed. LABORATORY DATA: Initial white count was elevated, down to 8.6. INR was 1.2. Electrolytes were noted. Creatinine has decreased from 2.7 to 1.8. Albumin was 3.6. Arterial blood gas; pH of 7.37, PaCO2 of 66, pO2 of 78. Initial pH was 7.34. IMPRESSION: 1. Shpov-ny-fzkovpn hypercapnic respiratory failure. 2. Metabolic toxic encephalopathy. 3. Obstructive sleep apnea. 4. Acute kidney injury. 5. Hyperlipidemia. 6. Hyponatremia. 7. Urinary retention. 8. Morbid obesity. 9. L4-L5 disk herniation. PLAN: 1. Continue BiPAP at bedtime. 2. Oxygen throughout the day. 3. Deep venous thrombosis prophylaxis. 4. Follow Renal recommendation. 5. Monitor labs. 6. Avoid narcotics. Dr. Jiménez, I do appreciate the privilege in participating in the patient's care. RAMBO MARES MD DR: TYRELL/jloene JOB#: [id number] / [id number]
[2016-11-29 03:13] VITALS: BP 154/65
[2016-11-29] MEDS: IV NORMAL SALINE 1000ML BAG 1,000 ML IV SCH (04:06)
[2016-11-29] MEDS: ACETAMINOPHEN 325 MG TABLET. PO PRN ×3 (04:09→21:18)
[2016-11-29 04:36] LABS: BASO % 0 % (0-3); EOS % 1 % (0-3); HEMATOCRIT 36.2 % (36.0-47.0); HEMOGLOBIN 11.5 g/dL (12.0-15.5); LYMPH # 1.5 x10^3/uL (1.0-4.8); LYMPH % 22 % (24-48); MEAN CORPUSCULAR HEMOGLOBIN 25 pg (25-35); MEAN CORPUSCULAR HGB CONC 32 g/dL (31-37); MEAN CORPUSCULAR VOLUME 80 fL (79-100); MONO % 7 % (0-9); NEUT % 70 % (31-73); PLATELET COUNT 230 x10^3/uL (140-400); RED BLOOD COUNT 4.55 x10^6/uL (3.50-5.40); RED CELL DISTRIBUTION WIDTH 19.2 % (11.5-14.5); WHITE BLOOD COUNT 6.9 x10^3/uL (4.0-11.0)
[2016-11-29 04:40] LABS: CALCIUM 9.1 mg/dL (8.5-10.1); CREATININE 1.2 mg/dL (0.6-1.0); GFR 47.6; POTASSIUM 4.2 mmol/L (3.5-5.1)
[2016-11-29 07:00] VITALS: BP 157/73
[2016-11-29] MEDS: INSULIN ASPART 300 UNITS/3 ML INSULN.PEN SQ SCH ×3 (08:00→17:00)
[2016-11-29] MEDS: ALBUTEROL SULFATE 2.5 MG/3 ML NEBU. NEB SCH ×4 (08:39→19:52)
[2016-11-29] MEDS: BUDESONIDE 0.5 MG/2 ML NEBU. NEB SCH ×2 (08:39→19:52)
[2016-11-29] MEDS: CETIRIZINE HCL 10 MG TABLET. PO SCH (09:00)
[2016-11-29] MEDS: ASPIRIN ENTERIC COATED 81 MG TABLET.DR. PO SCH (09:00)
[2016-11-29] MEDS: POLYETHYLENE GLYCOL 3350 17 GM PACKET. PO SCH (09:01)
[2016-11-29] MEDS: SENNOSIDES/DOCUSATE 8.6/50MG TABLET. PO SCH (09:01)
[2016-11-29] MEDS: PANTOPRAZOLE 40 MG TABLET.DR. PO SCH (09:01)
--- NOTE | 2016-11-29 09:37 | PDOC ---
PROGRESS NOTES Subjective Subjective She c/o nausea. Objective Objective Vital Signs Date Time Temp Pulse Resp B/P (MAP) Pulse Ox O2 Delivery O2 Flow Rate FiO2 11/29/16 08:40 94 Room Air 11/29/16 07:00 97.3 75 19 157/73 (101) 97.3 11/28/16 19:55 3.0 Physical Exam Physical Exam She is sitting up in bedside chair and does not seem to be in any acute distress but continues with painfully limited lumbar spine ROM and decreased sensory perception over left L5,S1 dermatomes. Assessment Assessment Problems Medical Problems: (1) SELVIN (acute kidney injury) Status: Acute (2) Hyperkalemia Status: Acute (3) Leukocytosis Status: Acute (4) Uremia Status: Acute Plan Plan of Care To get her up as tolerated and to try lumbar corset.To d/c Aleman and give her a voiding trial. Comment Review of Relevant I have reviewed the following items shakir (where applicable) has been applied. Labs Laboratory Tests Test 11/27/16 13:15 11/27/16 13:38 11/27/16 15:20 11/27/16 16:07 White Blood Count 16.1 x10^3/uL (4.0-11.0) Red Blood Count 4.87 x10^6/uL (3.50-5.40) Hemoglobin 12.0 g/dL (12.0-15.5) Hematocrit 38.5 % (36.0-47.0) Mean Corpuscular Volume 79 fL (79-100) Mean Corpuscular Hemoglobin 25 pg (25-35) Mean Corpuscular Hemoglobin Concent 31 g/dL (31-37) Red Cell Distribution Width 19.1 % (11.5-14.5) Platelet Count 276 x10^3/uL (140-400) Neutrophils (%) (Auto) 82 % (31-73) Lymphocytes (%) (Auto) 12 % (24-48) Monocytes (%) (Auto) 6 % (0-9) Eosinophils (%) (Auto) 1 % (0-3) Basophils (%) (Auto) 0 % (0-3) Neutrophils # (Auto) 13.2 x10^3uL (1.8-7.7) Lymphocytes # (Auto) 1.8 x10^3/uL (1.0-4.8) Monocytes # (Auto) 0.9 x10^3/uL (0.0-1.1) Eosinophils # (Auto) 0.1 x10^3/uL (0.0-0.7) Basophils # (Auto) 0.1 x10^3/uL (0.0-0.2) Segmented Neutrophils % 84 % (35-66) Band Neutrophils % 4 % (0-9) Lymphocytes % 8 % (24-48) Monocytes % 4 % (0-10) Platelet Estimate Adequate (ADEQUATE) Hypochromasia Slight Anisocytosis Slight Microcytosis Slight Prothrombin Time 15.7 SEC (11.7-14.0) Prothromb Time International Ratio 1.3 (0.8-1.1) Activated Partial Thromboplast Time 39 SEC (24-38) Sodium Level 132 mmol/L (136-145) Potassium Level 5.4 mmol/L (3.5-5.1) Chloride Level 90 mmol/L (98-107) Carbon Dioxide Level 37 mmol/L (21-32) Anion Gap 5 (6-14) Blood Urea Nitrogen 97 mg/dL (7-20) Creatinine 2.7 mg/dL (0.6-1.0) Estimated GFR (Cockcroft-Gault) 18.7 BUN/Creatinine Ratio 36 (6-20) Glucose Level 110 mg/dL (70-99) Calcium Level 9.8 mg/dL (8.5-10.1) Magnesium Level 3.2 mg/dL (1.8-2.4) Total Bilirubin 0.7 mg/dL (0.2-1.0) Aspartate Amino Transf (AST/SGOT) 14 U/L (15-37) Alanine Aminotransferase (ALT/SGPT) 23 U/L (14-59) Alkaline Phosphatase 72 U/L (46-116) Creatine Kinase 51 U/L (26-192) Troponin I Quantitative < 0.017 ng/mL (0.000-0.055) EY-Xsr-R-Type Natriuretic Peptide 47 pg/mL (0-124) Total Protein 7.1 g/dL (6.4-8.2) Albumin 3.6 g/dL (3.4-5.0) Albumin/Globulin Ratio 1.0 (1.0-1.7) Lipase 208 U/L (73-393) Thyroid Stimulating Hormone (TSH) 1.242 uIU/mL (0.358-3.74) Urine Collection Type U cath Urine Color Yellow Urine Clarity Clear Urine pH 5.0 Urine Specific Decker 1.015 Urine Protein Negative mg/dL (NEG-TRACE) Urine Glucose (UA) Negative mg/dL (NEG) Urine Ketones (Stick) Negative mg/dL (NEG) Urine Blood Negative (NEG) Urine Nitrite Negative (NEG) Urine Bilirubin Negative (NEG) Urine Urobilinogen Dipstick 0.2 mg/dL (0.2 mg/dL) Urine Leukocyte Esterase Negative (NEG) Urine RBC 0 /HPF (0-2) Urine WBC Occ /HPF (0-4) Urine Squamous Epithelial Cells Few /LPF Urine Amorphous Sediment Present /HPF Urine Bacteria Few /HPF (0-FEW) Urine Hyaline Casts Many /HPF Urine Mucus Marked /LPF Nasal Screen MRSA (PCR) Negative (Negative) O2 Saturation 97 % (92-99) Arterial Blood pH 7.34 (7.35-7.45) Arterial Blood pCO2 at Patient Temp 68 mmHg (35-46) Arterial Blood pO2 at Patient Temp 95 mmHg (75-108) Arterial Blood HCO3 36 mmol/L (21-28) Arterial Blood Base Excess 8 mmol/L (-3-3) FiO2 36 Test 11/27/16 21:04 11/28/16 04:50 11/28/16 08:48 11/28/16 11:55 Glucose (Fingerstick) 108 mg/dL (70-99) 88 mg/dL (70-99) White Blood Count 8.6 x10^3/uL (4.0-11.0) Red Blood Count 4.48 x10^6/uL (3.50-5.40) Hemoglobin 11.3 g/dL (12.0-15.5) Hematocrit 35.6 % (36.0-47.0) Mean Corpuscular Volume 79 fL (79-100) Mean Corpuscular Hemoglobin 25 pg (25-35) Mean Corpuscular Hemoglobin Concent 32 g/dL (31-37) Red Cell Distribution Width 19.4 % (11.5-14.5) Platelet Count 221 x10^3/uL (140-400) Neutrophils (%) (Auto) 76 % (31-73) Lymphocytes (%) (Auto) 17 % (24-48) Monocytes (%) (Auto) 6 % (0-9) Eosinophils (%) (Auto) 1 % (0-3) Basophils (%) (Auto) 0 % (0-3) Neutrophils # (Auto) 6.5 x10^3uL (1.8-7.7) Lymphocytes # (Auto) 1.4 x10^3/uL (1.0-4.8) Monocytes # (Auto) 0.5 x10^3/uL (0.0-1.1) Eosinophils # (Auto) 0.1 x10^3/uL (0.0-0.7) Basophils # (Auto) 0.0 x10^3/uL (0.0-0.2) Sodium Level 134 mmol/L (136-145) Potassium Level 5.3 mmol/L (3.5-5.1) Chloride Level 97 mmol/L (98-107) Carbon Dioxide Level 31 mmol/L (21-32) Anion Gap 6 (6-14) Blood Urea Nitrogen 71 mg/dL (7-20) Creatinine 1.8 mg/dL (0.6-1.0) Estimated GFR (Cockcroft-Gault) 29.8 BUN/Creatinine Ratio 39 (6-20) Glucose Level 97 mg/dL (70-99) Calcium Level 9.1 mg/dL (8.5-10.1) Total Bilirubin 0.6 mg/dL (0.2-1.0) Aspartate Amino Transf (AST/SGOT) 19 U/L (15-37) Alanine Aminotransferase (ALT/SGPT) 17 U/L (14-59) Alkaline Phosphatase 64 U/L (46-116) Total Protein 6.8 g/dL (6.4-8.2) Albumin 3.1 g/dL (3.4-5.0) Albumin/Globulin Ratio 0.8 (1.0-1.7) O2 Saturation 95 % (92-99) Arterial Blood pH 7.37 (7.35-7.45) Arterial Blood pCO2 at Patient Temp 66 mmHg (35-46) Arterial Blood pO2 at Patient Temp 78 mmHg (75-108) Arterial Blood HCO3 37 mmol/L (21-28) Arterial Blood Base Excess 10 mmol/L (-3-3) FiO2 30 Test 11/28/16 17:31 10/2/17 20:42 11/29/16 04:04 11/29/16 08:57 Glucose (Fingerstick) 93 mg/dL (70-99) 99 mg/dL (70-99) 164 mg/dL (70-99) White Blood Count 6.9 x10^3/uL (4.0-11.0) Red Blood Count 4.55 x10^6/uL (3.50-5.40) Hemoglobin 11.5 g/dL (12.0-15.5) Hematocrit 36.2 % (36.0-47.0) Mean Corpuscular Volume 80 fL (79-100) Mean Corpuscular Hemoglobin 25 pg (25-35) Mean Corpuscular Hemoglobin Concent 32 g/dL (31-37) Red Cell Distribution Width 19.2 % (11.5-14.5) Platelet Count 230 x10^3/uL (140-400) Neutrophils (%) (Auto) 70 % (31-73) Lymphocytes (%) (Auto) 22 % (24-48) Monocytes (%) (Auto) 7 % (0-9) Eosinophils (%) (Auto) 1 % (0-3) Basophils (%) (Auto) 0 % (0-3) Neutrophils # (Auto) 4.8 x10^3uL (1.8-7.7) Lymphocytes # (Auto) 1.5 x10^3/uL (1.0-4.8) Monocytes # (Auto) 0.5 x10^3/uL (0.0-1.1) Eosinophils # (Auto) 0.1 x10^3/uL (0.0-0.7) Basophils # (Auto) 0.0 x10^3/uL (0.0-0.2) Sodium Level 141 mmol/L (136-145) Potassium Level 4.2 mmol/L (3.5-5.1) Chloride Level 100 mmol/L (98-107) Carbon Dioxide Level 36 mmol/L (21-32) Anion Gap 5 (6-14) Blood Urea Nitrogen 40 mg/dL (7-20) Creatinine 1.2 mg/dL (0.6-1.0) Estimated GFR (Cockcroft-Gault) 47.6 Glucose Level 115 mg/dL (70-99) Calcium Level 9.1 mg/dL (8.5-10.1) Laboratory Tests Test 11/28/16 11:55 11/28/16 17:31 11/28/16 20:42 11/29/16 04:04 Glucose (Fingerstick) 88 mg/dL (70-99) 93 mg/dL (70-99) 99 mg/dL (70-99) White Blood Count 6.9 x10^3/uL (4.0-11.0) Red Blood Count 4.55 x10^6/uL (3.50-5.40) Hemoglobin 11.5 g/dL (12.0-15.5) Hematocrit 36.2 % (36.0-47.0) Mean Corpuscular Volume 80 fL (79-100) Mean Corpuscular Hemoglobin 25 pg (25-35) Mean Corpuscular Hemoglobin Concent 32 g/dL (31-37) Red Cell Distribution Width 19.2 % (11.5-14.5) Platelet Count 230 x10^3/uL (140-400) Neutrophils (%) (Auto) 70 % (31-73) Lymphocytes (%) (Auto) 22 % (24-48) Monocytes (%) (Auto) 7 % (0-9) Eosinophils (%) (Auto) 1 % (0-3) Basophils (%) (Auto) 0 % (0-3) Neutrophils # (Auto) 4.8 x10^3uL (1.8-7.7) Lymphocytes # (Auto) 1.5 x10^3/uL (1.0-4.8) Monocytes # (Auto) 0.5 x10^3/uL (0.0-1.1) Eosinophils # (Auto) 0.1 x10^3/uL (0.0-0.7) Basophils # (Auto) 0.0 x10^3/uL (0.0-0.2) Sodium Level 141 mmol/L (136-145) Potassium Level 4.2 mmol/L (3.5-5.1) Chloride Level 100 mmol/L (98-107) Carbon Dioxide Level 36 mmol/L (21-32) Anion Gap 5 (6-14) Blood Urea Nitrogen 40 mg/dL (7-20) Creatinine 1.2 mg/dL (0.6-1.0) Estimated GFR (Cockcroft-Gault) 47.6 Glucose Level 115 mg/dL (70-99) Calcium Level 9.1 mg/dL (8.5-10.1) Test 11/29/16 08:57 Glucose (Fingerstick) 164 mg/dL (70-99) Medications Current Medications Sodium Chloride 1,000 ml @ 1,000 mls/hr 1X ONCE IV Last administered on 13:32; Start 11/27/16 at 13:30; Stop 11/27/16 at 14:29; Status DC Ondansetron HCl (Zofran) 8 mg 1X ONCE IV Last administered on 11/27/16 13:33 ; Start 11/27/16 at 13:30; Stop 11/27/16 at 13:31; Status DC Sodium Bicarbonate 50 meq 1X ONCE IV Last administered on 11/27/16 13:53; Start 11/27/16 at 13:45; Stop 11/27/16 at 14:00; Status DC Ondansetron HCl (Zofran) 4 mg PRN Q8HRS PRN IV NAUSEA/VOMITING; Start 11/27/16 at 14:00; Stop 11/28/16 at 13:59; Status DC Sodium Chloride 1,000 ml @ 125 mls/hr Q8H IV Last administered on 11/28/16 01 :07; Start 11/27/16 at 14:30; Stop 11/28/16 at 08:29; Status DC Rivaroxaban (Xarelto) 20 mg DAILYWSUP PO ; Start 11/27/16 at 17:00; Stop at 19:31; Status DC Oxycodone HCl (OxyCONTIN) 10 mg Q12HR PO ; Start 11/27/16 at 21:00; Stop at 21:00; Status DC Acetaminophen/ Hydrocodone Bitart (Lortab 5/325) 1 tab PRN Q6HRS PRN PO PAIN; Start 11/27/16 at 14:00 Insulin Aspart (NovoLOG) 0-9 UNITS TIDWMEALS SQ ; Start 11/27/16 at 17:00; Stop 11/28/16 at 08:26; Status DC Dextrose (Dextrose 50%-Water Syringe) 12.5 gm PRN Q15MIN PRN IV SEE COMMENTS; Start 11/27/16 at 14:00 Albuterol Sulfate (Ventolin Neb Soln) 2.5 mg PRN Q4HRS PRN NEB SHORTNESS OF BREATH; Start 11/27/16 at 16:15 Aspirin (Ecotrin) 81 mg DAILY PO Last administered on 11/29/16 09:00; Start 11/28/16 at 09:00 Cetirizine HCl (ZyrTEC) 10 mg DAILY PO Last administered on 11/29/16 09:00; Start 11/28/16 at 09:00 Pantoprazole Sodium (Protonix) 40 mg DAILYAC PO Last administered on 11/29/16 09:01; Start 11/28/16 at 07:30 Non-Formulary Medication 1 inh BID IH ; Start 11/27/16 at 21:00; Status UNV Budesonide (Pulmicort) 0.5 mg RTBID NEB Last administered on 11/29/16 08:39; Start 11/27/16 at 20:00 Albuterol Sulfate (Ventolin Neb Soln) 2.5 mg RTQID NEB Last administered on 08:39; Start 11/27/16 at 20:00 Atorvastatin Calcium (Lipitor) 10 mg QHS PO Last administered on 11/28/16 20: 26; Start 11/27/16 at 21:00 Cyclobenzaprine HCl (Flexeril) 10 mg PRN Q8HRS PRN PO MUSCLE SPASMS; Start 11/27/16 at 16:30 Info (Anti-Coagulation Monitoring By Pharmacy) 1 each PRN DAILY PRN MC SEE COMMENTS Last administered on 11/28/16 08:35; Start 11/27/16 at 19:30 Rivaroxaban (Xarelto) 15 mg DAILYWSUP PO Last administered on 11/27/16 21:24; Start 11/27/16 at 19:45; Stop 11/28/16 at 08:34; Status DC Insulin Aspart (NovoLOG) 0-9 UNITS TIDWMEALS SQ ; Start 11/28/16 at 12:00 Acetaminophen (Tylenol) 325 mg PRN Q6HRS PRN PO MILD PAIN / TEMP Last administered on 11/29/16 04:09; Start 11/28/16 at 08:30 Sodium Chloride 1,000 ml @ 100 mls/hr Q10H IV Last administered on 11/29/16 04:06; Start 11/28/16 at 09:00 Senna/Docusate Sodium (Senna Plus) 2 tab DAILY PO Last administered on 09:01; Start 11/28/16 at 09:00 Polyethylene Glycol (miraLAX PACKET) 17 gm DAILY PO Last administered on 09:01; Start 11/28/16 at 09:00 Sodium Polystyrene Sulfonate (Kayexalate) 15 gm 1X ONCE PO Last administered on 11/28/16 14:47; Start 11/28/16 at 09:00; Stop 11/28/16 at 09:01; Status DC Rivaroxaban (Xarelto) 20 mg DAILYWSUP PO Last administered on 11/28/16 17:40; Start 11/28/16 at 17:00 Active Scripts Active Simpson 5-325 Tablet (Acetaminophen/Hydrocodone Bitart) 1 Each Tablet 1-2 Tab PO Q4-6HRS Cyclobenzaprine Hcl 10 Mg Tablet 1 Tab PO TID Reported Combivent Respimat Inhal (Ipratropium/Albuterol Sulfate) 4 Gm Aer.w.adap 2 Inh IH QID Zyrtec (Cetirizine Hcl) 10 Mg Tablet 1 Tab PO DAILY Lisinopril 20 Mg Tablet 1 Tab PO DAILY Tramadol Hcl 50 Mg Tablet 50 Mg PO Q6H PRN Aspir 81 (Aspirin) 81 Mg Tablet.dr 1 Tab PO DAILY Albuterol Sulfate Neb Soln (Albuterol Sulfate) 2.5 Mg/3 Ml Vial.neb 2.5 Mg NEB Q4HRS PRN Xarelto (Rivaroxaban) 10 Mg Tablet 20 Mg PO QHS Advair 500-50 Diskus (Fluticasone/Salmeterol) 1 Each Disk.w.dev 1 Inh IH BID Metformin Hcl Er (Metformin Hcl) 500 Mg Tab.er.24h 500 Mg PO DAILYWBKFT Potassium Chloride 20 Meq Tab.er.prt 20 Meq PO DAILY Lovastatin 20 Mg Tablet 20 PO QHS Pantoprazole Sodium 40 Mg Tablet.dr 40 Mg PO DAILYAC Toprol Xl (Metoprolol Succinate) 50 Mg Tab.er.24h 50 Mg PO QHS Gabapentin 300 Mg Capsule 300 Mg PO BID Furosemide 80 Mg Tablet 80 Mg PO DAILY Vitals/I & O Vital Sign - Last 24 Hours 11/28/16 11/28/16 11/28/16 11/28/16 11:00 13:53 15:00 17:08 Temp 97.9 98.0 97.9 98.0 Pulse 73 84 Resp 23 22 B/P (MAP) 106/78 (87) 144/72 (96) Pulse Ox 23 96 98 97 O2 Delivery BiPAP/CPAP Nasal Cannula Nasal Cannula O2 Flow Rate 3.0 3.0 11/28/16 11/28/16 11/28/16 11/28/16 19:26 19:29 19:55 20:00 Temp 98.4 98.4 Pulse 81 Resp 18 B/P (MAP) 132/66 (88) Pulse Ox 100 100 99 O2 Delivery Nasal Cannula Nasal Cannula Nasal Cannula Bi-pap O2 Flow Rate 3.0 3.0 3.0 11/28/16 11/28/16 11/28/16 11/29/16 21:20 22:30 23:30 00:45 Temp 98.2 98.2 Pulse 80 Resp 20 B/P (MAP) 137/73 (94) Pulse Ox 99 98 99 97 O2 Delivery BiPAP/CPAP BiPAP/CPAP BiPAP/CPAP BiPAP/CPAP 11/29/16 11/29/16 11/29/16 11/29/16 02:45 03:13 07:00 08:40 Temp 98.6 97.3 98.6 97.3 Pulse 68 75 Resp 20 19 B/P (MAP) 154/65 (94) 157/73 (101) Pulse Ox 98 100 100 94 O2 Delivery BiPAP/CPAP BiPAP/CPAP Room Air Room Air BUSHRA DALLAS MD Nov 29, 2016 09:37
[2016-11-29] MEDS: ONDANSETRON PF 4 MG/2 ML VIAL. IV PRN ×2 (10:08→17:26)
[2016-11-29] MEDS: ANTI-COAG MONITOR BY PHARMACY. MC PRN (10:27)
[2016-11-29] MEDS: NYSTATIN 100,000 UNIT/GM TOPICAL CREAM 15GM TUBE. TP SCH ×2 (10:30→21:00)
--- NOTE | 2016-11-29 10:40 | PDOC ---
PROGRESS NOTES Subjective Subjective feels better. alert. off of bipap. lab reviewed. bun 40 and creatinine 1.2. blood pressure is high and blood sugars are okay. Objective Objective Vital Signs Date Time Temp Pulse Resp B/P (MAP) Pulse Ox O2 Delivery O2 Flow Rate FiO2 11/29/16 08:40 94 Room Air 11/29/16 08:00 3.0 11/29/16 07:00 97.3 75 19 157/73 (101) 97.3 Physical Exam Abdomen: Soft, Other (obese) Heart: Regular rate, Normal S1, Normal S2 Extremities: Other (trace edema legs) General: Alert HEENT: Atraumatic MUSCULOSKELETAL: No joint tenderness Neuro: Normal speech Psych/Mental Status: Mental status NL Skin: No rashes Assessment Assessment Problems1. Acute kidney injury improved off of furosemide and with iv fluids 2. Hyperkalemia secondary to acute kidney injury.resolved 3. Hyponatremia, resolved 4. Urine retention with Aleman catheter in place. 5. Metabolic encephalopathy.resolved 6. Possible toxic encephalopathy from previous narcotics. resolved 7. Diabetes mellitus type 2. 8. Chronic obstructive pulmonary disease. 9. Acute hypoxic and hypercapnic respiratory failure. 10. Paroxysmal atrial fibrillation. currently in NSR 11. Hyperlipidemia. 12. Super morbid obesity with a BMI of 67. 13. Lumbar herniated disk L4-L5 with left-sided radiculopathy and lumbar degenerative disk disease. hypertension Medical Problems: (1) SELVIN (acute kidney injury) Status: Acute (2) Hyperkalemia Status: Acute (3) Leukocytosis Status: Acute (4) Uremia Status: Acute Plan Plan of Care decrease iv fluids start amlodipine limit narcotics PT and OT lab tomorrow Comment Review of Relevant I have reviewed the following items shakir (where applicable) has been applied. Labs Laboratory Tests Test 11/27/16 13:15 11/27/16 13:38 11/27/16 15:20 11/27/16 16:07 White Blood Count 16.1 x10^3/uL (4.0-11.0) Red Blood Count 4.87 x10^6/uL (3.50-5.40) Hemoglobin 12.0 g/dL (12.0-15.5) Hematocrit 38.5 % (36.0-47.0) Mean Corpuscular Volume 79 fL (79-100) Mean Corpuscular Hemoglobin 25 pg (25-35) Mean Corpuscular Hemoglobin Concent 31 g/dL (31-37) Red Cell Distribution Width 19.1 % (11.5-14.5) Platelet Count 276 x10^3/uL (140-400) Neutrophils (%) (Auto) 82 % (31-73) Lymphocytes (%) (Auto) 12 % (24-48) Monocytes (%) (Auto) 6 % (0-9) Eosinophils (%) (Auto) 1 % (0-3) Basophils (%) (Auto) 0 % (0-3) Neutrophils # (Auto) 13.2 x10^3uL (1.8-7.7) Lymphocytes # (Auto) 1.8 x10^3/uL (1.0-4.8) Monocytes # (Auto) 0.9 x10^3/uL (0.0-1.1) Eosinophils # (Auto) 0.1 x10^3/uL (0.0-0.7) Basophils # (Auto) 0.1 x10^3/uL (0.0-0.2) Segmented Neutrophils % 84 % (35-66) Band Neutrophils % 4 % (0-9) Lymphocytes % 8 % (24-48) Monocytes % 4 % (0-10) Platelet Estimate Adequate (ADEQUATE) Hypochromasia Slight Anisocytosis Slight Microcytosis Slight Prothrombin Time 15.7 SEC (11.7-14.0) Prothromb Time International Ratio 1.3 (0.8-1.1) Activated Partial Thromboplast Time 39 SEC (24-38) Sodium Level 132 mmol/L (136-145) Potassium Level 5.4 mmol/L (3.5-5.1) Chloride Level 90 mmol/L (98-107) Carbon Dioxide Level 37 mmol/L (21-32) Anion Gap 5 (6-14) Blood Urea Nitrogen 97 mg/dL (7-20) Creatinine 2.7 mg/dL (0.6-1.0) Estimated GFR (Cockcroft-Gault) 18.7 BUN/Creatinine Ratio 36 (6-20) Glucose Level 110 mg/dL (70-99) Calcium Level 9.8 mg/dL (8.5-10.1) Magnesium Level 3.2 mg/dL (1.8-2.4) Total Bilirubin 0.7 mg/dL (0.2-1.0) Aspartate Amino Transf (AST/SGOT) 14 U/L (15-37) Alanine Aminotransferase (ALT/SGPT) 23 U/L (14-59) Alkaline Phosphatase 72 U/L (46-116) Creatine Kinase 51 U/L (26-192) Troponin I Quantitative < 0.017 ng/mL (0.000-0.055) [id number]-Type Natriuretic Peptide 47 pg/mL (0-124) Total Protein 7.1 g/dL (6.4-8.2) Albumin 3.6 g/dL (3.4-5.0) Albumin/Globulin Ratio 1.0 (1.0-1.7) Lipase 208 U/L (73-393) Thyroid Stimulating Hormone (TSH) 1.242 uIU/mL (0.358-3.74) Urine Collection Type U cath Urine Color Yellow Urine Clarity Clear Urine pH 5.0 Urine Specific [place] 1.015 Urine Protein Negative mg/dL (NEG-TRACE) Urine Glucose (UA) Negative mg/dL (NEG) Urine Ketones (Stick) Negative mg/dL (NEG) Urine Blood Negative (NEG) Urine Nitrite Negative (NEG) Urine Bilirubin Negative (NEG) Urine Urobilinogen Dipstick 0.2 mg/dL (0.2 mg/dL) Urine Leukocyte Esterase Negative (NEG) Urine RBC 0 /HPF (0-2) Urine WBC Occ /HPF (0-4) Urine Squamous Epithelial Cells Few /LPF Urine Amorphous Sediment Present /HPF Urine Bacteria Few /HPF (0-FEW) Urine Hyaline Casts Many /HPF Urine Mucus Marked /LPF Nasal Screen MRSA (PCR) Negative (Negative) O2 Saturation 97 % (92-99) Arterial Blood pH 7.34 (7.35-7.45) Arterial Blood pCO2 at Patient Temp 68 mmHg (35-46) Arterial Blood pO2 at Patient Temp 95 mmHg (75-108) Arterial Blood HCO3 36 mmol/L (21-28) Arterial Blood Base Excess 8 mmol/L (-3-3) FiO2 36 Test 11/27/16 21:04 11/28/16 04:50 11/28/16 08:48 11/28/16 11:55 Glucose (Fingerstick) 108 mg/dL (70-99) 88 mg/dL (70-99) White Blood Count 8.6 x10^3/uL (4.0-11.0) Red Blood Count 4.48 x10^6/uL (3.50-5.40) Hemoglobin 11.3 g/dL (12.0-15.5) Hematocrit 35.6 % (36.0-47.0) Mean Corpuscular Volume 79 fL (79-100) Mean Corpuscular Hemoglobin 25 pg (25-35) Mean Corpuscular Hemoglobin Concent 32 g/dL (31-37) Red Cell Distribution Width 19.4 % (11.5-14.5) Platelet Count 221 x10^3/uL (140-400) Neutrophils (%) (Auto) 76 % (31-73) Lymphocytes (%) (Auto) 17 % (24-48) Monocytes (%) (Auto) 6 % (0-9) Eosinophils (%) (Auto) 1 % (0-3) Basophils (%) (Auto) 0 % (0-3) Neutrophils # (Auto) 6.5 x10^3uL (1.8-7.7) Lymphocytes # (Auto) 1.4 x10^3/uL (1.0-4.8) Monocytes # (Auto) 0.5 x10^3/uL (0.0-1.1) Eosinophils # (Auto) 0.1 x10^3/uL (0.0-0.7) Basophils # (Auto) 0.0 x10^3/uL (0.0-0.2) Sodium Level 134 mmol/L (136-145) Potassium Level 5.3 mmol/L (3.5-5.1) Chloride Level 97 mmol/L (98-107) Carbon Dioxide Level 31 mmol/L (21-32) Anion Gap 6 (6-14) Blood Urea Nitrogen 71 mg/dL (7-20) Creatinine 1.8 mg/dL (0.6-1.0) Estimated GFR (Cockcroft-Gault) 29.8 BUN/Creatinine Ratio 39 (6-20) Glucose Level 97 mg/dL (70-99) Calcium Level 9.1 mg/dL (8.5-10.1) Total Bilirubin 0.6 mg/dL (0.2-1.0) Aspartate Amino Transf (AST/SGOT) 19 U/L (15-37) Alanine Aminotransferase (ALT/SGPT) 17 U/L (14-59) Alkaline Phosphatase 64 U/L (46-116) Total Protein 6.8 g/dL (6.4-8.2) Albumin 3.1 g/dL (3.4-5.0) Albumin/Globulin Ratio 0.8 (1.0-1.7) O2 Saturation 95 % (92-99) Arterial Blood pH 7.37 (7.35-7.45) Arterial Blood pCO2 at Patient Temp 66 mmHg (35-46) Arterial Blood pO2 at Patient Temp 78 mmHg (75-108) Arterial Blood HCO3 37 mmol/L (21-28) Arterial Blood Base Excess 10 mmol/L (-3-3) FiO2 30 Test 11/28/16 17:31 11/28/16 20:42 11/29/16 04:04 11/29/16 08:57 Glucose (Fingerstick) 93 mg/dL (70-99) 99 mg/dL (70-99) 164 mg/dL (70-99) White Blood Count 6.9 x10^3/uL (4.0-11.0) Red Blood Count 4.55 x10^6/uL (3.50-5.40) Hemoglobin 11.5 g/dL (12.0-15.5) Hematocrit 36.2 % (36.0-47.0) Mean Corpuscular Volume 80 fL (79-100) Mean Corpuscular Hemoglobin 25 pg (25-35) Mean Corpuscular Hemoglobin Concent 32 g/dL (31-37) Red Cell Distribution Width 19.2 % (11.5-14.5) Platelet Count 230 x10^3/uL (140-400) Neutrophils (%) (Auto) 70 % (31-73) Lymphocytes (%) (Auto) 22 % (24-48) Monocytes (%) (Auto) 7 % (0-9) Eosinophils (%) (Auto) 1 % (0-3) Basophils (%) (Auto) 0 % (0-3) Neutrophils # (Auto) 4.8 x10^3uL (1.8-7.7) Lymphocytes # (Auto) 1.5 x10^3/uL (1.0-4.8) Monocytes # (Auto) 0.5 x10^3/uL (0.0-1.1) Eosinophils # (Auto) 0.1 x10^3/uL (0.0-0.7) Basophils # (Auto) 0.0 x10^3/uL (0.0-0.2) Sodium Level 141 mmol/L (136-145) Potassium Level 4.2 mmol/L (3.5-5.1) Chloride Level 100 mmol/L (98-107) Carbon Dioxide Level 36 mmol/L (21-32) Anion Gap 5 (6-14) Blood Urea Nitrogen 40 mg/dL (7-20) Creatinine 1.2 mg/dL (0.6-1.0) Estimated GFR (Cockcroft-Gault) 47.6 Glucose Level 115 mg/dL (70-99) Calcium Level 9.1 mg/dL (8.5-10.1) Laboratory Tests Test 11/28/16 11:55 11/28/16 17:31 11/28/16 20:42 11/29/16 04:04 Glucose (Fingerstick) 88 mg/dL (70-99) 93 mg/dL (70-99) 99 mg/dL (70-99) White Blood Count 6.9 x10^3/uL (4.0-11.0) Red Blood Count 4.55 x10^6/uL (3.50-5.40) Hemoglobin 11.5 g/dL (12.0-15.5) Hematocrit 36.2 % (36.0-47.0) Mean Corpuscular Volume 80 fL (79-100) Mean Corpuscular Hemoglobin 25 pg (25-35) Mean Corpuscular Hemoglobin Concent 32 g/dL (31-37) Red Cell Distribution Width 19.2 % (11.5-14.5) Platelet Count 230 x10^3/uL (140-400) Neutrophils (%) (Auto) 70 % (31-73) Lymphocytes (%) (Auto) 22 % (24-48) Monocytes (%) (Auto) 7 % (0-9) Eosinophils (%) (Auto) 1 % (0-3) Basophils (%) (Auto) 0 % (0-3) Neutrophils # (Auto) 4.8 x10^3uL (1.8-7.7) Lymphocytes # (Auto) 1.5 x10^3/uL (1.0-4.8) Monocytes # (Auto) 0.5 x10^3/uL (0.0-1.1) Eosinophils # (Auto) 0.1 x10^3/uL (0.0-0.7) Basophils # (Auto) 0.0 x10^3/uL (0.0-0.2) Sodium Level 141 mmol/L (136-145) Potassium Level 4.2 mmol/L (3.5-5.1) Chloride Level 100 mmol/L (98-107) Carbon Dioxide Level 36 mmol/L (21-32) Anion Gap 5 (6-14) Blood Urea Nitrogen 40 mg/dL (7-20) Creatinine 1.2 mg/dL (0.6-1.0) Estimated GFR (Cockcroft-Gault) 47.6 Glucose Level 115 mg/dL (70-99) Calcium Level 9.1 mg/dL (8.5-10.1) Test 11/29/16 08:57 Glucose (Fingerstick) 164 mg/dL (70-99) Medications Current Medications Sodium Chloride 1,000 ml @ 1,000 mls/hr 1X ONCE IV Last administered on 13:32; Start 11/27/16 at 13:30; Stop 11/27/16 at 14:29; Status DC Ondansetron HCl (Zofran) 8 mg 1X ONCE IV Last administered on 11/27/16 13:33 ; Start 11/27/16 at 13:30; Stop 11/27/16 at 13:31; Status DC Sodium Bicarbonate 50 meq 1X ONCE IV Last administered on 11/27/16 13:53; Start 11/27/16 at 13:45; Stop 11/27/16 at 14:00; Status DC Ondansetron HCl (Zofran) 4 mg PRN Q8HRS PRN IV NAUSEA/VOMITING; Start 11/27/16 at 14:00; Stop 11/28/16 at 13:59; Status DC Sodium Chloride 1,000 ml @ 125 mls/hr Q8H IV Last administered on 11/28/16 01 :07; Start 11/27/16 at 14:30; Stop 11/28/16 at 08:29; Status DC Rivaroxaban (Xarelto) 20 mg DAILYWSUP PO ; Start 11/27/16 at 17:00; Stop at 19:31; Status DC Oxycodone HCl (OxyCONTIN) 10 mg Q12HR PO ; Start 11/27/16 at 21:00; Stop at 21:00; Status DC Acetaminophen/ Hydrocodone Bitart (Lortab 5/325) 1 tab PRN Q6HRS PRN PO PAIN; Start 11/27/16 at 14:00 Insulin Aspart (NovoLOG) 0-9 UNITS TIDWMEALS SQ ; Start 11/27/16 at 17:00; Stop 11/28/16 at 08:26; Status DC Dextrose (Dextrose 50%-Water Syringe) 12.5 gm PRN Q15MIN PRN IV SEE COMMENTS; Start 11/27/16 at 14:00 Albuterol Sulfate (Ventolin Neb Soln) 2.5 mg PRN Q4HRS PRN NEB SHORTNESS OF BREATH; Start 11/27/16 at 16:15 Aspirin (Ecotrin) 81 mg DAILY PO Last administered on 11/29/16 09:00; Start 11/28/16 at 09:00 Cetirizine HCl (ZyrTEC) 10 mg DAILY PO Last administered on 11/29/16 09:00; Start 11/28/16 at 09:00 Pantoprazole Sodium (Protonix) 40 mg DAILYAC PO Last administered on 11/29/16 09:01; Start 11/28/16 at 07:30 Non-Formulary Medication 1 inh BID IH ; Start 11/27/16 at 21:00; Status UNV Budesonide (Pulmicort) 0.5 mg RTBID NEB Last administered on 11/29/16 08:39; Start 11/27/16 at 20:00 Albuterol Sulfate (Ventolin Neb Soln) 2.5 mg RTQID NEB Last administered on 08:39; Start 11/27/16 at 20:00 Atorvastatin Calcium (Lipitor) 10 mg QHS PO Last administered on 11/28/16 20: 26; Start 11/27/16 at 21:00 Cyclobenzaprine HCl (Flexeril) 10 mg PRN Q8HRS PRN PO MUSCLE SPASMS; Start 11/27/16 at 16:30 Info (Anti-Coagulation Monitoring By Pharmacy) 1 each PRN DAILY PRN MC SEE COMMENTS Last administered on 11/29/16 10:27; Start 11/27/16 at 19:30 Rivaroxaban (Xarelto) 15 mg DAILYWSUP PO Last administered on 11/27/16 21:24; Start 11/27/16 at 19:45; Stop 11/28/16 at 08:34; Status DC Insulin Aspart (NovoLOG) 0-9 UNITS TIDWMEALS SQ ; Start 11/28/16 at 12:00 Acetaminophen (Tylenol) 325 mg PRN Q6HRS PRN PO MILD PAIN / TEMP Last administered on 11/29/16 04:09; Start 11/28/16 at 08:30 Sodium Chloride 1,000 ml @ 100 mls/hr Q10H IV Last administered on 11/29/16 04:06; Start 11/28/16 at 09:00 Senna/Docusate Sodium (Senna Plus) 2 tab DAILY PO Last administered on 09:01; Start 11/28/16 at 09:00 Polyethylene Glycol (miraLAX PACKET) 17 gm DAILY PO Last administered on 09:01; Start 11/28/16 at 09:00 Sodium Polystyrene Sulfonate (Kayexalate) 15 gm 1X ONCE PO Last administered on 11/28/16 14:47; Start 11/28/16 at 09:00; Stop 11/28/16 at 09:01; Status DC Rivaroxaban (Xarelto) 20 mg DAILYWSUP PO Last administered on 11/28/16 17:40; Start 11/28/16 at 17:00 Ondansetron HCl (Zofran) 4 mg PRN Q6HRS PRN IV NAUSEA/VOMITING Last administered on 11/29/16 10:08; Start 11/29/16 at 09:30 Nystatin (Mycostatin) 1 molly BID TP ; Start 11/29/16 at 10:30 Active Scripts Active [place] 5-325 Tablet (Acetaminophen/Hydrocodone Bitart) 1 Each Tablet 1-2 Tab PO Q4-6HRS Cyclobenzaprine Hcl 10 Mg Tablet 1 Tab PO TID Reported Combivent Respimat Inhal (Ipratropium/Albuterol Sulfate) 4 Gm Aer.w.adap 2 Inh IH QID Zyrtec (Cetirizine Hcl) 10 Mg Tablet 1 Tab PO DAILY Lisinopril 20 Mg Tablet 1 Tab PO DAILY Tramadol Hcl 50 Mg Tablet 50 Mg PO Q6H PRN Aspir 81 (Aspirin) 81 Mg Tablet.dr 1 Tab PO DAILY Albuterol Sulfate Neb Soln (Albuterol Sulfate) 2.5 Mg/3 Ml Vial.neb 2.5 Mg NEB Q4HRS PRN Xarelto (Rivaroxaban) 10 Mg Tablet 20 Mg PO QHS Advair 500-50 Diskus (Fluticasone/Salmeterol) 1 Each Disk.w.dev 1 Inh IH BID Metformin Hcl Er (Metformin Hcl) 500 Mg Tab.er.24h 500 Mg PO DAILYWBKFT Potassium Chloride 20 Meq Tab.er.prt 20 Meq PO DAILY Lovastatin 20 Mg Tablet 20 PO QHS Pantoprazole Sodium 40 Mg Tablet.dr 40 Mg PO DAILYAC Toprol Xl (Metoprolol Succinate) 50 Mg Tab.er.24h 50 Mg PO QHS Gabapentin 300 Mg Capsule 300 Mg PO BID Furosemide 80 Mg Tablet 80 Mg PO DAILY Vitals/I & O Vital Sign - Last 24 Hours 11/28/16 11/28/16 11/28/16 11/28/16 11:00 13:53 15:00 17:08 Temp 97.9 98.0 97.9 98.0 Pulse 73 84 Resp 23 22 B/P (MAP) 106/78 (87) 144/72 (96) Pulse Ox 23 96 98 97 O2 Delivery BiPAP/CPAP Nasal Cannula Nasal Cannula O2 Flow Rate 3.0 3.0 11/28/16 11/28/16 11/28/16 11/28/16 19:26 19:29 19:55 20:00 Temp 98.4 98.4 Pulse 81 Resp 18 B/P (MAP) 132/66 (88) Pulse Ox 100 100 99 O2 Delivery Nasal Cannula Nasal Cannula Nasal Cannula Bi-pap O2 Flow Rate 3.0 3.0 3.0 11/28/16 11/28/16 11/28/16 11/29/16 21:20 22:30 23:30 00:45 Temp 98.2 98.2 Pulse 80 Resp 20 B/P (MAP) 137/73 (94) Pulse Ox 99 98 99 97 O2 Delivery BiPAP/CPAP BiPAP/CPAP BiPAP/CPAP BiPAP/CPAP 11/29/16 11/29/16 11/29/16 11/29/16 02:45 03:13 07:00 08:00 Temp 98.6 97.3 98.6 97.3 Pulse 68 75 Resp 20 19 B/P (MAP) 154/65 (94) 157/73 (101) Pulse Ox 98 100 100 O2 Delivery BiPAP/CPAP BiPAP/CPAP Room Air O2 Flow Rate 3.0 11/29/16 11/29/16 08:00 08:40 Pulse Ox 94 O2 Delivery Room Air Room Air SUJIT SAUNDERS MD Nov 29, 2016 10:40
[2016-11-29] MEDS: IV 1/2 NORMAL SALINE 1,000 ML IV SCH ×2 (10:45→21:18)
[2016-11-29 11:00] VITALS: BP 115/87
[2016-11-29] MEDS: amLODIPine BESYLATE 5 MG TABLET PO SCH (11:00)
--- NOTE | 2016-11-29 11:50 | PDOC ---
Renal-Progress Notes Subjective Notes Notes FEELS WELL History of Present Illness Hx of present illness STABLE Vitals Vitals Vital Signs Date Time Temp Pulse Resp B/P (MAP) Pulse Ox O2 Delivery O2 Flow Rate FiO2 11/29/16 11:00 97.5 73 20 115/87 (96) 100 Nasal Cannula 2.0 97.5 Weight Weight [ ] Labs Labs Laboratory Tests Test 11/28/16 11:55 11/28/16 17:31 11/28/16 20:42 11/29/16 04:04 Glucose (Fingerstick) 88 mg/dL (70-99) 93 mg/dL (70-99) 99 mg/dL (70-99) White Blood Count 6.9 x10^3/uL (4.0-11.0) Red Blood Count 4.55 x10^6/uL (3.50-5.40) Hemoglobin 11.5 g/dL (12.0-15.5) Hematocrit 36.2 % (36.0-47.0) Mean Corpuscular Volume 80 fL (79-100) Mean Corpuscular Hemoglobin 25 pg (25-35) Mean Corpuscular Hemoglobin Concent 32 g/dL (31-37) Red Cell Distribution Width 19.2 % (11.5-14.5) Platelet Count 230 x10^3/uL (140-400) Neutrophils (%) (Auto) 70 % (31-73) Lymphocytes (%) (Auto) 22 % (24-48) Monocytes (%) (Auto) 7 % (0-9) Eosinophils (%) (Auto) 1 % (0-3) Basophils (%) (Auto) 0 % (0-3) Neutrophils # (Auto) 4.8 x10^3uL (1.8-7.7) Lymphocytes # (Auto) 1.5 x10^3/uL (1.0-4.8) Monocytes # (Auto) 0.5 x10^3/uL (0.0-1.1) Eosinophils # (Auto) 0.1 x10^3/uL (0.0-0.7) Basophils # (Auto) 0.0 x10^3/uL (0.0-0.2) Sodium Level 141 mmol/L (136-145) Potassium Level 4.2 mmol/L (3.5-5.1) Chloride Level 100 mmol/L (98-107) Carbon Dioxide Level 36 mmol/L (21-32) Anion Gap 5 (6-14) Blood Urea Nitrogen 40 mg/dL (7-20) Creatinine 1.2 mg/dL (0.6-1.0) Estimated GFR (Cockcroft-Gault) 47.6 Glucose Level 115 mg/dL (70-99) Calcium Level 9.1 mg/dL (8.5-10.1) Test 11/29/16 08:57 Glucose (Fingerstick) 164 mg/dL (70-99) Review of Systems Constitutional: yes: weakness, alert, oriented Ears/Nose/Throat: Yes: no symptom reported Cardiovascular: Yes no symptom reported Gastrointestional: Yes: no symptom reported Genitourinary: Yes: no symptom reported Musculoskeletal: Yes: back pain Skin: Yes no symptom reported Psychiatric/Neurological: Yes: no symptom reported Endocrine: Yes: no symptom reported Physical Exam General Appearance: no apparent distress Skin: warm Respiratory: decreased breath sounds Heart: S1S2 Abdomen: soft, bowel sounds present Genitourinary: bladder flat Neurology: alert, oriented Musculoskeletal: Osteoarthritis, Other (L 4 TO 5 DISC HERNIATION) Assessment Assessment IMP SELVIN-RESOLVED URINARY RETENTION DEHYDRATION L4-5 DISK HERNIATION MORBID OBESITY HYPERKALEMIA-RESOLVED HYPERCARBIA WITH RESP FAILURE-OFF BIPAP NOW PLAN MAINTAIN BARNEY SUGGEST FOLLOW UP UROLOGY OP WILL SIGN OFF PLEASE CALL IF NEEDED YONI CORDERO MD Nov 29, 2016 11:50
--- NOTE | 2016-11-29 13:01 | PDOC ---
PULMONARY PROGRESS NOTES Subjective pt feels better Vitals Vital Signs Date Time Temp Pulse Resp B/P (MAP) Pulse Ox O2 Delivery O2 Flow Rate FiO2 11/29/16 12:08 96 Nasal Cannula 1.0 11/29/16 11:00 97.5 73 20 115/87 (96) 97.5 ROS: No Chest Pain, No Abdominal Pain, No Increase Cough Lungs: Clear Cardiovascular: S1, S2 Abdomen: Soft, Other (obese) Neuro Exam: Alert Extremities: Other (edema) Skin: Warm Labs Laboratory Tests Test 11/27/16 13:15 11/27/16 13:38 11/27/16 15:20 11/27/16 16:07 White Blood Count 16.1 x10^3/uL (4.0-11.0) Red Blood Count 4.87 x10^6/uL (3.50-5.40) Hemoglobin 12.0 g/dL (12.0-15.5) Hematocrit 38.5 % (36.0-47.0) Mean Corpuscular Volume 79 fL (79-100) Mean Corpuscular Hemoglobin 25 pg (25-35) Mean Corpuscular Hemoglobin Concent 31 g/dL (31-37) Red Cell Distribution Width 19.1 % (11.5-14.5) Platelet Count 276 x10^3/uL (140-400) Neutrophils (%) (Auto) 82 % (31-73) Lymphocytes (%) (Auto) 12 % (24-48) Monocytes (%) (Auto) 6 % (0-9) Eosinophils (%) (Auto) 1 % (0-3) Basophils (%) (Auto) 0 % (0-3) Neutrophils # (Auto) 13.2 x10^3uL (1.8-7.7) Lymphocytes # (Auto) 1.8 x10^3/uL (1.0-4.8) Monocytes # (Auto) 0.9 x10^3/uL (0.0-1.1) Eosinophils # (Auto) 0.1 x10^3/uL (0.0-0.7) Basophils # (Auto) 0.1 x10^3/uL (0.0-0.2) Segmented Neutrophils % 84 % (35-66) Band Neutrophils % 4 % (0-9) Lymphocytes % 8 % (24-48) Monocytes % 4 % (0-10) Platelet Estimate Adequate (ADEQUATE) Hypochromasia Slight Anisocytosis Slight Microcytosis Slight Prothrombin Time 15.7 SEC (11.7-14.0) Prothromb Time International Ratio 1.3 (0.8-1.1) Activated Partial Thromboplast Time 39 SEC (24-38) Sodium Level 132 mmol/L (136-145) Potassium Level 5.4 mmol/L (3.5-5.1) Chloride Level 90 mmol/L (98-107) Carbon Dioxide Level 37 mmol/L (21-32) Anion Gap 5 (6-14) Blood Urea Nitrogen 97 mg/dL (7-20) Creatinine 2.7 mg/dL (0.6-1.0) Estimated GFR (Cockcroft-Gault) 18.7 BUN/Creatinine Ratio 36 (6-20) Glucose Level 110 mg/dL (70-99) Calcium Level 9.8 mg/dL (8.5-10.1) Magnesium Level 3.2 mg/dL (1.8-2.4) Total Bilirubin 0.7 mg/dL (0.2-1.0) Aspartate Amino Transf (AST/SGOT) 14 U/L (15-37) Alanine Aminotransferase (ALT/SGPT) 23 U/L (14-59) Alkaline Phosphatase 72 U/L (46-116) Creatine Kinase 51 U/L (26-192) Troponin I Quantitative < 0.017 ng/mL (0.000-0.055) KI-Mxw-N-Type Natriuretic Peptide 47 pg/mL (0-124) Total Protein 7.1 g/dL (6.4-8.2) Albumin 3.6 g/dL (3.4-5.0) Albumin/Globulin Ratio 1.0 (1.0-1.7) Lipase 208 U/L (73-393) Thyroid Stimulating Hormone (TSH) 1.242 uIU/mL (0.358-3.74) Urine Collection Type U cath Urine Color Yellow Urine Clarity Clear Urine pH 5.0 Urine Specific [place] 1.015 Urine Protein Negative mg/dL (NEG-TRACE) Urine Glucose (UA) Negative mg/dL (NEG) Urine Ketones (Stick) Negative mg/dL (NEG) Urine Blood Negative (NEG) Urine Nitrite Negative (NEG) Urine Bilirubin Negative (NEG) Urine Urobilinogen Dipstick 0.2 mg/dL (0.2 mg/dL) Urine Leukocyte Esterase Negative (NEG) Urine RBC 0 /HPF (0-2) Urine WBC Occ /HPF (0-4) Urine Squamous Epithelial Cells Few /LPF Urine Amorphous Sediment Present /HPF Urine Bacteria Few /HPF (0-FEW) Urine Hyaline Casts Many /HPF Urine Mucus Marked /LPF Nasal Screen MRSA (PCR) Negative (Negative) O2 Saturation 97 % (92-99) Arterial Blood pH 7.34 (7.35-7.45) Arterial Blood pCO2 at Patient Temp 68 mmHg (35-46) Arterial Blood pO2 at Patient Temp 95 mmHg (75-108) Arterial Blood HCO3 36 mmol/L (21-28) Arterial Blood Base Excess 8 mmol/L (-3-3) FiO2 36 Test 11/27/16 21:04 11/28/16 04:50 11/28/16 08:48 11/28/16 11:55 Glucose (Fingerstick) 108 mg/dL (70-99) 88 mg/dL (70-99) White Blood Count 8.6 x10^3/uL (4.0-11.0) Red Blood Count 4.48 x10^6/uL (3.50-5.40) Hemoglobin 11.3 g/dL (12.0-15.5) Hematocrit 35.6 % (36.0-47.0) Mean Corpuscular Volume 79 fL (79-100) Mean Corpuscular Hemoglobin 25 pg (25-35) Mean Corpuscular Hemoglobin Concent 32 g/dL (31-37) Red Cell Distribution Width 19.4 % (11.5-14.5) Platelet Count 221 x10^3/uL (140-400) Neutrophils (%) (Auto) 76 % (31-73) Lymphocytes (%) (Auto) 17 % (24-48) Monocytes (%) (Auto) 6 % (0-9) Eosinophils (%) (Auto) 1 % (0-3) Basophils (%) (Auto) 0 % (0-3) Neutrophils # (Auto) 6.5 x10^3uL (1.8-7.7) Lymphocytes # (Auto) 1.4 x10^3/uL (1.0-4.8) Monocytes # (Auto) 0.5 x10^3/uL (0.0-1.1) Eosinophils # (Auto) 0.1 x10^3/uL (0.0-0.7) Basophils # (Auto) 0.0 x10^3/uL (0.0-0.2) Sodium Level 134 mmol/L (136-145) Potassium Level 5.3 mmol/L (3.5-5.1) Chloride Level 97 mmol/L (98-107) Carbon Dioxide Level 31 mmol/L (21-32) Anion Gap 6 (6-14) Blood Urea Nitrogen 71 mg/dL (7-20) Creatinine 1.8 mg/dL (0.6-1.0) Estimated GFR (Cockcroft-Gault) 29.8 BUN/Creatinine Ratio 39 (6-20) Glucose Level 97 mg/dL (70-99) Calcium Level 9.1 mg/dL (8.5-10.1) Total Bilirubin 0.6 mg/dL (0.2-1.0) Aspartate Amino Transf (AST/SGOT) 19 U/L (15-37) Alanine Aminotransferase (ALT/SGPT) 17 U/L (14-59) Alkaline Phosphatase 64 U/L (46-116) Total Protein 6.8 g/dL (6.4-8.2) Albumin 3.1 g/dL (3.4-5.0) Albumin/Globulin Ratio 0.8 (1.0-1.7) O2 Saturation 95 % (92-99) Arterial Blood pH 7.37 (7.35-7.45) Arterial Blood pCO2 at Patient Temp 66 mmHg (35-46) Arterial Blood pO2 at Patient Temp 78 mmHg (75-108) Arterial Blood HCO3 37 mmol/L (21-28) Arterial Blood Base Excess 10 mmol/L (-3-3) FiO2 30 Test 11/28/16 17:31 11/28/16 20:42 11/29/16 04:04 11/29/16 08:57 Glucose (Fingerstick) 93 mg/dL (70-99) 99 mg/dL (70-99) 164 mg/dL (70-99) White Blood Count 6.9 x10^3/uL (4.0-11.0) Red Blood Count 4.55 x10^6/uL (3.50-5.40) Hemoglobin 11.5 g/dL (12.0-15.5) Hematocrit 36.2 % (36.0-47.0) Mean Corpuscular Volume 80 fL (79-100) Mean Corpuscular Hemoglobin 25 pg (25-35) Mean Corpuscular Hemoglobin Concent 32 g/dL (31-37) Red Cell Distribution Width 19.2 % (11.5-14.5) Platelet Count 230 x10^3/uL (140-400) Neutrophils (%) (Auto) 70 % (31-73) Lymphocytes (%) (Auto) 22 % (24-48) Monocytes (%) (Auto) 7 % (0-9) Eosinophils (%) (Auto) 1 % (0-3) Basophils (%) (Auto) 0 % (0-3) Neutrophils # (Auto) 4.8 x10^3uL (1.8-7.7) Lymphocytes # (Auto) 1.5 x10^3/uL (1.0-4.8) Monocytes # (Auto) 0.5 x10^3/uL (0.0-1.1) Eosinophils # (Auto) 0.1 x10^3/uL (0.0-0.7) Basophils # (Auto) 0.0 x10^3/uL (0.0-0.2) Sodium Level 141 mmol/L (136-145) Potassium Level 4.2 mmol/L (3.5-5.1) Chloride Level 100 mmol/L (98-107) Carbon Dioxide Level 36 mmol/L (21-32) Anion Gap 5 (6-14) Blood Urea Nitrogen 40 mg/dL (7-20) Creatinine 1.2 mg/dL (0.6-1.0) Estimated GFR (Cockcroft-Gault) 47.6 Glucose Level 115 mg/dL (70-99) Calcium Level 9.1 mg/dL (8.5-10.1) Test 11/29/16 11:55 Glucose (Fingerstick) 92 mg/dL (70-99) Laboratory Tests Test 11/28/16 17:31 11/28/16 20:42 11/29/16 04:04 11/29/16 08:57 Glucose (Fingerstick) 93 mg/dL (70-99) 99 mg/dL (70-99) 164 mg/dL (70-99) White Blood Count 6.9 x10^3/uL (4.0-11.0) Red Blood Count 4.55 x10^6/uL (3.50-5.40) Hemoglobin 11.5 g/dL (12.0-15.5) Hematocrit 36.2 % (36.0-47.0) Mean Corpuscular Volume 80 fL (79-100) Mean Corpuscular Hemoglobin 25 pg (25-35) Mean Corpuscular Hemoglobin Concent 32 g/dL (31-37) Red Cell Distribution Width 19.2 % (11.5-14.5) Platelet Count 230 x10^3/uL (140-400) Neutrophils (%) (Auto) 70 % (31-73) Lymphocytes (%) (Auto) 22 % (24-48) Monocytes (%) (Auto) 7 % (0-9) Eosinophils (%) (Auto) 1 % (0-3) Basophils (%) (Auto) 0 % (0-3) Neutrophils # (Auto) 4.8 x10^3uL (1.8-7.7) Lymphocytes # (Auto) 1.5 x10^3/uL (1.0-4.8) Monocytes # (Auto) 0.5 x10^3/uL (0.0-1.1) Eosinophils # (Auto) 0.1 x10^3/uL (0.0-0.7) Basophils # (Auto) 0.0 x10^3/uL (0.0-0.2) Sodium Level 141 mmol/L (136-145) Potassium Level 4.2 mmol/L (3.5-5.1) Chloride Level 100 mmol/L (98-107) Carbon Dioxide Level 36 mmol/L (21-32) Anion Gap 5 (6-14) Blood Urea Nitrogen 40 mg/dL (7-20) Creatinine 1.2 mg/dL (0.6-1.0) Estimated GFR (Cockcroft-Gault) 47.6 Glucose Level 115 mg/dL (70-99) Calcium Level 9.1 mg/dL (8.5-10.1) Test 11/29/16 11:55 Glucose (Fingerstick) 92 mg/dL (70-99) Medications Active Scripts Medications Dose Route/Sig Max Daily Dose Days Date Category [place] 5-325 Tablet (Acetaminophen/Hydrocodone Bitart) 1 Each Tablet 1-2 Tab PO Q4-6HRS 11/16/16 Rx Cyclobenzaprine Hcl 10 Mg Tablet 1 Tab PO TID 11/16/16 Rx Combivent Respimat Inhal (Ipratropium/Albuterol Sulfate) 4 Gm Aer.w.adap 2 Inh IH QID 10/07/16 Reported Zyrtec (Cetirizine Hcl) 10 Mg Tablet 1 Tab PO DAILY 10/07/16 Reported Lisinopril 20 Mg Tablet 1 Tab PO DAILY 10/07/16 Reported Tramadol Hcl 50 Mg Tablet 50 Mg PO Q6H PRN 10/07/16 Reported Aspir 81 (Aspirin) 81 Mg Tablet. 1 Tab PO DAILY 10/07/16 Reported Albuterol Sulfate Neb Soln (Albuterol Sulfate) 2.5 Mg/3 Ml Vial.neb 2.5 Mg NEB Q4HRS PRN 01/26/15 Reported Xarelto (Rivaroxaban) 10 Mg Tablet 20 Mg PO QHS 01/26/15 Reported Advair 500-50 Diskus (Fluticasone/Salmeterol) 1 Each Disk.w.dev 1 Inh IH BID 01/26/15 Reported Metformin Hcl Er (Metformin Hcl) 500 Mg Tab.er.24h 500 Mg PO DAILYWBKFT 01/26/15 Reported Potassium Chloride 20 Meq Tab.er.prt 20 Meq PO DAILY 01/26/15 Reported Lovastatin 20 Mg Tablet 20 PO QHS 01/26/15 Reported Pantoprazole Sodium 40 Mg Tablet.dr 40 Mg PO DAILYAC 01/26/15 Reported Toprol Xl (Metoprolol Succinate) 50 Mg Tab.er.24h 50 Mg PO QHS 01/26/15 Reported Gabapentin 300 Mg Capsule 300 Mg PO BID 01/26/15 Reported Furosemide 80 Mg Tablet 80 Mg PO DAILY 01/26/15 Reported Impression . 1. [id number] hypercapnic respiratory failure. 2. Metabolic toxic encephalopathy. 3. Obstructive sleep apnea. 4. Acute kidney injury. 5. Hyperlipidemia. 6. Hyponatremia. 7. Urinary retention. 8. Morbid obesity. 9. L4-L5 disk herniation. Plan . WILL NEED A NEW SLEEP STUDY OP WILL DECREASE PRESSURE AND RATE ON BIPAPA PRN BIPAP AM QHS BIPAP FOLLOW RENAL INPUT AVOID NARCOTICS RAMBO MARES MD Nov 29, 2016 13:01
[2016-11-29 15:00] VITALS: BP 145/78
[2016-11-29] MEDS: RIVAROXABAN 10 MG TABLET. PO SCH (17:26)
[2016-11-29 19:26] VITALS: BP 149/70
[2016-11-29] MEDS: ATORVASTATIN CALCIUM 10 MG TABLET. PO SCH (21:18)
[2016-11-29 23:16] VITALS: BP 149/77
[2016-11-30 03:06] VITALS: BP 175/78
[2016-11-30] MEDS: ACETAMINOPHEN 325 MG TABLET. PO PRN ×4 (03:34→23:33)
[2016-11-30] MEDS: CYCLOBENZAPRINE 10 MG TABLET. PO PRN ×3 (03:46→20:42)
[2016-11-30 07:25] LABS: CALCIUM 9.3 mg/dL (8.5-10.1); GFR 58.7; POTASSIUM 3.7 mmol/L (3.5-5.1)
[2016-11-30] MEDS: ALBUTEROL SULFATE 2.5 MG/3 ML NEBU. NEB SCH ×4 (07:28→19:52)
[2016-11-30] MEDS: BUDESONIDE 0.5 MG/2 ML NEBU. NEB SCH ×2 (07:28→19:52)
[2016-11-30 07:46] VITALS: BP 134/78
[2016-11-30] MEDS: INSULIN ASPART 300 UNITS/3 ML INSULN.PEN SQ SCH ×3 (08:00→17:00)
[2016-11-30] MEDS: POLYETHYLENE GLYCOL 3350 17 GM PACKET. PO SCH (08:31)
[2016-11-30] MEDS: SENNOSIDES/DOCUSATE 8.6/50MG TABLET. PO SCH (08:32)
[2016-11-30] MEDS: ASPIRIN ENTERIC COATED 81 MG TABLET.DR. PO SCH (09:05)
[2016-11-30] MEDS: PANTOPRAZOLE 40 MG TABLET.DR. PO SCH (09:05)
[2016-11-30] MEDS: CETIRIZINE HCL 10 MG TABLET. PO SCH (09:05)
[2016-11-30] MEDS: amLODIPine BESYLATE 5 MG TABLET PO SCH (09:05)
[2016-11-30] MEDS: NYSTATIN 100,000 UNIT/GM TOPICAL CREAM 15GM TUBE. TP SCH ×2 (09:05→20:46)
[2016-11-30 09:15] LABS: HCO3 ABG 24 mmol/L (21-28); PCO2 ABG 33 mmHg (35-46); PH ABG 7.47 (7.35-7.45); PO2 ABG 70 mmHg (75-108); SAT O2 ABG 95 % (92-99)
[2016-11-30 09:16] LABS: FIO2 ABG 21
[2016-11-30] MEDS: ANTI-COAG MONITOR BY PHARMACY. MC PRN (09:24)
--- NOTE | 2016-11-30 10:06 | PDOC ---
PULMONARY PROGRESS NOTES Subjective pt feels better Vitals Vital Signs Date Time Temp Pulse Resp B/P (MAP) Pulse Ox O2 Delivery O2 Flow Rate FiO2 11/30/16 09:05 77 134/78 11/30/16 07:50 Bi-pap 11/30/16 07:49 1.0 11/30/16 07:46 97.4 22 96 97.4 ROS: No Chest Pain, No Abdominal Pain, No Increase Cough General: Alert Lungs: Clear Cardiovascular: S1, S2 Abdomen: Soft, Other (obese) Neuro Exam: Alert Extremities: Other (edema) Skin: Warm Labs Laboratory Tests Test 11/28/16 11:55 11/28/16 17:31 11/28/16 20:42 11/29/16 04:04 Glucose (Fingerstick) 88 mg/dL (70-99) 93 mg/dL (70-99) 99 mg/dL (70-99) White Blood Count 6.9 x10^3/uL (4.0-11.0) Red Blood Count 4.55 x10^6/uL (3.50-5.40) Hemoglobin 11.5 g/dL (12.0-15.5) Hematocrit 36.2 % (36.0-47.0) Mean Corpuscular Volume 80 fL (79-100) Mean Corpuscular Hemoglobin 25 pg (25-35) Mean Corpuscular Hemoglobin Concent 32 g/dL (31-37) Red Cell Distribution Width 19.2 % (11.5-14.5) Platelet Count 230 x10^3/uL (140-400) Neutrophils (%) (Auto) 70 % (31-73) Lymphocytes (%) (Auto) 22 % (24-48) Monocytes (%) (Auto) 7 % (0-9) Eosinophils (%) (Auto) 1 % (0-3) Basophils (%) (Auto) 0 % (0-3) Neutrophils # (Auto) 4.8 x10^3uL (1.8-7.7) Lymphocytes # (Auto) 1.5 x10^3/uL (1.0-4.8) Monocytes # (Auto) 0.5 x10^3/uL (0.0-1.1) Eosinophils # (Auto) 0.1 x10^3/uL (0.0-0.7) Basophils # (Auto) 0.0 x10^3/uL (0.0-0.2) Sodium Level 141 mmol/L (136-145) Potassium Level 4.2 mmol/L (3.5-5.1) Chloride Level 100 mmol/L (98-107) Carbon Dioxide Level 36 mmol/L (21-32) Anion Gap 5 (6-14) Blood Urea Nitrogen 40 mg/dL (7-20) Creatinine 1.2 mg/dL (0.6-1.0) Estimated GFR (Cockcroft-Gault) 47.6 Glucose Level 115 mg/dL (70-99) Calcium Level 9.1 mg/dL (8.5-10.1) Test 11/29/16 08:57 11/29/16 11:55 11/29/16 20:30 11/30/16 06:25 Glucose (Fingerstick) 164 mg/dL (70-99) 92 mg/dL (70-99) 103 mg/dL (70-99) Sodium Level 137 mmol/L (136-145) Potassium Level 3.7 mmol/L (3.5-5.1) Chloride Level 101 mmol/L (98-107) Carbon Dioxide Level 28 mmol/L (21-32) Anion Gap 8 (6-14) Blood Urea Nitrogen 19 mg/dL (7-20) Creatinine 1.0 mg/dL (0.6-1.0) Estimated GFR (Cockcroft-Gault) 58.7 Glucose Level 91 mg/dL (70-99) Calcium Level 9.3 mg/dL (8.5-10.1) Test 11/30/16 07:51 11/30/16 09:00 Glucose (Fingerstick) 90 mg/dL (70-99) O2 Saturation 95 % (92-99) Arterial Blood pH 7.47 (7.35-7.45) Arterial Blood pCO2 at Patient Temp 33 mmHg (35-46) Arterial Blood pO2 at Patient Temp 70 mmHg (75-108) Arterial Blood HCO3 24 mmol/L (21-28) Arterial Blood Base Excess 1 mmol/L (-3-3) FiO2 21 Laboratory Tests Test 11/29/16 11:55 11/29/16 20:30 11/30/16 06:25 11/30/16 07:51 Glucose (Fingerstick) 92 mg/dL (70-99) 103 mg/dL (70-99) 90 mg/dL (70-99) Sodium Level 137 mmol/L (136-145) Potassium Level 3.7 mmol/L (3.5-5.1) Chloride Level 101 mmol/L (98-107) Carbon Dioxide Level 28 mmol/L (21-32) Anion Gap 8 (6-14) Blood Urea Nitrogen 19 mg/dL (7-20) Creatinine 1.0 mg/dL (0.6-1.0) Estimated GFR (Cockcroft-Gault) 58.7 Glucose Level 91 mg/dL (70-99) Calcium Level 9.3 mg/dL (8.5-10.1) Test 11/30/16 09:00 O2 Saturation 95 % (92-99) Arterial Blood pH 7.47 (7.35-7.45) Arterial Blood pCO2 at Patient Temp 33 mmHg (35-46) Arterial Blood pO2 at Patient Temp 70 mmHg (75-108) Arterial Blood HCO3 24 mmol/L (21-28) Arterial Blood Base Excess 1 mmol/L (-3-3) FiO2 21 Medications Active Scripts Medications Dose Route/Sig Max Daily Dose Days Date Category [place] 5-325 Tablet (Acetaminophen/Hydrocodone Bitart) 1 Each Tablet 1-2 Tab PO Q4-6HRS 11/16/16 Rx Cyclobenzaprine Hcl 10 Mg Tablet 1 Tab PO TID 11/16/16 Rx Combivent Respimat Inhal (Ipratropium/Albuterol Sulfate) 4 Gm Aer.w.adap 2 Inh IH QID 10/07/16 Reported Zyrtec (Cetirizine Hcl) 10 Mg Tablet 1 Tab PO DAILY 10/07/16 Reported Lisinopril 20 Mg Tablet 1 Tab PO DAILY 10/07/16 Reported Tramadol Hcl 50 Mg Tablet 50 Mg PO Q6H PRN 10/07/16 Reported Aspir 81 (Aspirin) 81 Mg Tablet.dr 1 Tab PO DAILY 10/07/16 Reported Albuterol Sulfate Neb Soln (Albuterol Sulfate) 2.5 Mg/3 Ml Vial.neb 2.5 Mg NEB Q4HRS PRN 01/26/15 Reported Xarelto (Rivaroxaban) 10 Mg Tablet 20 Mg PO QHS 01/26/15 Reported Advair 500-50 Diskus (Fluticasone/Salmeterol) 1 Each Disk.w.dev 1 Inh IH BID 01/26/15 Reported Metformin Hcl Er (Metformin Hcl) 500 Mg Tab.er.24h 500 Mg PO DAILYWBKFT 01/26/15 Reported Potassium Chloride 20 Meq Tab.er.prt 20 Meq PO DAILY 01/26/15 Reported Lovastatin 20 Mg Tablet 20 PO QHS 01/26/15 Reported Pantoprazole Sodium 40 Mg Tablet.dr 40 Mg PO DAILYAC 01/26/15 Reported Toprol Xl (Metoprolol Succinate) 50 Mg Tab.er.24h 50 Mg PO QHS 01/26/15 Reported Gabapentin 300 Mg Capsule 300 Mg PO BID 01/26/15 Reported Furosemide 80 Mg Tablet 80 Mg PO DAILY 01/26/15 Reported Impression . 1. [id number] hypercapnic respiratory failure. resolved 2. Metabolic toxic encephalopathy. resolved 3. Obstructive sleep apnea.needs repeat SS as OP to re-qualify for new machine 4. Acute kidney injury. 5. Hyperlipidemia. 6. Hyponatremia. 7. Urinary retention. 8. Morbid obesity. 9. L4-L5 disk herniation. Plan . WILL NEED A NEW SLEEP STUDY OP NO NEED FOR OXYGEN AT PRESENT PRN BIPAP WHILE IN HOSPITAL QHS BIPAP FOLLOW RENAL INPUT AVOID NARCOTICS PT TO NOTIFY PCP AND ARRANGE OP SS MIKAYLA HOWARD MD Nov 30, 2016 10:06
[2016-11-30 10:43] VITALS: BP 149/84
--- NOTE | 2016-11-30 10:49 | PDOC ---
PROGRESS NOTES Subjective Subjective feels better. renal function back to baseline. walked to bathroom with walker. still with low back pain and intermittent muscle spasms and sciatica. will d/c iv fluids and pascual out. lab reviewed. Objective Objective Vital Signs Date Time Temp Pulse Resp B/P (MAP) Pulse Ox O2 Delivery O2 Flow Rate FiO2 11/30/16 09:05 77 134/78 11/30/16 07:50 Bi-pap 11/30/16 07:49 1.0 11/30/16 07:46 97.4 22 96 97.4 Physical Exam Abdomen: Soft, Other (obese) Heart: Regular rate, Normal S1, Normal S2 Extremities: No edema General: Alert HEENT: Atraumatic Lungs: Clear to auscultation Neuro: Normal speech Psych/Mental Status: Mental status NL Skin: No rashes Assessment Assessment Problems. Acute kidney injury resolved 2. Hyperkalemia secondary to acute kidney injury.resolved 3. Hyponatremia, resolved 4. Urine retention . pascual removed 5. Metabolic encephalopathy.resolved 6. Possible toxic encephalopathy from previous narcotics. resolved 7. Diabetes mellitus type 2. 8. Chronic obstructive pulmonary disease. 9. Acute hypoxic and hypercapnic respiratory failure.resolved 10. Paroxysmal atrial fibrillation. currently in NSR 11. Hyperlipidemia. 12. Super morbid obesity with a BMI of 67. 13. Lumbar herniated disk L4-L5 with left-sided radiculopathy and lumbar degenerative disk disease. hypertension obstructive sleep apnea Medical Problems: (1) SELVIN (acute kidney injury) Status: Acute (2) Hyperkalemia Status: Acute (3) Leukocytosis Status: Acute (4) Uremia Status: Acute Plan Plan of Care d/c iv fluids d/c pascual PT and OT out patient sleep study per her pcp discussed with dr. morrow defer decision to return to [facility] to dr. manoj barber tomorrow Comment Review of Relevant I have reviewed the following items shakir (where applicable) has been applied. Labs Laboratory Tests Test 11/28/16 11:55 11/28/16 17:31 11/28/16 20:42 11/29/16 04:04 Glucose (Fingerstick) 88 mg/dL (70-99) 93 mg/dL (70-99) 99 mg/dL (70-99) White Blood Count 6.9 x10^3/uL (4.0-11.0) Red Blood Count 4.55 x10^6/uL (3.50-5.40) Hemoglobin 11.5 g/dL (12.0-15.5) Hematocrit 36.2 % (36.0-47.0) Mean Corpuscular Volume 80 fL (79-100) Mean Corpuscular Hemoglobin 25 pg (25-35) Mean Corpuscular Hemoglobin Concent 32 g/dL (31-37) Red Cell Distribution Width 19.2 % (11.5-14.5) Platelet Count 230 x10^3/uL (140-400) Neutrophils (%) (Auto) 70 % (31-73) Lymphocytes (%) (Auto) 22 % (24-48) Monocytes (%) (Auto) 7 % (0-9) Eosinophils (%) (Auto) 1 % (0-3) Basophils (%) (Auto) 0 % (0-3) Neutrophils # (Auto) 4.8 x10^3uL (1.8-7.7) Lymphocytes # (Auto) 1.5 x10^3/uL (1.0-4.8) Monocytes # (Auto) 0.5 x10^3/uL (0.0-1.1) Eosinophils # (Auto) 0.1 x10^3/uL (0.0-0.7) Basophils # (Auto) 0.0 x10^3/uL (0.0-0.2) Sodium Level 141 mmol/L (136-145) Potassium Level 4.2 mmol/L (3.5-5.1) Chloride Level 100 mmol/L (98-107) Carbon Dioxide Level 36 mmol/L (21-32) Anion Gap 5 (6-14) Blood Urea Nitrogen 40 mg/dL (7-20) Creatinine 1.2 mg/dL (0.6-1.0) Estimated GFR (Cockcroft-Gault) 47.6 Glucose Level 115 mg/dL (70-99) Calcium Level 9.1 mg/dL (8.5-10.1) Test 11/29/16 08:57 11/29/16 11:55 11/29/16 20:30 11/30/16 06:25 Glucose (Fingerstick) 164 mg/dL (70-99) 92 mg/dL (70-99) 103 mg/dL (70-99) Sodium Level 137 mmol/L (136-145) Potassium Level 3.7 mmol/L (3.5-5.1) Chloride Level 101 mmol/L (98-107) Carbon Dioxide Level 28 mmol/L (21-32) Anion Gap 8 (6-14) Blood Urea Nitrogen 19 mg/dL (7-20) Creatinine 1.0 mg/dL (0.6-1.0) Estimated GFR (Cockcroft-Gault) 58.7 Glucose Level 91 mg/dL (70-99) Calcium Level 9.3 mg/dL (8.5-10.1) Test 11/30/16 07:51 11/30/16 09:00 Glucose (Fingerstick) 90 mg/dL (70-99) O2 Saturation 95 % (92-99) Arterial Blood pH 7.47 (7.35-7.45) Arterial Blood pCO2 at Patient Temp 33 mmHg (35-46) Arterial Blood pO2 at Patient Temp 70 mmHg (75-108) Arterial Blood HCO3 24 mmol/L (21-28) Arterial Blood Base Excess 1 mmol/L (-3-3) FiO2 21 Laboratory Tests Test 11/29/16 11:55 11/29/16 20:30 11/30/16 06:25 11/30/16 07:51 Glucose (Fingerstick) 92 mg/dL (70-99) 103 mg/dL (70-99) 90 mg/dL (70-99) Sodium Level 137 mmol/L (136-145) Potassium Level 3.7 mmol/L (3.5-5.1) Chloride Level 101 mmol/L (98-107) Carbon Dioxide Level 28 mmol/L (21-32) Anion Gap 8 (6-14) Blood Urea Nitrogen 19 mg/dL (7-20) Creatinine 1.0 mg/dL (0.6-1.0) Estimated GFR (Cockcroft-Gault) 58.7 Glucose Level 91 mg/dL (70-99) Calcium Level 9.3 mg/dL (8.5-10.1) Test 11/30/16 09:00 O2 Saturation 95 % (92-99) Arterial Blood pH 7.47 (7.35-7.45) Arterial Blood pCO2 at Patient Temp 33 mmHg (35-46) Arterial Blood pO2 at Patient Temp 70 mmHg (75-108) Arterial Blood HCO3 24 mmol/L (21-28) Arterial Blood Base Excess 1 mmol/L (-3-3) FiO2 21 Medications Current Medications Sodium Chloride 1,000 ml @ 1,000 mls/hr 1X ONCE IV Last administered on 13:32; Start 11/27/16 at 13:30; Stop 11/27/16 at 14:29; Status DC Ondansetron HCl (Zofran) 8 mg 1X ONCE IV Last administered on 11/27/16 13:33 ; Start 11/27/16 at 13:30; Stop 11/27/16 at 13:31; Status DC Sodium Bicarbonate 50 meq 1X ONCE IV Last administered on 11/27/16 13:53; Start 11/27/16 at 13:45; Stop 11/27/16 at 14:00; Status DC Ondansetron HCl (Zofran) 4 mg PRN Q8HRS PRN IV NAUSEA/VOMITING; Start 11/27/16 at 14:00; Stop 11/28/16 at 13:59; Status DC Sodium Chloride 1,000 ml @ 125 mls/hr Q8H IV Last administered on 11/28/16 01 :07; Start 11/27/16 at 14:30; Stop 11/28/16 at 08:29; Status DC Rivaroxaban (Xarelto) 20 mg DAILYWSUP PO ; Start 11/27/16 at 17:00; Stop at 19:31; Status DC Oxycodone HCl (OxyCONTIN) 10 mg Q12HR PO ; Start 11/27/16 at 21:00; Stop at 21:00; Status DC Acetaminophen/ Hydrocodone Bitart (Lortab 5/325) 1 tab PRN Q6HRS PRN PO PAIN; Start 11/27/16 at 14:00 Insulin Aspart (NovoLOG) 0-9 UNITS TIDWMEALS SQ ; Start 11/27/16 at 17:00; Stop 11/28/16 at 08:26; Status DC Dextrose (Dextrose 50%-Water Syringe) 12.5 gm PRN Q15MIN PRN IV SEE COMMENTS; Start 11/27/16 at 14:00 Albuterol Sulfate (Ventolin Neb Soln) 2.5 mg PRN Q4HRS PRN NEB SHORTNESS OF BREATH; Start 11/27/16 at 16:15 Aspirin (Ecotrin) 81 mg DAILY PO Last administered on 11/30/16 09:05; Start 11/28/16 at 09:00 Cetirizine HCl (ZyrTEC) 10 mg DAILY PO Last administered on 11/30/16 09:05; Start 11/28/16 at 09:00 Pantoprazole Sodium (Protonix) 40 mg DAILYAC PO Last administered on 11/30/16 09:05; Start 11/28/16 at 07:30 Non-Formulary Medication 1 inh BID IH ; Start 11/27/16 at 21:00; Status UNV Budesonide (Pulmicort) 0.5 mg RTBID NEB Last administered on 11/30/16 07:28; Start 11/27/16 at 20:00 Albuterol Sulfate (Ventolin Neb Soln) 2.5 mg RTQID NEB Last administered on 07:28; Start 11/27/16 at 20:00 Atorvastatin Calcium (Lipitor) 10 mg QHS PO Last administered on 11/29/16 21: 18; Start 11/27/16 at 21:00 Cyclobenzaprine HCl (Flexeril) 10 mg PRN Q8HRS PRN PO MUSCLE SPASMS Last administered on 11/30/16 03:46; Start 11/27/16 at 16:30 Info (Anti-Coagulation Monitoring By Pharmacy) 1 each PRN DAILY PRN MC SEE COMMENTS Last administered on 11/30/16 09:24; Start 11/27/16 at 19:30 Rivaroxaban (Xarelto) 15 mg DAILYWSUP PO Last administered on 11/27/16 21:24; Start 11/27/16 at 19:45; Stop 11/28/16 at 08:34; Status DC Insulin Aspart (NovoLOG) 0-9 UNITS TIDWMEALS SQ ; Start 11/28/16 at 12:00 Acetaminophen (Tylenol) 325 mg PRN Q6HRS PRN PO MILD PAIN / TEMP Last administered on 11/30/16 03:34; Start 11/28/16 at 08:30 Sodium Chloride 1,000 ml @ 100 mls/hr Q10H IV Last administered on 11/29/16 04:06; Start 11/28/16 at 09:00; Stop 11/29/16 at 10:37; Status DC Senna/Docusate Sodium (Senna Plus) 2 tab DAILY PO Last administered on 09:01; Start 11/28/16 at 09:00 Polyethylene Glycol (miraLAX PACKET) 17 gm DAILY PO Last administered on 09:01; Start 11/28/16 at 09:00 Sodium Polystyrene Sulfonate (Kayexalate) 15 gm 1X ONCE PO Last administered on 11/28/16 14:47; Start 11/28/16 at 09:00; Stop 11/28/16 at 09:01; Status DC Rivaroxaban (Xarelto) 20 mg DAILYWSUP PO Last administered on 11/29/16 17:26; Start 11/28/16 at 17:00 Ondansetron HCl (Zofran) 4 mg PRN Q6HRS PRN IV NAUSEA/VOMITING Last administered on 11/29/16 17:26; Start 11/29/16 at 09:30 Nystatin (Mycostatin) 1 molly BID TP Last administered on 11/30/16 09:05; Start 11/29/16 at 10:30 Sodium Chloride 1,000 ml @ 60 mls/hr [id number] IV Last administered on 21:18; Start 11/29/16 at 10:45 Amlodipine Besylate (Norvasc) 5 mg DAILY PO Last administered on 11/30/16 09: 05; Start 11/29/16 at 11:00 Active Scripts Active [place] 5-325 Tablet (Acetaminophen/Hydrocodone Bitart) 1 Each Tablet 1-2 Tab PO Q4-6HRS Cyclobenzaprine Hcl 10 Mg Tablet 1 Tab PO TID Reported Combivent Respimat Inhal (Ipratropium/Albuterol Sulfate) 4 Gm Aer.w.adap 2 Inh IH QID Zyrtec (Cetirizine Hcl) 10 Mg Tablet 1 Tab PO DAILY Lisinopril 20 Mg Tablet 1 Tab PO DAILY Tramadol Hcl 50 Mg Tablet 50 Mg PO Q6H PRN Aspir 81 (Aspirin) 81 Mg Tablet.dr 1 Tab PO DAILY Albuterol Sulfate Neb Soln (Albuterol Sulfate) 2.5 Mg/3 Ml Vial.neb 2.5 Mg NEB Q4HRS PRN Xarelto (Rivaroxaban) 10 Mg Tablet 20 Mg PO QHS Advair 500-50 Diskus (Fluticasone/Salmeterol) 1 Each Disk.w.dev 1 Inh IH BID Metformin Hcl Er (Metformin Hcl) 500 Mg Tab.er.24h 500 Mg PO DAILYWBKFT Potassium Chloride 20 Meq Tab.er.prt 20 Meq PO DAILY Lovastatin 20 Mg Tablet 20 PO QHS Pantoprazole Sodium 40 Mg Tablet.dr 40 Mg PO DAILYAC Toprol Xl (Metoprolol Succinate) 50 Mg Tab.er.24h 50 Mg PO QHS Gabapentin 300 Mg Capsule 300 Mg PO BID Furosemide 80 Mg Tablet 80 Mg PO DAILY Vitals/I & O Vital Sign - Last 24 Hours 11/29/16 11/29/16 11/29/16 11/29/16 11:00 12:08 15:00 16:36 Temp 97.5 97.5 97.5 97.5 Pulse 73 74 Resp 20 18 B/P (MAP) 115/87 (96) 145/78 (100) Pulse Ox 100 96 99 96 O2 Delivery Nasal Cannula Nasal Cannula Nasal Cannula Nasal Cannula O2 Flow Rate 2.0 1.0 2.0 1.0 11/29/16 11/29/16 11/29/16 11/29/16 19:25 19:26 21:50 23:16 Temp 98.4 97.9 98.4 97.9 Pulse 75 82 Resp 16 22 B/P (MAP) 149/70 (96) 149/77 (101) Pulse Ox 94 100 96 O2 Delivery Room Air Room Air BiPAP/CPAP Room Air 11/30/16 11/30/16 11/30/16 11/30/16 03:06 03:10 07:23 07:46 Temp 98.4 97.4 98.4 97.4 Pulse 67 79 Resp 20 22 B/P (MAP) 175/78 (110) 134/78 (96) Pulse Ox 100 100 99 96 O2 Delivery BiPAP/CPAP [facility] Room Air 11/30/16 11/30/16 11/30/16 07:49 07:50 09:05 Pulse 77 B/P (MAP) 134/78 O2 Delivery Bi-pap O2 Flow Rate 1.0 SUJIT SAUNDERS MD Nov 30, 2016 10:49
[2016-11-30] MEDS: GABAPENTIN 300 MG CAPSULE. PO SCH ×2 (11:21→20:41)
--- NOTE | 2016-11-30 12:57 | PDOC ---
PROGRESS NOTES Subjective Subjective She feels better and wants to go home. Objective Objective Vital Signs Date Time Temp Pulse Resp B/P (MAP) Pulse Ox O2 Delivery O2 Flow Rate FiO2 11/30/16 11:46 Room Air 11/30/16 10:43 97.9 69 24 149/84 (105) 98 97.9 11/30/16 07:49 1.0 Physical Exam Physical Exam She is alert,sitting in bedside chair and is comfortable and she transferred with roller walker this AM. Assessment Assessment Problems Medical Problems: (1) SELVIN (acute kidney injury) Status: Acute (2) Hyperkalemia Status: Acute (3) Leukocytosis Status: Acute (4) Uremia Status: Acute Plan Plan of [place] with home health physical and occupational therapy follow up if she is emptying her bladder good. Comment Review of Relevant I have reviewed the following items shakir (where applicable) has been applied. Labs Laboratory Tests Test 11/28/16 17:31 11/28/16 20:42 11/29/16 04:04 11/29/16 08:57 Glucose (Fingerstick) 93 mg/dL (70-99) 99 mg/dL (70-99) 164 mg/dL (70-99) White Blood Count 6.9 x10^3/uL (4.0-11.0) Red Blood Count 4.55 x10^6/uL (3.50-5.40) Hemoglobin 11.5 g/dL (12.0-15.5) Hematocrit 36.2 % (36.0-47.0) Mean Corpuscular Volume 80 fL (79-100) Mean Corpuscular Hemoglobin 25 pg (25-35) Mean Corpuscular Hemoglobin Concent 32 g/dL (31-37) Red Cell Distribution Width 19.2 % (11.5-14.5) Platelet Count 230 x10^3/uL (140-400) Neutrophils (%) (Auto) 70 % (31-73) Lymphocytes (%) (Auto) 22 % (24-48) Monocytes (%) (Auto) 7 % (0-9) Eosinophils (%) (Auto) 1 % (0-3) Basophils (%) (Auto) 0 % (0-3) Neutrophils # (Auto) 4.8 x10^3uL (1.8-7.7) Lymphocytes # (Auto) 1.5 x10^3/uL (1.0-4.8) Monocytes # (Auto) 0.5 x10^3/uL (0.0-1.1) Eosinophils # (Auto) 0.1 x10^3/uL (0.0-0.7) Basophils # (Auto) 0.0 x10^3/uL (0.0-0.2) Sodium Level 141 mmol/L (136-145) Potassium Level 4.2 mmol/L (3.5-5.1) Chloride Level 100 mmol/L (98-107) Carbon Dioxide Level 36 mmol/L (21-32) Anion Gap 5 (6-14) Blood Urea Nitrogen 40 mg/dL (7-20) Creatinine 1.2 mg/dL (0.6-1.0) Estimated GFR (Cockcroft-Gault) 47.6 Glucose Level 115 mg/dL (70-99) Calcium Level 9.1 mg/dL (8.5-10.1) Test 11/29/16 11:55 11/29/16 20:30 11/30/16 06:25 11/30/16 07:51 Glucose (Fingerstick) 92 mg/dL (70-99) 103 mg/dL (70-99) 90 mg/dL (70-99) Sodium Level 137 mmol/L (136-145) Potassium Level 3.7 mmol/L (3.5-5.1) Chloride Level 101 mmol/L (98-107) Carbon Dioxide Level 28 mmol/L (21-32) Anion Gap 8 (6-14) Blood Urea Nitrogen 19 mg/dL (7-20) Creatinine 1.0 mg/dL (0.6-1.0) Estimated GFR (Cockcroft-Gault) 58.7 Glucose Level 91 mg/dL (70-99) Calcium Level 9.3 mg/dL (8.5-10.1) Test 11/30/16 09:00 11/30/16 11:19 O2 Saturation 95 % (92-99) Arterial Blood pH 7.47 (7.35-7.45) Arterial Blood pCO2 at Patient Temp 33 mmHg (35-46) Arterial Blood pO2 at Patient Temp 70 mmHg (75-108) Arterial Blood HCO3 24 mmol/L (21-28) Arterial Blood Base Excess 1 mmol/L (-3-3) FiO2 21 Glucose (Fingerstick) 78 mg/dL (70-99) Laboratory Tests Test 11/29/16 20:30 11/30/16 06:25 11/30/16 07:51 11/30/16 09:00 Glucose (Fingerstick) 103 mg/dL (70-99) 90 mg/dL (70-99) Sodium Level 137 mmol/L (136-145) Potassium Level 3.7 mmol/L (3.5-5.1) Chloride Level 101 mmol/L (98-107) Carbon Dioxide Level 28 mmol/L (21-32) Anion Gap 8 (6-14) Blood Urea Nitrogen 19 mg/dL (7-20) Creatinine 1.0 mg/dL (0.6-1.0) Estimated GFR (Cockcroft-Gault) 58.7 Glucose Level 91 mg/dL (70-99) Calcium Level 9.3 mg/dL (8.5-10.1) O2 Saturation 95 % (92-99) Arterial Blood pH 7.47 (7.35-7.45) Arterial Blood pCO2 at Patient Temp 33 mmHg (35-46) Arterial Blood pO2 at Patient Temp 70 mmHg (75-108) Arterial Blood HCO3 24 mmol/L (21-28) Arterial Blood Base Excess 1 mmol/L (-3-3) FiO2 21 Test 11/30/16 11:19 Glucose (Fingerstick) 78 mg/dL (70-99) Medications Current Medications Sodium Chloride 1,000 ml @ 1,000 mls/hr 1X ONCE IV Last administered on 13:32; Start 11/27/16 at 13:30; Stop 11/27/16 at 14:29; Status DC Ondansetron HCl (Zofran) 8 mg 1X ONCE IV Last administered on 11/27/16 13:33 ; Start 11/27/16 at 13:30; Stop 11/27/16 at 13:31; Status DC Sodium Bicarbonate 50 meq 1X ONCE IV Last administered on 11/27/16 13:53; Start 11/27/16 at 13:45; Stop 11/27/16 at 14:00; Status DC Ondansetron HCl (Zofran) 4 mg PRN Q8HRS PRN IV NAUSEA/VOMITING; Start 11/27/16 at 14:00; Stop 11/28/16 at 13:59; Status DC Sodium Chloride 1,000 ml @ 125 mls/hr Q8H IV Last administered on 11/28/16 01 :07; Start 11/27/16 at 14:30; Stop 11/28/16 at 08:29; Status DC Rivaroxaban (Xarelto) 20 mg DAILYWSUP PO ; Start 11/27/16 at 17:00; Stop at 19:31; Status DC Oxycodone HCl (OxyCONTIN) 10 mg Q12HR PO ; Start 11/27/16 at 21:00; Stop at 21:00; Status DC Acetaminophen/ Hydrocodone Bitart (Lortab 5/325) 1 tab PRN Q6HRS PRN PO PAIN; Start 11/27/16 at 14:00 Insulin Aspart (NovoLOG) 0-9 UNITS TIDWMEALS SQ ; Start 11/27/16 at 17:00; Stop 11/28/16 at 08:26; Status DC Dextrose (Dextrose 50%-Water Syringe) 12.5 gm PRN Q15MIN PRN IV SEE COMMENTS; Start 11/27/16 at 14:00 Albuterol Sulfate (Ventolin Neb Soln) 2.5 mg PRN Q4HRS PRN NEB SHORTNESS OF BREATH; Start 11/27/16 at 16:15 Aspirin (Ecotrin) 81 mg DAILY PO Last administered on 11/30/16 09:05; Start 11/28/16 at 09:00 Cetirizine HCl (ZyrTEC) 10 mg DAILY PO Last administered on 11/30/16 09:05; Start 11/28/16 at 09:00 Pantoprazole Sodium (Protonix) 40 mg DAILYAC PO Last administered on 11/30/16 09:05; Start 11/28/16 at 07:30 Non-Formulary Medication 1 inh BID IH ; Start 11/27/16 at 21:00; Status UNV Budesonide (Pulmicort) 0.5 mg RTBID NEB Last administered on 11/30/16 07:28; Start 11/27/16 at 20:00 Albuterol Sulfate (Ventolin Neb Soln) 2.5 mg RTQID NEB Last administered on 11:45; Start 11/27/16 at 20:00 Atorvastatin Calcium (Lipitor) 10 mg QHS PO Last administered on 11/29/16 21: 18; Start 11/27/16 at 21:00 Cyclobenzaprine HCl (Flexeril) 10 mg PRN Q8HRS PRN PO MUSCLE SPASMS Last administered on 11/30/16 12:30; Start 11/27/16 at 16:30 Info (Anti-Coagulation Monitoring By Pharmacy) 1 each PRN DAILY PRN MC SEE COMMENTS Last administered on 11/30/16 09:24; Start 11/27/16 at 19:30 Rivaroxaban (Xarelto) 15 mg DAILYWSUP PO Last administered on 11/27/16 21:24; Start 11/27/16 at 19:45; Stop 11/28/16 at 08:34; Status DC Insulin Aspart (NovoLOG) 0-9 UNITS TIDWMEALS SQ ; Start 11/28/16 at 12:00 Acetaminophen (Tylenol) 325 mg PRN Q6HRS PRN PO MILD PAIN / TEMP Last administered on 11/30/16 11:23; Start 11/28/16 at 08:30 Sodium Chloride 1,000 ml @ 100 mls/hr Q10H IV Last administered on 11/29/16 04:06; Start 11/28/16 at 09:00; Stop 11/29/16 at 10:37; Status DC Senna/Docusate Sodium (Senna Plus) 2 tab DAILY PO Last administered on 09:01; Start 11/28/16 at 09:00 Polyethylene Glycol (miraLAX PACKET) 17 gm DAILY PO Last administered on 09:01; Start 11/28/16 at 09:00 Sodium Polystyrene Sulfonate (Kayexalate) 15 gm 1X ONCE PO Last administered on 11/28/16 14:47; Start 11/28/16 at 09:00; Stop 11/28/16 at 09:01; Status DC Rivaroxaban (Xarelto) 20 mg DAILYWSUP PO Last administered on 11/29/16 17:26; Start 11/28/16 at 17:00 Ondansetron HCl (Zofran) 4 mg PRN Q6HRS PRN IV NAUSEA/VOMITING Last administered on 11/29/16 17:26; Start 11/29/16 at 09:30 Nystatin (Mycostatin) 1 molly BID TP Last administered on 11/30/16 09:05; Start 11/29/16 at 10:30 Sodium Chloride 1,000 ml @ 60 mls/hr [id number] IV Last administered on 21:18; Start 11/29/16 at 10:45; Stop 11/30/16 at 10:45; Status DC Amlodipine Besylate (Norvasc) 5 mg DAILY PO Last administered on 11/30/16 09: 05; Start 11/29/16 at 11:00 Gabapentin (Neurontin) 300 mg TID PO Last administered on 11/30/16 11:21; Start 11/30/16 at 11:00 Active Scripts Active [place] 5-325 Tablet (Acetaminophen/Hydrocodone Bitart) 1 Each Tablet 1-2 Tab PO Q4-6HRS Cyclobenzaprine Hcl 10 Mg Tablet 1 Tab PO TID Reported Combivent Respimat Inhal (Ipratropium/Albuterol Sulfate) 4 Gm Aer.w.adap 2 Inh IH QID Zyrtec (Cetirizine Hcl) 10 Mg Tablet 1 Tab PO DAILY Lisinopril 20 Mg Tablet 1 Tab PO DAILY Tramadol Hcl 50 Mg Tablet 50 Mg PO Q6H PRN Aspir 81 (Aspirin) 81 Mg Tablet.dr 1 Tab PO DAILY Albuterol Sulfate Neb Soln (Albuterol Sulfate) 2.5 Mg/3 Ml Vial.neb 2.5 Mg NEB Q4HRS PRN Xarelto (Rivaroxaban) 10 Mg Tablet 20 Mg PO QHS Advair 500-50 Diskus (Fluticasone/Salmeterol) 1 Each Disk.w.dev 1 Inh IH BID Metformin Hcl Er (Metformin Hcl) 500 Mg Tab.er.24h 500 Mg PO DAILYWBKFT Potassium Chloride 20 Meq Tab.er.prt 20 Meq PO DAILY Lovastatin 20 Mg Tablet 20 PO QHS Pantoprazole Sodium 40 Mg Tablet.dr 40 Mg PO DAILYAC Toprol Xl (Metoprolol Succinate) 50 Mg Tab.er.24h 50 Mg PO QHS Gabapentin 300 Mg Capsule 300 Mg PO BID Furosemide 80 Mg Tablet 80 Mg PO DAILY Vitals/I & O Vital Sign - Last 24 Hours 11/29/16 11/29/16 11/29/16 11/29/16 15:00 16:36 19:25 19:26 Temp 97.5 98.4 97.5 98.4 Pulse 74 75 Resp 18 16 B/P (MAP) 145/78 (100) 149/70 (96) Pulse Ox 99 96 94 O2 Delivery Nasal Cannula Nasal Cannula Room Air Room Air O2 Flow Rate 2.0 1.0 11/29/16 11/29/16 11/30/16 11/30/16 21:50 23:16 03:06 03:10 Temp 97.9 98.4 97.9 98.4 Pulse 82 67 Resp 22 20 B/P (MAP) 149/77 (101) 175/78 (110) Pulse Ox 100 96 100 100 O2 Delivery BiPAP/CPAP Room Air BiPAP/CPAP BiPAP/CPAP 11/30/16 11/30/16 11/30/16 11/30/16 07:23 07:46 07:49 07:50 Temp 97.4 97.4 Pulse 79 Resp 22 B/P (MAP) 134/78 (96) Pulse Ox 99 96 O2 Delivery CPAP at NOC Room Air Bi-pap O2 Flow Rate 1.0 11/30/16 11/30/16 11/30/16 09:05 10:43 11:46 Temp 97.9 97.9 Pulse 77 69 Resp 24 B/P (MAP) 134/78 149/84 (105) Pulse Ox 98 O2 Delivery Room Air Room Air BUSHRA DALLAS MD Nov 30, 2016 12:57
[2016-11-30 14:57] VITALS: BP 171/82
[2016-11-30] MEDS: RIVAROXABAN 10 MG TABLET. PO SCH (17:22)
[2016-11-30 19:00] VITALS: BP 118/59
[2016-11-30] MEDS: ATORVASTATIN CALCIUM 10 MG TABLET. PO SCH (20:41)
[2016-11-30 23:00] VITALS: BP 153/70
[2016-12-01 03:00] VITALS: BP 154/74
[2016-12-01] MEDS: PANTOPRAZOLE 40 MG TABLET.DR. PO SCH (06:28)
[2016-12-01] MEDS: ACETAMINOPHEN 325 MG TABLET. PO PRN (06:28)
[2016-12-01] MEDS: CYCLOBENZAPRINE 10 MG TABLET. PO PRN ×2 (06:28→14:02)
[2016-12-01 07:00] VITALS: BP 155/63
[2016-12-01 07:25] LABS: CALCIUM 9.4 mg/dL (8.5-10.1); GFR 58.7; POTASSIUM 3.6 mmol/L (3.5-5.1)
[2016-12-01] MEDS: BUDESONIDE 0.5 MG/2 ML NEBU. NEB SCH (07:50)
[2016-12-01] MEDS: ALBUTEROL SULFATE 2.5 MG/3 ML NEBU. NEB SCH ×3 (07:54→15:51)
[2016-12-01] MEDS: INSULIN ASPART 300 UNITS/3 ML INSULN.PEN SQ SCH ×3 (08:00→17:00)
[2016-12-01] MEDS: amLODIPine BESYLATE 5 MG TABLET PO SCH (08:49)
[2016-12-01] MEDS: ASPIRIN ENTERIC COATED 81 MG TABLET.DR. PO SCH (08:49)
[2016-12-01] MEDS: CETIRIZINE HCL 10 MG TABLET. PO SCH (08:49)
[2016-12-01] MEDS: GABAPENTIN 300 MG CAPSULE. PO SCH ×2 (08:49→14:02)
[2016-12-01] MEDS: SENNOSIDES/DOCUSATE 8.6/50MG TABLET. PO SCH (08:49)
[2016-12-01] MEDS: POLYETHYLENE GLYCOL 3350 17 GM PACKET. PO SCH (08:50)
[2016-12-01] MEDS: NYSTATIN 100,000 UNIT/GM TOPICAL CREAM 15GM TUBE. TP SCH (08:53)
[2016-12-01] MEDS: HYDROcodone/APAP 5/325MG 1 TAB TABLET PO PRN ×2 (08:55→14:50)
--- NOTE | 2016-12-01 09:46 | PDOC ---
PROGRESS NOTES Subjective Subjective She feels better and is voiding and had bowel movement. Objective Objective Vital Signs Date Time Temp Pulse Resp B/P (MAP) Pulse Ox O2 Delivery O2 Flow Rate FiO2 12/01/16 08:55 18 Room Air 12/01/16 08:49 74 155/63 12/01/16 07:54 98 12/01/16 07:00 97.9 97.9 11/30/16 18:31 1.0 Physical Exam Physical Exam She is comfortable sitting up in chair but continues with painfully limited lumbar spine ROM with tenderness to palpation over right sacroiliac joint, trochanteric bursa and decreased sensory perception over left L5,S1 dermatome area. Assessment Assessment Problems Medical Problems: (1) SELVIN (acute kidney injury) Status: Acute (2) Hyperkalemia Status: Acute (3) Leukocytosis Status: Acute (4) Uremia Status: Acute Plan Plan of Retirement today with home health physical and occupational therapy follow up. Comment Review of Relevant I have reviewed the following items shakir (where applicable) has been applied. Labs Laboratory Tests Test 11/29/16 11:55 11/29/16 20:30 11/30/16 06:25 11/30/16 07:51 Glucose (Fingerstick) 92 mg/dL (70-99) 103 mg/dL (70-99) 90 mg/dL (70-99) Sodium Level 137 mmol/L (136-145) Potassium Level 3.7 mmol/L (3.5-5.1) Chloride Level 101 mmol/L (98-107) Carbon Dioxide Level 28 mmol/L (21-32) Anion Gap 8 (6-14) Blood Urea Nitrogen 19 mg/dL (7-20) Creatinine 1.0 mg/dL (0.6-1.0) Estimated GFR (Cockcroft-Gault) 58.7 Glucose Level 91 mg/dL (70-99) Calcium Level 9.3 mg/dL (8.5-10.1) Test 11/30/16 09:00 11/30/16 11:19 11/30/16 17:16 11/30/16 20:40 O2 Saturation 95 % (92-99) Arterial Blood pH 7.47 (7.35-7.45) Arterial Blood pCO2 at Patient Temp 33 mmHg (35-46) Arterial Blood pO2 at Patient Temp 70 mmHg (75-108) Arterial Blood HCO3 24 mmol/L (21-28) Arterial Blood Base Excess 1 mmol/L (-3-3) FiO2 21 Glucose (Fingerstick) 78 mg/dL (70-99) 95 mg/dL (70-99) 114 mg/dL (70-99) Test 12/01/16 07:00 12/01/16 08:01 Sodium Level 142 mmol/L (136-145) Potassium Level 3.6 mmol/L (3.5-5.1) Chloride Level 103 mmol/L (98-107) Carbon Dioxide Level 32 mmol/L (21-32) Anion Gap 7 (6-14) Blood Urea Nitrogen 12 mg/dL (7-20) Creatinine 1.0 mg/dL (0.6-1.0) Estimated GFR (Cockcroft-Gault) 58.7 Glucose Level 89 mg/dL (70-99) Calcium Level 9.4 mg/dL (8.5-10.1) Glucose (Fingerstick) 78 mg/dL (70-99) Laboratory Tests Test 11/30/16 11:19 11/30/16 17:16 11/30/16 20:40 12/01/16 07:00 Glucose (Fingerstick) 78 mg/dL (70-99) 95 mg/dL (70-99) 114 mg/dL (70-99) Sodium Level 142 mmol/L (136-145) Potassium Level 3.6 mmol/L (3.5-5.1) Chloride Level 103 mmol/L (98-107) Carbon Dioxide Level 32 mmol/L (21-32) Anion Gap 7 (6-14) Blood Urea Nitrogen 12 mg/dL (7-20) Creatinine 1.0 mg/dL (0.6-1.0) Estimated GFR (Cockcroft-Gault) 58.7 Glucose Level 89 mg/dL (70-99) Calcium Level 9.4 mg/dL (8.5-10.1) Test 12/01/16 08:01 Glucose (Fingerstick) 78 mg/dL (70-99) Microbiology 11/27/16 Urine Culture - Preliminary, Resulted 11/27/16 Urine Culture Result 1 (ROBBY) - Preliminary, Resulted Medications Current Medications Sodium Chloride 1,000 ml @ 1,000 mls/hr 1X ONCE IV Last administered on 13:32; Start 11/27/16 at 13:30; Stop 11/27/16 at 14:29; Status DC Ondansetron HCl (Zofran) 8 mg 1X ONCE IV Last administered on 11/27/16 13:33 ; Start 11/27/16 at 13:30; Stop 11/27/16 at 13:31; Status DC Sodium Bicarbonate 50 meq 1X ONCE IV Last administered on 11/27/16 13:53; Start 11/27/16 at 13:45; Stop 11/27/16 at 14:00; Status DC Ondansetron HCl (Zofran) 4 mg PRN Q8HRS PRN IV NAUSEA/VOMITING; Start 11/27/16 at 14:00; Stop 11/28/16 at 13:59; Status DC Sodium Chloride 1,000 ml @ 125 mls/hr Q8H IV Last administered on 11/28/16 01 :07; Start 11/27/16 at 14:30; Stop 11/28/16 at 08:29; Status DC Rivaroxaban (Xarelto) 20 mg DAILYWSUP PO ; Start 11/27/16 at 17:00; Stop at 19:31; Status DC Oxycodone HCl (OxyCONTIN) 10 mg Q12HR PO ; Start 11/27/16 at 21:00; Stop at 21:00; Status DC Acetaminophen/ Hydrocodone Bitart (Lortab 5/325) 1 tab PRN Q6HRS PRN PO PAIN Last administered on 12/01/16 08:55; Start 11/27/16 at 14:00 Insulin Aspart (NovoLOG) 0-9 UNITS TIDWMEALS SQ ; Start 11/27/16 at 17:00; Stop 11/28/16 at 08:26; Status DC Dextrose (Dextrose 50%-Water Syringe) 12.5 gm PRN Q15MIN PRN IV SEE COMMENTS; Start 11/27/16 at 14:00 Albuterol Sulfate (Ventolin Neb Soln) 2.5 mg PRN Q4HRS PRN NEB SHORTNESS OF BREATH; Start 11/27/16 at 16:15 Aspirin (Ecotrin) 81 mg DAILY PO Last administered on 12/01/16 08:49; Start 11/28/16 at 09:00 Cetirizine HCl (ZyrTEC) 10 mg DAILY PO Last administered on 12/01/16 08:49; Start 11/28/16 at 09:00 Pantoprazole Sodium (Protonix) 40 mg DAILYAC PO Last administered on 12/01/16 06:28; Start 11/28/16 at 07:30 Non-Formulary Medication 1 inh BID IH ; Start 11/27/16 at 21:00; Status UNV Budesonide (Pulmicort) 0.5 mg RTBID NEB Last administered on 12/01/16 07:50; Start 11/27/16 at 20:00 Albuterol Sulfate (Ventolin Neb Soln) 2.5 mg RTQID NEB Last administered on 07:54; Start 11/27/16 at 20:00 Atorvastatin Calcium (Lipitor) 10 mg QHS PO Last administered on 11/30/16 20: 41; Start 11/27/16 at 21:00 Cyclobenzaprine HCl (Flexeril) 10 mg PRN Q8HRS PRN PO MUSCLE SPASMS Last administered on 12/01/16 06:28; Start 11/27/16 at 16:30 Info (Anti-Coagulation Monitoring By Pharmacy) 1 each PRN DAILY PRN MC SEE COMMENTS Last administered on 11/30/16 09:24; Start 11/27/16 at 19:30 Rivaroxaban (Xarelto) 15 mg DAILYWSUP PO Last administered on 11/27/16 21:24; Start 11/27/16 at 19:45; Stop 11/28/16 at 08:34; Status DC Insulin Aspart (NovoLOG) 0-9 UNITS TIDWMEALS SQ ; Start 11/28/16 at 12:00 Acetaminophen (Tylenol) 325 mg PRN Q6HRS PRN PO MILD PAIN / TEMP Last administered on 12/01/16 06:28; Start 11/28/16 at 08:30 Sodium Chloride 1,000 ml @ 100 mls/hr Q10H IV Last administered on 11/29/16 04:06; Start 11/28/16 at 09:00; Stop 11/29/16 at 10:37; Status DC Senna/Docusate Sodium (Senna Plus) 2 tab DAILY PO Last administered on 08:49; Start 11/28/16 at 09:00 Polyethylene Glycol (miraLAX PACKET) 17 gm DAILY PO Last administered on 08:50; Start 11/28/16 at 09:00 Sodium Polystyrene Sulfonate (Kayexalate) 15 gm 1X ONCE PO Last administered on 11/28/16 14:47; Start 11/28/16 at 09:00; Stop 11/28/16 at 09:01; Status DC Rivaroxaban (Xarelto) 20 mg DAILYWSUP PO Last administered on 11/30/16 17:22; Start 11/28/16 at 17:00 Ondansetron HCl (Zofran) 4 mg PRN Q6HRS PRN IV NAUSEA/VOMITING Last administered on 11/29/16 17:26; Start 11/29/16 at 09:30 Nystatin (Mycostatin) 1 molly BID TP Last administered on 12/01/16 08:53; Start 11/29/16 at 10:30 Sodium Chloride 1,000 ml @ 60 mls/hr [id number] IV Last administered on 21:18; Start 11/29/16 at 10:45; Stop 11/30/16 at 10:45; Status DC Amlodipine Besylate (Norvasc) 5 mg DAILY PO Last administered on 12/01/16 08: 49; Start 11/29/16 at 11:00 Gabapentin (Neurontin) 300 mg TID PO Last administered on 12/01/16 08:49; Start 11/30/16 at 11:00 Active Scripts Active [place] 5-325 Tablet (Acetaminophen/Hydrocodone Bitart) 1 Each Tablet 1-2 Tab PO Q4-6HRS Cyclobenzaprine Hcl 10 Mg Tablet 1 Tab PO TID Reported Combivent Respimat Inhal (Ipratropium/Albuterol Sulfate) 4 Gm Aer.w.adap 2 Inh IH QID Zyrtec (Cetirizine Hcl) 10 Mg Tablet 1 Tab PO DAILY Lisinopril 20 Mg Tablet 1 Tab PO DAILY Tramadol Hcl 50 Mg Tablet 50 Mg PO Q6H PRN Aspir 81 (Aspirin) 81 Mg Tablet.dr 1 Tab PO DAILY Albuterol Sulfate Neb Soln (Albuterol Sulfate) 2.5 Mg/3 Ml Vial.neb 2.5 Mg NEB Q4HRS PRN Xarelto (Rivaroxaban) 10 Mg Tablet 20 Mg PO QHS Advair 500-50 Diskus (Fluticasone/Salmeterol) 1 Each Disk.w.dev 1 Inh IH BID Metformin Hcl Er (Metformin Hcl) 500 Mg Tab.er.24h 500 Mg PO DAILYWBKFT Potassium Chloride 20 Meq Tab.er.prt 20 Meq PO DAILY Lovastatin 20 Mg Tablet 20 PO QHS Pantoprazole Sodium 40 Mg Tablet.dr 40 Mg PO DAILYAC Toprol Xl (Metoprolol Succinate) 50 Mg Tab.er.24h 50 Mg PO QHS Gabapentin 300 Mg Capsule 300 Mg PO BID Furosemide 80 Mg Tablet 80 Mg PO DAILY Vitals/I & O Vital Sign - Last 24 Hours 11/30/16 11/30/16 11/30/16 11/30/16 10:43 11:46 14:57 15:54 Temp 97.9 98.7 97.9 98.7 Pulse 69 72 Resp 24 20 B/P (MAP) 149/84 (105) 171/82 (111) Pulse Ox 98 93 O2 Delivery Room Air Room Air Room Air Room Air 11/30/16 11/30/16 11/30/16 11/30/16 18:31 19:00 19:56 19:57 Temp 97.7 97.7 Pulse 73 Resp 18 B/P (MAP) 118/59 (78) Pulse Ox 91 99 99 O2 Delivery Nasal Cannula Room Air Room Air Room Air O2 Flow Rate 1.0 11/30/16 11/30/16 12/01/16 12/01/16 20:00 23:00 01:15 03:00 Temp 98.4 98.1 98.4 98.1 Pulse 68 71 Resp 18 18 B/P (MAP) 153/70 (97) 154/74 (100) Pulse Ox 98 99 O2 Delivery Room Air BiPAP/CPAP BiPAP/CPAP BiPAP/CPAP 12/01/16 12/01/16 12/01/16 12/01/16 03:27 07:00 07:50 07:54 Temp 97.9 97.9 Pulse 61 Resp 20 B/P (MAP) 155/63 (93) Pulse Ox 98 98 98 O2 Delivery BiPAP/CPAP Room Air Room Air Room Air 12/01/16 12/01/16 08:49 08:55 Pulse 74 Resp 18 B/P (MAP) 155/63 O2 Delivery Room Air BUSHRA DALLAS MD Dec 01, 2016 09:46
[2016-12-01 10:40] VITALS: BP 134/62
--- NOTE | 2016-12-01 11:43 | PDOC ---
PROGRESS NOTES Subjective Subjective feels better. pain controlled. lab reviewed. blood pressure and blood sugars are okay. Objective Objective Vital Signs Date Time Temp Pulse Resp B/P (MAP) Pulse Ox O2 Delivery O2 Flow Rate FiO2 12/01/16 10:40 97.5 65 20 134/62 (86) 96 Room Air 97.5 11/30/16 18:31 1.0 Physical Exam Abdomen: Soft Heart: Regular rate, Normal S1, Normal S2 Extremities: No edema, Other (dorsalis pulse 2 pluse left foot) General: Alert HEENT: Atraumatic Neuro: Normal speech Psych/Mental Status: Mental status NL Skin: No rashes Assessment Assessment Problems Acute kidney injury resolved 2. Hyperkalemia secondary to acute kidney injury.resolved 3. Hyponatremia, resolved 4. Urine retention . pascual removed. resolved 5. Metabolic encephalopathy.resolved 6. Possible toxic encephalopathy from previous narcotics. resolved 7. Diabetes mellitus type 2. 8. Chronic obstructive pulmonary disease. 9. Acute hypoxic and hypercapnic respiratory failure.resolved 10. Paroxysmal atrial fibrillation. currently in NSR 11. Hyperlipidemia. 12. Super morbid obesity with a BMI of 67. 13. Lumbar herniated disk L4-L5 with left-sided radiculopathy and lumbar degenerative disk disease. hypertension obstructive sleep apnea Medical Problems: (1) SELVIN (acute kidney injury) Status: Acute (2) Hyperkalemia Status: Acute (3) Leukocytosis Status: Acute (4) Uremia Status: Acute Plan Plan of Care dismiss today with home health out patient sleep study for KYRA to be ordered by her PCP, discussed with patient Comment Review of Relevant I have reviewed the following items shakir (where applicable) has been applied. Labs Laboratory Tests Test 11/29/16 11:55 11/29/16 20:30 11/30/16 06:25 11/30/16 07:51 Glucose (Fingerstick) 92 mg/dL (70-99) 103 mg/dL (70-99) 90 mg/dL (70-99) Sodium Level 137 mmol/L (136-145) Potassium Level 3.7 mmol/L (3.5-5.1) Chloride Level 101 mmol/L (98-107) Carbon Dioxide Level 28 mmol/L (21-32) Anion Gap 8 (6-14) Blood Urea Nitrogen 19 mg/dL (7-20) Creatinine 1.0 mg/dL (0.6-1.0) Estimated GFR (Cockcroft-Gault) 58.7 Glucose Level 91 mg/dL (70-99) Calcium Level 9.3 mg/dL (8.5-10.1) Test 11/30/16 09:00 11/30/16 11:19 11/30/16 17:16 11/30/16 20:40 O2 Saturation 95 % (92-99) Arterial Blood pH 7.47 (7.35-7.45) Arterial Blood pCO2 at Patient Temp 33 mmHg (35-46) Arterial Blood pO2 at Patient Temp 70 mmHg (75-108) Arterial Blood HCO3 24 mmol/L (21-28) Arterial Blood Base Excess 1 mmol/L (-3-3) FiO2 21 Glucose (Fingerstick) 78 mg/dL (70-99) 95 mg/dL (70-99) 114 mg/dL (70-99) Test 12/01/16 07:00 12/01/16 08:01 12/01/16 11:19 Sodium Level 142 mmol/L (136-145) Potassium Level 3.6 mmol/L (3.5-5.1) Chloride Level 103 mmol/L (98-107) Carbon Dioxide Level 32 mmol/L (21-32) Anion Gap 7 (6-14) Blood Urea Nitrogen 12 mg/dL (7-20) Creatinine 1.0 mg/dL (0.6-1.0) Estimated GFR (Cockcroft-Gault) 58.7 Glucose Level 89 mg/dL (70-99) Calcium Level 9.4 mg/dL (8.5-10.1) Glucose (Fingerstick) 78 mg/dL (70-99) 92 mg/dL (70-99) Laboratory Tests Test 11/30/16 17:16 11/30/16 20:40 12/01/16 07:00 12/01/16 08:01 Glucose (Fingerstick) 95 mg/dL (70-99) 114 mg/dL (70-99) 78 mg/dL (70-99) Sodium Level 142 mmol/L (136-145) Potassium Level 3.6 mmol/L (3.5-5.1) Chloride Level 103 mmol/L (98-107) Carbon Dioxide Level 32 mmol/L (21-32) Anion Gap 7 (6-14) Blood Urea Nitrogen 12 mg/dL (7-20) Creatinine 1.0 mg/dL (0.6-1.0) Estimated GFR (Cockcroft-Gault) 58.7 Glucose Level 89 mg/dL (70-99) Calcium Level 9.4 mg/dL (8.5-10.1) Test 12/01/16 11:19 Glucose (Fingerstick) 92 mg/dL (70-99) Microbiology 11/27/16 Urine Culture - Preliminary, Resulted 11/27/16 Urine Culture Result 1 (ROBBY) - Preliminary, Resulted Medications Current Medications Sodium Chloride 1,000 ml @ 1,000 mls/hr 1X ONCE IV Last administered on 13:32; Start 11/27/16 at 13:30; Stop 11/27/16 at 14:29; Status DC Ondansetron HCl (Zofran) 8 mg 1X ONCE IV Last administered on 11/27/16 13:33 ; Start 11/27/16 at 13:30; Stop 11/27/16 at 13:31; Status DC Sodium Bicarbonate 50 meq 1X ONCE IV Last administered on 11/27/16 13:53; Start 11/27/16 at 13:45; Stop 11/27/16 at 14:00; Status DC Ondansetron HCl (Zofran) 4 mg PRN Q8HRS PRN IV NAUSEA/VOMITING; Start 11/27/16 at 14:00; Stop 11/28/16 at 13:59; Status DC Sodium Chloride 1,000 ml @ 125 mls/hr Q8H IV Last administered on 11/28/16 01 :07; Start 11/27/16 at 14:30; Stop 11/28/16 at 08:29; Status DC Rivaroxaban (Xarelto) 20 mg DAILYWSUP PO ; Start 11/27/16 at 17:00; Stop at 19:31; Status DC Oxycodone HCl (OxyCONTIN) 10 mg Q12HR PO ; Start 11/27/16 at 21:00; Stop at 21:00; Status DC Acetaminophen/ Hydrocodone Bitart (Lortab 5/325) 1 tab PRN Q6HRS PRN PO PAIN Last administered on 12/01/16 08:55; Start 11/27/16 at 14:00 Insulin Aspart (NovoLOG) 0-9 UNITS TIDWMEALS SQ ; Start 11/27/16 at 17:00; Stop 11/28/16 at 08:26; Status DC Dextrose (Dextrose 50%-Water Syringe) 12.5 gm PRN Q15MIN PRN IV SEE COMMENTS; Start 11/27/16 at 14:00 Albuterol Sulfate (Ventolin Neb Soln) 2.5 mg PRN Q4HRS PRN NEB SHORTNESS OF BREATH; Start 11/27/16 at 16:15 Aspirin (Ecotrin) 81 mg DAILY PO Last administered on 12/01/16 08:49; Start 11/28/16 at 09:00 Cetirizine HCl (ZyrTEC) 10 mg DAILY PO Last administered on 12/01/16 08:49; Start 11/28/16 at 09:00 Pantoprazole Sodium (Protonix) 40 mg DAILYAC PO Last administered on 12/01/16 06:28; Start 11/28/16 at 07:30 Non-Formulary Medication 1 inh BID IH ; Start 11/27/16 at 21:00; Status UNV Budesonide (Pulmicort) 0.5 mg RTBID NEB Last administered on 12/01/16 07:50; Start 11/27/16 at 20:00 Albuterol Sulfate (Ventolin Neb Soln) 2.5 mg RTQID NEB Last administered on 07:54; Start 11/27/16 at 20:00 Atorvastatin Calcium (Lipitor) 10 mg QHS PO Last administered on 11/30/16 20: 41; Start 11/27/16 at 21:00 Cyclobenzaprine HCl (Flexeril) 10 mg PRN Q8HRS PRN PO MUSCLE SPASMS Last administered on 12/01/16 06:28; Start 11/27/16 at 16:30 Info (Anti-Coagulation Monitoring By Pharmacy) 1 each PRN DAILY PRN MC SEE COMMENTS Last administered on 11/30/16 09:24; Start 11/27/16 at 19:30 Rivaroxaban (Xarelto) 15 mg DAILYWSUP PO Last administered on 11/27/16 21:24; Start 11/27/16 at 19:45; Stop 11/28/16 at 08:34; Status DC Insulin Aspart (NovoLOG) 0-9 UNITS TIDWMEALS SQ ; Start 11/28/16 at 12:00 Acetaminophen (Tylenol) 325 mg PRN Q6HRS PRN PO MILD PAIN / TEMP Last administered on 12/01/16 06:28; Start 11/28/16 at 08:30 Sodium Chloride 1,000 ml @ 100 mls/hr Q10H IV Last administered on 11/29/16 04:06; Start 11/28/16 at 09:00; Stop 11/29/16 at 10:37; Status DC Senna/Docusate Sodium (Senna Plus) 2 tab DAILY PO Last administered on 08:49; Start 11/28/16 at 09:00 Polyethylene Glycol (miraLAX PACKET) 17 gm DAILY PO Last administered on 08:50; Start 11/28/16 at 09:00 Sodium Polystyrene Sulfonate (Kayexalate) 15 gm 1X ONCE PO Last administered on 11/28/16 14:47; Start 11/28/16 at 09:00; Stop 11/28/16 at 09:01; Status DC Rivaroxaban (Xarelto) 20 mg DAILYWSUP PO Last administered on 11/30/16 17:22; Start 11/28/16 at 17:00 Ondansetron HCl (Zofran) 4 mg PRN Q6HRS PRN IV NAUSEA/VOMITING Last administered on 11/29/16 17:26; Start 11/29/16 at 09:30 Nystatin (Mycostatin) 1 molly BID TP Last administered on 12/01/16 08:53; Start 11/29/16 at 10:30 Sodium Chloride 1,000 ml @ 60 mls/hr [id number] IV Last administered on 21:18; Start 11/29/16 at 10:45; Stop 11/30/16 at 10:45; Status DC Amlodipine Besylate (Norvasc) 5 mg DAILY PO Last administered on 12/01/16 08: 49; Start 11/29/16 at 11:00 Gabapentin (Neurontin) 300 mg TID PO Last administered on 12/01/16 08:49; Start 11/30/16 at 11:00 Active Scripts Active [place] 5-325 Tablet (Acetaminophen/Hydrocodone Bitart) 1 Each Tablet 1-2 Tab PO Q4-6HRS Cyclobenzaprine Hcl 10 Mg Tablet 1 Tab PO TID Reported Combivent Respimat Inhal (Ipratropium/Albuterol Sulfate) 4 Gm Aer.w.adap 2 Inh IH QID Zyrtec (Cetirizine Hcl) 10 Mg Tablet 1 Tab PO DAILY Lisinopril 20 Mg Tablet 1 Tab PO DAILY Tramadol Hcl 50 Mg Tablet 50 Mg PO Q6H PRN Aspir 81 (Aspirin) 81 Mg Tablet.dr 1 Tab PO DAILY Albuterol Sulfate Neb Soln (Albuterol Sulfate) 2.5 Mg/3 Ml Vial.neb 2.5 Mg NEB Q4HRS PRN Xarelto (Rivaroxaban) 10 Mg Tablet 20 Mg PO QHS Advair 500-50 Diskus (Fluticasone/Salmeterol) 1 Each Disk.w.dev 1 Inh IH BID Metformin Hcl Er (Metformin Hcl) 500 Mg Tab.er.24h 500 Mg PO DAILYWBKFT Potassium Chloride 20 Meq Tab.er.prt 20 Meq PO DAILY Lovastatin 20 Mg Tablet 20 PO QHS Pantoprazole Sodium 40 Mg Tablet.dr 40 Mg PO DAILYAC Toprol Xl (Metoprolol Succinate) 50 Mg Tab.er.24h 50 Mg PO QHS Gabapentin 300 Mg Capsule 300 Mg PO BID Furosemide 80 Mg Tablet 80 Mg PO DAILY Vitals/I & O Vital Sign - Last 24 Hours 11/30/16 11/30/16 11/30/16 11/30/16 11:46 14:57 15:54 18:31 Temp 98.7 98.7 Pulse 72 Resp 20 B/P (MAP) 171/82 (111) Pulse Ox 93 O2 Delivery Room Air Room Air Room Air Nasal Cannula O2 Flow Rate 1.0 11/30/16 11/30/16 11/30/16 11/30/16 19:00 19:56 19:57 20:00 Temp 97.7 97.7 Pulse 73 Resp 18 B/P (MAP) 118/59 (78) Pulse Ox 91 99 99 O2 Delivery Room Air Room Air Room Air Room Air 11/30/16 12/01/16 12/01/16 12/01/16 23:00 01:15 03:00 03:27 Temp 98.4 98.1 98.4 98.1 Pulse 68 71 Resp 18 18 B/P (MAP) 153/70 (97) 154/74 (100) Pulse Ox 98 99 O2 Delivery BiPAP/CPAP BiPAP/CPAP BiPAP/CPAP BiPAP/CPAP 12/01/16 12/01/16 12/01/16 12/01/16 07:00 07:50 07:54 08:00 Temp 97.9 97.9 Pulse 61 Resp 20 B/P (MAP) 155/63 (93) Pulse Ox 98 98 98 O2 Delivery Room Air Room Air Room Air Room Air 12/01/16 12/01/16 12/01/16 12/01/16 08:49 08:55 09:55 10:40 Temp 97.5 97.5 Pulse 74 65 Resp 18 18 20 B/P (MAP) 155/63 134/62 (86) Pulse Ox 96 O2 Delivery Room Air Room Air Room Air SUJIT SAUNDERS MD Dec 01, 2016 11:43
--- NOTE | 2016-12-01 12:04 | PDOC ---
Provider Note Provider Note discharge summary dictated # [id number] SUJIT SAUNDERS MD Dec 01, 2016 12:04
--- NOTE | 2016-12-01 12:07 | DISCH ---
DISCHARGE INSTRUCTIONS Condition on Discharge Condition on Discharge: Stable Activity After Discharge Activity Instructions for Disc: Resume previous activity Diet after Discharge Diet after Discharge: Diabetic No Calorie Level Contacting the DRFrancois after DC Call your doctor for: If your condition worsens Follow-Up Follow up with: her PCP next week SUJIT SAUNDERS MD Dec 01, 2016 12:06
[2016-12-01] MEDS ORDERED: RIVA10TA PO (12:12)
[2016-12-01] MEDS ORDERED: BUDE0.5A NEB (12:12)
[2016-12-01] MEDS ORDERED: SENN-22 PO (12:12)
[2016-12-01] MEDS ORDERED: HYDR-2758 PO (12:12)
[2016-12-01] MEDS ORDERED: GABA300C8 PO (12:12)
[2016-12-01] MEDS ORDERED: AMLO5TAB2 PO (12:12)
[2016-12-01] MEDS ORDERED: CYCL10TA2 PO (12:12)
[2016-12-01] MEDS ORDERED: POLY17PO3 PO (12:12)
[2016-12-01] MEDS ORDERED: ALBU2.5V5 NEB (12:12)
--- NOTE | 2016-12-01 12:16 | PDOC ---
PULMONARY PROGRESS NOTES Subjective pt feels better Vitals Vital Signs Date Time Temp Pulse Resp B/P (MAP) Pulse Ox O2 Delivery O2 Flow Rate FiO2 12/01/16 10:40 97.5 65 20 134/62 (86) 96 Room Air 97.5 11/30/16 18:31 1.0 ROS: No Chest Pain, No Abdominal Pain, No Increase Cough General: Alert Lungs: Clear Cardiovascular: S1, S2 Abdomen: Soft, Other (obese) Neuro Exam: Alert Extremities: Other (edema) Skin: Warm Labs Laboratory Tests Test 11/29/16 20:30 11/30/16 06:25 11/30/16 07:51 11/30/16 09:00 Glucose (Fingerstick) 103 mg/dL (70-99) 90 mg/dL (70-99) Sodium Level 137 mmol/L (136-145) Potassium Level 3.7 mmol/L (3.5-5.1) Chloride Level 101 mmol/L (98-107) Carbon Dioxide Level 28 mmol/L (21-32) Anion Gap 8 (6-14) Blood Urea Nitrogen 19 mg/dL (7-20) Creatinine 1.0 mg/dL (0.6-1.0) Estimated GFR (Cockcroft-Gault) 58.7 Glucose Level 91 mg/dL (70-99) Calcium Level 9.3 mg/dL (8.5-10.1) O2 Saturation 95 % (92-99) Arterial Blood pH 7.47 (7.35-7.45) Arterial Blood pCO2 at Patient Temp 33 mmHg (35-46) Arterial Blood pO2 at Patient Temp 70 mmHg (75-108) Arterial Blood HCO3 24 mmol/L (21-28) Arterial Blood Base Excess 1 mmol/L (-3-3) FiO2 21 Test 11/30/16 11:19 11/30/16 17:16 11/30/16 20:40 12/01/16 07:00 Glucose (Fingerstick) 78 mg/dL (70-99) 95 mg/dL (70-99) 114 mg/dL (70-99) Sodium Level 142 mmol/L (136-145) Potassium Level 3.6 mmol/L (3.5-5.1) Chloride Level 103 mmol/L (98-107) Carbon Dioxide Level 32 mmol/L (21-32) Anion Gap 7 (6-14) Blood Urea Nitrogen 12 mg/dL (7-20) Creatinine 1.0 mg/dL (0.6-1.0) Estimated GFR (Cockcroft-Gault) 58.7 Glucose Level 89 mg/dL (70-99) Calcium Level 9.4 mg/dL (8.5-10.1) Test 12/01/16 08:01 12/01/16 11:19 Glucose (Fingerstick) 78 mg/dL (70-99) 92 mg/dL (70-99) Laboratory Tests Test 11/30/16 17:16 11/30/16 20:40 12/01/16 07:00 12/01/16 08:01 Glucose (Fingerstick) 95 mg/dL (70-99) 114 mg/dL (70-99) 78 mg/dL (70-99) Sodium Level 142 mmol/L (136-145) Potassium Level 3.6 mmol/L (3.5-5.1) Chloride Level 103 mmol/L (98-107) Carbon Dioxide Level 32 mmol/L (21-32) Anion Gap 7 (6-14) Blood Urea Nitrogen 12 mg/dL (7-20) Creatinine 1.0 mg/dL (0.6-1.0) Estimated GFR (Cockcroft-Gault) 58.7 Glucose Level 89 mg/dL (70-99) Calcium Level 9.4 mg/dL (8.5-10.1) Test 12/01/16 11:19 Glucose (Fingerstick) 92 mg/dL (70-99) Medications Active Scripts Medications Dose Route/Sig Max Daily Dose Days Date Category [place] 5-325 Tablet (Acetaminophen/Hydrocodone Bitart) 1 Each Tablet 1-2 Tab PO Q4-6HRS 11/16/16 Rx Cyclobenzaprine Hcl 10 Mg Tablet 1 Tab PO TID 11/16/16 Rx Combivent Respimat Inhal (Ipratropium/Albuterol Sulfate) 4 Gm Aer.w.adap 2 Inh IH QID 10/07/16 Reported Zyrtec (Cetirizine Hcl) 10 Mg Tablet 1 Tab PO DAILY 10/07/16 Reported Lisinopril 20 Mg Tablet 1 Tab PO DAILY 10/07/16 Reported Tramadol Hcl 50 Mg Tablet 50 Mg PO Q6H PRN 8/11/17 Reported Aspir 81 (Aspirin) 81 Mg Tablet.dr 1 Tab PO DAILY 10/07/16 Reported Albuterol Sulfate Neb Soln (Albuterol Sulfate) 2.5 Mg/3 Ml Vial.neb 2.5 Mg NEB Q4HRS PRN 01/26/15 Reported Xarelto (Rivaroxaban) 10 Mg Tablet 20 Mg PO QHS 01/26/15 Reported Advair 500-50 Diskus (Fluticasone/Salmeterol) 1 Each Disk.w.dev 1 Inh IH BID 01/26/15 Reported Metformin Hcl Er (Metformin Hcl) 500 Mg Tab.er.24h 500 Mg PO DAILYWBKFT 01/26/15 Reported Potassium Chloride 20 Meq Tab.er.prt 20 Meq PO DAILY 01/26/15 Reported Lovastatin 20 Mg Tablet 20 PO QHS 01/26/15 Reported Pantoprazole Sodium 40 Mg Tablet.dr 40 Mg PO DAILYAC 01/26/15 Reported Toprol Xl (Metoprolol Succinate) 50 Mg Tab.er.24h 50 Mg PO QHS 01/26/15 Reported Gabapentin 300 Mg Capsule 300 Mg PO BID 01/26/15 Reported Furosemide 80 Mg Tablet 80 Mg PO DAILY 01/26/15 Reported Impression . 1. Seqal-yw-caofbes hypercapnic respiratory failure. resolved 2. Metabolic toxic encephalopathy. resolved 3. Obstructive sleep apnea.needs repeat SS as OP to re-qualify for new machine ( current machine 10 yrs old) 4. Acute kidney injury. 5. Hyperlipidemia. 6. Hyponatremia. 7. Urinary retention. 8. Morbid obesity. 9. L4-L5 disk herniation. Plan . WILL NEED A NEW SLEEP STUDY OP TO RE-QUALIFY FOR NEW MACHINE NO NEED FOR OXYGEN AT PRESENT PRN BIPAP WHILE IN HOSPITAL QHS BIPAP FOLLOW RENAL INPUT AVOID NARCOTICS PT TO NOTIFY PCP AND ARRANGE OP SS MIKAYLA HOWARD MD Dec 01, 2016 12:16
[2016-12-01] MEDS: ANTI-COAG MONITOR BY PHARMACY. MC PRN (12:18)
--- NOTE | 2016-12-01 12:49 | DS ---
DATE OF DISCHARGE: 12/01/2016 DATE OF ADMISSION: 11/27/2016 DATE OF DISCHARGE: 12/01/2016 CONSULTANTS: Dr. Avelar, Dr. Pandey, Dr. Robles, and Dr. Schaffer. FINAL DIAGNOSES: 1. Acute kidney injury secondary to inadequate fluid intake in the setting of taking furosemide. 2. Hyperkalemia secondary to acute kidney injury. 3. Hyponatremia. 4. Urine retention, which eventually resolved. 5. Metabolic encephalopathy. 6. Toxic encephalopathy. 7. Diabetes mellitus type 2. 8. Super morbid obesity with BMI of 67. 9. Chronic obstructive pulmonary disease. 10. Acute hypoxic and hypercapnic respiratory failure, resolved. 11. Obstructive sleep apnea suspected. 12. Paroxysmal atrial fibrillation, currently normal sinus rhythm. She takes Xarelto. 13. Hyperlipidemia. 14. Lumbar herniated disk at L4-L5 with left-sided lumbar radiculopathy and lumbar degenerative disk disease. 15. Hypertension. HOSPITAL COURSE: The patient is a 51-year-old white female with super morbid obesity with a BMI of 67 and has paroxysmal atrial fibrillation treated with Xarelto, diabetes mellitus type 2, hypertension, hyperlipidemia, chronic obstructive pulmonary disease and uses nocturnal oxygen at home 2 liters per nasal cannula, has a history of chronic low back pain that has been increasing the last 9 months and received several lumbar epidural injections recently, one 9 weeks ago and another one 3 weeks ago and another one less than a week ago. She was admitted to [facility] on 11/17/2016 with intractable low back pain, left sided lumbar radiculopathy and a CAT scan of the lumbar spine showed she had an L4-L5 herniated disk, seen by Neurosurgery who recommended surgery, but due to her morbid obesity and comorbidities, was not a good surgical candidate, so she received another lumbar epidural steroid injection. She was transferred and admitted to [facility] on 11/26/2016 for comprehensive therapy and water therapy. Her admitting labs returned with a BUN of 98 and creatinine of 2.86, sodium 129, potassium was 6.4. She received a dose of Kayexalate and she was sent back to the [facility] Emergency Room where she once again was admitted with acute kidney injury, with hyponatremia, hyperkalemia. She received IV fluids. Her BUN and creatinine eventually normalized, hyperkalemia and hyponatremia also normalized. She had urinary retention and had a Aleman catheter placed with 1.4 liters of urine drained from her bladder. While she was here, the catheter was removed and she was voiding quite well. Her chest x-ray was unremarkable. She had a CAT scan of the head, which showed no acute abnormality. An arterial blood gas on admission showed a pH of 7.34, pCO2 of 60, pO2 of 95 on FIO2 of 36%. She was placed on BiPAP. She was seen by Dr. Pandey for nephrology, Dr. Schaffer and Dr. Robles for Pulmonary and Dr. Avelar for physical rehabilitation. The patient was treated with BiPAP initially with acute hypoxic and hypercapnic respiratory failure. Eventually, her oxygen level was okay and she was off of oxygen and off the BiPAP. It was suspected that she had obstructive sleep apnea. Her Xarelto eventually was resumed and increased to a maintenance dose of 20 mg every day as her renal failure improved. Her metabolic encephalopathy and toxic encephalopathy thought to be secondary to narcotics were all resolved. Her mental status back to baseline is fine. She was told to take ____ cyclobenzaprine and hydrocodone that she was receiving at this hospital occasionally and she has been doing that. She received physical and occupational therapy and Dr. Avelar felt she can be returned home with home health and physical and occupational therapy. DISCHARGE DISPOSITION: She therefore will be dismissed today to home and follow with primary care doctor next week and have an outpatient sleep study scheduled. DISCHARGE MEDICATIONS: She will be dismissed on Tylenol 325 mg every 6 hours p.r.n., albuterol nebulizer treatments q.i.d., aspirin 81 mg everyday, atorvastatin 10 mg at bedtime, budesonide nebulizer treatments b.i.d., Zyrtec 10 mg every day, cyclobenzaprine 10 mg every 8 hours p.r.n. to use sparingly, #30 tablets, no refill; gabapentin 300 mg t.i.d. for neuropathic pain in her left leg, and also dismissed on hydrocodone 5/325 one q.6h. p.r.n., #30 tablets, no refill, once again to use sparingly. Her blood sugars were under good control with diet alone. She will be dismissed on Protonix 40 mg every day, MiraLax 17 grams daily and Senokot-S 2 tablets daily all nepl-edc-aaawhim, also dismissed on Xarelto 20 mg every day and Amlodipine 5 mg every day. DISCHARGE INSTRUCTIONS: She will follow up with her primary care doctor next week and will be dismissed to home with home health with physical and occupational therapy and have an outpatient sleep study for suspected obstructive sleep apnea. She was told to drink adequate amounts of fluid and she is off her furosemide and metformin. SUJIT SAUNDERS MD DR: KAMERON/jolene JOB#: [id number] / [id number]
[2016-12-01 15:00] VITALS: BP 131/69
[2016-12-01] MEDS: RIVAROXABAN 10 MG TABLET. PO SCH (17:21)
== END 2016-12-01 17:45 | disposition home health service (06) | DRG 682 ==
LOC: ER 12:48 → 5 NORTH 14:06 → 2 NORTH 19:48 → 5 NORTH 11-30 16:05
PROVIDERS: ADMIT Internal Medicine; ATTEND Internal Medicine
PROC: 5A09457 Assistance with Respiratory Ventilation, 24-96 Consecutive Hours, Continuous Positive Airway Pressure (ICD-10-PCS; principal; 2016-11-27)
DX: N17.9 Acute kidney failure, unspecified (principal); G92 Toxic encephalopathy; J96.21 Acute and chronic respiratory failure with hypoxia; E11.42 Type 2 diabetes mellitus with diabetic polyneuropathy; E86.0 Dehydration; I10 Essential (primary) hypertension; I48.0 Paroxysmal atrial fibrillation; J96.22 Acute and chronic respiratory failure with hypercapnia; E87.1 Hypo-osmolality and hyponatremia; Z68.44 Body mass index [BMI] 60.0-69.9, adult; D72.829 Elevated white blood cell count, unspecified; E66.01 Morbid (severe) obesity due to excess calories; E78.5 Hyperlipidemia, unspecified; E87.5 Hyperkalemia; G47.33 Obstructive sleep apnea (adult) (pediatric); G89.29 Other chronic pain; J44.9 Chronic obstructive pulmonary disease, unspecified; M47.26 Other spondylosis with radiculopathy, lumbar region; M51.16 Intervertebral disc disorders with radiculopathy, lumbar region; Z90.710 Acquired absence of both cervix and uterus; Z99.81 Dependence on supplemental oxygen; F41.9 Anxiety disorder, unspecified; M19.90 Unspecified osteoarthritis, unspecified site; Z88.2 Allergy status to sulfonamides; Z88.8 Allergy status to other drugs, medicaments and biological substances
CPT/HCPCS: 36415; 36600; 51701; 70450; 71010; 76770; 80048; 80053; 81001; 82550; 82805; 82962; 83690; 83735; 83880; 84443; 84484; 85007; 85025; 85610; 85730; 87086; 87641; 93005; 94250; 94640; 94660; 94760; 96361; 96374; 96375; J2405; J7030; J7613; J7626; 97110; 97116; 97530; 97535; 99285-25

== ENCOUNTER → 2017-11-20 | Outpatient (CLI) | payer OTHER ==
[~2017-11-20] MED LIST changes: -AMLO10TA2 PO; +AMLO10TA6 PO; +AMLO5TAB7 PO; +BUDE0.5A NEB; +GABA300C8 PO; +HYDR-2758 PO; +POLY17PO3 PO; +SENN-22 PO
--- NOTE | 2017-11-20 10:38 | RAD ---
DATE: 11/20/2017 EXAM: DIGITAL SCREEN BILAT W/CAD HISTORY: Routine screening COMPARISON: 06/09/2012 This study was interpreted with the benefit of Computerized Aided Detection (CAD). Breast Density: SCATTERED The breast parenchyma shows scattered fibroglandular densities. Breast parenchyma level B. FINDINGS: Patient positioning was suboptimal due to extreme patient tenderness. There is a pacemaker generator projected over the left axillary region. No new or enlarging breast densities are seen. Benign type calcifications are present. No suspicious microcalcifications are evident. IMPRESSION: There is no mammographic evidence of malignancy in either breast. BI-RADS CATEGORY: 2 BENIGN FINDING(S) RECOMMENDED FOLLOW-UP: 12M 12 MONTH FOLLOW-UP PQRS compliance statement: Patient information was entered into a reminder system with a target due date for the next mammogram. Mammography is a sensitive method for finding small breast cancers, but it does not detect them all and is not a substitute for careful clinical examination. A negative mammogram does not negate a clinically suspicious finding and should not result in delay in biopsying a clinically suspicious abnormality. "Our facility is accredited by the [employer] Mammography [employer]."
== END | disposition home or self-care (01) ==
LOC: MAMMO 09:24
PROVIDERS: ATTEND Family Medicine
DX: Z12.31 Encounter for screening mammogram for malignant neoplasm of breast (principal); E78.5 Hyperlipidemia, unspecified; E78.00 Pure hypercholesterolemia, unspecified; I13.2 Hypertensive heart and chronic kidney disease with heart failure and with stage 5 chronic kidney disease, or end stage renal disease; E11.22 Type 2 diabetes mellitus with diabetic chronic kidney disease; I50.9 Heart failure, unspecified; N18.6 End stage renal disease; G47.33 Obstructive sleep apnea (adult) (pediatric); Z95.0 Presence of cardiac pacemaker; Z86.79 Personal history of other diseases of the circulatory system; Z87.828 Personal history of other (healed) physical injury and trauma; Z87.891 Personal history of nicotine dependence; Z86.39 Personal history of other endocrine, nutritional and metabolic disease; Z90.710 Acquired absence of both cervix and uterus
CPT/HCPCS: 77067

== ENCOUNTER → 2018-03-16 | Outpatient (CLI) | payer OTHER ==
[~2018-03-16] MED LIST changes: -GABA-586 PO; +GABA300C18 PO; -GABA300C8 PO; -HYDR-2758 PO; +HYDR-2761 PO; +HYDR-3164 PO; -HYDR-971 PO; +PERFLUTREN PROTEIN-A MICROSPHR 0.22 MG/ML 3 ML VIAL. IV ONE; +PERFLUTREN PROTEIN-A MICROSPHR 0.22 MG/ML 3 ML VIAL. IV PRN; +POLY17PO28 PO; -POLY17PO3 PO
--- NOTE | 2018-03-16 14:29 | CARD ---
MR#: [id number] Date of Study: 03/16/2018 Ordering Physician: NINA SALGADO, Referring Physician: NINA SALGADO, Tech: Cristal Veloz JOI APPROVED REPORT EXAM: Two-dimensional and M-mode echocardiogram with Doppler and color Doppler. Other Information Quality : Technically LimitedHR: 80bpm Rhythm : NSRTechnically limited study due to body habitus. INDICATION Atrial Fibrillation Echo Enhancing Agent Indication: Endocardial border delineation Agent/Amount Used: Optison 1mL 2D DIMENSIONS RVDd2.8 (2.9-3.5cm)Left Atrium(2D)4.0 (1.6-4.0cm) IVSd1.2 (0.7-1.1cm)Aortic Root(2D)3.5 (2.0-3.7cm) LVDd4.7 (3.9-5.9cm)LVOT Diameter2.5 (1.8-2.4cm) PWd1.1 (0.7-1.1cm)LVDs3.1 (2.5-4.0cm) FS (%) 35.3 %SV67.5 ml LVEF(%)64.6 (>50%) M-Mode DIMENSIONS Left Atrium(MM)3.15 (2.5-4.0cm)IVSd1.11 (0.7-1.1cm) Aortic Root3.58 (2.2-3.7cm)LVDd5.45 (4.0-5.6cm) PWd0.83 (0.7-1.1cm)FS (%) 36 % LVDs3.51 (2.0-3.8cm)ESV(Teich)51.1 ml LVEF(%)65 (>50%) Aortic Valve AoV Peak Gianni.179.3cm/sAoV VTI36.6cm AO Peak GR.12.9mmHgLVOT Peak Gianni.120.5cm/s AO Mean GR.6mmHgAVA (VMAX)3.36cm2 ORLIN (VTI)3.10cm2 Mitral Valve MV E Wtnhiffq42.9cm/sMV E Peak Gr.7mmHg MV DECEL [id number] A Lweyjfda21.9cm/s MV E Mean Gr.2mmHgE/A Ratio1.2 MV A [id number] Pulmonary Valve PV Peak Tupspgfn21.1cm/s LEFT VENTRICLE The left ventricle is normal size. There is mild concentric left ventricular hypertrophy. The left ve ntricular systolic function is normal. The Ejection Fraction is 60-65%. There is normal LV segmental wall motion. Transmitral Doppler flow pattern is Grade II-pseudonormal filling dynamics. RIGHT VENTRICLE The right ventricle is not well visualized. The right ventricular systolic function is normal. ATRIA The left atrium is mildly dilated. The right atrium size is normal. The interatrial septum is intact with no evidence for an atrial septal defect or patent foramen ovale as noted on 2-D or Doppler imagi ng. AORTIC VALVE The aortic valve is probably trileaflet. The aortic valve is not well visualized. Doppler and Color F low revealed no significant aortic regurgitation. There is no significant aortic valvular stenosis. MITRAL VALVE Mitral annular calcification is mild. There is no evidence of mitral valve prolapse. There is no mitr al valve stenosis. Doppler and Color Flow revealed no significant mitral valve regurgitation noted. TRICUSPID VALVE Tricuspid valve not well visualized. Doppler and Color Flow revealed no tricuspid valve regurgitation noted. There is no tricuspid valve prolapse or vegetation. PULMONIC VALVE Pulmonic valve not well visualized. GREAT VESSELS The aortic root is normal in size. The ascending aorta is normal in size. PERICARDIAL EFFUSION There is no evidence of significant pericardial effusion. Critical Notification Critical Value: No <Conclusion> The left ventricular systolic function is normal. The Ejection Fraction is 60-65%. There is normal LV segmental wall motion. Transmitral Doppler flow pattern is Grade II-pseudonormal filling dynamics. The left atrium is mildly dilated. No significant valvular abnormalities. There is no evidence of significant pericardial effusion. Signed by : David Finley, Electronically Approved : 03/16/2018 14:27:20
== END | disposition home or self-care (01) ==
LOC: ECHO 12:45
PROVIDERS: ATTEND Internal Medicine Cardiovascular Disease
DX: I48.91 Unspecified atrial fibrillation (principal); I51.7 Cardiomegaly; I34.8 Other nonrheumatic mitral valve disorders
CPT/HCPCS: C8929; Q9956

== ENCOUNTER → 2020-05-16 | Outpatient (CLI) | payer OTHER ==
[~2020-05-16] MED LIST changes: +AMLO-186 PO; +AMLO-187 PO; -AMLO10TA6 PO; -AMLO5TAB7 PO; -CETI10TA22 PO; +CETI10TA74 PO; -HYDR50TA6 PO; +HYDR50TA9 PO; -LISI-334 PO; +LISI20TA18 PO; +METF-658 PO; -METF500T9 PO; -PANT40TA5 PO; +PANT40TA77 PO; -PERFLUTREN PROTEIN-A MICROSPHR 0.22 MG/ML 3 ML VIAL. IV ONE; -PERFLUTREN PROTEIN-A MICROSPHR 0.22 MG/ML 3 ML VIAL. IV PRN; -POLY17PO28 PO; +POLY17PO52 PO
--- NOTE | 2020-05-19 10:02 | RAD ---
DATE: 05/16/2020 9:19 AM EXAM: DIGITAL SCREEN BILAT W/CAD HISTORY: Screening . Patient is wheelchair-bound and had bilateral breast tenderness especially in the region of her left pacemaker. COMPARISON: 11/20/2017 Bilateral CC and MLO views of the breasts were performed. Bilateral breast tomosynthesis was performed in CC and MLO projections. This study was interpreted with the benefit of Computerized Aided Detection (CAD). FINDINGS: Breast Density: FATTY The Breast Parenchyma is primarily fatty replaced. Breast parenchyma level density A. No suspicious masses, microcalcifications or architectural distortion is present to suggest malignancy in either breast. The visualized axillae are unremarkable. IMPRESSION: No mammographic evidence of malignancy. BI-RADS CATEGORY: 1 NEGATIVE RECOMMENDED FOLLOW-UP: 12M 12 MONTH FOLLOW-UP Annual screening mammography is recommended, unless clinically indicated sooner based on symptoms or change in physical exam. PQRS compliance statement: Patient information was entered into a reminder system with a target due date for the next mammogram. Mammography is a sensitive method for finding small breast cancers, but it does not detect them all and is not a substitute for careful clinical examination. A negative mammogram does not negate a clinically suspicious finding and should not result in delay in biopsying a clinically suspicious abnormality. "Our facility is accredited by the [employer] Mammography Program."
== END ==
LOC: MAMMO 09:13
PROVIDERS: ATTEND Family Medicine
DX: Z12.31 Encounter for screening mammogram for malignant neoplasm of breast (principal)
CPT/HCPCS: 77067

== ENCOUNTER → 2020-09-08 | Outpatient (CLI) | payer OTHER ==
[2020-09-08 12:10] LABS: ALBUMIN 3.5 g/dL (3.4-5.0); DIRECT BILIRUBIN 0.2 mg/dL (0.0-0.2); TOTAL BILIRUBIN 0.7 mg/dL (0.2-1.0); TOTAL PROTEIN 7.3 g/dL (6.4-8.2)
[2020-09-08 12:19] LABS: FREE T4 1.12 ng/dL (0.76-1.46); THYROID STIM HORMONE (TSH) 1.668 uIU/mL (0.358-3.74)
== END ==
LOC: LAB 11:24
PROVIDERS: ATTEND Internal Medicine Cardiovascular Disease
DX: Z79.899 Other long term (current) drug therapy (principal)
CPT/HCPCS: 36415; 80076; 84439; 84443